=== PATIENT | female | born 1980 | race Caucasian/White ===

== ENCOUNTER → 2021-05-24 14:32 | Outpatient (CLI) | payer OTHER, SELFPAY ==
[2021-05-24 15:34] LABS: ALB/GLOB Ratio 1.1 RATIO (0.9-2.4); AST(SGOT) 22 U/L (15-37); Alanine Aminotransfer ALT/SGPT 21 U/L (13-56); Albumin, Serum 3.6 g/dL (3.2-5.0); Alkaline Phosphatase 71 U/L (45-117); Anion Gap 3 (5-15); BUN 11 mg/dL (7-18); BUN/Creat Ratio 15.4 RATIO (10-20); Calcium,Total 8.8 mg/dL (8.5-10.1); Chloride 107 mmol/L (98-107); Cholesterol 207 mg/dL (200); Creatinine, Serum 0.71 mg/dL (0.55-1.02); EST Glomerular Filtration Rate 96 mL/min (>60); Est Glom Filt Rate - Afr Amer 116 mL/min (>60); Globulin 3.2 g/dL (2.2-4.2); Glucose 101 mg/dL (74-106); High Density Lipoprotein 92 mg/dL; Potassium 3.7 mmol/L (3.5-5.1); Protein, Total 6.8 g/dL (6.4-8.2); Sodium Level 141 mmol/L (136-145); T4 Free Direct 0.84 ng/dL (0.76-1.46); Thyroid Stim Hormone (TSH) 0.81 uIU/mL (0.358-3.74); Triglycerides 157 mg/dL; Very Low Density Lipoprotein 31 mg/dL (5-40)
[2021-05-24 15:39] LABS: Absolute Lymphocyte Count 1.67 X10^3/uL (0.83-4.51); Absolute Neutrophil Count 2.4 X10^3/uL (2.0-7.7); Basophil# 0.04 X10^3/uL; Basophil% 0.9 % (0-1); Eosinophil# 0.09 X10^3/uL; Hematocrit 39.1 % (37-47); Hemoglobin 12.8 g/dL (12.0-15.0); Lymphocyte # 1.67 X10^3/ul (0.83-4.51); Lymphocyte % 36.3 % (19-41); Mean Corp Hgb Conc 32.7 g/dL (32-36); Mean Corpuscular Hgb 30.9 pg (27.0-32.0); Mean Corpuscular Volume 94.4 fL (81-99); Mean Platelet Vol. 9.3 fl (6.2-12.0); Monocyte# 0.41 X10^3/uL; Monocyte% 8.9 % (0-10); NRBC Flagged by Analyzer 0 % (0-5); Neutrophil # 2.39 X10^3/uL (2.7-7.7); Neutrophil % 51.9 % (47-70); Platelet Count 323 K/mm3 (150-450); RBC Distribution Width CV 11.9 % (11.6-14.6); RBC Distribution Width SD 41.1 fl (35.1-43.9); Red Blood Count 4.14 M/mm3 (4.2-5.4); White Blood Count 4.6 K/mm3 (4.4-11.0)
== END ==
PROVIDERS: PCP Internal Medicine; Referring Provider Internal Medicine; Visit Provider Internal Medicine
DX: I10 Essential (primary) hypertension (principal)
CPT/HCPCS: 36415; 80053; 80061; 84439; 84443; 85025

== ENCOUNTER → 2021-05-25 13:38 | Outpatient (CLI) | payer OTHER, SELFPAY ==
--- NOTE | 2021-05-25 13:44 | EKG12_ITS ---
Test Reason : HTN Blood Pressure : / mmHG Vent. Rate : 058 BPM Atrial Rate : 058 BPM P-R Int : 136 ms QRS Dur : 088 ms QT Int : 438 ms P-R-T Axes : 018 -02 -06 degrees QTc Int : 429 ms Sinus bradycardia Otherwise normal ECG Confirmed by CHRISTIE GUERRERO, TOBY ([id number]), scientific editor GURINDER BARLOW ([id number]) on 05/26/2021 9:36:24 AM Referred By: Mindy Araujo Confirmed By:TOBY SORIANO MD
== END ==
PROVIDERS: PCP Internal Medicine; Referring Provider Internal Medicine; Visit Provider Internal Medicine
DX: I10 Essential (primary) hypertension (principal)
CPT/HCPCS: 93005

== ENCOUNTER 2021-07-30 08:43 | Outpatient (CLI) | payer OTHER, SELFPAY ==
[2021-07-30 10:09] LABS: Anion Gap 2 (5-15); BUN 11 mg/dL (7-18); BUN/Creat Ratio 17.3 RATIO (10-20); Calcium,Total 9.1 mg/dL (8.5-10.1); Chloride 103 mmol/L (98-107); Creatinine, Serum 0.64 mg/dL (0.55-1.02); EST Glomerular Filtration Rate 109 mL/min (>60); Est Glom Filt Rate - Afr Amer 132 mL/min (>60); Glucose 86 mg/dL (74-106); Potassium 4.2 mmol/L (3.5-5.1); Sodium Level 137 mmol/L (136-145)
== END 2021-07-30 23:59 | disposition home or self-care (01) ==
PROVIDERS: PCP Internal Medicine; Referring Provider Internal Medicine; Visit Provider Internal Medicine
DX: I10 Essential (primary) hypertension (principal)
CPT/HCPCS: 36415; 80048

== ENCOUNTER → 2022-10-25 | Outpatient (CLI) | payer OTHER, SELFPAY ==
[2022-10-25 12:26] LABS: Absolute Lymphocyte Count 1.33 X10^3/uL (0.83-4.51); Absolute Neutrophil Count 4.5 X10^3/uL (2.0-7.7); Basophil# 0.05 X10^3/uL; Basophil% 0.8 % (0-1); Eosinophil# 0.02 X10^3/uL; Eosinophils% 0.3 % (0-5); Hematocrit 41.2 % (37-47); Hemoglobin 13.4 g/dL (12.0-15.0); Lymphocyte # 1.33 X10^3/ul (0.83-4.51); Mean Corp Hgb Conc 32.5 g/dL (32-36); Mean Corpuscular Hgb 30.1 pg (27.0-32.0); Mean Corpuscular Volume 92.6 fL (81-99); Mean Platelet Vol. 9.6 fl (6.2-12.0); Monocyte# 0.41 X10^3/uL; Monocyte% 6.5 % (0-10); NRBC Flagged by Analyzer 0 % (0-5); Neutrophil % 71.1 % (47-70); Platelet Count 364 K/mm3 (150-450); RBC Distribution Width SD 47.5 fl (35.1-43.9); Red Blood Count 4.45 M/mm3 (4.2-5.4); White Blood Count 6.3 K/mm3 (4.4-11.0)
[2022-10-25 13:06] LABS: ALB/GLOB Ratio 0.9 RATIO (0.9-2.4); AST(SGOT) 32 U/L (15-37); Alanine Aminotransfer ALT/SGPT 19 U/L (13-56); Albumin, Serum 3.4 g/dL (3.2-5.0); Alkaline Phosphatase 53 U/L (45-117); Anion Gap 6 (5-15); BUN 11 mg/dL (7-18); BUN/Creat Ratio 12.5 RATIO (10-20); Calcium,Total 8.9 mg/dL (8.5-10.1); Chloride 103 mmol/L (98-107); Cholesterol 214 mg/dL (200); Creatinine, Serum 0.88 mg/dL (0.55-1.02); EST Glomerular Filtration Rate 75 mL/min (>60); Est Glom Filt Rate - Afr Amer 90 mL/min (>60); Globulin 3.7 g/dL (2.2-4.2); Glucose 135 mg/dL (74-106); High Density Lipoprotein 130 mg/dL; Protein, Total 7.1 g/dL (6.4-8.2); Sodium Level 135 mmol/L (136-145); Thyroid Stim Hormone (TSH) 0.92 uIU/mL (0.358-3.74); Triglycerides 76 mg/dL; Very Low Density Lipoprotein 15 mg/dL (5-40)
== END | disposition home or self-care (01) ==
LOC: BIMLAB 11:04
PROVIDERS: PCP Internal Medicine; Referring Provider Nurse Practitioner Family; Visit Provider Nurse Practitioner Family
DX: I10 Essential (primary) hypertension (principal); Z76.89 Persons encountering health services in other specified circumstances; R73.09 Other abnormal glucose
CPT/HCPCS: 36415; 80053; 80061; 83036; 84443; 85025

== ENCOUNTER → 2023-03-01 | Outpatient (CLI) | payer OTHER, SELFPAY ==
[2023-03-01 13:26] LABS: Anion Gap 8 (5-15); BUN 14 mg/dL (7-18); BUN/Creat Ratio 15.1 RATIO (10-20); Calcium,Total 9.4 mg/dL (8.5-10.1); Chloride 105 mmol/L (98-107); Creatinine, Serum 0.93 mg/dL (0.55-1.02); EST Glomerular Filtration Rate 70 mL/min (>60); Est Glom Filt Rate - Afr Amer 85 mL/min (>60); Glucose 101 mg/dL (74-106); Magnesium 2.3 mg/dL (1.6-2.6); Potassium 3.8 mmol/L (3.5-5.1); Sodium Level 139 mmol/L (136-145)
== END | disposition home or self-care (01) ==
LOC: BIMLAB 08:41
PROVIDERS: PCP Internal Medicine; Referring Provider Internal Medicine; Visit Provider Internal Medicine
DX: I10 Essential (primary) hypertension (principal)
CPT/HCPCS: 36415; 80048; 83735

== ENCOUNTER → 2023-03-22 | Outpatient (CLI) | payer OTHER, SELFPAY | END | disposition home or self-care (01) | PROVIDERS: PCP Internal Medicine; Referring Provider Physician Assistant Surgical; Visit Provider Physician Assistant Surgical | DX: R30.0 Dysuria (principal) | CPT/HCPCS: 87077; 87086; 87088; 87186 ==

== ENCOUNTER → 2024-02-14 | Outpatient (CLI) | payer OTHER, SELFPAY ==
[2024-02-14 12:17] LABS: Absolute Lymphocyte Count 1.33 X10^3/uL (0.83-4.51); Absolute Neutrophil Count 4.8 X10^3/uL (2.0-7.7); Basophil# 0.04 X10^3/uL; Basophil% 0.6 % (0-1); Eosinophil# 0.02 X10^3/uL; Eosinophils% 0.3 % (0-5); Hematocrit 39.6 % (37-47); Hemoglobin 13.3 g/dL (12.0-15.0); Lymphocyte # 1.33 X10^3/ul (0.83-4.51); Lymphocyte % 19.9 % (19-41); Mean Corp Hgb Conc 33.6 g/dL (32-36); Mean Corpuscular Volume 95.2 fL (81-99); Mean Platelet Vol. 9.6 fl (6.2-12.0); Monocyte# 0.45 X10^3/uL; Monocyte% 6.7 % (0-10); NRBC Flagged by Analyzer 0 % (0-5); Neutrophil # 4.84 X10^3/uL (2.7-7.7); Neutrophil % 72.2 % (47-70); Platelet Count 346 K/mm3 (150-450); RBC Distribution Width CV 12.1 % (11.6-14.6); RBC Distribution Width SD 42.6 fl (35.1-43.9); Red Blood Count 4.16 M/mm3 (4.2-5.4); White Blood Count 6.7 K/mm3 (4.4-11.0)
[2024-02-14 12:29] LABS: AST(SGOT) 22 U/L (15-37); Alanine Aminotransfer ALT/SGPT 19 U/L (13-56); Albumin, Serum 3.5 g/dL (3.2-5.0); Alkaline Phosphatase 52 U/L (45-117); Anion Gap 7 (5-15); BUN 12 mg/dL (7-18); BUN/Creat Ratio 15.2 RATIO (10-20); Calcium,Total 9.4 mg/dL (8.5-10.1); Chloride 101 mmol/L (98-107); Cholesterol 191 mg/dL (200); Creatinine, Serum 0.79 mg/dL (0.55-1.02); EST Glomerular Filtration Rate 84 mL/min (>60); Est Glom Filt Rate - Afr Amer 102 mL/min (>60); Globulin 3.5 g/dL (2.2-4.2); Glucose 103 mg/dL (74-106); High Density Lipoprotein 124 mg/dL; Potassium 4.2 mmol/L (3.5-5.1); Sodium Level 134 mmol/L (136-145); Triglycerides 66 mg/dL; Very Low Density Lipoprotein 13 mg/dL (5-40)
== END | disposition home or self-care (01) ==
LOC: BIMLAB 09:18
PROVIDERS: PCP Internal Medicine; Referring Provider Internal Medicine; Visit Provider Internal Medicine
DX: I10 Essential (primary) hypertension (principal)
CPT/HCPCS: 36415; 80053; 80061; 85025

== ENCOUNTER → 2024-07-11 | Outpatient (CLI) | payer OTHER, SELFPAY ==
[2024-07-11 17:25] LABS: Anion Gap 8 (5-15); BUN 15 mg/dL (7-18); BUN/Creat Ratio 20.2 RATIO (10-20); Calcium,Total 9.4 mg/dL (8.5-10.1); Chloride 99 mmol/L (98-107); Creatinine, Serum 0.74 mg/dL (0.55-1.02); EST Glomerular Filtration Rate 90 mL/min (>60); Est Glom Filt Rate - Afr Amer 109 mL/min (>60); Glucose 96 mg/dL (74-106); Potassium 3.5 mmol/L (3.5-5.1); Sodium Level 135 mmol/L (136-145)
== END | disposition home or self-care (01) ==
LOC: BIMLAB 16:19
PROVIDERS: PCP Internal Medicine; Referring Provider Internal Medicine; Visit Provider Internal Medicine
DX: I10 Essential (primary) hypertension (principal)
CPT/HCPCS: 36415; 80048

== ENCOUNTER → 2024-12-15 | Outpatient (CLI) | payer OTHER, SELFPAY ==
[2024-12-16 07:22] LABS: Mucous, Urine 0 SEEN /hpf (<or=2+)
--- OUTSIDE RECORDS SUMMARY | 2024-12-16 07:23 | XMS RPT_ITS | CCD ---
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 Mindy Harman Primary Care Provider [phone] Dr. Mindy Araujo Referring Provider [phone] Dayne BARRERA, SIMON Monzon Attending Provider [phone] Unavailable Primary Care Provider UnavailDr. Mindy Teran Primary Care Provider [phone] Dr. Mindy Araujo Attending Provider [phone] Dr. Mindy Araujo Referring Provider [phone] MAGGI Fernandez Attending Provider [phone] Unavailable Primary Care Provider UnavailMAKENZIE Grey Referring Unavailable MAKENZIE CLANCY Attending Unavailable Dr. Mindy Araujo MD Primary Care Provider Dr. Mindy Araujo MD Referring Provider [phone] Phong Whitaker Attending Provider [phone] Oleghe, Efewongbe Attending Unavailable Oleghe, Efewongbe Referring Unavailable Oleghe, Efewongbe Primary Care Unavailable Oleghe, Efewongbe Primary Care Unavailable Jame Martinez Attending Unavailable Oleghe, Efewongbe Referring Unavailable Oleghe, Efewongbe Attending Unavailable Oleghe, Efewongbe Referring Unavailable Oleghe, Efewongbe Primary Care Unavailable Phong Burger Attending Unavailable Oleghe, Efewongbe Referring Unavailable Oleghe, Efewongbe Primary Care Unavailable Oleghe, Efewongbe Primary Care Unavailable Oleghe, Efewongbe Attending Unavailable Oleghe, Efewongbe Referring Unavailable Lis Araujoongbe Primary Care Unavailable Van, Efceciliaongbe Attending Unavailable Van, Efceciliaongbe Referring Unavailable Self Schedule, [facility] Attending Provider Devi vailable Medications Current Medications Medication Drug Class(es) Dates Sig (Normalized) Sig (Original) Eladio Root Extract (2 sources) Start: 10-25-2022 take 1 mg by mouth at bedtime Ashpayamdha Root Extract Active MG PO AT BEDTIME October 25, 2022 12:00am cholecalciferol, vitamin D3, (VITAMIN D3 ORAL) (18 sources) cholecalciferol, vitamin D3, (VITAMIN D3 ORAL) Take by mouth. Active cholecalciferol, vitamin D3, (VITAMIN D3 ORAL) Take by mouth. 0 Active Comment on above: Take by mouth. drospirenone / Ethinyl Estradiol / levomefolate (20 sources) Progestin, Estrogen Start: 09-05-2024 take 1 tablet by mouth once daily drospirenone-e.estr adiol-lm.FA (BEYAZ) 3-0.02-0.451 mg (24) (4) tab Take 1 tablet by mouth once daily. for continuous use, skip inactive pills 112 tablet 3 09/05/2024 Active Start: 08-29-2024 End: 09-05-2024 take 1 tablet by mouth once daily drospirenone-e.estradiol-lm.FA (BEYAZ) 3-0.02-0.451 mg (24) (4) tab Take 1 tablet by mouth once daily. for continuous use, skip inactive pills 84 tablet 3 08/29/2024 09/05/2024 Discontinued Start: 08-29-2024 take 1 tablet by simon th once daily drospirenone-e.estradiol-lm.FA (BEYAZ) 3-0.02-0.451 mg (24) (4) tab Take 1 tablet by mouth once daily. for continuous use, skip inactive pills 84 tablet 3 08/29/2024 Active Start: 08-29-2024 End: 08-29-2024 take 1 tablet by mouth once daily drospirenone-e.estradiol-lm.FA (BEYAZ) 3-0.02-0.451 mg (24) (4) tab Take 1 tablet by mouth once daily for 28 days. for continuous use, skip inactive pills 28 tablet 08/29/2024 08/29/2024 Discontinued Start: 05-31-2024 End: 08-29-2024 take 1 tablet by mouth once daily drospirenone-e.estradiol-lm.FA (BEYAZ) 3-0.02-0.451 mg (24) (4) tab Take 1 tablet by mouth once daily. for continuous use, skip inactive pills 84 tablet 3 05/31/2024 08/29/2024 Discontinued Start: 05-31-2024 take 1 tablet by simon th once daily drospirenone-e.estradiol-lm.FA (BEYAZ) 3-0.02-0.451 mg (24) (4) tab Take 1 tablet by mouth once daily. for continuous use, skip inactive pills 84 tablet 3 05/31/2024 Active Start: 07-31-2023 End: 05-31-2024 drospirenone-e.estradiol-lm. FA (BEYAZ) 3-0.02-0.451 mg (24) (4) tab Take 1 tablet by mouth once daily. for continuous use, skip inactive pills Patient should start on July 31, 2023. 84 tablet 3 07/31/2023 05/31/2024 Discontinued Start: 07-31-2023 End: 07-11-2023 drospirenone-e.estradiol-lm. FA (BEYAZ) 3-0.02-0.451 mg (24) (4) tab Take 1 tablet by mouth once daily. for continuous use, skip inactive pills Patient should start on July 31, 2023. 84 tablet 3 07/31/2023 07/11/2023 Discontinued Start: 07-31-2023 drospirenone-e .estradiol-lm.FA (BEYAZ) 3-0.02-0.451 mg (24) (4) tab Take 1 tablet by mouth once daily. for continuous use, skip inactive pills Patient should start on July 31, 2023. 84 tablet 3 07/31/2023 Active Start: 07-10-2023 End: 08-27-2024 take 1 tablet by mouth once daily drospirenone-e.estradiol-lm.FA (BEYAZ) 3-0.02-0.451 mg (24) (4) tab Take 1 tablet by mouth once daily for 28 days. for continuous use, skip inactive pills 28 tablet 07/10/2023 08/27/2024 Discontinued Start: 07-10-2023 take 1 tablet by simon th once daily drospirenone-e.estradiol-lm.FA (BEYAZ) 3-0.02-0.451 mg (24) (4) tab Take 1 tablet by mouth once daily for 28 days. for continuous use, skip inactive pills 28 tablet 07/10/2023 Active Start: 07-10-2023 take 1 tablet by simon th once daily drospirenone-e.estradiol-lm.FA (BEYAZ) 3-0.02-0.451 mg (24) (4) tab Take 1 tablet by mouth once daily for 28 days. for continuous use, skip inactive pills 28 tablet 0 07/10/2023 Active Start: 07-10-2023 End: 08-07-2023 take 1 tablet by mouth once daily drospirenone-e.estradiol-lm.FA (BEYAZ) 3-0.02-0.451 mg (24) (4) tab Take 1 tablet by mouth once daily for 28 days. for continuous use, skip inactive pills 28 tablet 0 07/10/2023 08/07/2023 Active Start: 07-10-2023 End: 07-10-2023 take 1 tablet by mouth once daily drospirenone-e.estradiol-lm.FA (BEYAZ) 3-0.02-0.451 mg (24) (4) tab Take 1 tablet by mouth once daily. for continuous use, skip inactive pills 84 tablet 0 07/10/2023 07/10/2023 Discontinued Start: 07-04-2023 End: 07-10-2023 take 1 tablet by mouth once daily drospirenone-e.estradiol-lm.FA (BEYAZ) 3-0.02-0.451 mg (24) (4) tab Take 1 tablet by mouth once daily. for continuous use, skip inactive pills 84 tablet 0 07/04/2023 07/10/2023 Discontinued Start: 07-04-2023 take 1 tablet by simon th once daily drospirenone-e.estradiol-lm.FA (BEYAZ) 3-0.02-0.451 mg (24) (4) tab Take 1 tablet by mouth once daily. for continuous use, skip inactive pills 84 tablet 0 07/04/2023 Active Start: 07-04-2023 End: 07-04-2023 take 1 tablet by mouth once daily drospirenone-e.estradiol-lm.FA (BEYAZ) 3-0.02-0.451 mg (24) (4) tab Take 1 tablet by mouth once daily. for continuous use, skip inactive pills 84 tablet 0 07/04/2023 07/04/2023 Discontinued Start: 05-01-2023 End: 07-04-2023 take 1 tablet by mouth once daily drospirenone-e.estradiol-lm.FA (BEYAZ) 3-0.02-0.451 mg (24) (4) tab Take 1 tablet by mouth once daily. for continuous use, skip inactive pills 84 tablet 3 05/01/2023 07/04/2023 Discontinued Start: 05-01-2023 take 1 tablet by simon th once daily drospirenone-e.estradiol-lm.FA (BEYAZ) 3-0.02-0.451 mg (24) (4) tab Take 1 tablet by mouth once daily. for continuous use, skip inactive pills 84 tablet 3 05/01/2023 Active Start: 03-08-2023 End: 05-01-2023 take 1 tablet by mouth once daily drospirenone-e.estradiol-lm.FA (BEYAZ) 3-0.02-0.451 mg (24) (4) tab Take 1 tablet by mouth once daily. for continuous use, skip inactive pills 84 tablet 3 03/08/2023 05/01/2023 Discontinued Start: 03-08-2023 take 1 tablet by simon th once daily drospirenone-e.estradiol-lm.FA (BEYAZ) 3-0.02-0.451 mg (24) (4) tab Take 1 tablet by mouth once daily. for continuous use, skip inactive pills 84 tablet 3 03/08/2023 Active Start: 10-25-2022 End: 12-15-2024 Drospirenone-E.Estradiol-Lm. Fa (Beyaz) 3-0.02-0.451 mg (24) (4) tablet Discontinued 1 {tbl} PO DAILY October 25, 2022 12:00am December 15, 2024 8:20am Start: 10-25-2022 Drospirenone-E .Estradiol-Lm.Fa (Beyaz) 3-0.02-0.451 mg (24) (4) tablet Active 1 {tbl} PO DAILY October 25, 2022 12:00am Start: 10-25-2022 Drospirenone-E .Estradiol-Lm.Fa (Beyaz) 3-0.02-0.451 mg (24) (4) tablet Active 1 TABLET PO DAILY October 25, 2022 12:00am Start: 02-02-2022 End: 03-08-2023 take 1 tablet by mouth once daily drospirenone-e.estradiol-lm.FA (BEYAZ) 3-0.02-0.451 mg (24) (4) tab Take 1 tablet by mouth once daily. for continuous use, skip inactive pills 84 tablet 3 02/02/2022 03/08/2023 Discontinued Start: 02-02-2022 take 1 tablet by simon th once daily drospirenone-e.estradiol-lm.FA (BEYAZ) 3-0.02-0.451 mg (24) (4) tab Take 1 tablet by mouth once daily. for continuous use, skip inactive pills 84 tablet 3 02/02/2022 Active Start: 11-05-2021 End: 02-02-2022 take 1 tablet by mouth once daily drospirenone-e.estradiol-lm.FA (BEYAZ) 3-0.02-0.451 mg (24) (4) tab Take 1 tablet by mouth once daily. 84 tablet 1 11/05/2021 02/02/2022 Discontinued Start: 11-05-2021 take 1 tablet by simon th once daily drospirenone-e.estradiol-lm.FA (BEYAZ) 3-0.02-0.451 mg (24) (4) tab Take 1 tablet by mouth once daily. 84 tablet 1 11/05/2021 Active Start: 11-05-2021 End: 11-05-2021 take 1 tablet by mouth once daily drospirenone-e.estradiol-lm.FA (BEYAZ) 3-0.02-0.451 mg (24) (4) tab Take 1 tablet by mouth once daily. 28 tablet 2 11/05/2021 11/05/2021 Discontinued Comment on above: Take 1 tablet by simon th once daily. Take 1 tablet by simon th once daily. for continuous use, skip inactive pills Take 1 tablet by simon th once daily for 28 days. for continuous use, skip inactive pills Take 1 tablet by simon th once daily. for continuous use, skip inactive pills Patient should start on July 31, 2023. [id number] 0.3 ml EPINEPHrine 1 mg/ml auto-injector (13 sources) alpha-Adrenergic Agonist, beta-Adrenergic Agonist, Catecholamine Start: 03-24-2023 EPINEPHrine (EPIPEN) 0.3 mg/0.3 mL auto-injector 03/24/2023 Active Start: 03-24-2023 Epinephrine (E pipen 2-Priya) 0.3 mg/0.3 mL auto-injector Active 0.3 mg IM ONCE 2 2 March 24, 2023 12:00am as a single dose; may repeat once hydroCHLOROthiazide 25 mg / triamterene 37.5 mg oral tablet (20 sources) Potassium-sparing Diuretic, Thiazide Diuretic Start: 08-24-2021 triamterene-hydroCHLOROthiaz bruno (DYAZIDE) 37.5-25 mg per capsule 08/24/2021 Active Start: 07-15-2021 End: 11-18-2024 Triamterene-Hydrochlorothiaz id 37.5-25 mg tablet Active 1 {tbl} PO EVERY MORNING 90 0 November 18, 2024 7:40am Start: 07-15-2021 End: 11-01-2022 take 1 tablet by mouth once daily in the morning Triamterene-Hydrochlorothiazid Active 1 TABLET PO EVERY MORNING 90 November 01, 2022 12:23pm nitrofurantoin, macrocrystals 25 mg / nitrofurantoin, monohydrate 75 mg oral capsule (4 sources) Nitrofuran Antibacterial Start: 12-15-2024 take 1 capsule by mouth every twelve hours at mealtime Nitrofurantoin Monohyd/M-Cryst (Macrobid) 100 mg capsule Active 100 mg PO Q12H 14 7 0 December 15, 2024 12:00am December 21, 2024 12:00am must administer with a meal/food Start: 03-22-2023 End: 03-29-2023 take 1 capsule by mouth every twelve hours at mealtime Nitrofurantoin Monohyd/M-Cryst 100 mg capsule Discontinued 1 NMA PO Q12H 14 7 0 March 22, 2023 12:00am March 28, 2023 12:00am March 29, 2023 12:05am administer with a meal/food; swallow whole; do not open, crush, dissolve , or chew Completed/Discontinued Medications Medication Drug Class(es) Dates Sig (Normalized) Sig (Original) amLODIPine 5 mg oral tablet (20 sources) Dihydropyridine Calcium Channel Marcell Start: 11-23-2022 End: 08-27-2024 Amlodipine 5 mg tablet Discontinued 0 .ROUTE .COMPLEX 90 March 13, 2024 8:59am August 27, 2024 12:41pm TAKE 1 TABLET DAILY amoxicillin 875 mg / clavulanate 125 mg oral tablet (2 sources) Penicillin-class Antibacterial Start: 03-25-2024 End: 07-11-2024 Amoxicillin-Pot Clavulanate 875-125 mg tablet Discontinued 1 {tbl} PO TWICE A DAY 20 March 25, 2024 12:00am July 11, 2024 5:01pm Ashwagandha Root Extract 300 mg capsule (2 sources) Start: 10-25-2022 End: 02-14-2024 take 1 mg by mouth at bedtime Ashwagandha Root Extract 300 mg capsule Discontinued mg PO AT BEDTIME October 25, 2022 12:00am February 14, 2024 8:49am cholecalciferol 0.025 mg oral capsule (4 sources) Vitamin D Start: 10-25-2022 End: 12-15-2024 take 1 capsule by mouth once daily Cholecalciferol (Vitamin D3) 25 mcg (1,000 unit) capsule Discontinued 25 ug PO DAILY October 25, 2022 12:00am December 15, 2024 8:20am Ciprofloxacin Hcl 0.3 % drops (2 sources) Start: 11-16-2024 End: 12-15-2024 Ciprofloxacin Hcl 0.3 % drops Discontinued 0 OPHTHALMIC .COMPLEX 10 0 November 16, 2024 12:00am December 15, 2024 8:20am Conjunctivitis of right eye Unspecified conjunctivitis put 1-2 drps in affected eye(s) every 2hr up to 8 times/day x2days; then 4 times/day x5days ophthalmic (eye) Start: 11-16-2024 Ciprofloxacin Hcl 0.3 % drops Active 0 OPHTHALMIC .COMPLEX November 16, 2024 12:00am put 1-2 drps in affected eye(s) every 2hr up to 8 times/day x2days; then 4 times/day x5days ophthalmic (eye) Creatine Monohydrate 5,000 m g powder in packet (2 sources) Start: 02-14-2024 End: 12-15-2024 Creatine Monohydrate 5,000 m g powder in packet Discontinued mg PO February 14, 2024 12:00am December 15, 2024 8:20am less than 3 gm Start: 02-14-2024 Creatine Monoh ydrate 5,000 mg powder in packet Active mg PO February 14, 2024 12:00am less than 3 gm hydrocortisone 25 mg/ml topical cream (2 sources) Corticosteroid Start: 08-30-2023 End: 12-15-2024 Hydrocortisone 2.5 % cream Discontinued 1 NMA TOPICAL TWICE A DAY as needed for rash 27 06August 30, 2023 12:00am December 15, 2024 8:21am methylPREDNISolone 4 mg oral tablet (5 sources) Corticosteroid Start: 03-22-2023 End: 03-28-2023 take 1 tablet by mouth once Methylprednisolone (Medrol (Priya)) 4 mg tablets,dose pack Discontinued 4 mg PO per package directions 21 6 0 March 22, 2023 12:00am March 27, 2023 12:00am March 28, 2023 12:05am Start: 02-14-2021 End: 02-02-2022 methylPREDNISolone (MEDROL, PRIYA,) 4 mg Dose-Pack Indications: Fungal infection of skin , Dermatitis As instructed per package 1 Package 0 02/14/2021 02/02/2022 Discontinued (Other) Start: 02-14-2021 methylPREDNISo lone (MEDROL, PRIYA,) 4 mg Dose-Pack Indications: Fungal infection of skin , Dermatitis As instructed per package 1 Package 0 02/14/2021 Active Comment on above: As instructed per maggi ortiz miconazole nitrate 0.02 mg/mg topical powder (2 sources) Azole Antifungal Start: 08-30-19 End: 02-14-20 Miconazole Nitrate 2 % powder Discontinued 1 NMA TOPICAL TWICE A DAY 85 August 30, 2023 12:00am February 14, 2024 8:49am minoxidil 20 mg/ml topical solution (13 sources) Arteriolar Vasodilator Start: 04-05-20 End: 07-10-19 Minoxidil 2 % solution Discontinued 1 mL TOPICAL TWICE A DAY April 05, 2021 1:00am March 01, 2023 8:07am Comment on above: Apply to affected ar ea. naltrexone hydrochloride 50 mg oral tablet (3 sources) Opioid Antagonist Start: 03-01-20 End: 02-14-20 take 1 tablet by mouth once daily Naltrexone 50 mg tablet Discontinued 50 mg PO DAILY 90 March 01, 2023 12:00am February 14, 2024 8:49am Do not drink while on Naltrexone oregano oil 1500 mg oral capsule (20 sources) Start: 04-05-20 End: 02-14-20 take 1 capsule by mouth once daily as needed Oregano Oil 1,500 mg capsule Discontinued 1500 mg PO DAILY as needed May 31, 2023 12:16pm February 14, 2024 8:49am Start: 04-05-2021 Oregano Oil Ac tive MG PO April 05, 2021 1:00am Comment on above: Take by mouth. theanine 100 mg oral capsule (4 sources) Start: 10-25-2022 End: 02-14-2024 take 1 mg by mouth at bedtime Theanine 100 mg capsule Discontinued mg PO AT BEDTIME October 25, 2022 12:00am February 14, 2024 8:49am Start: 10-25-2022 take 1 mg by mouth at bedtime Theanine Active MG PO AT BEDTIME October 25, 2022 12:00am Problems Active Problems Problem Classification Problem Date Documented Date Episodic/Chronic Administrative/social admission (2 sources) First encounter by subject; Translations: [Persons encountering health services in other specified circumstances] 05-24-2021 Episodic Allergic reactions (2 sources) Inflammatory dermatosis; Translations: [Dermatitis, unspecified] 08-30-2023 Episodic Anxiety disorders (2 sources) Mixed anxiety and depressive disorder; Translations: [Anxiety disorder, unspecified] 08-30-2023 Chronic Cardiac dysrhythmias (4 sources) Cardiac arrhythmia; Translations: [Cardiac arrhythmia, unspecified] 05-24-2021 Chronic Essential hypertension (7 sources) Hypertensive disorder; Translations: [Essential (primary) hypertension] Onset: 07-24-2024 06-21-2021 Chronic Genitourinary symptoms and ill-defined conditions (4 sources) Dysuria; Translations: [Dysuria] 03-22-2023 Episodic Headache; including migraine (4 sources) Headache; Translations: [Headache] 04-05-2021 Episodic Heart valve disorders (4 sources) Heart murmur; Translations: [Cardiac murmur, unspecified] 04-05-2021 Episodic Immunizations and screening for infectious disease (4 sources) Requires vaccination; Translations: [Encounter for immunization] Episodic Inflammation; infection of eye (except that caused by tuberculosis or sexually transmitteddisease) (5 sources) Conjunctivitis of right eye; Translations: [Unspecified conjunctivitis] Onset: 11-16-2024 11-16-2024 Episodic Mycoses (4 sources) Tinea corporis; Translations: [Tinea corporis] 02-19-2021 Episodic Other lower respiratory disease (4 sources) Cough; Translations: [Cough] 04-05-2021 Episodic Other screening for suspected conditions (not mental disorders or infectious disease) (9 sources) Patient encounter status; Translations: [Encounter for screening mammogram for malignant neoplasm of breast] Onset: 08-21-2024 Episodic Other upper respiratory infections (2 sources) Upper respiratory infection; Translations: [Acute upper respiratory infection, unspecified] 07-11-2024 Episodic Poisoning by nonmedicinal substances (4 sources) Bee sting; Translations: [Toxic effect of venom of bees, accidental (unintentional), initial encounter] 03-22-2023 Episodic Residual codes; unclassified (2 sources) Alcoholism; Translations: [Alcohol use disorder] 03-01-2023 Episodic Residual codes; unclassified (2 sources) Other specified conditions influencing health status; Translations: [Alcohol use disorder] 03-01-2023 Episodic Urinary tract infections (2 sources) Urinary tract infectious disease; Translations: [Urinary tract infection, site not specified] 12-15-2024 Episodic Viral infection (4 sources) Disease caused by 2019-nCoV; Translations: [COVID-19] 04-05-2021 Episodic Past or Other Problems Problem Classification Problem Date Documented Da te Episodic/Chronic Other and delivery including normal (12 sources) Normal in primigravida; Translations: [Encounter for supervision of normal first , unspecified trimester] Onset: 06-05-2007 Resolved: 02-01-2011 07-09-2010 Episodic Results Test Name Value Interpretation Reference Range Facility Urgent Care Visit Reporton 0 11-16-2024 Urgent Care Visit Report [facility] [address] , [address] [place] [address] OFFICE VISIT Date of Service: 11/16/24 MR#: [id number] Acct: [id number] Name: EDNA AKERS Rep #: [id number] : 1980 Provider: MAGGI Velarde Age/Sex: 44/F Location[facility] Status: Signed Intake Vital Signs 07/11/24 16:03 11/16/24 08:07 Height 5 ft 7 in Weight: 138 lb 6 oz BMI 21.7 BP 120/78 110/70 Blood Pressure Location Rt brachial Lt radial Position Sitting Sitting Respiration 16 14 Pulse 72 72 Pulse Source Monitor NIBP Temp 96.9 F L 98.4 F Temp Source Temporal Oral Pulse Oximetry (%) 99 97 Oxygen Delivery Method room air Intake Visit Reasons: CONCERN FOR PINK EYE/R EYE Chief Complaint: Excess discharge in the eye, irritation of eye Clinical Review Specialist Required: No Is patient in pain?: No Allergies No Known Allergies Allergy (Verified 07/11/24 16:01) Is last menstrual period known: No Post menopausal: No Patient : No Have you fallen in the past year?: No Nurse's Note: Complaint of excess discharge in the eye for 3 days alongside crusting in the morning and discomfort. COUNT INCLUDES THE [facility] Medical History (Updated 11/16/24 @ 08:22 by MAGGI Velarde) Upper respiratory infection Dermatitis Anxiety and depression Alcohol use disorder Encounter to establish care Abnormal heart rhythm Hypertension Heart murmur History of kidney stones Surgical History History of Family History Other Breast cancer CVA (cerebral vascular accident) Hypertension Seizures Social History Smoking Status: Never smoker alcohol intake: current substance use type: does not use what type of physical activity do you participate in: walking, yoga, aerobics and weight training frequency: daily HPI HPI Chief Complaint: Excess discharge in the eye, irritation of eye Details: EDNA AKERS, is a 44 F who presents to the office today for evaluation of right eye symptoms. Patient notes concern for right sided eye irritation and discharge over the past several days. She states that she primarily has noticed crusting starting in the morning with intermittent discharge which she describes as boogers. She notes that there is discomfort of the right eye with movement along with intermittent pruritus. She denies contact with other individuals with similar symptoms or any current treatments for this issue at this time. ROS Const Constitutional: No chills or fever(s) Eyes Eyes: Positive for irritation, discharge and eye pain; No blurry vision ENT ENT: No ear or mastoid pain, nasal congestion, nasal discharge or sore throat Exam Const General: cooperative and no acute distress Eyes Conjunctivae: conjunctival abnormality right conjunctival injection diffuse and discharge purulent Pupils: PERRL EOM: EOM intact bilaterally Neck Lymphatic: no lymphadenopathy noted Coding Level of Care Code Established Pt Off vis,est,level 2 Patient Type Established History Problem Focused Exam Problem Focused Medical Decision Making Low Complexity Diagnoses Acute conjunctivitis of right eye, unspecified acute conjunctivitis type H10.31 Conjunctivitis type: acute Acute conjunctivitis type: unspecified Assessment and Plan Assessment and Plan (1) Conjunctivitis, right eye: Status: Acute Qualifiers: Conjunctivitis type: acute Acute conjunctivitis type: unspecified Qualified Code(s): H10.31 - Unspecified acute conjunctivitis, right eye Plan: Features suggestive of allergic vs bacterial, will initiate management with antibacterial ophthalmic preparation at this time along with use of OTC antihistamine for symptoms. Reviewed risk for transmission as well as appropriate eye care to prevent recurrence. Patient encouraged to avoid contact lens use until symptoms resolve. Patient voiced understanding and agreement with plan. Medications: New ciprofloxacin HCl 0.3% put 1-2 drps in affected eye(s) every 2hr up to 8 times/day x2days; then 4 times/day x5days ophthalmic (eye) 10 mL 0RF H10.9 - Unspecified conjunctivitis Clinical Quality Measures Falls Risk Screening/Assistive Devices Have you fallen in the past year?: No 11/16/24 0823 Date Phong Tao PA Gueritavandana Signature: Date (if applicable) CC: Normal [facility] NICK SCREENING W TOMOon 08-21 NICK SCREENING W MAXIMILIAN * * *Final Report* * * DATE OF EXAM: Aug 21 2024 7:38AM [id number] - NICK SCREENING W MAXIMILIAN / PROCEDURE REASON: Encounter for screening mammogram for breast cancer * * * * Physician Interpretation * * * * RESULT: [place] [address] #[id number] - NICK SCREENING W MAXIMILIAN HISTORY: 43 year-old patient seen for screening. Patient is asymptomatic in both breasts. Patient states no personal history of breast cancer. The patient has a family history of breast cancer. COMPARISON STUDIES: The present examination has been compared to a prior imaging study dated 08/21/2023 (mammogram). MAMMOGRAM TECHNIQUE: The study was acquired using full field digital technology and interpreted from soft copy. Digital Breast Tomosynthesis (DBT) images were obtained and used to assist in the interpretation of this examination. MAMMOGRAM FINDINGS: The breasts are heterogeneously dense, which may obscure small masses. No suspicious masses, calcifications or other abnormalities are seen in either breast. There are no significant interval changes. IMPRESSION: There is no mammographic evidence of malignancy in either breast. Routine screening mammogram is recommended. Annual mammogram will be due in 1 year. BI-RADS Category 1: Negative RISK: Based on the Tyrer-Cuzick (TC) risk assessment model, this patient has a 11.4% lifetime risk of developing breast cancer, meaning they are at average risk for developing breast cancer. However, this is only an estimate based on available history provided on the patient's questionnaire. We encourage all patients to talk with their providers about these results, further recommendations for managing breast health, and appropriate supplemental screening options if the patient has dense breast tissue. Interpreting Radiologist: Savanah De Jesus M.D. Electronically signed on: 08/22/2024 Equine Manager: FRANCISCO Transcribe Date/Time: Aug 21 2024 7:13A Dictated by: SAVANAH DE JESUS MD This examination was interpreted and the report reviewed and electronically signed by: SAVANAH DE JESUS MD on Aug 22 2024 8:09AM EST [id number] Normal [facility] Basic Metabolic Profile (BMP )on 07-11-2024 BUN/CRE 20.2 RATIO High 10-20 [facility] Comment on above: Performed By: #### L 500.2500 #### [facility] [address] [place], [address] CA,Total 9.4 mg/dL Normal 8.5-10.1 [facility] Comment on above: Performed By: #### L 500.2500 #### [facility] [address] [place], [address] Chloride [Moles/Vol] 99 mmol/L Normal 98-107 [facility] Comment on above: Performed By: #### L 500.2500 #### [facility] [address] [place], [address] CO2 [Moles/Vol] 27.0 mmol/L Normal 21.0-32.0 [facility] Comment on above: Performed By: #### L 500.2500 #### [facility] [address] [place], [address] Creatinine [Mass/Vol] 0.74 mg/dL Normal 0.55-1.02 [facility] Comment on above: Result Comment: The validity of the calculated GFR GFRAA in patients over 70 years has not been determined. Clinical correlation is essential. Performed By: #### L 500.2500 #### [facility] [address] [place], [address] EST GFR - AA 109 mL/min Normal >60 [facility] Comment on above: Result Comment: Afri can Syrian GFR Calc Performed By: #### L 500.2500 #### [facility] [address] [place], [address] GAP 8 Normal 5-15 [facility] Comment on above: Performed By: #### L 500.2500 #### [facility] [address] [place], [address] GFR/1.73 sq M.predicted among non-blacks MDRD (S/P/Bld) [Vol rate/Area] 90 mL/min/{1.73_m2} Normal >60 [facility] Comment on above: Result Comment: Non- GFR Calc Performed By: #### L 500.2500 #### [facility] [address] [place], [address] Glucose [Mass/Vol] 96 mg/dL Normal 74-106 [facility] Comment on above: Performed By: #### L 500.2500 #### [facility] [address] [place], [address] Potassium [Moles/Vol] 3.5 mmol/L Normal 3.5-5.1 [facility] Comment on above: Performed By: #### L 500.2500 #### [facility] [address] [place], [address] Sodium [Moles/Vol] 135 mmol/L Low 136-145 [facility] Comment on above: Performed By: #### L 500.2500 #### [facility] [address] [place], [address] Urea nitrogen [Mass/Vol] 15 mg/dL Normal 7-18 [facility] Comment on above: Performed By: #### L 500.2500 #### [facility] [address] [place], [address] Internal Medicine Office Vis iton 07-11-2024 Internal Medicine Office Visit [facility] [address] [place] [address] [place] [address] OFFICE VISIT Date of Service: 07/11/24 MR#: [id number] Acct: [id number] Name: EDNA AKERS Rep #: [id number] : 1980 Provider: Dr. Mindy aguayo MD Age/Sex: 43/F Location[facility] Status: Signed Intake Vital Signs 02/14/24 08:52 03/25/24 12:38 07/11/24 16:03 Height 5 ft 4 in 5 ft 4 in 5 ft 7 in Weight: 138 lb 6 oz BMI 21.7 BP 120/78 Blood Pressure Location Rt brachial Position Sitting Respiration 16 Pulse 72 Pulse Source Monitor Temp 96.9 F L Temp Source Temporal Pulse Oximetry (%) 99 Oxygen Delivery Method room air Intake Visit Reasons: 5 M FU Chief Complaint: Follow-up chronic conditions. Cough and congestion Clinical Review Specialist Required: No Accompanied by: Self Is patient in pain?: No Allergies No Known Allergies Allergy (Verified 07/11/24 16:01) Medications ???Medication ???Instructions ???Recorded ???Confirmed ???Type cholecalciferol (vitamin D3) 25 25 mcg PO DAILY 10/25/22 03/25/24 History mcg (1,000 unit) capsule drospiren-e.estrad-l. mefol 3 1 tab PO DAILY 10/25/22 03/25/24 H istory mg-0.02 mg-0.451 mg(24)/0.451 mg(4)tablet (Beyaz ()) epinephrine 0.3 mg/0.3 mL 0.3 mg (0.3 mL) IM ONCE #2 ea 02/2703/25/24 Rx injection, auto-injector (EpiPen 2-Priya) hydrocortisone 2.5 % topical cream 1 applic topical BID PRN rash #3 0 08/30/23 03/25/24 Rx grams creatine monohydrate 5,000 mg oral mg PO 02/14/24 03/25/24 History powder packet amlodipine 5 mg tablet See Rx Instructions .Route 4 03/25/24 Rx .COMPLEX #90 tabs triamterene 37.5 1 tab PO QAM #90 TABLETS 05/27/24 Rx mg-hydrochlorothiazid e 25 mg tablet Have you fallen in the past year?: No PFSH Medical History (Updated 07/11/24 @ 19:[address] Mindy Araujo MD) Upper respiratory infection Dermatitis Anxiety and depression Alcohol use disorder Encounter to establish care Abnormal heart rhythm Hypertension Heart murmur History of kidney stones Surgical History History of Family History Other Breast cancer CVA (cerebral vascular accident) Hypertension Seizures Social History Smoking Status: Never smoker alcohol intake: current substance use type: does not use what type of physical activity do you participate in: walking, yoga, aerobics and weight training frequency: daily HPI HPI Chief Complaint: Follow-up chronic conditions. Cough and congestion Details: EDNA AKERS, is a 43 F who presents to the office today for follow-up of her chronic conditions. Also has some concerns. She reports cough and some congestion which has been ongoing for a few days. Other family members with similar symptoms. No fever or chills. No shortness of breath but she states that she has found it slightly difficult to take deep breaths. Still able to exercise and carry out her activities without any significant limitations. Blood pressure today is optimal, blood pressure at 120/78 mmHg. She also states that her readings at home have been much better as well. Feels good, no syncopal and near syncopal episodes. Other chronic conditions are stable. ROS Const Constitutional: Positive for headache(s); No body ache, excessive sweating, fatigue, fever(s), frequent falls, snoring, weakness, weight change, sleep problems or change in appetite Eyes Eyes: No blurry vision, change in vision, bulging eyes, floaters, visual disturbances, eye pain or Light sensitivity ENT ENT: Positive for sinus pressure, nasal discharge and headache(s); No abnormal hearing, ear or mastoid pain, tinnitus, balance problems, nosebleed/epistaxis, nasal congestion, neck pain or sore throat Resp Respiratory: Positive for cough; No excessive phlegm production, pain on inspiration, shortness of breath, snoring or wheezing Cardio Cardiology: No chest pain at rest, chest pain with exertion, excessive sweating, shortness of breath, dyspnea on exertion, lightheadedness, orthopnea or palpitations Gastro GI: No abdominal pain, change in bowel habits, constipation, cramping, diarrhea, nausea/dyspepsia or vomiting Genitourinary-Female: No burning urination, painful urination, urinary incontinence, urinary frequency, blood in urine, suprapubic fullness, side pain, abnormal periods or pelvic pain Musc Musculoskeletal: No abnormal gait, joint pain, back pain, limited range of motion, neck pain, numbness, stiffness, tingling or Arthritis Skin Skin: No dry skin, redness, excessive hair growth, yellowing of the eye, lesions, itchy eyes, rash or wounds Neuro Neurology: Posi (more content not included)... [facility] (OB[facility] ) OSORIOEDNA Zaragoza ([id number]) 1980 F Date Time Provider Department 05/31/24 2:20 PM MAKENZIE CLANCY OBGYWM During your visit today, we recorded the following information about you: Blood pressure Weight Height Last Period 12886 62.8 kg 1.613 m 05/17/24 Makenzie Clancy MD 05/31/2024 5:08 PM Signed Front End Mechanic offered: Patient declines. Edna is a 43 year old who presents for an annual gynecologic exam without complaints. Still get period: Yes LMP: 05/17/2024 Bleeding amount bothersome: No Bleeding between periods: No Period symptoms: Breast tenderness; Cramps; Mood change Time with current partner: 2 1/2 years Number of lifetime partners: 4 control frequency: Always HPV vaccine: Yes; HPV:negative Last pap smear: 2019 normal History of abnormal pap: No, all prior PAP smears have been normal Bothersome pelvic pain: No Last mammogram: 2023normal Patient concerns for STD exposure: No. OB History T1 L2 SAB0 IAB0 Ectopic0 Multiple0 Live Births2 Hand Chain Maker History LMP: 05/17/2024, Having periods Age at Menarche: 12 Age at First : Age at Menopause: Hand Chain Maker History Comments: Sexual Activity: Yes; Male Contraception: Pill Menstrual Tracking History Flowsheet Row Office Visit from 05/31/2024 in OB/Gynecology Period Cycle (Days) 28 Period Duration (Days) 4 Menstrual Flow Light PAST MEDICAL HISTORY Diagnosis Date Essential hypertension Irregular menses usually 32-45 days PMH - PAST MEDICAL HISTORY OF 05/29/1996 RENAL CALCULI WITH SEPSIS PAST SURGICAL HISTORY Procedure Laterality Date DELIVERY ONLY 12/28/2007 , low cervical DELIVERY ONLY 01/17/11 , low transverse PAST SURGICAL HISTORY OF 1996 LITHOTRIPSY FOR CALCULI FAMILY HISTORY Problem Relation Age of Onset Aneurysm Father leg Seizures Sister Asthma Sister Stroke Paternal Grandmother Cancer Paternal Grandfather PROSTATE Stroke Paternal Grandfather Breast Cancer Paternal Aunt Diabetes Paternal Uncle Heart Paternal Uncle Heart Paternal Uncle SOCIAL HISTORY Social History Tobacco Use Smoking status: Never Smokeless tobacco: Never Vaping Use Vaping status: Never Used Substance Use Topics Alcohol use: Yes Alcohol/week: 1.0 standard drink of alcohol Types: 1 Glasses of Wine (5oz) per week Comment: SOCIALLY FOUR TIMES Q MONTH,NOT WHILE Drug use: No REVIEW OF SYSTEMS Abdomen: No abdominal pain, nausea, vomiting, diarrhea, or constipation. No bloating, early satiety, indigestion, or increased flatulence. Bladder: No dysuria, gross hematuria, urinary frequency, urinary urgency, or incontinence. Breast: No breast lumps, nipple d/c, overlying skin changes, redness or skin retraction. Allergies and current medication updated:Yes SENSITIVE EXAM: The sensitive examination was discussed with the Patient or Patient's Authorized Powder Hand. As applicable, any other physician, advance practice provider, medical student, or other health professional student that will be observing or involved in the sensitive examination for educational or training purposes was discussed with the Patient or Authorized Powder Hand. The Patient or Authorized Powder Hand has agreed to proceed with the sensitive examination. (Sensitive examination includes inspection and/or palpation of the breasts, pelvis, prostate and anorectal regions). EXAM: BP 128/86 Ht 5' 3.5 (1.61m) Wt 138 lb 6.4 oz (62.8kg) LMP 05/17/2024 BMI 24.13 kg/(m2). GENERAL: pleasant, female in no apparent distress HEENT: Normocephalic and atraumatic NECK: full range of motion DERMATOLOGY: Normal, without lesions, non-icteric, and non-hirsute BREAST: soft, non-tender, symmetric, no dominant mass, normal nipple-areolar complex, no lymphadenopathy, and no nipple discharge CHEST: Normal inspiratory effort ABDOMEN: soft, non-tender, and no masses PELVIC: external genitalia normal, normal Bartholin's glands, urethra, Sans Souci's glands, no vulvar lesions, no cervical lesions, good vaginal support, physiologic discharge present, normal appearing perineal body and perianal region BIMANUAL: uterus normal size, shape and consistency, no adnexal masses, and non-tender RECTOVAGINAL: deferred. NEURO: exam grossly non-focal EXTREMITIES: normal ASSESSMENT/PLAN: 1) Health maintenance: Pap done with HPV. Mammogram up to date . Nutrition, exercise and routine health maintenance exams reviewed. Colon cancer screening: start at age 45 Lipids/glucose: followed by PCP 2) Contraception: combined hormonal contraceptives. Contraceptive options reviewed and information provided. - Partner recently had vasectomy. Discussed risks of CHC with h/o HTN. She plans to stop the pill after partner's vasectomy follow up 3) STD screening (more content not included)... Normal [facility] HIGH RISK HUMAN PAPILLOMA ADDISON (HPV), PCR FOR DETECTION AND GENOTYPINGon 05-31-2024 HPV 16 Ag Ql (Unsp spec) Not detected Normal Not detected [facility] Comment on above: Order Comment: Speci men Type: FLUID SPECIMEN Ordering Facility: [facility] Address: [address] [place] [address] Performed By: #### H PVHRT #### [facility] CLIA [id number] [address] [place] [address] [place] [address] [place] HPV 18 Ag Ql (Unsp spec) Not detected Normal Not detected [facility] Comment on above: Order Comment: Speci men Type: FLUID SPECIMEN Ordering Facility: [facility] Address: [address] [place] [address] Performed By: #### H PVHRT #### [facility] CLIA [id number] [address] [place] [address] [place] HPV 31+33+35+39+45+51+52+56 +58+59+66+68 DNA JORGE+probe Ql (Cvx) Not detected Normal Not detected [facility] Comment on above: Order Comment: Speci men Type: FLUID SPECIMEN Ordering Facility: [facility] Address: [address] [place] [address] Result Comment: High Risk HPV Other Type includes HPV types 31, 33, 35, 39, 45, 51, 52, 56, 58, 59, 66 and 68. Performed By: #### H PVHRT #### [facility] CLIA [id number] [address] [place] [address] [place] PAP TESTon 05-31-2024 ADEQUACY Normal [facility] Comment on above: Order Comment: Speci men Type: FLUID SPECIMEN Ordering Facility: [facility] Address: [address] [place] [address] Result Comment: Sati sfactory for interpretation. No endocervical component Performed By: #### L [id number] #### [facility] CLIA [id number] [address] [place] [address] [place] CASE REPORT Normal [facility] Comment on above: Order Comment: Speci men Type: FLUID SPECIMEN Ordering Facility: [facility] Address: [address] [place] [address] Result Comment: Gyne cologic Cytology Report Case: [id number] Authorizing Provider: Makenzie Clancy MD Collected: 05/31/2024 02:56 PM Ordering Location: OB/Gynecology Received: 05/31/2024 03:31 PM First Screen: Edna Morse, CT, ASCP Pathologist: Ledy Lay MD Specimen: Pap Test, ThinPrep, Cervix Performed By: #### L [id number] #### [facility] CLIA [id number] [address] [place] [address] [place] CLINICAL HISTORY, CYTOLOGY, HISTOLOGY TEACHER Routine Exam Normal [facility] Comment on above: Order Comment: Speci men Type: FLUID SPECIMEN Ordering Facility: [facility] Address: [address] [place] [address] Performed By: #### L [id number] #### [facility] CLIA [id number] [address] [place] [address] [place] FINAL PERFORMING LAB Normal [facility] Comment on above: Order Comment: Speci men Type: FLUID SPECIMEN Ordering Facility: [facility] Address: [address] [place] [address] Result Comment: Tech nical component, licensed mortician screening performed at [facility], [address] [place] [address] CLIA# [id number] Diagnostic interpretation performed at [facility], [address] [place], [place] [address] CLIA# [id number] Ecommerce Marketing Manager: Brandon Feliz M.D. Performed By: #### L [id number] #### [facility] CLIA [id number] [address] [place] [address] [place] INTERPRETATION, CYTOLOGY, HISTOLOGY TEACHER Abnormal [facility] Comment on above: Order Comment: Speci men Type: FLUID SPECIMEN Ordering Facility: [facility] Address: [address] [place] [address] Result Comment: Low grade squamous intraepithelial lesion (LSIL). Performed By: #### L [id number] #### [facility] CLIA [id number] [address] [place] [address] [place] LMP 05/17/[address] [facility] Comment on above: Order Comment: Speci men Type: FLUID SPECIMEN Ordering Facility: [facility] Address: [address] [place] [address] Performed By: #### L [id number] #### [facility] CLIA [id number] [address] [place] [address] [place] PAP DISCLAIMER COMMENT The Pap Smear is a screening test for cervical cancer. False negative results occur with all screening tests, emphasizing the need for rescreening at recommended intervals, and clinical correlation. Normal [facility] Comment on above: Order Comment: Speci men Type: FLUID SPECIMEN Ordering Facility: [facility] Address: [address] [place] [address] Performed By: #### L [id number] #### [facility] CLIA [id number] [address] [place] [address] [place] PAP GENERAL CATEGORIZATION Epithelial Cell Abnormality Normal [facility] Comment on above: Order Comment: Speci men Type: FLUID SPECIMEN Ordering Facility: [facility] Address: [address] [place] [address] Performed By: #### L [id number] #### [facility] CLIA [id number] [address] [place] [address] [place] PAP PHYSICAL SECURITY MANAGER COMMENT This specimen has been analyzed by the ThinPrep Imaging System, an automated imaging and review system, which assists the laboratory in evaluating cells on ThinPrep Pap tests. Following automated imaging, selected montano from every slide are reviewed by a licensed mortician. Normal [facility] Comment on above: Order Comment: Speci men Type: FLUID SPECIMEN Ordering Facility: [facility] Address: [address] [place] [address] Performed By: #### L [id number] #### [facility] CLIA [id number] [address] [place] [address] [place] Urgent Care Visit Reporton 1 Urgent Care Visit Report [facility] [address] [place] [address] OFFICE VISIT Date of Service: 03/25/24 MR#: [id number] Acct: [id number] Name: EDNA AKERS Rep #: [id number] : 1980 Provider: MAGGI Theodore Age/Sex: 43/F Location[place] [facility] Status: Signed Intake Vital Signs 02/14/24 08:52 03/25/24 12:38 Height 5 ft 4 in 5 ft 4 in Weight: 136 lb 137 lb BMI 23.3 23.5 BP 134/78 H 118/86 H Blood Pressure Location Lt brachial Lt brachial Position Sitting Sitting Respiration 17 18 Pulse 76 84 Pulse Source Monitor Temp 97.2 F L 98.9 F Temp Source Temporal Oral Pulse Oximetry (%) 98 98 Oxygen Delivery Method room air room air Intake Visit Reasons: COUGH/CHEST CONGESTION/FEVER/BA Chief Complaint: cough and congestion Clinical Review Specialist Required: No Is patient in pain?: No Allergies No Known Allergies Allergy (Verified 03/25/24 12:38) Medications ???Medication ???Instructions ???Recorded ???Confirmed ???Type cholecalciferol (vitamin D3) 25 25 mcg PO DAILY 10/25/22 03/25/24 History mcg (1,000 unit) capsule drospiren-e.estrad-l. mefol 3 1 tab PO DAILY 10/25/22 03/25/24 History mg-0.02 mg-0.451 mg(24)/0.451 mg(4)tablet (Beyaz ()) epinephrine 0.3 mg/0.3 mL 0.3 mg (0.3 mL) IM ONCE #2 ea 03/24/23 03/25/24 Rx injection, auto-injector (EpiPen 2-Priya) hydrocortisone 2.5 % topical cream 1 applic topical BID PRN rash #30 08/30/23 03/25/24 Rx grams triamterene 37.5 1 tab PO QAM #90 TABLETS 11/07/23 03/25/24 Rx mg-hydrochlorothiazid e 25 mg tablet creatine monohydrate 5,000 mg oral mg PO 02/14/24 03/25/24 History powder packet amlodipine 5 mg tablet See Rx Instructions .Route 03/13/24 03/25/24 Rx .COMPLEX #90 tabs amoxicillin 875 mg-potassium 1 tab PO BID #20 tabs 03/25/24 03/25/24 Rx clavulanate 125 mg tablet Have you fallen in the past year?: No COUNT INCLUDES THE [facility] Medical History (Updated 08/30/23 @ 16:[address] Mindy Araujo MD) Dermatitis Anxiety and depression Alcohol use disorder Encounter to establish care Abnormal heart rhythm Hypertension Heart murmur History of kidney stones Surgical History History of Family History Other Breast cancer CVA (cerebral vascular accident) Hypertension Seizures Social History Smoking Status: Never smoker alcohol intake: current substance use type: does not use what type of physical activity do you participate in: walking, yoga, aerobics and weight training frequency: daily HPI HPI Chief Complaint: cough and congestion Details: EDNA AKERS, is a 43 F who presents to the office today for [facility] for approximately 1-week history of progressively worsening R>L facial pressure/congestion with purulent postnasal drip and cough which is worse when supine and bilateral ear pressure. No complaints of fever, chills, myalgias, fatigue, runny nose, or nausea/vomiting/diarr hea. No complaints of chest pain/shortness of breath/dyspnea on exertion. Several close contacts with similar complaints. No other associated symptoms and no other alleviating/aggravati ng factors. ROS Const Constitutional: No other (as above) Exam Const General: cooperative, healthy appearing and no acute distress Nutritional Appearance: average body habitus Orientation: alert, awake and oriented x3 HENMT Head: normal to inspection Ears: hearing grossly normal bilaterally, external ears normal, TM's normal bilaterally and EAC's normal Nose: external nose normal, nares normal, septum normal and no nasal discharge Face and sinus: normal facial exam, maxillary sinus palpable tender (with R>L maxillary fullness to palpation) and face symmetric Mouth: oral mucosae normal, lip normal, tongue normal and oropharynx normal Throat: posterior oropharynx normal, tonsils normal, uvula midline and postnasal drainage (Purulent) Eyes General: appearance normal, both eyes and all related structures Neck Neck: normal visual inspection, full ROM, no meningeal signs, supple and lymphadenopathy (Bilateral anterior cervical lymph node swelling/tender to palpation) Neck mass: No Thyroid: thyroid normal Chest Chest palpation inspection: normal inspection of the chest Resp Effort Inspection: normal respiratory effort and able to speak in complete sentences Auscultation: Bilateral: Clear to Auscultation Cardio Palpation: normal PMI Rate: regular rate Rhythm: regular rhythm Heart Sounds: S1 normal, S2 normal, no gallops, no murmurs and no rubs Pulses: radial pulses present GI Inspection: normal to inspect (more content not included)... Normal [facility] CBC W/Diff, Automatedon 01-27-2023 Absolute Lymph 1.33 X10 3/uL Normal 0.83-4.51 [facility] Comment on above: Performed By: #### L 500.4100, L500.4050, L100.0100 #### [facility] [address] [place], [address] Absolute Neut 4.8 X10 3/uL Normal 2.0-7.7 [facility] Comment on above: Performed By: #### L 500.4100, L500.4050, L100.0100 #### [facility] [address] [place], [place], [address] Basophils/100 WBC (Bld) 0.6 % Normal 0-1 [facility] Comment on above: Performed By: #### L 500.4100, L500.4050, L100.0100 #### [facility] [address] [place], [address] Eosinophils/100 WBC (Bld) 0.3 % Normal 0-5 [facility] Comment on above: Performed By: #### L 500.4100, L500.4050, L100.0100 #### [facility] [address] [place], [address] Erythrocyte distribution width (RBC) [Ratio] 12.1 % Normal 11.6-14.6 [facility] Comment on above: Performed By: #### L 500.4100, L500.4050, L100.0100 #### [facility] [address] [place], [address] Hematocrit (Bld) [Volume fraction] 39.6 % Normal 37-47 [facility] Comment on above: Performed By: #### L 500.4100, L500.4050, L100.0100 #### [facility] [address] [place], [address] Hemoglobin (Bld) [Mass/Vol] 13.3 g/dL Normal 12.0-15.0 [facility] Comment on above: Performed By: #### L 500.4100, L500.4050, L100.0100 #### [facility] [address] [place], [address] IG% 0.300 Normal 0.0-0.9 [facility] Comment on above: Result Comment: IG% - Immature Granulocytes (promyelocytes, myelocytes and metamyelocytes) > 1% indicates that a LEFT SHIFT is Present. Performed By: #### L 500.4100, L500.4050, L100.0100 #### [facility] [address] [place], [address] Lymphocytes/100 WBC (Bld) 19.9 % Normal 19-41 [facility] Comment on above: Performed By: #### L 500.4100, L500.4050, L100.0100 #### [facility] [address] [place], [address] MCH (RBC) [Entitic mass] 32.0 pg Normal 27.0-32.0 [facility] Comment on above: Performed By: #### L 500.4100, L500.4050, L100.0100 #### [facility] [address] [place], [address] MCHC (RBC) [Mass/Vol] 33.6 g/dL Normal 32-36 [facility] Comment on above: Performed By: #### L 500.4100, L500.4050, L100.0100 #### [facility] [address] [place], [address] MCV (RBC) [Entitic vol] 95.2 fL Normal 81-99 [facility] Comment on above: Performed By: #### L 500.4100, L500.4050, L100.0100 #### [facility] [address] [place], [address] Monocytes/100 WBC (Bld) 6.7 % Normal 0-10 [facility] Comment on above: Performed By: #### L 500.4100, L500.4050, L100.0100 #### [facility] [address] [place], [address] Neutrophils/100 WBC (Bld) 72.2 % High 47-70 [facility] Comment on above: Performed By: #### L 500.4100, L500.4050, L100.0100 #### [facility] [address] [place], [address] Nucleated RBC (Bld) [#/Vol] 0 10*3/uL Normal 0-5 [facility] Comment on above: Performed By: #### L 500.4100, L500.4050, L100.0100 #### [facility] [address] [place], [address] Platelet mean volume (Bld) [Entitic vol] 9.6 fL Normal 6.2-12.0 [facility] Comment on above: Performed By: #### L 500.4100, L500.4050, L100.0100 #### [facility] [address] [place], [address] Platelets (Bld) [#/Vol] 346 10*3/uL Normal 150-450 [facility] Comment on above: Performed By: #### L 500.4100, L500.4050, L100.0100 #### [facility] [address] [place], [address] RBC (Bld) [#/Vol] 4.16 10*6/uL Low 4.2-5.4 [facility] Comment on above: Performed By: #### L 500.4100, L500.4050, L100.0100 #### [facility] [address] [place], [address] RDW SD 42.6 fl Normal 35.1-43.9 [facility] Comment on above: Performed By: #### L 500.4100, L500.4050, L100.0100 #### [facility] [address] [place], [address] WBC (Bld) [#/Vol] 6.7 10*3/uL Normal 4.4-11.0 [facility] Comment on above: Performed By: #### L 500.4100, L500.4050, L100.0100 #### [facility] [address] [place], [address] Comprehensive Metabolic Prof [facility] 02-14-2024 Albumin [Mass/Vol] 3.5 g/dL Normal 3.2-5.0 [facility] Comment on above: Performed By: #### L 500.4100, L500.4050, L100.0100 #### [facility] [address] [place], [address] Albumin/Globulin [Mass ratio] 1.0 {ratio} Normal 0.9-2.4 [facility] Comment on above: Performed By: #### L 500.4100, L500.4050, L100.0100 #### [facility] [address] [place], [address] ALK P 52 U/L Normal 45-117 [facility] Comment on above: Performed By: #### L 500.4100, L500.4050, L100.0100 #### [facility] [address] [place], [address] ALT [Catalytic activity/Vol] 19 U/L Normal 13-56 [facility] Comment on above: Performed By: #### L 500.4100, L500.4050, L100.0100 #### [facility] [address] [place], [address] AST [Catalytic activity/Vol] 22 U/L Normal 15-37 [facility] Comment on above: Performed By: #### L 500.4100, L500.4050, L100.0100 #### [facility] [address] [place], [address] Bilirubin [Mass/Vol] 0.60 mg/dL Normal 0.20-1.00 [facility] Comment on above: Result Comment: For patients on eltrombopag therapy, use of Dimension [place] TBIL is not recommended. Performed By: #### L 500.4100, L500.4050, L100.0100 #### [facility] [address] [place], [address] BUN/CRE 15.2 RATIO Normal 10-20 [facility] Comment on above: Performed By: #### L 500.4100, L500.4050, L100.0100 #### [facility] [address] [place], [address] CA,Total 9.4 mg/dL Normal 8.5-10.1 [facility] Comment on above: Performed By: #### L 500.4100, L500.4050, L100.0100 #### [facility] [address] [place], [address] Chloride [Moles/Vol] 101 mmol/L Normal 98-107 [facility] Comment on above: Performed By: #### L 500.4100, L500.4050, L100.0100 #### [facility] [address] [place], [address] CO2 [Moles/Vol] 26.0 mmol/L Normal 21.0-32.0 [facility] Comment on above: Performed By: #### L 500.4100, L500.4050, L100.0100 #### [facility] [address] [place], [address] Creatinine [Mass/Vol] 0.79 mg/dL Normal 0.55-1.02 [facility] Comment on above: Result Comment: The validity of the calculated GFR GFRAA in patients over 70 years has not been determined. Clinical correlation is essential. Performed By: #### L 500.4100, L500.4050, L100.0100 #### [facility] [address] [place], [address] EST GFR - AA 102 mL/min Normal >60 [facility] Comment on above: Result Comment: Afri can Syrian GFR Calc Performed By: #### L 500.4100, L500.4050, L100.0100 #### [facility] [address] [place], [address] GAP 7 Normal 5-15 [facility] Comment on above: Performed By: #### L 500.4100, L500.4050, L100.0100 #### [facility] [address] [place], [address] GFR/1.73 sq M.predicted among non-blacks MDRD (S/P/Bld) [Vol rate/Area] 84 mL/min/{1.73_m2} Normal >60 [facility] Comment on above: Result Comment: Non- GFR Calc Performed By: #### L 500.4100, L500.4050, L100.0100 #### [facility] [address] [place], [address] Globulin (S) [Mass/Vol] 3.5 g/dL Normal 2.2-4.2 [facility] Comment on above: Performed By: #### L 500.4100, L500.4050, L100.0100 #### [facility] [address] [place], [address] Glucose [Mass/Vol] 103 mg/dL Normal 74-106 [facility] Comment on above: Result Comment: Fast ing Glucose result from 100 to 125 mg/dL suggests IMPAIRED HOMEOSTASIS per A.D.A. criteria. Performed By: #### L 500.4100, L500.4050, L100.0100 #### [facility] [address] [place], [address] Potassium [Moles/Vol] 4.2 mmol/L Normal 3.5-5.1 [facility] Comment on above: Performed By: #### L 500.4100, L500.4050, L100.0100 #### [facility] [address] [place], [address] Sodium [Moles/Vol] 134 mmol/L Low 136-145 [facility] Comment on above: Performed By: #### L 500.4100, L500.4050, L100.0100 #### [facility] [address] [place], [address] T PROT 7.0 g/dL Normal 6.4-8.2 [facility] Comment on above: Performed By: #### L 500.4100, L500.4050, L100.0100 #### [facility] [address] [place], [address] Urea nitrogen [Mass/Vol] 12 mg/dL Normal 7-18 [facility] Comment on above: Performed By: #### L 500.3907, L500.6570, L100.0100 #### [facility] [address] [place], [place], [address] Internal Medicine Office Vis iton 02-14-2024 Internal Medicine Office Visit [facility] [address] [place] [address] [place] [address] OFFICE VISIT Date of Service: 02/14/24 MR#: [id number] Acct: [id number] Name: EDNA AKERS Rep #: [id number] : 1980 Provider: Dr. Mindy aguayo MD Age/Sex: 43/F Location[place] [facility] [place] Status: Signed Intake Vital Signs 08/30/23 15:22 01/25/24 10:07 02/14/24 08:52 Height 5 ft 4 in 5 ft 4 in 5 ft 4 in Weight: 136 lb BMI 23.3 BP 134/78 H Blood Pressure Location Lt brachial Position Sitting Respiration 17 Pulse 76 Pulse Source Monitor Temp 97.2 F L Temp Source Temporal Pulse Oximetry (%) 98 Oxygen Delivery Method room air Intake Visit Reasons: FOLLOW UP Chief Complaint: follow up Is patient in pain?: No Allergies No Known Allergies Allergy (Verified 02/14/24 08:49) Medications ???Medication ???Instructions ???Recorded ???Confirmed ???Type cholecalciferol (vitamin D3) 25 25 mcg PO DAILY 10/25/22 02/14/24 History mcg (1,000 unit) capsule drospiren-e.estrad-l. mefol 3 1 tab PO DAILY 10/25/22 02/14/24 History mg-0.02 mg-0.451 mg(24)/0.451 mg(4)tablet (Shaan (28)) epinephrine 0.3 mg/0.3 mL 0.3 mg (0.3 mL) IM ONCE #2 ea 03/24/23 02/14/24 Rx injection, auto-injector (EpiPen 2-Priya) hydrocortisone 2.5 % topical cream 1 applic topical BID PRN rash #30 08/30/23 02/14/24 Rx grams triamterene 37.5 1 tab PO QAM #90 TABLETS 11/07/23 02/14/24 Rx mg-hydrochlorothiazid e 25 mg tablet amlodipine 5 mg tablet See Rx Instructions .Route 01/15/24 02/14/24 Rx .COMPLEX #60 tabs creatine monohydrate 5,000 mg oral mg PO 02/14/24 02/14/24 History powder packet Nurse's Note: pt states that she is here for blood pressure follow up states the readings are running WNL at home systolic 121/83-85 diastolic PFSH Medical History (Updated 08/30/23 @ 16:[address] Mindy Araujo MD) Dermatitis Anxiety and depression Alcohol use disorder Encounter to establish care Abnormal heart rhythm Hypertension Heart murmur History of kidney stones Surgical History History of Family History Other Breast cancer CVA (cerebral vascular accident) Hypertension Seizures Social History Smoking Status: Never smoker alcohol intake: current substance use type: does not use what type of physical activity do you participate in: walking, yoga, aerobics and weight training frequency: daily HPI HPI Chief Complaint: follow up Details: EDNA AKERS, is a 43 F who presents to the office today for follow-up of her chronic medical conditions. No acute concerns at this time. History of hypertension, initial blood pressure at 134/78 however repeat was 130/70 mmHg. She reports better readings at home. Taking medication as prescribed and continues to stay active. No chest pain, palpitation or shortness of breath. Other chronic medical conditions are stable. She denies any further significant alcohol use. Mood reed, she also states that she is doing well. ROS Const Constitutional: No body ache, chills, excessive sweating, fatigue, fever(s), frequent falls, headache(s), snoring, weight change, sleep problems, abnormal sleep pattern or change in appetite Eyes Eyes: No blurry vision, change in vision, dry eyes, bulging eyes, eye pain or Light sensitivity ENT ENT: No abnormal hearing, ear or mastoid pain, tinnitus, balance problems, nosebleed/epistaxis, nasal congestion, headache(s), neck pain or sore throat Resp Respiratory: No cough, excessive phlegm production, pain on inspiration, shortness of breath, snoring or wheezing Cardio Cardiology: No chest pain at rest, chest pain with exertion, excessive sweating, shortness of breath, dyspnea on exertion, lightheadedness, orthopnea or palpitations Gastro GI: No abdominal pain, change in bowel habits, coffee ground emesis, constipation, cramping, diarrhea, nausea/dyspepsia or vomiting Genitourinary-Female: No burning urination, painful urination, urinary incontinence, urinary frequency, urinary urgency, urinary hesitancy, abnormal vaginal bleeding or pelvic pain Musc Musculoskeletal: No abnormal gait, joint pain, back pain, limited range of motion, loss of height, muscle cramps, neck pain, numbness or tingling Skin Skin: No dry skin, redness, excessive hair growth, yellowing of the eye, lesions, itchy eyes, rash or wounds Neuro Neurology: No abnormal gait, abnormal hearing, behavioral changes, unsteady gait/balance, frequent falls, headache(s), memory loss, numbness or tingling Psych Psychiatric: No abnormal sleep pattern, No anxiety, No behavioral changes, No change in ap (more content not included)... Normal [facility] Lipid Profileon 02-14-2024 Cholesterol [Mass/Vol] 191 mg/dL Normal 200 [facility] Comment on above: Result Comment: <200 mg/dL Desirable 200-240 mg/dL Borderline >240 mg/dL High Risk Performed By: #### L 500.4100, L500.4050, L100.0100 #### [facility] [address] [place], [address] Cholesterol in HDL [Mass/Vol] 124 mg/dL Normal [facility] Comment on above: Result Comment: The drugs N-Acetylcysteine and Metamizole may falsely depress this assay. Reference Range HDL <40 mg/dL Low HDL Cholesterol HDL >or= 60 mg/dL High HDL Cholesterol Performed By: #### L 500.4100, L500.4050, L100.0100 #### [facility] [address] [place], [address] Cholesterol in LDL [Mass/Vol] 54 mg/dL Normal 0-130 [facility] Comment on above: Performed By: #### L 500.4100, L500.4050, L100.0100 #### [facility] [address] [place], [address] Cholesterol in VLDL [Mass/Vol] 13 mg/dL Normal 5-40 [facility] Comment on above: Performed By: #### L 500.4100, L500.4050, L100.0100 #### [facility] [address] [place], [address] Triglyceride [Mass/Vol] 66 mg/dL Normal [facility] Comment on above: Result Comment: The drugs N-Acetylcysteine and Metamizole may falsely depress this assay. Serum Triglycerides Reference Interval Normal <150 mg/dL Borderline high 150 - 199 mg/dL High 200 - 499 mg/dL Very High > or = 500 mg/dL Performed By: #### L 500.4100, L500.4050, L100.0100 #### [facility] [address] [place], [address] DBT Breast - bilateral scree flakito 08-21-2023 [facility] Culture, urineOrdered By: Robin Bo on 03-22-2023 Bacteria identified Cx Nom (U) Staphylococcus saprophyticus [facility] - Chemistry and C hemistry - challengeon 03-22-2023 HCG ( test) Ql (U) Negative [facility] Bilirubin Ql (U) Negative [facility] Glucose Ql (U) Negative [facility] Ketones Ql (U) Negative [facility] pH (U) 6.0 [pH] [facility] Specific gravity (U) [Rel density] 1.010 [facility] Urobilinogen (U) [Mass/Vol] 0.9594235 mg/dL [facility] - Hematology and Cell countson 03-22-2023 Hemoglobin Ql (U) Hemolyzed [facility] - Specimen inform ationon 03-22-2023 Clarity (U) Slightly Hazy [facility] Color (U) Yellow [facility] - Urinalysison Nitrite Ql (U) Negative [facility] Protein Ql (U) Negative [facility] No Panel Informationon 03-22 Urine Leukocytes Positive [facility] Urine Non-Hemolyzed Blood Large [facility] Basophil percentageOrdered B y: Mindy Araujo on 03-01-2023 Chloride [Moles/Vol] 105 mmol/L 98-107 [facility] Glucose [Mass/Vol] 101 mg/dL 74-106 [facility] Comment on above: Fasting Glucose resu lt from 100 to 125 mg/dL suggests IMPAIRED HOMEOSTASIS per A.D.A. criteria. Potassium [Moles/Vol] 3.8 mmol/L 3.5-5.1 [facility] Sodium [Moles/Vol] 139 mmol/L 136-145 [facility] - Chemistry and C hemistry - challengeOrdered By: Mindy Araujo on 03-01-2023 CO2 [Moles/Vol] 26.0 mmol/L 21.0-32.0 [facility] Magnesium [Mass/Vol] 2.3 mg/dL 1.6-2.6 [facility] Urea nitrogen/Creatinine [Mass ratio] 15.1 mg/mg 10-20 [facility] No Panel InformationOrdered By: Mindy Araujo on 03-01-2023 Estimated GFR (MDRD) Amer 85 mL/min >60 [facility] Comment on above: GFR Calc Estimated GFR (MDRD) Non-Af Amer 70 mL/min >60 [facility] Comment on above: Non- GFR Calc Serum or plasma calcium stephany urement (mass/volume)Ordered By: Mindy Araujo on 03-01-2023 Calcium [Mass/Vol] 9.4 mg/dL 8.5-10.1 [facility] Serum or plasma creatinine m easurement (mass/volume)Ordered By: Mindy Araujo on 03-01-2023 Creatinine [Mass/Vol] 0.93 mg/dL 0.55-1.02 [facility] Comment on above: The validity of the calculated GFR & GFRAA in patients over 70 years has not been determined. Clinical correlation is essential. Serum or plasma urea nitroge n measurement (mass/volume)Ordered By: Mindy Araujo on 03-01-2023 Urea nitrogen [Mass/Vol] 14 mg/dL 7-18 [facility] Thin prep Papanicolaou smear with manual screeningOrdered By: Mindy Araujo on 03-01-2023 Thin prep Papanicolaou smear with manual screening 8 5-15 [facility] Absolute lymphocyte countOrd ered By: Nicolás Dayne on 10-25-2022 Lymphocytes Auto (Unsp spec) [#/Vol] 1.33 10*3/uL 0.83-4.51 [facility] Basophil percentageOrdered B y: Nicolás Oscar on 10-25-2022 Basophils/100 WBC (Bld) 0.8 % 0-1 [facility] Bilirubin [Mass/Vol] 0.70 mg/dL 0.20-1.00 [facility] Comment on above: For patients on eltr ombopag therapy, use of Dimension [place] TBIL is not recommended. Chloride [Moles/Vol] 103 mmol/L 98-107 [facility] Cholesterol [Mass/Vol] 214 mg/dL <200 [facility] Comment on above: <200 mg/dL Desirable 200-240 mg/dL Borderline >240 mg/dL High Risk Eosinophils/100 WBC (Bld) 0.3 % 0-5 [facility] Glucose [Mass/Vol] 135 mg/dL 74-106 [facility] Comment on above: Fasting Glucose resu lt greater than or equal to 126 mg/dL suggests DIABETES MELLITUS per A.D.A. criteria. Neutrophils (Bld) [#/Vol] 4.5 10*3/uL 2.0-7.7 [facility] Neutrophils/100 WBC (Bld) 71.1 % 47-70 [facility] Potassium [Moles/Vol] 4.0 mmol/L 3.5-5.1 [facility] Protein [Mass/Vol] 7.1 g/dL 6.4-8.2 [facility] Sodium [Moles/Vol] 135 mmol/L 136-145 [facility] Triglyceride [Mass/Vol] 76 mg/dL <199 [facility] Comment on above: The drugs N-Acetylcy steine and Metamizole may falsely depress this assay.Serum Triglycerides Reference Interval Normal <150 mg/dL Borderline high 150 - 199 mg/dL High 200 - 499 mg/dL Very High > or = 500 mg/dL WBC (Bld) [#/Vol] 6.3 10*3/uL 4.4-11.0 [facility] Blood erythrocytes count (nu mber/volume)Ordered By: Nicolás Oscar on 10-25-2022 RBC (Bld) [#/Vol] 4.45 10*6/uL 4.2-5.4 [facility] Blood hemoglobin measurement (mass/volume)Ordered By: Nicolás Oscar on 10-25-2022 Hemoglobin (Bld) [Mass/Vol] 13.4 g/dL 12.0-15.0 [facility] Blood lymphocytes/100 leukoc ytesOrdered By: Nicolás Oscar on 10-25-2022 Lymphocytes/100 WBC (Bld) 21.0 % 19-41 [facility] Blood monocytes/100 leukocyt esOrdered By: Nicolás Oscar on 10-25-2022 Monocytes/100 WBC (Bld) 6.5 % 0-10 [facility] Blood platelet mean volumeOr dered By: Nicolás Oscar on 10-25-2022 Platelet mean volume (Bld) [Entitic vol] 9.6 fL 6.2-12.0 [facility] Determination of erythrocyte mean corpuscular volume (MCV)Ordered By: Nicolás Oscar on 10-25-2022 MCV (RBC) [Entitic vol] 92.6 fL 81-99 [facility] Hematocrit Auto (Bld) [Volum e fraction]Ordered By: Nicolás Oscar on 10-25-2022 Hematocrit (Bld) [Volume fraction] 41.2 % 37-47 [facility] - Chemistry and C hemistry - challengeOrdered By: Nicolás Oscar on 10-25-2022 ALP [Catalytic activity/Vol] 53 U/L 45-117 [facility] ALT [Catalytic activity/Vol] 19 U/L 13-56 [facility] CO2 [Moles/Vol] 26.0 mmol/L 21.0-32.0 [facility] Globulin (S) [Mass/Vol] 3.7 g/dL 2.2-4.2 [facility] Urea nitrogen/Creatinine [Mass ratio] 12.5 mg/mg 10-20 [facility] - Hematology and Cell countsOrdered By: Nicolás Oscar on 10-25-2022 Erythrocyte distribution width (RBC) [Entitic vol] 47.5 fL 35.1-43.9 [facility] Erythrocyte distribution width (RBC) [Ratio] 14.0 % 11.6-14.6 [facility] Immature granulocytes/100 WBC (Bld) 0.300 % 0.0-0.9 [facility] Comment on above: IG% - Immature Granu locytes (promyelocytes, myelocytes and metamyelocytes) > 1% indicates that a LEFT SHIFT is Present. MCH (RBC) [Entitic mass] 30.1 pg 27.0-32.0 [facility] Nucleated RBC/100 WBC (Bld) [Ratio] 0 % 0-5 [facility] MCHC Auto (RBC) [Mass/Vol]Or dered By: Nicolás Oscar on 10-25-2022 MCHC (RBC) [Mass/Vol] 32.5 g/dL 32-36 [facility] No Panel InformationOrdered By: Nicolás Oscar on 10-25-2022 Estimated GFR (MDRD) Amer 90 mL/min >60 [facility] Comment on above: GFR Calc Estimated GFR (MDRD) Non-Af Amer 75 mL/min >60 [facility] Comment on above: Non- GFR Calc Thyroid Stimulating Hormone (TSH) 0.92 uIU/mL 0.358-3.74 [facility] Platelets bldOrdered By: Fani Oscar on 10-25-2022 Platelets (Bld) [#/Vol] 364 10*3/uL 150-450 [facility] Serum or plasma albumin stephany urement (mass/volume)Ordered By: Nicolás Oscar on 10-25-2022 Albumin [Mass/Vol] 3.4 g/dL 3.2-5.0 [facility] Serum or plasma albumin/glob ulin mass ratioOrdered By: Nicolás Oscar on 10-25-2022 Albumin/Globulin [Mass ratio] 0.9 {ratio} 0.9-2.4 [facility] Serum or plasma calcium stephany urement (mass/volume)Ordered By: Nicolás Oscar on 10-25-2022 Calcium [Mass/Vol] 8.9 mg/dL 8.5-10.1 [facility] Serum or plasma cholesterol in HDL measurement (mass/volume)Ordered By: Nicolás Oscar on 10-25-2022 Cholesterol in HDL [Mass/Vol] 130 mg/dL >40 [facility] Comment on above: The drugs N-Acetylcy steine and Metamizole may falsely depress this assay. Reference Range HDL <40 mg/dL Low HDL Cholesterol HDL >or= 60 mg/dL High HDL Cholesterol Serum or plasma cholesterol in VLDL measurement (mass/volume)Ordered By: Nicolás Oscar on 10-25-2022 Cholesterol in VLDL [Mass/Vol] 15 mg/dL 5-40 [facility] Serum or plasma creatinine m easurement (mass/volume)Ordered By: Nicolás Oscar on 10-25-2022 Creatinine [Mass/Vol] 0.88 mg/dL 0.55-1.02 [facility] Comment on above: The validity of the calculated GFR & GFRAA in patients over 70 years has not been determined. Clinical correlation is essential. Serum or plasma low density lipoprotein (LDL) cholesterol measurement (mass/volume)Ordered By: Nicolás Oscar on 10-25-2022 Cholesterol in LDL [Mass/Vol] 69 mg/dL 0-130 [facility] Serum or plasma urea nitroge n measurement (mass/volume)Ordered By: Nicolás Oscar on 10-25-2022 Urea nitrogen [Mass/Vol] 11 mg/dL 7-18 [facility] Thin prep Papanicolaou smear with manual screeningOrdered By: Nicolás Oscar on 10-25-2022 Thin prep Papanicolaou smear with manual screening 32 U/L 15-37 [facility] Thin prep Papanicolaou smear with manual screening 6 5-15 [facility] Whole blood hemoglobin A1c/t otal hemoglobin ratio (mass fraction)Ordered By: Nicolás Oscar on 10-25-2022 HbA1c (Bld) [Mass fraction] 5.0 % 3.8-5.6 [facility] Comment on above: Normal < 5.7 % Predi abetic 5.7 - 6.4 % Diabetic >or= 6.5 % Please note range changes. Vital Signs Date Time Vital Sign Value Performing Clinician Gretta martinez 12-15-2024 08:21-0400 Body height 162.[address] Mindy Araujo MD Work Phone: [facility] 12-15-2024 08:21-0400 Body mass index (BMI) [Ratio] 23.8 kg/m2 Dr. Mindy Araujo MD Work Phone: [facility] 12-15-2024 08:21-0400 Body weight 63.[address] Mindy Araujo MD Work Phone: [facility] 12-15-2024 08:21-0400 Diastolic blood pressure 70 mm[Hg] Dr. Mindy Araujo MD Work Phone: [facility] 12-15-2024 08:21-0400 Heart rate 76 /min Dr. Mindy Araujo MD Work Phone: [facility] 12-15-2024 08:21-0400 Respiratory rate 18 /min Dr. Mindy Arauoj MD Work Phone: [facility] 12-15-2024 08:21-0400 SaO2% (BldA) [Mass fraction] 99 % Dr. Mindy Araujo MD Work Phone: [facility] 12-15-2024 08:21-0400 Systolic blood pressure 118 mm[Hg] Dr. Mindy Araujo MD Work Phone: [facility] 11-16-2024 08:07-0400 Body temperature 98.4 [degF] Dr. Mindy Araujo MD Work Phone: [facility] 11-16-2024 08:07-0400 Diastolic blood pressure 70 mm[Hg] Dr. Mindy Araujo MD Work Phone: [facility] 11-16-2024 08:07-0400 Heart rate 72 /min Dr. Mindy Araujo MD Work Phone: [facility] 11-16-2024 08:07-0400 Respiratory rate 14 /min Dr. Mindy Araujo MD Work Phone: [facility] 11-16-2024 08:07-0400 SaO2% (BldA) [Mass fraction] 97 % Dr. Mindy Araujo MD Work Phone: [facility] 11-16-2024 08:07-0400 Systolic blood pressure 110 mm[Hg] Dr. Mindy Araujo MD Work Phone: [facility] 05-31-2024 14:18-0500 Body height 161.3 cm Makenzie Clancy MD Work Phone: [facility] 05-31-2024 14:18-0500 Body mass index (BMI) [Ratio] 24.13 kg/m2 Makenzie Clancy MD Work Phone: [facility] 05-31-2024 14:18-0500 Body weight 62.78 kg Makenzie Clancy MD Work Phone: [facility] 05-31-2024 14:18-0500 Diastolic blood pressure 86 mm[Hg] Makenzie Clancy MD Work Phone: [facility] 05-31-2024 14:18-0500 Systolic blood pressure 128 mm[Hg] Makenzie Clancy MD Work Phone: [facility] 07-10-2023 16:05-0500 Diastolic blood pressure 72 mm[Hg] Kisha Almanzar MD Work Phone: [facility] 07-10-2023 16:05-0500 Systolic blood pressure 132 mm[Hg] Kisha Almanzar MD Work Phone: [facility] 07-10-2023 15:59-0500 Body height 161.9 cm Kisha Almanzar MD Work Phone: [facility] 07-10-2023 15:59-0500 Body weight 61.24 kg Kisha Almanzar MD Work Phone: [facility] 03-22-2023 16:27-0400 Body temperature 98.7 [degF] Dr. Mindy Araujo Work Phone: [facility] 03-22-2023 16:27-0400 Diastolic blood pressure 92 mm[Hg] Dr. Mindy Araujo Work Phone: [facility] 03-22-2023 16:27-0400 Heart rate 74 /min Dr. Mindy Araujo Work Phone: [facility] 03-22-2023 16:27-0400 Respiratory rate 16 /min Dr. Mindy Araujo Work Phone: [facility] 03-22-2023 16:27-0400 SaO2% (BldA) [Mass fraction] 98 % Dr. Mindy Araujo Work Phone: [facility] 03-22-2023 16:27-0400 Systolic blood pressure 135 mm[Hg] Dr. Mindy Araujo Work Phone: [facility] 03-01-2023 08:09-0400 Body height 162.[address] Mindy Araujo Work Phone: [facility] 03-01-2023 08:09-0400 Body mass index (BMI) [Ratio] 22.4 kg/m2 Dr. Mindy Araujo Work Phone: [facility] 03-01-2023 08:09-0400 Body temperature 98.6 [degF] Dr. Mindy Araujo Work Phone: [facility] 03-01-2023 08:09-0400 Body weight 59.[address] Mindy Araujo Work Phone: [facility] 03-01-2023 08:09-0400 Diastolic blood pressure 86 mm[Hg] Dr. Mindy Araujo Work Phone: [facility] 03-01-2023 08:09-0400 Heart rate 72 /min Dr. Mindy Araujo Work Phone: [facility] 03-01-2023 08:09-0400 Respiratory rate 18 /min Dr. Mindy Araujo Work Phone: [facility] 03-01-2023 08:09-0400 SaO2% (BldA) [Mass fraction] 98 % Dr. Mindy Araujo Work Phone: [facility] 03-01-2023 08:09-0400 Systolic blood pressure 124 mm[Hg] Dr. Mindy Araujo Work Phone: [facility] 10-25-2022 10:31-0400 Body height 162.[address] Mindy Araujo Work Phone: [facility] 10-25-2022 10:31-0400 Body mass index (BMI) [Ratio] 22.8 kg/m2 Dr. Mindy Araujo Work Phone: [facility] 10-25-2022 10:31-0400 Body temperature 98.8 [degF] Dr. Mindy Arajuo Work Phone: [facility] 10-25-2022 10:31-0400 Body weight 60.[address] Mindy Araujo Work Phone: [facility] 10-25-2022 10:31-0400 Diastolic blood pressure 90 mm[Hg] Dr. Mindy Araujo Work Phone: [facility] 10-25-2022 10:31-0400 Heart rate 74 /min Dr. Mindy Araujo Work Phone: [facility] 10-25-2022 10:31-0400 Respiratory rate 16 /min Dr. Mindy Araujo Work Phone: [facility] 10-25-2022 10:31-0400 SaO2% (BldA) [Mass fraction] 99 % Dr. Mindy Araujo Work Phone: [facility] 10-25-2022 10:31-0400 Systolic blood pressure 150 mm[Hg] Dr. Mindy Araujo Work Phone: [facility] 04-07-2022 09:13-0500 Body weight 60.06 kg Nurse Wstr Work Phone: [facility] 04-07-2022 09:13-0500 Diastolic blood pressure 78 mm[Hg] Nurse Wstr Work Phone: [facility] 04-07-2022 09:13-0500 Systolic blood pressure 130 mm[Hg] Nurse Wstr Work Phone: [facility] 02-02-2022 08:52-0400 Body height 162.6 cm Kisha Almanzar MD Work Phone: [facility] 02-02-2022 08:52-0400 Body weight 56.7 kg Kisha Almanzar MD Work Phone: [facility] 02-02-2022 08:52-0400 Diastolic blood pressure 70 mm[Hg] Kisha Almanzar MD Work Phone: [facility] 02-02-2022 08:52-0400 Systolic blood pressure 124 mm[Hg] Kisha Almanzar MD Work Phone: [facility] Encounters Encounter Date Encounter Type Care Provider Facility Start: 12-15-2024 End: 12-15-[address] Mindy Araujo MD Work Phone[facility] Start: 12-15-2024 End: 12-15-2024 [facility] Work Phone: Start: 11-16-2024 End: 11-16-[address] Mindy Araujo MD Work Phone: [facility] Work Phone: Start: 11-16-2024 End: 11-16-2024 Patient encounter procedure Phong Burger [place] [facility] Work Phone: Start: 09-04-2024 End: 09-05-2024 Refill Makenzie Clancy MD Work Phone: OB/Gynecology Comment on above: Med Change Request Start: 08-29-2024 End: 08-29-2024 MC Get Medical Advice Makenzie Clancy MD Work Phone: [facility]/Gynecology Comment on above: Refill request denie d Start: 08-27-2024 End: 08-29-2024 Refill Makenzie Clancy MD Work Phone: OB/Gy[facility]cology Comment on above: Refill Request Start: 08-23-2024 End: 10-23-2024 Follow-up encounter Ju Hawthorne APRN.CNP Work Phone: OB/Gynecology Start: 08-21-2024 End: 08-21-2024 ambulatory MAKENZIE CLANCY Facility:[facility] Start: 08-21-2024 End: 08-21-2024 Subsequent hospital visit by physician Screen Mammo [facility] Mammogram Comment on above: Encounter for screen ing mammogram for breast cancer [Z12.31] Start: 07-11-2024 End: 07-11-2024 ambulatory [facility] [place] Start: 07-11-2024 End: 07-11-2024 ambulatory [facility] Facility:[facility] Start: 05-31-2024 End: 05-31-2024 ambulatory MAKENZIE CLANCY Facility:[facility] Start: 05-31-2024 End: 05-31-2024 Patient encounter procedure Makenzie Clancy MD Work Phone: OB/Gynecology Comment on above: Encounter for gyneco logical examination (general) (routine) without abnormal findings (Primary Dx); Screening for cervical cancer; Encounter for screening for human papillomavirus (HPV); Encounter for screening mammogram for breast cancer Start: 05-31-2024 End: 05-31-2024 Patient encounter status Makenzie Clancy MD Work Phone: [facility] Start: 03-25-2024 End: 03-25-2024 ambulatory Mckenziececiliarenetta Ruelasludwinbucky Facility:[facility] Start: 02-14-2024 End: 02-14-2024 ambulatory Mindy Araujo Facility:[facility] Start: 02-14-2024 End: 02-14-2024 ambulatory Mindy Araujo Facility:[facility] Start: 08-21-2023 Documentation procedure Mammog amy Coordinator [facility] Start: 08-21-2023 Letter encounter Mammography Coordinator [facility] Department Start: 08-21-2023 End: 08-21-2023 Patient encounter status Screen [facility]str [facility] Start: 08-21-2023 End: 08-21-2023 Subsequent hospital visit by physician Screen Mammo [facility] Mammogram Comment on above: Encounter for gyneco logical examination (general) (routine) without abnormal findings [Z01.419] Start: 07-11-2023 ambulatory Kisha gonzalez MD Work Phone: OB/Gynecology Comment on above: beyaz Start: 07-10-2023 End: 07-10-2023 Patient encounter procedure Kisha Almanzar MD Work Phone: OB/Gynecology Comment on above: Encounter for gyneco logical examination (general) (routine) without abnormal findings (Primary Dx); Encounter for screening mammogram for breast cancer Start: 07-10-2023 End: 07-10-2023 Patient encounter status Kisha Almanzar MD Work Phone: [facility] Start: 07-04-2023 Refill Kisha gonzalez MD Work Phone: OB/Gynecology Comment on above: Refill Request Start: 05-01-2023 Get Medical Advice Kisha Almanzar MD Work Phone: OB/Gynecology Comment on above: mail order pharmacy Start: 03-22-2023 End: 03-22-[address] Mindy Araujo Work Phone: [facility] Work Phone: Start: 03-22-2023 End: 03-22-[address] Mindy Araujo Work Phone: [facility]Laboratory, Specimen Work Phone: Start: 03-22-2023 End: 03-22-[address] Mindy Araujo Work Phone: [facility] Work Phone: Start: 03-08-2023 ambulatory Kisha gonzalez MD Work Phone: [facility] Start: 03-08-2023 Patient encounter procedure Kisha Almanzar MD Work Phone: OB/Gynecology Comment on above: annual visit Start: 03-01-2023 End: 03-01-[address] Mindy Araujo Work Phone: [facility] Work Phone: Start: 10-25-2022 End: 10-25-[address] Mindy Araujo Work Phone: [facility] Work Phone: Start: 10-25-2022 End: 10-25-[address] Mindy Araujo Work Phone: [facility] Start: 04-12-2022 ambulatory Kisha gonzalez MD Work Phone: OB/Gynecology Comment on above: Daughter irregular p eriod Start: 04-07-2022 End: 04-07-2022 Nursing evaluation of patient and report Nurse Lead Technical Architect [facility] Work Phone: OB/Gynecology Comment on above: Need for prophylacti c vaccination/inoculation against viral disease (Primary Dx) Start: 03-14-2022 ambulatory Kisha gonzalez MD Work Phone: OB/Gynecology Comment on above: testing not covered by insurance Start: 02-02-2022 End: 02-02-2022 Patient encounter procedure Kisha Almanzar MD Work Phone: OB/Gynecology Comment on above: Encounter for gyneco logical examination (general) (routine) without abnormal findings (Primary Dx); Encounter for screening mammogram for breast cancer; Need for prophylactic vaccination/inoculation against viral disease; Screen for STD (sexually transmitted disease) Start: 02-02-2022 End: 02-02-2022 Patient encounter status Kisha Almanzar MD Work Phone: OB/Gynecology Start: 11-04-2021 ambulatory Kisha gonzalez MD Work Phone: OB/Gynecology Comment on above: Beyaz Start: 03-06-2018 E-mail encounter fro m caregiver Kisha Almanzar MD Work Phone: [facility] Start: 03-06-2018 Patient encounter procedure Kisha Almanzar MD Work Phone: OB/Gynecology Comment on above: RE: Request an Appoi ntment Procedures Date Procedure Procedure Detail Performing Clinician Start: 08-21-2023 Screening digital br [place] tomosynthesis bi Kisha Almanzar MD Work Phone: Start: 03-22-[address] Bri Araujo Work Phone: Start: 08-11-2010 End: 02-01-2011 H/O: section Previous section Makenzie Clancy MD Work Phone: H/O: section History of C-sectio n Dr. Mindy Araujo Work Phone: Comment on above: x2 Plan of Treatment Date Care Activity Detail Author Start: 08-21-2025 Screening for malign ant neoplasm of breast Mammogram Screening [facility] Start: 05-31-2025 Screening for malign ant neoplasm of cervix Cervical Cancer Screening [facility] Start: 02-13-2025 HPV TESTING HPV TESTING [facility] Start: 02-13-2025 PAP TESTING PAP TESTING [facility] Start: 02-13-2025 Screening for malign ant neoplasm of cervix [facility] Start: 01-27-2025 Influenza vaccination Influenz a Vaccine (Season Ended) [facility] Start: 08-21-2024 End: 08-21-2024 Patient encounter procedure 08/21/2024 7:10 AM EDT Appointment Mammogram [address] [address] Mammo with maximilian Mammogram Comment on above: Mammo with maximilian Start: 08-20-2024 Screening for malign ant neoplasm of breast Mammogram Screening [facility] Start: 01-28-2024 Covid-19 Vaccine ( season) Covid-19 Vaccine () [facility] Start: 01-28-2024 Influenza vaccination Influenza Vacc ine (#1) [facility] Start: 05-29-2023 Depression Assessment Depression Ass essment [facility] Start: 01-27-2023 Covid-19 Vaccine () Covid-19 Vaccine () [facility] Start: 01-27-2023 Influenza vaccination Influenza Vacc ine (#1) [facility] Start: 10-14-2022 Urine microalbumin profile [facility] Start: 08-05-2022 HPV Vaccine (3 - 3-d ose SCDM series) HPV Vaccine (3 - 3-dose SCDM series) [facility] Start: 08-02-2022 HPV Vaccine (3 - 3-d ose SCDM series) HPV Vaccine (3 - 3-dose SCDM series) [facility] Start: 08-01-2022 9vhpv vacc 2/3 dose sched im use HUMAN PAPILLOMAVIRUS 9-VALENT HPV IM Immunization/Injection Routine Need for prophylactic vaccination/inoculation against viral disease Expected: 08/01/2022 (Approximate) [facility] Work Phone: Comment on above: Expected: 08/01/2022 (Approximate) Start: 05-29-2022 Depression Assessment Depression Ass essment [facility] Start: 04-03-2022 9vhpv vacc 2/3 dose sched im use HUMAN PAPILLOMAVIRUS 9-VALENT HPV IM Immunization/Injection Routine Need for prophylactic vaccination/inoculation against viral disease Expected: 04/03/2022 (Approximate) [facility] Work Phone: Comment on above: Expected: 04/03/2022 (Approximate) Start: 01-27-2022 Influenza vaccination [facility] Start: 07-22-2021 COVID-19 VACCINE (4 - Booster for Pfizer series) COVID-19 VACCINE (4 - Booster for Pfizer series) [facility] Start: 05-29-2021 DEPRESSION ASSESSMENT DEPRESSION ASS ESSMENT [facility] Start: 01-13-2021 COVID-19 VACCINE (3 - Booster for Pfizer series) COVID-19 VACCINE (3 - Booster for Pfizer series) [facility] Start: 2020 Mammography [facility] Start: 2020 Screening for malign ant neoplasm of breast Mammogram Screening [facility] Start: 1998 Anxiety Screening Anxiety Screening [facility] Start: 1998 Depression Screening Depression Scre ening [facility] Start: 1998 HEPATITIS C SCREENING HEPATITIS C [facility] Start: 1998 Hepatitis C screening Hepatitis C [facility] Start: 1992 Adult depression screening assessment DEPRESSION SCREENING [facility] Chlamydia trachomatis+Neisseria gonorrhoeae DNA [Presence] in Unspecified specimen by JORGE with probe detection GC/CHLAMYDIA DNA DET Lab Routine Screen for STD (sexually transmitted disease) Ordered: 02/02/2022 [facility] Work Phone: Comment on above: Ordered: 02/02/2022 End: 08-08-2024 DBT Breast - bilateral screening NICK SCREENING W MAXIMILIAN Radiology Routine Encounter for gynecological examination (general) (routine) without abnormal findings Encounter for screening mammogram for breast cancer 1 Occurrences starting 07/10/2023 until 08/08/2024 [facility] Work Phone: Comment on above: 1 Occurrences starti ng 07/10/2023 until 08/08/2024 End: 06-30-2025 DBT Breast - bilateral screening NICK SCREENING W MAXIMILIAN Radiology Routine Encounter for screening mammogram for breast cancer 1 Occurrences starting 05/31/2024 until 06/30/2025 [facility] Work Phone: Comment on above: 1 Occurrences starti ng 05/31/2024 until 06/30/2025 DBT Breast - bilater al screening NICK SCREENING W MAXIMILIAN Radiology Routine Encounter for screening mammogram for breast cancer 08/21/2024 7:38 AM EDT [facility] Work Phone: End: 03-04-2023 NICK SCREENING W MAXIMILIAN NICK SCREENING W MAXIMILIAN Radiology Routine Encounter for gynecological examination (general) (routine) without abnormal findings Encounter for screening mammogram for breast cancer 1 Occurrences starting 02/02/2022 until 03/04/2023 [facility] Work Phone: Comment on above: 1 Occurrences starti ng 02/02/2022 until 03/04/2023 PAP TEST PAP TEST Lab Briana de leon Encounter for gynecological examination (general) (routine) without abnormal findings Screening for cervical cancer Encounter for screening for human papillomavirus (HPV) 05/31/2024 2:56 PM EST [facility] T VAGINALIS AMPLIFICATION T VAGINALIS AMPLIFICATION Lab Routine Screen for STD (sexually transmitted disease) Ordered: 02/02/2022 [facility] Work Phone: Comment on above: Ordered: 02/02/2022 Therapeutic prophylactic/dx injection subq/im THER/PROPH/DIAG INJ, SC/IM Procedures Routine Need for prophylactic vaccination/inoculation against viral disease Ordered: 02/02/2022 [facility] Work Phone: Comment on above: Ordered: 02/02/2022 Urinalysis complete panel - Urine [facility] Immunizations Immunization Date Immunization Notes Care Provider Fernando farmer 07-10-2023 Human Papillomavirus 9-valent vaccine Kisha Almanzar MD Work Phone: [facility] 04-07-2022 Human Papillomavirus 9-valent vaccine Nurse Wstr Work Phone: [facility] Work Phone: 03-30-2022 influenza, injectabl e, quadrivalent, preservative free Kisha Almanzar MD Work Phone: [facility] Work Phone: 03-30-2022 influenza virus vacc ine, unspecified formulation Kisha Almanzar MD Work Phone: [facility] 02-02-2022 Human Papillomavirus 9-valent vaccine Kisha Almanzar MD Work Phone: [facility] 04-20-2018 influenza, injectabl e, quadrivalent, contains preservative Kisha Almanzar MD Work Phone: [facility] 04-20-2018 influenza virus vacc ine, unspecified formulation Kisha Almanzar MD Work Phone: [facility] 03-14-2016 influenza, injectabl e, quadrivalent, preservative free Dr. Mindy Araujo Work Phone: [facility] 03-14-2016 influenza, seasonal, injectable Dr. Mindy Araujo Work Phone: [facility] 03-09-2015 influenza, injectabl e, quadrivalent, preservative free Dr. Mindy Araujo Work Phone: [facility] 03-09-2015 influenza, seasonal, injectable Dr. Mindy Araujo Work Phone: [facility] 03-09-2015 tetanus toxoid, redu bhavesh diphtheria toxoid, and acellular pertussis vaccine, adsorbed Dr. Mindy Araujo Work Phone: [facility] 04-12-2014 influenza virus vacc ine, unspecified formulation Kisha Almanzar MD Work Phone: [facility] 04-10-2014 influenza, injectabl e, quadrivalent, preservative free Dr. Mindy Araujo Work Phone: [facility] 04-10-2014 influenza, seasonal, injectable Dr. Mindy Araujo Work Phone: [facility] 06-10-[address] Mindy Araujo Work Phone: [facility] 10-14-2012 tetanus toxoid, redu bhavesh diphtheria toxoid, and acellular pertussis vaccine, adsorbed Kisha Almanzar MD Work Phone: [facility] Work Phone: 03-19-2012 influenza virus vacc ine, unspecified formulation Kisha Almanzar MD Work Phone: [facility] Payers Date Payer Category Payer Self-pay [id number] 2018 Private Health Insurance [employer] PPO [id number] 2018 Unknown [id number] 2018 Unknown [id number] 2017 Unknown [id number] 2013 Unknown [facility] [place] [id number] Unknown [id number] Unknown [id number] Unknown [id number] Unknown [id number] Unknown [id number] Unknown [id number] Social History Date Type Detail Facility Start: 02-02-2022 End: 08-29-2024 Tobacco smoking status NHIS Never smoked tobacco [facility] Start: 02-14-2020 End: 05-31-2024 Alcohol intake Current drinker of alcohol (finding) [facility] Start: 02-14-2020 End: 07-10-2023 Alcohol intake [facility] Start: 06-05-2007 History SDOH Alcohol Comment SOCIALLY FOUR TIMES Q MONTH,NOT WHILE [facility] Start: 1980 Sex Assigned At Not on file [facility] Start: 01-15-2020 End: 04-07-2022 Exposure to SARS-CoV-2 (event) Not sure [facility] Start: 02-02-2022 Tobacco use and exposure Smokeless tobacco non-user [facility] Start: 10-25-2022 End: 03-22-2023 Tobacco smoking status NHIS Unknown if ever smoked [facility] Start: 1980 Sex Assigned At Female [facility] Start: 04-07-2022 End: 07-10-2023 Tobacco use panel [facility] National Score (1-100), lower number is lower risk 57 [facility] Functional Status Date Assessment Result Facility 10-17-2014 Are you deaf, or do you have serious difficulty hearing No 10/17/2014 2:18 PM Elizabeth Santana LPN No [facility] 10-17-2014 Are you blind, or do you have serious difficulty seeing, even when wearing glasses No 10/17/2014 2:18 PM Elizabeth Santana LPN No [facility] 10-17-2014 Do you have serious difficulty walking or climbing stairs No 10/17/2014 2:18 PM Elizabeth Santana LPN No [facility] 10-17-2014 Do you have difficul ty dressing or bathing No 10/17/2014 2:18 PM lEizabeth Santana LPN No [facility] 10-17-2014 Because of a physica l, mental, or emotional condition, do you have difficulty doing errands alone such as visiting a physician's office or shopping No 10/17/2014 2:18 PM Elizabeth Santana LPN No [facility] Mental Status Date Assessment Result Facility 10-17-2014 Because of a physica l, mental, or emotional condition, do you have serious difficulty concentrating, remembering, or making decisions No 10/17/2014 2:18 PM EDT Elizabeth Holbrook STRATIGRAPHY TEACHER No [facility] Clinical Notes 11-04-2010 to 11-16-2024 Note Date & Type Note Facility 11-16-2024 Evaluation note Diagnosis Onset Date Resolution Conjunctivitis, right eye acute November 16, 2024 8:03am UTI (urinary tract infection) acute December 15, 2024 8:03am [place] [employer] Phone: [phone] Telephone encounter Note* Telephone Encounter - Makenzie Clancy MD - 09/05/2024 8:17 AM EDT filed [facility]04-10-2025 Miscellaneous Notes* Telephone Encounter - Makenzie Clancy MD - 09/05/2024 8:17 AM EDT filed * Telephone Encounter - Mireille Ortiz RN - 09/04/2024 12:31 PM EDT Since patient skips placebo pills pharmacy is requesting more to make 90 day supply (previously wassent for 84 tablets). Last annual 05/31/24. Requested Prescriptions Pending Prescriptions Disp Refills drospirenone-e.estradiol-lm.FA (BEYAZ) 3-0.02-0.451 mg (24) (4) tab [Pharmacy Med Name: BEYAZ TAB] 112 tablet 3 Sig: Take 1 tablet by mouth once daily. for continuous use, skip inactive pills Mireille Ortiz RN documented [facility]04-[facility] Telephone encounter Note * Telephone Encounter - Mireille Ortiz RN - 09/04/2024 12:31 PM EDT Since patient skips placebo pills pharmacy is requesting more to make 90 day supply (previously wassent for 84 tablets). Last annual 05/31/24. Requested Prescriptions Pending Prescriptions Disp Refills drospirenone-e.estradiol-lm.FA (BEYEDENILSON) 3-0.02-0.451 mg (24) (4) tab [Pharmacy Med Name: BEYAZ TAB] 112 tablet 3 Sig: Take 1 tablet by mouth once daily. for continuous use, skip inactive pills Mireille Ortiz RN [facility]04-03-2025 Telephone encounter Note* Telephone Encounter - Makenzie Clancy MD - 08/29/2024 12:02 PM EDT filed [facility]04-03-2025 Miscellaneous Notes* Telephone Encounter - Makenzie Clancy MD - 08/29/2024 12:02 PM EDT filed * Telephone Encounter - Mireille Ortiz RN - 08/29/2024 10:50 AM EDT Last annual 05/31/24 and per patient [facility] did not receive that years supply rx that was escripted that day. Please file again and cancel all other previous rx. Rx that was sent today was only for 28 pills. Mireille Ortiz RN documented [facility]04-[facility] Telephone encounter Note * Telephone Encounter - Mireille Ortiz RN - 08/29/2024 10:50 AM EDT Last annual 05/31/24 and per patient [facility] did not receive that years supply rx that was escripted that day. Please file again and cancel all other previous rx. Rx that was sent today was only for 28 pills. Mireille Ortiz RN [facility]04-03-2025 Telephone encounter Note* Telephone Encounter - Makenzie Clancy MD - 08/29/2024 9:18 AM EDT filed [facility]04-03-2025 Miscellaneous Notes* Telephone Encounter - Makenzie Clancy MD - 08/29/2024 9:18 AM EDT filed * Telephone Encounter - Marilynn Mae RN - 08/27/2024 9:33 AM EDT Last OV 05/31/24. Requested Prescriptions Pending Prescriptions Disp Refills drospirenone-e.estradiol-lm.FA (BEYAZ) 3-0.02-0.451 mg (24) (4) tab 84 tablet 3 Sig: Take 1 tablet by mouth once daily. for continuous use, skip inactive pills [facility] did not receive Rx 05/31/24. Marilynn Mae RN documented in [facility]Ber[facility]04-01-2025 Telephone encounter Note * Telephone Encounter - Marilynn Mae RN - 08/27/2024 9:33 AM EDT Last OV 05/31/24. Requested Prescriptions Pending Prescriptions Disp Refills drospirenone-e.estradiol-lm.FA (BEYAZ) 3-0.02-0.451 mg (24) (4) tab 84 tablet 3 Sig: Take 1 tablet by mouth once daily. for continuous use, skip inactive pills [facility] did not receive Rx 05/31/24. Marilynn Mae RN [facility]03-26-2025 History of Present illness Narrative* Manpreet Estrada Mammo Tech - 08/21/2024 7:10 AM EDT Radiology Service Progress Note PATIENT NAME: Edna AKERS DATE OF SERVICE: August 21, 2024 TIME: 7:28 AM PATIENT IDENTITY VERIFICATION COMPLETED USING TWO (2) IDENTIFIERS: Name and Date of confirmedby patient verbally. FALL SCREENING: Has the patient had 2 falls in the last year or 1 fall with injury or currently using an Ambulatory Assistive Device (Walker, Cane, Wheelchair, Crutches, etc.)? No PATIENT GENDER DATA: Assigned female at . status: : No status:NO. PATIENT RELEVANT IMPLANT DATA REVIEWED: Not Applicable PATIENT PRESENTS WITH AN IMPLANTABLE OR ATTACHED VACUUM EXTRACTOR OPERATOR: No RADIOLOGY DEPARTMENT: Mammography PERIPHERAL IV DATA: Not applicable SIGNED BY: Chong Larsen August 21, 2024 7:28 AM documented in this encounterBerger [facility]03-26-2025 NoteHNO ID: [id number] Author: MANPREET ESTRADA Mammo Tech Service: ? Author Type: [employer] Developer Type: Progress Notes Filed: 08/21/2024 07:28 Note Text: Radiology Service Progress Note PATIENT NAME: Edna AKERS DATE OF SERVICE: August 21, 2024 TIME: 7:28 AM PATIENT IDENTITY VERIFICATION COMPLETED USING TWO (2) IDENTIFIERS: Name and Date of confirmed by patient verbally. FALL SCREENING: Has the patient had 2 falls in the last year or 1 fall with injury or currently using an Ambulatory Assistive Device (Walker, Cane, Wheelchair, Crutches, etc.)? No PATIENT GENDER DATA: Assigned female at . status: : No status: NO. PATIENT RELEVANT IMPLANT DATA REVIEWED: Not Applicable PATIENT PRESENTS WITH AN IMPLANTABLE OR ATTACHED VACUUM EXTRACTOR OPERATOR: No RADIOLOGY DEPARTMENT: Mammography PERIPHERAL IV DATA: Not applicable SIGNED BY: Chong Larsen August 21, 2024 7:28 [facility]01-03-2025 NoteHNO ID: [id number] Author: MAKENZIE CLANCY MD Service: ? Author Type: Physician Type: Progress Notes Filed: 05/31/2024 17:08 Note Text: Front End Mechanic offered: Patient declinesEvelyn Bishop is a 43 year old who presents for an annual gynecologic exam without complaints. Still get period: Yes LMP: 05/17/2024 Bleeding amount bothersome: No Bleeding between periods: No Period symptoms: Breast tenderness; Cramps; Mood change Time with current partner: 2 1/2 years Number of lifetime partners: 4 control frequency: Always HPV vaccine: Yes; HPV:negative Last pap smear: 2019 normal History of abnormal pap: No, all prior PAP smears have been normal Bothersome pelvic pain: No Last mammogram: 2023normal Patient concerns for STD exposure: No. OB History T1 L2 SAB0 IAB0 Ectopic0 Multiple0 Live Births2 Hand Chain Maker History LMP: 05/17/2024, Having periods Age at Menarche: 12 Age at First : Age at Menopause: Hand Chain Maker History Comments: Sexual Activity: Yes; Male Contraception: Pill Menstrual Tracking History Flowsheet Row Office Visit from 05/31/2024 in OB/Gynecology Period Cycle (Days) 28 Period Duration (Days) 4 Menstrual Flow Light PAST MEDICAL HISTORY Diagnosis Date Essential hypertension Irregular menses usually 32-45 days PMH - PAST MEDICAL HISTORY OF 05/29/1996 RENAL CALCULI WITH SEPSIS PAST SURGICAL HISTORY Procedure Laterality Date DELIVERY ONLY 12/28/2007 , low cervical DELIVERY ONLY 01/17/11 , low transverse PAST SURGICAL HISTORY OF 1996 LITHOTRIPSY FOR CALCULI FAMILY HISTORY Problem Relation Age of Onset Aneurysm Father leg Seizures Sister Asthma Sister Stroke Paternal Grandmother Cancer Paternal Grandfather PROSTATE Stroke Paternal Grandfather Breast Cancer Paternal Aunt Diabetes Paternal Uncle Heart Paternal Uncle Heart Paternal Uncle SOCIAL HISTORY Social History Tobacco Use Smoking status: Never Smokeless tobacco: Never Vaping Use Vaping status: Never Used Substance Use Topics Alcohol use: Yes Alcohol/week: 1.0 standard drink of alcohol Types: 1 Glasses of Wine (5oz) per week Comment: SOCIALLY FOUR TIMES Q MONTH,NOT WHILE Drug use: No REVIEW OF SYSTEMS Abdomen: No abdominal pain, nausea, vomiting, diarrhea, or constipation. No bloating, early satiety, indigestion, or increased flatulence. Bladder: No dysuria, gross hematuria, urinary frequency, urinary urgency, or incontinence. Breast: No breast lumps, nipple d/c, overlying skin changes, redness or skin retraction. Allergies and current medication updated:Yes SENSITIVE EXAM: The sensitive examination was discussed with the Patient or Patient's Authorized Powder Hand. As applicable, any other physician, advance practice provider, medical student, or other health professional student that will be observing or involved in the sensitive examination for educational or training purposes was discussed with the Patient or Authorized Powder Hand. The Patient or Authorized Powder Hand has agreed to proceed with the sensitive examination. (Sensitive examination includes inspection and/or palpation of the breasts, pelvis, prostate and anorectal regions). EXAM: BP 128/86 Ht 5' 3.5 (1.61m) Wt 138 lb 6.4 oz (62.8kg) LMP 05/17/2024 BMI 24.13 kg/(m2). GENERAL: pleasant, female in no apparent distress HEENT: Normocephalic and atraumatic NECK: full range of motion DERMATOLOGY: Normal, without lesions, non-icteric, and non-hirsute BREAST: soft, non-tender, symmetric, no dominant mass, normal nipple-areolar complex, no lymphadenopathy, and no nipple discharge CHEST: Normal inspiratory effort ABDOMEN: soft, non-tender, and no masses PELVIC: external genitalia normal, normal Bartholin's glands, urethra, Sans Souci's glands, no vulvar lesions, no cervical lesions, good vaginal support, physiologic discharge present, normal appearing perineal body and perianal region BIMANUAL: uterus normal size, shape and consistency, no adnexal masses, and non-tender RECTOVAGINAL: deferred. NEURO: exam grossly non-focal EXTREMITIES: normal ASSESSMENT/PLAN: 1) Health maintenance: Pap done with HPV. Mammogram up to date . Nutrition, exercise and routine health maintenance exams reviewed. Colon cancer screening: start at age 45 Lipids/glucose: followed by PCP 2) Contraception: combined hormonal contraceptives. Contraceptive options reviewed and information provided. - Partner recently had vasectomy. Discussed risks of CHC with h/o HTN. She plans to stop the pill after partner's vasectomy follow up 3) STD screening: Declined STD check. 4) Follow up one year or sooner as needed [facility] History of Present illness Narrative* Makenzie Clancy MD - 05/31/2024 2:09 PM EST Front End Mechanic offered: Patient declines. Edna is a 43 year old who presents for an annual gynecologic exam without complaints. Still get period: Yes LMP: 05/17/2024 Bleeding amount bothersome: No Bleeding between periods: No Period symptoms: Breast tenderness; Cramps; Mood change Time with current partner: 2 1/2 years Number of lifetime partners: 4 control frequency: Always HPV vaccine: Yes; HPV:negative Last pap smear: 2019 normal History of abnormal pap: No, all prior PAP smears have been normal Bothersome pelvic pain: No Last mammogram: 2023normal Patient concerns for STD exposure: No. OB History T1 L2 SAB0 IAB0 Ectopic0 Multiple0 Live Births2 Hand Chain Maker History LMP: 05/17/2024, Having periods Age at Menarche: 12 Age at First : Age at Menopause: Hand Chain Maker History Comments: Sexual Activity: Yes; Male Contraception: Pill Menstrual Tracking History Flowsheet Row Office Visit from 05/31/2024 in OB/Gynecology Period Cycle (Days) 28 Period Duration (Days) 4 Menstrual Flow Light PAST MEDICAL HISTORY Diagnosis Date Essential hypertension Irregular menses usually 32-45 days PMH - PAST MEDICAL HISTORY OF 05/29/1996 RENAL CALCULI WITH SEPSIS PAST SURGICAL HISTORY Procedure Laterality Date DELIVERY ONLY 12/28/2007 , low cervical DELIVERY ONLY 01/17/11 , low transverse PAST SURGICAL HISTORY OF 1996 LITHOTRIPSY FOR CALCULI FAMILY HISTORY Problem Relation Age of Onset Aneurysm Father leg Seizures Sister Asthma Sister Stroke Paternal Grandmother Cancer Paternal Grandfather PROSTATE Stroke Paternal Grandfather Breast Cancer Paternal Aunt Diabetes Paternal Uncle Heart Paternal Uncle Heart Paternal Uncle SOCIAL HISTORY Social History Tobacco Use Smoking status: Never Smokeless tobacco: Never Vaping Use Vaping status: Never Used Substance Use Topics Alcohol use: Yes Alcohol/week: 1.0 standard drink of alcohol Types: 1 Glasses of Wine (5oz) per week Comment: SOCIALLY FOUR TIMES Q MONTH,NOT WHILE Drug use: No REVIEW OF SYSTEMS Abdomen: No abdominal pain, nausea, vomiting, diarrhea, or constipation. No bloating, early satiety, indigestion, or increased flatulence. Bladder: No dysuria, gross hematuria, urinary frequency, urinary urgency, or incontinence. Breast: No breast lumps, nipple d/c, overlying skin changes, redness or skin retraction. Allergies and current medication updated:Yes SENSITIVE EXAM: The sensitive examination was discussed with the Patient or Patient's Authorized Powder Hand. As applicable, any other physician, advance practice provider, medical student, or other health professional student that will be observing or involved in the sensitive examination for educational or training purposes was discussed with the Patient or Authorized Powder Hand. The Patient or Authorized Powder Hand has agreed to proceed with the sensitive examination. (Sensitive examination includes inspection and/or palpation of the breasts, pelvis, prostate and anorectal regions). EXAM: BP 128/86 Ht 5' 3.5 (1.61m) Wt 138 lb 6.4 oz (62.8kg) LMP 05/17/2024 BMI 24.13 kg/(m^2). GENERAL: pleasant, female in no apparent distress HEENT: Normocephalic and atraumatic NECK: full range of motion DERMATOLOGY: Normal, without lesions, non-icteric, and non-hirsute BREAST: soft, non-tender, symmetric, no dominant mass, normal nipple-areolar complex, no lymphadenopathy, and no nipple discharge CHEST: Normal inspiratory effort ABDOMEN: soft, non-tender, and no masses PELVIC: external genitalia normal, normal Bartholin's glands, urethra, Sans Souci's glands, no vulvar lesions, no cervical lesions, good vaginal support, physiologic discharge present, normal appearing perineal body and perianal region BIMANUAL: uterus normal size, shape and consistency, no adnexal masses, and non-tender RECTOVAGINAL: deferred. NEURO: exam grossly non-focal EXTREMITIES: normal ASSESSMENT/PLAN: 1) Health maintenance: Pap done with HPV. Mammogram up to date . Nutrition, exercise and routine health maintenance exams reviewed. Colon cancer screening: start at age 45 Lipids/glucose: followed by PCP 2) Contraception: combined hormonal contraceptives. Contraceptive options reviewed and information provided. - Partner recently had vasectomy. Discussed risks of CHC with h/o HTN. She plans to stop the pill after partner's vasectomy follow up 3) STD screening: Declined STD check. 4) Follow up one year or sooner as needed Makenzie Clancy DO documented in this encounterBerger [facility]03-25-2024 Miscellaneous Notes* Letter - Coordinator, Mammography - 08/21/2023 3:07 PM EDT August 22, 2023 PID: [id number] Edna Akers [address] [place] [address] Dear Ms. Akers, We are pleased to inform you that the results of your recent breast imaging exam on 08/21/2023 are normal. Your mammogram demonstrates that you have dense breast tissue, which could hide abnormalities. Dense breast tissue, in and of itself, is a relatively common condition. Therefore, this information is not provided to cause undue concern; rather, it is to raise your awareness and promote discussion with your health care provider regarding the presence of dense breast tissue in addition to other riskfactors. Early detection of cancer is very important. We also understand recommendations regarding breast cancer screening are controversial. Please discuss with your primary care provider which strategy is best for you and whether a mammogram is right for you. Your imaging studies and report will be kept on file at [facility] as part of your permanent medical record and are available for your continuing care. Thank you for allowing us to help in meeting your health care needs. Sincerely, Dr. Storey Interpreting Radiologist [facility] (Normal over 40) documented in this encounterBerger Hospital03-25-2024 History of Present illness Narrative* Manpreet Estrada, Mammo Tech - 08/21/2023 7:50 AM EDT Radiology Service Progress Note PATIENT NAME: Edna AKERS DATE OF SERVICE: August 21, 2023 TIME: 7:49 AM PATIENT IDENTITY VERIFICATION COMPLETED USING TWO (2) IDENTIFIERS: Name and Date of confirmedby patient verbally. FALL SCREENING: Has the patient had 2 falls in the last year or 1 fall with injury or currently using an Ambulatory Assistive Device (Walker, Cane, Wheelchair, Crutches, etc.)? No PATIENT GENDER DATA: Female. status: : No status: NO. PATIENT RELEVANT IMPLANT DATA REVIEWED: Not Applicable PATIENT PRESENTS WITH AN IMPLANTABLE OR ATTACHED VACUUM EXTRACTOR OPERATOR: No RADIOLOGY DEPARTMENT: Mammography PERIPHERAL IV DATA: Not applicable SIGNED BY: Manpreet Estrada [employer] August 21, 2023 7:49 AM documented in this encounterBerger Hospital02-13-2024 Miscellaneous Notes* Telephone Encounter - Lauren Rodriguez LPN - 07/11/2023 1:44 PM EST Contacted mail order pharmacy to ensure that rx was received. Lauren Rodriguez LPN * Telephone Encounter - Kisha Almanzar MD - 07/11/2023 12:20 PM EST Please fax the rx and or call it in for her so it gets there today. Please check w/ IT /admin to see if this is a new or ongoing issue. Kisha Almanzar MD * Telephone Encounter - Lauren Rodriguez LPN - 07/11/2023 8:30 AM EST Please see pended order below. Pt stated that her mail order pharmacy has not received refill request from our office. Please see pt's refill request and advise. Lauren Rodriguez LPN' documented in this encounterBerger Hospital02-12-2024 History of Present illness Narrative* Kisha Almanzar MD - 07/10/2023 3:56 PM EST Edna is a 42 year old who presents for an annual gynecologic exam occas breakthrough bleeding. Menses: rare. Contraception: combined hormonal contraceptives HPV vaccine: No Last Pap: 02/20/2020 normal HPV: 02/19/2020 negative History of abnormal pap: No Last mammogram: never Sexually active: Yes OB History T1 L2 SAB0 IAB0 Ectopic0 Multiple0 Live Births2 Hand Chain Maker History LMP: 01/30/2020, Drug Induced Amenorrhea Age at Menarche: Age at First : Age at Menopause: Hand Chain Maker History Comments: Sexual Activity: Yes; Male Contraception: Pill PAST MEDICAL HISTORY Diagnosis Date Essential hypertension Irregular menses usually 32-45 days PMH - PAST MEDICAL HISTORY OF 05/29/1996 RENAL CALCULI WITH SEPSIS PAST SURGICAL HISTORY Procedure Laterality Date DELIVERY ONLY 12/28/2007 , low cervical DELIVERY ONLY 01/17/11 , low transverse PAST SURGICAL HISTORY OF 1996 LITHOTRIPSY FOR CALCULI FAMILY HISTORY Problem Relation Age of Onset Aneurysm Father leg Seizures Sister Asthma Sister Stroke Paternal Grandmother Cancer Paternal Grandfather PROSTATE Stroke Paternal Grandfather Breast Cancer Paternal Aunt Diabetes Paternal Uncle Heart Paternal Uncle Heart Paternal Uncle SOCIAL HISTORY Social History Tobacco Use Smoking status: Never Smokeless tobacco: Never Vaping Use Vaping Use: Never used Substance Use Topics Alcohol use: Yes Alcohol/week: 1.0 standard drink of alcohol Types: 1 Glasses of Wine (5oz) per week Comment: SOCIALLY FOUR TIMES Q MONTH,NOT WHILE Drug use: No REVIEW OF SYSTEMS Abdomen: No abdominal pain, nausea, vomiting, diarrhea, or constipation. No bloating, early satiety, indigestion, or increased flatulence. Bladder: No dysuria, gross hematuria, urinary frequency, urinary urgency, or incontinence. Breast: No breast lumps, nipple d/c, overlying skin changes, redness or skin retraction. Allergies and current medication updated:Yes EXAM: BP 132/72[left arm[ Ht 5' 3.75 (1.62m) Wt 135 lb (61.2kg) LMP 01/30/2020 BMI 23.36 kg/(m^2). GENERAL: pleasant, female in no apparent distress HEENT: Normocephalic, atraumatic, mucus membranes moist, and no lesions NECK: Supple, full range of motion, no adenopathy, and thyroid normal DERMATOLOGY: Normal, without lesions, non-icteric, and non-hirsute BREAST: soft, non-tender, symmetric, no dominant mass, normal nipple-areolar complex, no lymphadenopathy, and no nipple discharge CHEST: Normal inspiratory effort ABDOMEN: soft, non-tender, and no masses PELVIC: external genitalia normal, normal Bartholin's glands, urethra, Sans Souci's glands, no vulvar lesions, no cervical lesions, good vaginal support, physiologic discharge present, normal appearing perineal body and perianal region BIMANUAL: uterus normal size, shape and consistency, no adnexal masses, and non-tender RECTOVAGINAL: deferred. NEURO: alert and oriented x3,exam grossly non-focal EXTREMITIES: normal ASSESSMENT/PLAN: 1) Health maintenance: Pap/HPV up to date. Mammogram ordered. HPV vaccine: complete series 2) Contraception: combined hormonal contraceptives. Contraceptive options reviewed and information provided. 3) STD screening: Declined STD check. 4) Follow up one year or sooner as needed Kisha Almanzar MD documented in this encounterBerger Hospital02-06-2024 Miscellaneous Notes* Telephone Encounter - Lauren Rodriguez LPN - 07/04/2023 2:34 PM EST Pt has scheduled appointment on 07/10/23. Please advise. Lauren Rodriguez LPN documented in this encounterBerger Hospital02-06-2024 Miscellaneous Notes* Telephone Encounter - Daisy Valente RN - 07/04/2023 9:58 AM EST Requested Prescriptions Pending Prescriptions Disp Refills drospirenone-e.estradiol-lm.FA (BEYAZ) 3-0.02-0.451 mg (24) (4) tab 84 tablet 0 Sig: Take 1 tablet by mouth once daily. for continuous use, skip inactive pills Next annual exam: 07/10/23 Please approve the above prescription(s) to electronically send to pharmacy. Daisy Valente RN documented in this [facility]10-11-2023 Miscellaneous Notes* Telephone Encounter - Staci Jimenez RN - 03/08/2023 9:02 AM EDT Last seen for annual exam on 02/02/22. [employer] message sent to patient to schedule appointment. Staci Jimenez RN documented in this encounterBerger Hospital11-10-2022 History of Present illness Narrative* Lauren Rodriguez LPN - 04/07/2022 9:12 AM EST Pt here today for 2nd gardasil vaccine. Lauren Rodriguez LPN documented in this encounterBerger Hospital09-07-2022 Instructions* Patient Instructions* Kisha Almanzar MD - 02/02/2022 9:11 AM EDT Gardasil Gardasil is a vaccine to protect against Human Papillomavirus (HPV) types 6, 11, 16, 18, 31,33,45, 52, 58. These viruses cause cancer and precancerous lesions on the cervix (opening between vagina and uterus), in the vagina and on the vulva (skin around the outside of the vagina) as well as genitalwarts. The vaccine cannot cause these diseases and cannot treat them if already present. Gardasil works best if given before contact with HPV. Most people are exposed to HPV soon after starting sexual activity. The vaccine is recommended between the ages of 9 and 45. Gardasil does not protect against all strains of HPV. Women who receive the vaccine still need to have regular pelvic exams and cervical cancer screening with the pap smear. You should ask your doctor if Gardasil is right for you if you have a weakened immune system, a bleeding disorder, plan to become soon or have a current illness causing fever. Gardasil is not recommended for women. You should be sure your doctor is aware of any allergies you have and all medications and herbal supplements you take. Gardasil is given to those ages 9-14 in 2 doses at 0 and 8 months. In ages 15- 45, three injections are given at 0,2,6 months. Common side effects include pain, redness, itching and swelling at the injection site, nausea, fever, dizziness and fainting. Rare but potentially serious reactions have been reported. These include allergic reaction, swollen glands, joint and muscle pain, weakness and Guillain-Chambers syndrome. documented in this encounterBerger Hospital09-07-2022 History of Present illness Narrative* Kisha Almanzar MD - 02/02/2022 8:48 AM EDT Edna is a 41 year old who presents for an annual gynecologic exam without complaints. Periods have straightened out now and she was able to skip last month. Menses: cycles every days and days of flow. Contraception: combined hormonal contraceptives HPV vaccine: No Last Pap: 02/20/2020 normal HPV: 02/19/2020 negative History of abnormal pap: No Last mammogram: never Sexually active: Yes OB History T1 L2 SAB0 IAB0 Ectopic0 Multiple0 Live Births2 Hand Chain Maker History LMP: 01/30/2020, Having periods Age at Menarche: Age at First : Age at Menopause: Hand Chain Maker History Comments: Sexual Activity: Yes; Male Contraception: No contraception data on record PAST MEDICAL HISTORY Diagnosis Date Essential hypertension Irregular menses usually 32-45 days [facility] - PAST MEDICAL HISTORY OF 05/29/1996 RENAL CALCULI WITH SEPSIS PAST SURGICAL HISTORY Procedure Laterality Date DELIVERY ONLY 12/28/2007 , low cervical DELIVERY ONLY 01/17/11 , low transverse PAST SURGICAL HISTORY OF 1996 LITHOTRIPSY FOR CALCULI FAMILY HISTORY Problem Relation Age of Onset Aneurysm Father leg Stroke Paternal Grandmother Cancer Paternal Grandfather PROSTATE Stroke Paternal Grandfather Breast Cancer Paternal Aunt Diabetes Paternal Uncle Heart Paternal Uncle Heart Paternal Uncle Seizures Sister Asthma Sister SOCIAL HISTORY Social History Tobacco Use Smoking status: Never Smokeless tobacco: Never Vaping Use Vaping Use: Never used Substance Use Topics Alcohol use: Yes Alcohol/week: 2.5 standard drinks Types: 1 Glasses of Wine (5oz) per week Comment: SOCIALLY FOUR TIMES Q MONTH,NOT WHILE Drug use: No REVIEW OF SYSTEMS Abdomen: No abdominal pain, nausea, vomiting, diarrhea, or constipation. No bloating, early satiety, indigestion, or increased flatulence. Bladder: No dysuria, gross hematuria, urinary frequency, urinary urgency, or incontinence. Breast: No breast lumps, nipple d/c, overlying skin changes, redness or skin retraction. Allergies and current medication updated:Yes EXAM: LMP 01/30/2020 GENERAL: pleasant, female in no apparent distress HEENT: Normocephalic, atraumatic, mucus membranes moist, and no lesions NECK: Supple, full range of motion, no adenopathy, and thyroid normal DERMATOLOGY: Normal, without lesions, non-icteric, and non-hirsute BREAST: soft, non-tender, symmetric, no dominant mass, normal nipple-areolar complex, no lymphadenopathy, and no nipple discharge CHEST: Normal inspiratory effort ABDOMEN: soft, non-tender, and no masses PELVIC: external genitalia normal, normal Bartholin's glands, urethra, Sans Souci's glands, no vulvar lesions, no cervical lesions, good vaginal support, physiologic discharge present, normal appearing perineal body and perianal region BIMANUAL: uterus normal size, shape and consistency, no adnexal masses, and non-tender RECTOVAGINAL: deferred. NEURO: alert and oriented x3,exam grossly non-focal EXTREMITIES: normal ASSESSMENT/PLAN: 1) Health maintenance: Pap/HPV up to date. Mammogram ordered. 2) Contraception: combined hormonal contraceptives. Contraceptive options reviewed and information provided. 3) STD screening: Accepted STD check for Gonorrhea and Chlamydia. 4) Follow up one year or sooner as needed Kisha Almanzar MD Patient identified by name and date of . Edna Ptael is here for her HPV 9 vaccination, injection # one of the series. Patient ?No Gardasil injection was given without incident. See immunizations for details of immunizations administered today. VIS sheet provided: Yes Patient advised to follow up in 2 months from the 1st injection Provider Dr Almanzar was present in office at time of injection. Nancy Salazar Ma [facility] Miscellaneous Notes* Addendum Note - Kisha Almanzar MD - 11/05/2021 1:40 PM EDT Addended by: KISHA ALMANZAR on: 11/05/2021 01:40 PM Modules accepted: Orders * Telephone Encounter - Daisy Valente RN - 11/04/2021 1:25 PM EDT Patient last seen 02/14/20. Has upcoming annual on 02/02/22. RX pending if appropriate. Pending Prescriptions Disp Refills DROSPIREN-E.ESTRAD-L.MEFOL 3 MG-0.02 MG-0.451 MG(24)/0.451 MG(4)TABLET 28 tablet 2 Sig: Take 1 tablet by mouth once daily. JARET: No documented in [facility] encounter[facility] History of Past illness Narrative* Problem Noted Date Resolved Date Supervision of normal subsequent 11/0402/01/2011 Previous section 08/11/20102010 Supervision of normal first 06/05/2007 07/09/2010 documented as of this encounter (statuses as of 11/05/2021) [facility] illness Narrative* Problem Noted Date Resolved Date Supervision of normal subsequent 11/0402/01/2011 Previous section 08/11/20102010 Supervision of normal first 06/05/2007 07/09/2010 documented as of this encounter (statuses as of 11/05/2021) [facility] of [facility] illness Narrative* Problem Noted Date Resolved Date Supervision of normal subsequent 11/0402/01/2011 Previous section 08/11/20102010 Supervision of normal first 06/05/2007 07/09/2010 documented as of this encounter (statuses as of 02/02/2022) [facility] illness Narrative* Problem Noted Date Resolved Date Supervision of normal subsequent 11/0402/01/2011 Previous section 08/11/20102010 Supervision of normal first 06/05/2007 07/09/2010 documented as of this encounter (statuses as of 03/14/2022) [facility] illness Narrative* Problem Noted Date Resolved Date Supervision of normal subsequent 11/0402/01/2011 Previous section 08/11/20102010 Supervision of normal first 06/05/2007 07/09/2010 documented as of this encounter (statuses as of 04/07/2022) [facility] Narrative* Problem Noted Date Resolved Date Supervision of normal subsequent 11/0402/01/2011 Previous section 08/11/20102010 Supervision of normal first 06/05/2007 07/09/2010 documented as of this encounter (statuses as of 04/12/2022) [facility] Narrative* Problem Noted Date Diagnosed Date Resolved Date Supervision of normal subsequent 11/04/2010 02/01/2011 Previous section 08/11/2010 Supervision of normal first 06/05/2007 07/09/2010 documented as of this encounter (statuses as of 03/08/2023) [facility] Narrative* Problem Noted Date Diagnosed Date Resolved Date Supervision of normal subsequent 11/04/2010 02/01/2011 Previous section 08/11/2010 Supervision of normal first 06/05/2007 07/09/2010 documented as of this encounter (statuses as of 05/01/2023) [facility] Narrative* Problem Noted Date Diagnosed Date Resolved Date Supervision of normal subsequent 11/04/2010 02/01/2011 Previous section 08/11/2010 Supervision of normal first 06/05/2007 07/09/2010 documented as of this encounter (statuses as of 07/04/2023) [facility] Narrative* Problem Noted Date Diagnosed Date Resolved Date Supervision of normal subsequent 11/04/2010 02/01/2011 Previous section 08/11/2010 Supervision of normal first 06/05/2007 07/09/2010 documented as of this encounter (statuses as of 07/05/2023) [facility] Narrative* Problem Noted Date Diagnosed Date Resolved Date Supervision of normal subsequent 11/04/2010 02/01/2011 Previous section 08/11/2010 Supervision of normal first 06/05/2007 07/09/2010 documented as of this encounter (statuses as of 07/11/2023) [facility] Narrative* Problem Noted Date Diagnosed Date Resolved Date Supervision of normal subsequent 11/04/2010 02/01/2011 Previous section 08/11/2010 Supervision of normal first 06/05/2007 07/09/2010 documented as of this encounter (statuses as of 07/11/2023) [facility] Narrative* Problem Noted Date Diagnosed Date Resolved Date Supervision of normal subsequent 11/04/2010 02/01/2011 Previous section 08/11/2010 Supervision of normal first 06/05/2007 07/09/2010 documented as of this encounter (statuses as of 08/22/2023) [facility] Narrative* Problem Noted Date Diagnosed Date Resolved Date Supervision of normal subsequent 11/04/2010 02/01/2011 Previous section 08/11/2010 Supervision of normal first 06/05/2007 07/09/2010 documented as of this encounter (statuses as of 08/23/2023) [facility] Diagnosis Encounter for gynecological examination (general) (routine) without abnormal findings- Primary Encounter for screening mammogram for breast cancer Need for prophylactic vaccination/inoculation against viral disease Need for prophylactic vaccination and inoculation against other viral diseases Screen for STD (sexually transmitted disease) Screening examination for venereal disease [facility] Diagnosis Need for prophylactic vaccination/inoculation against viral disease- Primary Need for prophylactic vaccination and inoculation against other viral diseases [facility] encounter [facility] Diagnosis Onset Date Resolution Status Hypertension chronic [facility] Work Phone: Evaluation note* Diagnosis Onset Date Resolution Status Alcohol use disorder chronic Hypertension chronic Bee sting reaction acute Dysuria acute [facility] Work Phone: Evaluation note* Diagnosis Encounter for gynecological examination (general) (routine) without abnormal findings- Primary Encounter for screening mammogram for breast cancer documented in this encounter [facility] note* Diagnosis Encounter for gynecological examination (general) (routine) without abnormal findings Encounter for screening mammogram for breast cancer documented in this encounter [facility] note* Diagnosis Encounter for gynecological examination (general) (routine) without abnormal findings- Primary Screening for cervical cancer Screening for malignant neoplasm of the cervix Encounter for screening for human papillomavirus (HPV) Special screening examination for human papillomavirus (HPV) Encounter for screening mammogram for breast cancer documented in this encounter [facility] note* Diagnosis Encounter for screening mammogram for breast cancer documented in this encounter [facility] note* Diagnosis Onset Date Resolution Status Admit Date Conjunctivitis, right eye acute November 16, 2024 8:03am [place] [employer] Work Phone: Reason for referral (narrative)* Diagnostic Procedure Only (Routine) - Authorized Specialty Diagnoses / Procedures Referred By Wolfgang potts Referred To Contact [facility] Diagnoses Encounter for gynecological examination (general) (routine) without abnormal findings Encounter for screening mammogram for breast cancer Procedures NICK SCREENING W MAXIMILIAN SCREENING DIGITAL BREAST TOMOSYNTHESIS BI SCREENING MAMMOGRAPHY BI 2-VIEW BREAST INC CAD Kisha Almanzar MD [address] [place] [address] [place] [address] Referral ID Status Reason Start Date Expiration Date Visits Requested Visits Authorized [id number] Authorized Auto-Generat ed Referral 02/02/2022 03/04/2023 1 1 [facility] for referral (narrative)* Diagnostic Procedure Only (Routine) - Pending Review Specialty Diagnoses / Procedures Referred By Wolfgang potts Referred To Contact [facility] Diagnoses Encounter for gynecological examination (general) (routine) without abnormal findings Encounter for screening mammogram for breast cancer Procedures NICK SCREENING W MAXIMILIAN SCREENING DIGITAL BREAST TOMOSYNTHESIS BI SCREENING MAMMOGRAPHY BI 2-VIEW BREAST INC Kisha Zapata MD [address] [place] [address] [facility] [address] [place] [address] Referral ID Status Reason Start Date Expiration Date Visits Requested Visits Authorized [id number] Pending Review Auto-Generat ed Referral 07/10/2023 08/08/2024 1 1 [facility] for referral (narrative)* Diagnostic Procedure Only (Routine) - Closed Specialty Diagnoses / Procedures Referred By Wolfgang t Referred To Contact [facility] Diagnoses Encounter for gynecological examination (general) (routine) without abnormal findings Encounter for screening mammogram for breast cancer Procedures NICK SCREENING W MAXIMILIAN SCREENING DIGITAL BREAST TOMOSYNTHESIS BI SCREENING MAMMOGRAPHY BI 2-VIEW BREAST INC Kisha Zapata MD [address] [place] [address] [facility] [address] [place] [address] Referral ID Status Reason Start Date Expiration Date V isits Requested Visits Authorized [id number] Closed Auto-Generate d Referral 07/10/2023 08/08/2024 1 1 [facility] for referral (narrative)* Diagnostic Procedure Only (Routine) - Authorized Specialty Diagnoses / Procedures Referred By Wolfgang potts Referred To Contact [facility] Diagnoses Encounter for screening mammogram for breast cancer Procedures NICK SCREENING W MAXIMILIAN SCREENING DIGITAL BREAST TOMOSYNTHESIS BI SCREENING MAMMOGRAPHY BI 2-VIEW BREAST INC Makenzie Santos MD [address] [place] [address] [facility] [address] [place] [address] Referral ID Status Reason Start Date Expiration Date Visits Requested Visits Authorized [id number] Authorized Auto-Generat ed Referral 05/31/2024 06/30/2025 1 1 [facility] for referral (narrative)No reason for referral information availableSouth [place] [employer] [facility] Work Phone: reason for visit Narrative* Diagnostic Procedure Only (Routine) - Closed Specialty Diagnoses / Procedures Referred By Wolfgang potts Referred To Contact [facility] Diagnoses Encounter for gynecological examination (general) (routine) without abnormal findings Encounter for screening mammogram for breast cancer Procedures NICK SCREENING W MAXIMILIAN SCREENING DIGITAL BREAST TOMOSYNTHESIS BI SCREENING MAMMOGRAPHY BI 2-VIEW BREAST INC CAD Kisha Almanzar MD [address] [place] [address] [facility] [address] [place] [address] Referral ID Status Reason Start Date Expiration Date V isits Requested Visits Authorized [id number] Closed Auto-Generate d Referral 07/10/2023 08/08/2024 1 1 [facility]* Diagnostic Procedure Only (Routine) - Closed Specialty Diagnoses / Procedures Referred By Wolfgang potts Referred To Contact [facility] Diagnoses Encounter for screening mammogram for breast cancer Procedures NICK SCREENING W MAXIMILIAN SCREENING DIGITAL BREAST TOMOSYNTHESIS BI SCREENING MAMMOGRAPHY BI 2-VIEW BREAST INC CAD Makenzie Clancy MD [address] [place] [address] Phone: tel: fax: [facility] [address] [place] [address] Referral ID Status Reason Start Date Expiration Date V isits Requested Visits Authorized [id number] Closed Auto-Generate d Referral 05/31/2024 06/30/2025 1 1 [facility] Chief Complaint and Reason for Visit Chief Complaint FOLLOW UP Reason for Visit Hypertension Chief Complaint BP MED CHECK CONCERN FOR UTI/BUG BITE Reason for Visit Alcohol use disorder Hypertension Bee sting reaction Dysuria Chief Complaint Admit Date CONCERN FOR PINK EYE/R EYE November 16 8:03am Reason for Visit Admit Date Conjunctivitis, right eye November 16 8:03am Chief Complaint Admit Date CONCERN FOR PINK EYE/R EYE November 16 8:03am concern for uti December 15, 2024 8:03 am Reason for Visit Admit Date Conjunctivitis, right eye November 16 8:03am UTI (urinary tract infection) December 15, 2024 8:03am Family History Relationship Condition Age at Onset Recorded Date/T luis alfredo Not Specified Malignant neoplasm of breast Unknown Seizure Unknown Hypertension Unknown Cerebrovascular accident (CVA) Unknown Advance Directives Advance Directive Response Recorded Date/ Time Living Will No July 12 11:02am Power of Architectural Representative No July 12, 2021 11:02am Summary Purpose Additional Source Comments Source Comments (unrecognize d section and content) In the event this informatio n is protected by the Federal Confidentiality of Alcohol and Drug Abuse Patient Records regulations: The Federal rules restrict any use of the information to criminally investigate or prosecute any alcohol or drug abuse patient.[facility] the event this information is protected by the Federal Confidentiality of Alcohol and Drug Abuse Patient Records regulations: The Federal rules restrict any use of the information to criminally investigate or prosecute any alcohol or drug abuse patient.[facility] HospitalIn the event this information is protected by the Federal Confidentiality of Alcohol and Drug Abuse Patient Records regulations: The Federal rules restrict any use of the information to criminally investigate or prosecute any alcohol or drug abuse patient.[facility] HospitalIn the event this information is protected by the Federal Confidentiality of Alcohol and Drug Abuse Patient Records regulations: The Federal rules restrict any use of the information to criminally investigate or prosecute any alcohol or drug abuse patient.[facility] HospitalIn the event this information is protected by the Federal Confidentiality of Alcohol and Drug Abuse Patient Records regulations: The Federal rules restrict any use of the information to criminally investigate or prosecute any alcohol or drug abuse patient.[facility] HospitalIn the event this information is protected by the Federal Confidentiality of Alcohol and Drug Abuse Patient Records regulations: The Federal rules restrict any use of the information to criminally investigate or prosecute any alcohol or drug abuse patient.[facility] HospitalIn the event this information is protected by the Federal Confidentiality of Alcohol and Drug Abuse Patient Records regulations: The Federal rules restrict any use of the information to criminally investigate or prosecute any alcohol or drug abuse patient.[facility] HospitalIn the event this information is protected by the Federal Confidentiality of Alcohol and Drug Abuse Patient Records regulations: The Federal rules restrict any use of the information to criminally investigate or prosecute any alcohol or drug abuse patient.[facility] HospitalIn the event this information is protected by the Federal Confidentiality of Alcohol and Drug Abuse Patient Records regulations: The Federal rules restrict any use of the information to criminally investigate or prosecute any alcohol or drug abuse patient.[facility] HospitalIn the event this information is protected by the Federal Confidentiality of Alcohol and Drug Abuse Patient Records regulations: The Federal rules restrict any use of the information to criminally investigate or prosecute any alcohol or drug abuse patient.[facility] HospitalIn the event this information is protected by the Federal Confidentiality of Alcohol and Drug Abuse Patient Records regulations: The Federal rules restrict any use of the information to criminally investigate or prosecute any alcohol or drug abuse patient.[facility] HospitalIn the event this information is protected by the Federal Confidentiality of Alcohol and Drug Abuse Patient Records regulations: The Federal rules restrict any use of the information to criminally investigate or prosecute any alcohol or drug abuse patient.[facility] HospitalIn the event this information is protected by the Federal Confidentiality of Alcohol and Drug Abuse Patient Records regulations: The Federal rules restrict any use of the information to criminally investigate or prosecute any alcohol or drug abuse patient.[facility] HospitalIn the event this information is protected by the Federal Confidentiality of Alcohol and Drug Abuse Patient Records regulations: The Federal rules restrict any use of the information to criminally investigate or prosecute any alcohol or drug abuse patient.[facility] HospitalIn the event this information is protected by the Federal Confidentiality of Alcohol and Drug Abuse Patient Records regulations: The Federal rules restrict any use of the information to criminally investigate or prosecute any alcohol or drug abuse patient.[facility] HospitalIn the event this information is protected by the Federal Confidentiality of Alcohol and Drug Abuse Patient Records regulations: The Federal rules restrict any use of the information to criminally investigate or prosecute any alcohol or drug abuse patient.[facility] HospitalIn the event this information is protected by the Federal Confidentiality of Alcohol and Drug Abuse Patient Records regulations: The Federal rules restrict any use of the information to criminally investigate or prosecute any alcohol or drug abuse patient.[facility] HospitalIn the event this information is protected by the Federal Confidentiality of Alcohol and Drug Abuse Patient Records regulations: The Federal rules restrict any use of the information to criminally investigate or prosecute any alcohol or drug abuse patient.[facility] HospitalIn the event this information is protected by the Federal Confidentiality of Alcohol and Drug Abuse Patient Records regulations: The Federal rules restrict any use of the information to criminally investigate or prosecute any alcohol or drug abuse patient.[facility] HospitalIn the event this information is protected by the Federal Confidentiality of Alcohol and Drug Abuse Patient Records regulations: The Federal rules restrict any use of the information to criminally investigate or prosecute any alcohol or drug abuse patient.[facility] Reason for Visit (unrecogniz ed section and content) Reason Onset Date Comments Gardasil Injection 02/02/2022 Reason Comments Nurse Visit Reason Onset Date Comments Refill Request 07/04/2023 Reason Comments Yearly Exam Reason Comments Well Woman Reason Onset Date Comments Refill Request 08/27/2024 Reason Comments Med Change Request Care Teams (unrecognized sec tion and content) Team Status: Active Member Role Status Dates Dr. Valentin Thurman MD Family Provider Active Dr. Mindy Araujo MD Primary Care Provider Active Team Status: Inactive Member Role Status Dates Dr. Mindy Araujo MD Primary Care Provider, Refer ring Provider Active Nicolás Oscar ASTHMA EDUCATOR, ASTHMA EDUCATOR-C Attending Provider Active Team Status: Inactive Member Role Status Dates Dr. Mindy Araujo MD Primary Care Provider Active Nicolás Oscar ASTHMA EDUCATOR, ASTHMA EDUCATOR-C Attending Provider, Referring Prov ider Active Team Status: Inactive Member Role Status Dates Dr. Mindy Araujo MD Primary Care P volodymyr, Attending Provider, Referring Provider Active Team Status: Inactive Member Role Status Dates Dr. Mindy Araujo MD Primary Care Provider, Refer ring Provider Active MAG[facility] Benavides Attending Provider Active Team Status: Inactive Member Role Status Dates Dr. Mindy Araujo MD Primary Care Provider Active MAGGI Benavides Attending Provider, Referring Provi ashley Active Team Status: Inactive Member Role Status Dates Dr. Mindy Araujo MD Primary Care Provider Active Start: November 16, 2024 End: November 16, 2024 Dr. Mindy Araujo MD Referring Provider Active Start: November 16, 2024 End: November 16, 2024 MAGGI Velarde Attending Provider Active Start: November 16, 2024 End: November 16, 2024 Team Status: Active Member Role/Relationship Status Dates Dr. Valentin Thurman MD Family Provider Active Dr. Mindy Araujo MD Primary Care Provider Active Team Status: Inactive Member Role/Relationship Status Dates Dr. Mindy Araujo MD Primary Care Provider Active Start: November 16, 2024 End: November 16, 2024 Dr. Mindy Araujo MD Referring Provider Active Start: November 16, 2024 End: November 16, 2024 MAGGI Velarde Attending Provider Active Start: November 16, 2024 End: November 16, 2024 Team Status: Inactive Member Role/Relationship Status Dates Dr. Mindy Araujo MD Primary Care Provider Active Start: December 15, 2024 End: December 15, 2024 Dr. Mindy Araujo MD Referring Provider Active Start: December 15, 2024 End: December 15, 2024 [facility] Self Schedule Attending Provider Active Start: December 15, 2024 End: December 15, 2024 Goals (unrecognized section and content) Goals may be documented in a n alternate sectionGoals may be documented in an alternate sectionGoals may be documented in an alternate sectionGoals may be documented in an alternate section INFORMATION SOURCE (unrecogn ized section and content) DATE CREATED AUTHOR 08/23/[address] [facility] DATE CREATED AUTHOR AUTHOR'S KATELIN CEBALLOS 11/18/2024 [facility] FOR RECORDS PERTAINING TO PATIENTS WHO ARE OR HAVE BEEN ENROLLED IN A CHEMICAL DEPENDENCY/SUBSTANCEABUSE PROGRAM, SOME INFORMATION MAY BE OMITTED. This clinical summary was aggregated from multiple sources. Caution should be exercised in using it in the provision of clinical care. This summary normalizes information from multiple sources, and as a consequence, information in this document may materially change the coding, format and clinical context of patient data. In addition, data may be omitted in some cases. CLINICAL DECISIONS SHOULD BE BASED ON THE PRIMARY CLINICAL RECORDS. [employer] [facility]. provides no warranty or guarantee of the accuracy or completeness of information in this document.
[2024-12-16 10:31] LABS: Color, Urine Yellow (Yellow); Glucose, Dipstick Normal (Normal); Ketone-Dipstick Negative (Negative); Leukocyte Esterase-Dipstick 500 /ul (Negative); Nitrite-Dipstick Negative (Negative); Occult Blood-Urine 250 /ul (Negative); Protein-Dipstick 100 mg/dl (Negative); Specific Gravity, Urine 1.010 (1.002-1.030); Urine Bilirubin Dipstick Negative (Negative)
[2024-12-16 10:46] LABS: Red Blood Cells-Urine 50-100 SEEN /hpf (0-5); Squamous Epithelial Cells - UA 0-5 SEEN /hpf (5-10)
== END | disposition home or self-care (01) ==
LOC: LABSPEC 12-16 07:20
PROVIDERS: PCP Internal Medicine; Visit Provider Nurse Practitioner Family
DX: R30.0 Dysuria (principal)
CPT/HCPCS: 81001; 87077; 87086; 87088; 87186

== ENCOUNTER → 2024-12-30 | Outpatient (CLI) | payer OTHER, SELFPAY ==
[2024-12-30 13:23] LABS: Hematocrit 43.1 % (37-47); Hemoglobin 14.7 g/dL (12.0-15.0); Immature Granulocytes Count 0.030 X10^3/uL (0.0-0.0); Mean Corp Hgb Conc 34.1 g/dL (32-36); Mean Corpuscular Volume 96.9 fL (81-99); Mean Platelet Vol. 10.1 fl (6.2-12.0); NRBC Flagged by Analyzer 0 % (0-5); Platelet Count 320 K/mm3 (150-450); RBC Distribution Width CV 12.4 % (11.6-14.6); RBC Distribution Width SD 44.2 fl (35.1-43.9); Red Blood Count 4.45 M/mm3 (4.2-5.4); White Blood Count 7.1 K/mm3 (4.4-11.0)
[2024-12-30 13:42] LABS: AST(SGOT) 50 U/L (<=31); Alanine Aminotransfer ALT/SGPT 30 U/L (<=34); Albumin, Serum 4.4 g/dL (3.5-5.0); Alkaline Phosphatase 88 U/L (35-104); Anion Gap 15 (5-15); BUN 12 mg/dL (4-19); BUN/Creat Ratio 14.4 RATIO (10-20); Calcium,Total 9.6 mg/dL (7.6-11.0); Carbon Dioxide 23.6 mmol/L (21.0-32.0); Chloride 101 mmol/L (98-108); Cholesterol 210 mg/dL (<=200); Globulin 2.8 g/dL (2.2-4.2); Glucose 106 mg/dL (70-99); Low Density Lipoprotein Calc. 87 mg/dL; Potassium 4.2 mmol/L (3.3-5.1); Triglycerides 239 mg/dL; Very Low Density Lipoprotein 48 mg/dL (5-40); cholesterol:hdl ratio screen 2.79
--- OUTSIDE RECORDS SUMMARY | 2024-12-30 19:12 | XMS RPT_ITS | CCD ---
Author Organization [facility] Care Team Providers Care [employer] Associate Name Role Phone Unavailable Primary Care Provider Dr. Mindy Harman Primary Care Provider [phone] Dr. Mindy Araujo Referring Provider [phone] SIMON Oscar NP Attending Provider [phone] Unavailable Primary Care Provider UnavailDr. Mindy Teran Primary Care Provider [phone] Dr. Mindy Araujo Attending Provider [phone] Dr. Mindy Araujo Referring Provider [phone] MAGGI Fernandez Attending Provider Unavailable Primary Care Provider UnavailMAKENZIE Grey Referring Unavailable MAKENZIE CLANCY Attending Unavailable Dr. Mindy Araujo MD Primary Care Provider Dr. Mindy Araujo MD Referring Provider [phone] Phong Whitaker Attending Provider Self Schedule, [facility] Attending Provider Ez Buitrago Attending Provider Oleghe, Efewongbe Attending Unavailable Oleghe, Efewongbe Referring Unavailable Oleghe, Efewongbe Primary Care Unavailable Oleghe, Efewongbe Referring Unavailable Oleghe, Efewongbe Primary Care Unavailable Oleghe, Efewongbe Attending Unavailable Oleghe, Efewongbe Referring Unavailable Phong Burger Attending Unavailable Oleghe, Efewongbe Primary Care Unavailable Oleghe, Efewongbe Referring Unavailable Oleghe, Efewongbe Primary Care Unavailable Self Schedule, [facility] Attending Mindy Awan Attending Unavailable Oleghe, Efewongbe Referring Unavailable Oleghe, Efewongbe Primary Care Unavailable Jame Calloway Attending Unavailable Oleghe, Efewongbe Referring Unavailable Oleghe, Efewongbe Primary Care Unavailable Oleghe, Efewongbe Attending Unavailable Oleghe, Efewongbe Referring Unavailable Oleghe, Efewongbe Primary Care Unavailable Oleludwine, Efewongbe Primary Care Unavailable Ez Robles Attending Unavailable Van GUERRERO, Dr. Guillen Attending Provider [phone] Medications Current Medications Medication Drug Class(es) Dates Sig (Normalized) Sig (Original) Ashwagandha Root Extract (2 sources) Start: 10-25-2022 take 1 mg by mouth at bedtime Ashwagandha Root Extract Active MG PO AT BEDTIME [...] Patient should start on July 31, 2023. [id number] 0.3 ml EPINEPHrine 1 mg/ml auto-injector (15 sources) alpha-Adrenergic Agonist, beta-Adrenergic Agonist, Catecholamine Start: 03-24-2023 EPINEPHrine (EPIPEN) 0.3 mg/0.3 mL auto-injector 03/24/2023 Active Start: 03-24-2023 Epinephrine (E pipen 2-Priya) 0.3 mg/0.3 mL auto-injector Active 0.3 mg IM ONCE 2 March 24, 2023 12:00am as a single dose; may repeat once Completed/Discontinued Medications Medication Drug Class(es) Dates Sig (Normalized) Sig (Original) amLODIPine 5 mg oral tablet (20 sources) Dihydropyridine Calcium Channel Marcell Start: 11-23-2022 End: 08-27-2024 Amlodipine 5 mg tablet Discontinued 0 .ROUTE .COMPLEX 90 March 13, 2024 8:59am August 27, 2024 12:41pm TAKE 1 TABLET DAILY amoxicillin 875 mg / clavulanate 125 mg oral tablet (4 sources) Penicillin-class Antibacterial Start: 03-25-2024 End: 07-11-2024 Amoxicillin-Pot Clavulanate 875-125 mg tablet Discontinued 1 {tbl} PO TWICE A DAY March 25, 2024 12:00am July 11, 2024 5:01pm Ashwagandha Root Extract 300 mg capsule (4 sources) Start: 10-25-2022 End: 02-14-2024 take 1 mg by mouth at bedtime Ashwagandha Root Extract 300 mg capsule Discontinued mg PO AT BEDTIME October 25, 2022 12:00am February 14, 2024 8:49am cholecalciferol 0.025 mg oral capsule (6 sources) Vitamin D Start: 10-25-2022 End: 12-15-2024 take 1 capsule by mouth once daily Cholecalciferol (Vitamin D3) 25 mcg (1,000 unit) capsule Discontinued 25 ug PO DAILY October 25, 2022 12:00am December 15, 2024 8:20am Ciprofloxacin Hcl 0.3 % drops (4 sources) Start: 11-16-2024 End: 12-15-2024 Ciprofloxacin Hcl 0.3 % drops Discontinued 0 OPHTHALMIC .COMPLEX 10 0 November 16, 2024 12:00am December 15, 2024 8:20am Conjunctivitis of right eye Unspecified conjunctivitis put 1-2 drps in affected eye(s) every 2hr up to 8 times/day x2days; then 4 times/day x5days ophthalmic (eye) Start: 11-16-2024 Ciprofloxacin Hcl 0.3 % drops Active 0 OPHTHALMIC .COMPLEX 10 November 16, 2024 12:00am put 1-2 drps in affected eye(s) every 2hr up to 8 times/day x2days; then 4 times/day x5days ophthalmic (eye) Creatine Monohydrate 5,000 m g powder in packet (4 sources) Start: 02-14-2024 End: 12-15-2024 Creatine Monohydrate 5,000 m g powder in packet Discontinued mg PO February 14, 2024 12:00am December 15, 2024 8:20am less than 3 gm Start: 02-14-2024 Creatine Monoh ydrate 5,000 mg powder in packet Active mg PO February 14, 2024 12:00am less than 3 gm hydroCHLOROthiazide 25 mg / triamterene 37.5 mg oral tablet (20 sources) Potassium-sparing Diuretic, Thiazide Diuretic Start: 08-24-2021 triamterene-hydroCHLOROthiaz bruno (DYAZIDE) 37.5-25 mg per capsule 08/24/2021 Active Start: 07-15-2021 End: 11-18-2024 Triamterene-Hydrochlorothiaz id 37.5-25 mg tablet Discontinued 1 {tbl} PO EVERY MORNING May 27, 2024 11:19am November 18, 2024 7:41am Start: 07-15-2021 End: 11-01-2022 take 1 tablet by mouth once daily in the morning Triamterene-Hydrochlorothiazid Active 1 TABLET PO EVERY MORNING November 01, 2022 12:23pm hydrocortisone 25 mg/ml topical cream (4 sources) Corticosteroid Start: 08-30-2023 End: 12-15-2024 Hydrocortisone 2.5 % cream Discontinued 1 NMA TOPICAL TWICE A DAY as needed for rash 30 August 30, 2023 12:00am December 15, 2024 8:21am methylPREDNISolone 4 mg oral tablet (7 sources) Corticosteroid Start: 03-22-2023 End: 03-28-2023 take [...] ortiz miconazole nitrate 0.02 mg/mg topical powder (4 sources) Azole Antifungal Start: End: Miconazole Nitrate 2 % powder Discontinued 1 NMA TOPICAL TWICE A DAY August 30, 2023 12:00am February 14, 2024 8:49am minoxidil 20 mg/ml topical solution (15 sources) Arteriolar Vasodilator Start: End: Minoxidil 2 % solution Discontinued 1 mL TOPICAL TWICE A DAY April 05, 2021 1:00am March 01, 2023 8:07am Comment on above: Apply to affected ar ea. naltrexone hydrochloride 50 mg oral tablet (5 sources) Opioid Antagonist Start: 023 End: 024 take 1 tablet by mouth once daily Naltrexone 50 mg tablet Discontinued 50 mg PO DAILY 90 1 March 01, 2023 12:00am February 14, 2024 8:49am Do not drink while on Naltrexone nitrofurantoin, macrocrystals 25 mg / nitrofurantoin, monohydrate 75 mg oral capsule (8 sources) Nitrofuran Antibacterial Start: 025 End: 025 take 1 capsule by mouth every twelve hours at mealtime Nitrofurantoin Monohyd/M-Cryst (Macrobid) 100 mg capsule Discontinued 100 mg PO Q12H 14 7 0 December 15, 2024 12:00am December 21, 2024 12:00am December 22, 2024 12:08am must administer with a meal/food Start: 03-22-2023 End: 03-29-2023 take 1 capsule by mouth every twelve hours at mealtime Nitrofurantoin Monohyd/M-Cryst 100 mg capsule Discontinued 1 NMA PO Q12H 14 7 0 March 22, 2023 12:00am March 28, 2023 12:00am March 29, 2023 12:05am administer with a meal/food; swallow whole; do not open, crush, dissolve , or chew oregano oil 1500 mg oral capsule (20 sources) Start: 04-05-2021 End: 02-14-2024 take 1 capsule by mouth once daily as needed Oregano Oil 1,500 mg capsule Discontinued 1500 mg PO DAILY as needed May 31, 2023 12:16pm February 14, 2024 8:49am Start: 04-05-2021 Oregano Oil Ac tive MG PO April 05, 2021 1:00am Comment on above: Take by mouth. theanine 100 mg oral capsule (6 sources) Start: 10-25-2022 End: 02-14-2024 take 1 mg by mouth at bedtime Theanine 100 mg capsule Discontinued mg PO AT BEDTIME October 25, 2022 12:00am February 14, 2024 8:49am Start: 10-25-2022 take 1 mg by mouth at bedtime Theanine Active MG PO AT BEDTIME October 25, 2022 12:00am Problems Active Problems Problem Classification Problem Date Documented Date Episodic/Chronic Administrative/social admission (4 sources) First encounter by subject; Translations: [Persons encountering health services in other specified circumstances] 05-24-2021 Episodic Allergic reactions (4 sources) Inflammatory dermatosis; Translations: [Dermatitis, unspecified] 08-30-2023 Episodic Anxiety disorders (5 sources) Mixed anxiety and depressive disorder; Translations: [Anxiety disorder, unspecified] 08-30-2023 Chronic Cardiac dysrhythmias (6 sources) Cardiac arrhythmia; Translations: [Cardiac arrhythmia, unspecified] 05-24-2021 Chronic Essential hypertension (10 sources) Hypertensive disorder; Translations: [Essential (primary) hypertension] Onset: 07-24-2024 06-21-2021 Chronic Genitourinary symptoms and ill-defined conditions (7 sources) Dysuria; Translations: [Dysuria] Onset: 12-20-2024 03-22-2023 Episodic Headache; including migraine (6 sources) Headache; Translations: [Headache] 04-05-2021 Episodic Heart valve disorders (6 sources) Heart murmur; Translations: [Cardiac murmur, unspecified] 04-05-2021 Episodic Immunizations and screening for infectious disease (4 sources) Requires vaccination; Translations: [Encounter for immunization] Episodic Inflammation; infection of eye (except that caused by tuberculosis or sexually transmitteddisease) (9 sources) Conjunctivitis of right eye; Translations: [Unspecified conjunctivitis] Onset: 11-16-2024 11-16-2024 Episodic Mycoses (6 sources) Tinea corporis; Translations: [Tinea corporis] 02-19-2021 Episodic Other lower respiratory disease (6 sources) Cough; Translations: [Cough] 04-05-2021 Episodic Other screening for suspected conditions (not mental disorders or infectious disease) (9 sources) Patient encounter status; Translations: [Encounter for screening mammogram for malignant neoplasm of breast] Onset: 08-21-2024 Episodic Other upper respiratory infections (4 sources) Upper respiratory infection; Translations: [Acute upper respiratory infection, unspecified] 07-11-2024 Episodic Poisoning by nonmedicinal substances (6 sources) Bee sting; Translations: [Toxic effect of venom of bees, accidental (unintentional), initial encounter] 03-22-2023 Episodic Residual codes; unclassified (2 sources) Alcoholism; Translations: [Alcohol use disorder] 03-01-2023 Episodic Residual codes; unclassified (4 sources) Other specified conditions influencing health status; Translations: [Alcohol use disorder] 03-01-2023 Episodic Unclassified (1 source) Encounter for preventive care Unclassified (1 source) Z00.00 - Encounter for general adult medical examination without abnormal findings Urinary tract infections (6 sources) Urinary tract infectious disease; Translations: [Urinary tract infection, site not specified] 12-15-2024 Episodic Viral infection (6 sources) Disease caused by 2019-nCoV; Translations: [COVID-19] 04-05-2021 Episodic Past or Other Problems Problem Classification Problem Date Documented Da te Episodic/Chronic Other and delivery including normal (12 sources) Normal in primigravida; Translations: [Encounter for supervision of normal first , unspecified trimester] Onset: 06-05-2007 Resolved: 02-01-2011 07-09-2010 Episodic Results Test Name Value Interpretation Reference Range Facility Urine Cultureon 12-18-2024 [facility] Klebsiella oxytoca [place] Count 80,000-100,000 Klebsiella oxytoca: REACTION Ampicillin Islt BILLY Ampicillin+Sulbac Islt BILLY 4 S Cefepime Islt BILLY <=0.12 S cefTRIAXone Islt BILLY <=0.25 S Ciprofloxacin Islt BILLY <=0.06 S B-Lactamase Extended Susc Islt NEG Gentamicin Islt BILLY <=1 S levoFLOXacin Islt BILLY <=0.12 S Meropenem Islt BILLY <=0.25 S Nitrofurantoin Islt BILLY <=16 S Pip+Tazo Islt BILLY 8 S TMP SMX Islt BILLY <=20 S Normal [facility] Comment on above: Performed By: #### L 400.0001, M100.2200 #### [facility] [place], [address] Bilirubin Test strip Ql (U)O rdered By: Ez Robles on 12-16-2024 Bilirubin Ql (U) Negative Negative [facility] Ketones Test strip Ql (U)Ord ered By: Ez Robles on 12-16-2024 Ketones Ql (U) Negative Negative [facility] Microscopic analysis of urin e for red blood cells (RBC)Ordered By: Ez Robles on 12-16-2024 Microscopic analysis of urine for red blood cells (RBC) 50-100 SEEN /hpf 0-5 [facility] Mucus LM Ql (Urine sed)Order ed By: Ez Robles on 12-16-2024 Mucus Ql (Urine sed) 0 SEEN /hpf [facility] Nitrite Test strip Ql (U)Ord ered By: Ez Robles on 12-16-2024 Nitrite Ql (U) Negative Negative [facility] Protein Test strip Ql (U)Ord ered By: Ez Robles on 12-16-2024 Protein Ql (U) 100 mg/dl High Negative [facility] Squamous epithelial cells de tection in urine sediment by light microscopyOrdered By: Ez Robles on 12-16-2024 Epithelial cells.squamous LM Ql (Urine sed) 0-5 SEEN /hpf 5-10 [facility] Urinalysis, Completeon 12-16 EPI,SQUAMOUS 0-5 SEEN Normal 5-10 [facility] Comment on above: Order Comment: POORNIMA STEVENOR TO SPECIFY Performed By: #### L 400.0001, M10 #### [facility] [address] [place], [address] RBC 50-100 SEEN Normal 0-5 [facility] Comment on above: Order Comment: POORNIMA CTOR TO SPECIFY Performed By: #### L 400.0001, M100.0 #### [facility] [address] [place], [address] WBC >100 SEEN Normal 0-5 [facility] Comment on above: Order Comment: POORNIMA CTOR TO SPECIFY Result Comment: Micr oscopic field is filled. Other elements may be obscured. Performed By: #### L 400.0001, M100.2200 #### [facility] [address] [place], [address] BACTERIA 0 SEEN Normal None Seen [facility] Comment on above: Order Comment: POORNIMA CTOR TO SPECIFY Performed By: #### L 400.0001, M100.0 #### [facility] [address] [place], [address] Mucus Ql (Urine sed) [address] [facility] Comment on above: Order Comment: COLLE CTOR TO SPECIFY Performed By: #### L 400.0001, M100.2200 #### [facility] [address] [place], [address] Urine clarityOrdered By: Gael Robles on 12-16-2024 Clarity (U) Cloudy Clear [facility] Urine color determinationOrd ered By: Ez Robles on 12-16-2024 Color (U) Yellow Yellow [facility] Urine cultureOrdered By: Gael Robles on 12-16-2024 Bacteria identified Cx Nom (U) Klebsiella oxytoca Abnormal [facility] Urine glucose detectionOrder ed By: Ez Robles on 12-16-2024 Glucose Ql (U) Normal mg/dl Normal [facility] Urine leukocyte esterase det ection by dipstickOrdered By: Ez Robles on 12-16-2024 Leukocyte esterase Test strip Ql (U) 500 /ul High Negative [facility] Urine pHOrdered By: Ez padilla on 12-16-2024 pH (U) 8.0 [pH] 5.0 - 8.0 [facility] Urine sediment bacteria coun t by microscopy (number/high power field)Ordered By: Ez Robles on 12-16-2024 Bacteria LM.HPF (Urine sed) [#/Area] 0 /[HPF] None Seen [facility] Urine specific gravity measu rementOrdered By: Ez Robles on 12-16-2024 Specific gravity (U) [Rel density] 1.010 1.002-1.030 [facility] Urine urobilinogen measureme ntOrdered By: Ez Robles on 12-16-2024 Urobilinogen Ql (U) Normal mg/dl Normal [facility] White blood cell countOrdere d By: Ez Robles on 12-16-2024 White blood cell count >100 SEEN /hpf 0-5 [facility] Comment on above: Microscopic field is filled. Other elements may be obscured. Laboratory - Chemistry and C hemistry - challengeOrdered By: Ez Robles on 12-15-2024 Bilirubin Ql (U) Negative [facility] Glucose Ql (U) Negative [facility] Ketones Ql (U) Negative [facility] pH (U) 8.5 [pH] [facility] Specific gravity (U) [Rel density] <1.005 [facility] Urobilinogen (U) [Mass/Vol] Negative [facility] Laboratory - Hematology and Cell countsOrdered By: Ez Robles on 12-15-2024 Hemoglobin Ql (U) Large [facility] - Specimen inform ationOrdered By: Ez Robles on 12-15-2024 Clarity (U) Cloudy [facility] Color (U) [place] [facility] - UrinalysisOrder ed By: Ez Robles on 12-15-2024 Nitrite Ql (U) Negative [facility] Protein Ql (U) Negative [facility] No Panel InformationOrdered By: Ez Robels on 12-15-2024 Urine Leukocytes Positive [facility] Urine Non-Hemolyzed Blood [facility] Office Visit Reporton 2024 Office Visit Report [facility] [address] [place] [address] OFFICE VISIT Date of Service: 12/15/24 MR#: [id number] Acct: [id number] Patient: EDNA AKERS Rep #: [id number] : 1980 Provider: [facility] Self Schedule Age/Sex: 44/F Location: [facility] Status: Signed Intake Vital Signs 07/11/24 16:03 12/15/24 08:21 Height 5 ft 7 in 5 ft 4 in Weight: 138 lb 6 oz 139 lb 2 oz BMI 21.7 23.8 BP 120/78 118/70 Blood Pressure Location Rt brachial Lt brachial Position Sitting Sitting Respiration 16 18 Pulse 72 76 Pulse Source Monitor Monitor Temp 96.9 F L Temp Source Temporal Pulse Oximetry (%) 99 99 Oxygen Delivery Method room air room air Intake Visit Reasons: concern for uti Is patient in pain?: Yes (pain with urination ) Pain scale (1-10): 4 Allergies No Known Allergies Allergy (Verified 12/15/24 08:19) Medications ???Medication ???Instructions ???Recorded ???Confirmed ???Type epinephrine 0.3 mg/0.3 mL 0.3 mg (0.3 mL) IM ONCE #2 ea 02/2703/25/24 Rx injection, auto-injector (EpiPen 2-Priya) amlodipine 5 mg tablet See Rx Instructions .Route 5 Rx .COMPLEX #90 tabs triamterene 37.5 1 tab PO QAM #90 TABLETS 11/18/24 Rx mg-hydrochlorothiazi de 25 mg tablet nitrofurantoin 100 mg PO Q12H 7 days #14 caps 12/15/24 Rx monohydrate/macrocry stals 100 mg capsule (Macrobid) Is last menstrual period known: Yes Post menopausal: No PFSH Medical History Upper respiratory infection Dermatitis Anxiety and depression [...] and weight training frequency: daily HPI HPI Details: EDNA AKERS, is a 44 F who presents to the office today for concerns regarding possible urinary tract infection. She does acknowledge increase in urinary frequency, urgency, and as well as dysuria. She also notes blood in her urine. This has been ongoing for 2 days and worsening. She denies fever or chills. She does not feeling achy. ROS Const Constitutional: Positive for body ache; No chills, fatigue, fever(s) (no fever greater than 99.9 F), malaise, night sweats or other (rigors) Resp Respiratory: No shortness of breath Cardio Cardiology: No chest pain at rest or chest pain with exertion Gastro GI: No abdominal pain Genitourinary-Female : Positive for burning urination, painful urination, urinary frequency, urinary urgency, blood in urine and suprapubic fullness; No side pain Endo Endocrine: No fatigue Exam Const General: cooperative, healthy appearing, comfortable and no acute distress Orientation: alert, awake and oriented x3 Chest Chest palpation inspection: normal inspection of the chest Resp Effort Inspection: normal respiratory effort Auscultation: Bilateral: Clear to Auscultation Cardio Rhythm: other (Normal) Heart Sounds: S1 normal, S2 normal and no murmurs GI Inspection: normal to inspection and non-distended Auscultation: normal bowel sounds Palpation: soft and nontender General: No CVA tenderness Skin General: no rashes or lesions noted Results POC Urinalysis Dip (Clinic) Office Urine Color [place] Last Edit by Karolina Russo on 12/15/24 08:26 Office Urine Clarity Cloudy Last Edit by Karolina Russo on 12/15/24 08:26 Office Urine Glucose Negative Last Edit by Karolina Russo on 12/15/24 08:26 Office Urine Ketones Negative Last Edit by Karolina Russo on 12/15/24 08:26 Off Ur Spec [place] <1.005 Last Edit by Karolina Russo on 12/15/24 08:26 Office Urine pH 8.5 Last Edit by Karolina Russo on 12/15/24 08:26 Office Urine Bilirubin Negative Last Edit by Karolina Russo on 12/15/24 08:26 Office Urine Urobilinogen Negative Last Edit by Karolina Russo on 12/15/24 08:26 Office Urine Blood Large Last Edit by Karolina Russo on 12/15/24 08:26 Office Urine Blood Hemolyzed NA Last Edit by Karolina Russo on 12/15/24 08:26 Office Urine Protein Negative Last Edit by Karolina Russo on 12/15/24 08:26 Office Urine Nitrate Negative Last Edit by Karolina Russo on 12/15/24 08:26 Off Ur Leukocytes Positive Last Edit by Karolina Russo on 12/15/24 08:26 Coding Level of Care Code Off vis,est,level 3 Diagnoses Acute cyst (more content not included)... Normal [facility] Urgent Care Visit Reporton 0 11-16-2024 Urgent Care Visit Report [facility] [address], [address] [place] [address] OFFICE VISIT Date of Service: 11/16/24 MR#: [id number] Acct: [id number] Name: EDNA AKERS Rep #: [id number] : 1980 Provider: MAGGI Velarde Age/Sex: 44/F Location: [facility] Status: Signed Intake Vital Signs 07/11/24 16:03 [...] discharge in the eye, irritation of eye Look Out Tower Fire Watcher Required: No Is patient in pain?: No Allergies No Known Allergies Allergy (Verified 07/11/24 16:01) Is last menstrual period known: No Post menopausal: No Patient : No Have you fallen in the past year?: No Nurse's Note: Complaint of excess discharge in the eye for 3 days alongside crusting in the morning and discomfort. [facility] Medical History (Updated 11/16/24 @ 08:22 [...] past year?: No 11/16/24 0823 Date Phong Laurener Signature: Date (if applicable) CC: Normal [facility] NICK SCREENING W TOMOon 08-21 NICK SCREENING W MAXIMILIAN * * *Final Report* * * DATE OF EXAM: Aug 21 2024 7:38AM [id number] - NICK SCREENING W MAXIMILIAN / PROCEDURE REASON: Encounter for screening mammogram for breast cancer * * * * Physician Interpretation * * * * RESULT: [address] [address] [place] [address] #[id number] - NICK SCREENING W MAXIMILIAN HISTORY: 43 [...] De Jesus M.D. Electronically signed on: 08/22/2024 Senior Caregiver: FRANCISCO Transcribe Date/Time: Aug 21 2024 7:13A Dictated by: SAVANAH DE JESUS MD This examination was interpreted and the report reviewed and electronically signed by: SAVANAH DE JESUS MD on Aug 22 2024 8:09AM EST [id number] CN Normal [facility] Basic Metabolic Profile (BMP )on 07-11-2024 BUN/CRE 20.2 RATIO High 10-20 [facility] Comment on above: Performed By: #### L 500.2500 ####[facility] [address] [place], [address] CA,Total 9.4 mg/dL Normal 8.5-10.1 [facility] Comment on above: Performed By: #### L 500.2500 ####[facility] [address] [place], [address] Chloride [Moles/Vol] 99 mmol/L Normal 98-107 [facility] Comment on above: Performed By: #### L 500.2500 ####[facility] [address] [place], [address] CO2 [Moles/Vol] 27.0 mmol/L Normal 21.0-32.0 [facility] Comment on above: Performed By: #### L 500.2500 ####[facility] [address] [place], [address] Creatinine [Mass/Vol] 0.74 mg/dL Normal 0.55-1.02 [facility] Comment on above: Result Comment: The validity of the calculated GFR GFRAA in patients over 70 years has not been determined. Clinical correlation is essential. Performed By: #### L 500.2500 ####[facility] [address] [place], [address] EST GFR - AA 109 mL/min Normal >60 [facility] Comment on above: Result Comment: Afri can Ivorian GFR Calc Performed By: #### L 500.2500 ####[facility] [address] [place], [address] GAP 8 Normal 5-15 [facility] Comment on above: Performed By: #### L 500.2500 ####[facility] [address] [place], [address] GFR/1.73 sq M.predicted among non-blacks MDRD (S/P/Bld) [Vol rate/Area] 90 mL/min/{1.73_m2} Normal >60 [facility] Comment on above: Result Comment: Non- GFR Calc Performed By: #### L 500.2500 ####[facility] [address] [place], [address] Glucose [Mass/Vol] 96 mg/dL Normal 74-106 [facility] Comment on above: Performed By: #### L 500.2500 ####[facility] [address] [place], [address] Potassium [Moles/Vol] 3.5 mmol/L Normal 3.5-5.1 [facility] Comment on above: Performed By: #### L 500.2500 ####[facility] [address] [place], [address] Sodium [Moles/Vol] 135 mmol/L Low 136-145 [facility] Comment on above: Performed By: #### L 500.2500 ####[facility] [address] [place], [address] Urea nitrogen [Mass/Vol] 15 mg/dL Normal 7-18 [facility] Comment on above: Performed By: #### L 500.2500 ####[facility] [address] [place], [address] Internal Medicine Office Vis itomicha 07-11-2024 Internal Medicine Office Visit [facility] [address] [place] [address] [place] [address] OFFICE VISIT Date of Service: 07/11/24 MR#: [id number] Acct: [id number] Name: EDNA AKERS Rep #: [id number] : 1980 Provider: Dr. Mindy aguayo MD Age/Sex: 43/F Location: [facility] Status: Signed Intake Vital Signs 02/14/24 08:52 [...] Complaint: Follow-up chronic conditions. Cough and congestion Look Out Tower Fire Watcher Required: No Accompanied by: Self Is patient in pain?: No Allergies No Known Allergies Allergy (Verified 07/11/24 16:01) Medications ???Medication ???Instructions ???Recorded ???Confirmed ???Type cholecalciferol (vitamin D3) 25 25 mcg PO DAILY 10/25/22 03/25/24 History mcg (1,000 unit) capsule drospiren-e.estrad-l .mefol 3 1 tab PO DAILY 10/25/22 03/25/24 [...] tab PO QAM #90 TABLETS 05/27/24 Rx mg-hydrochlorothiazi de 25 mg tablet Have you fallen in [...] habits, constipation, cramping, diarrhea, nausea/dyspepsia or vomiting Genitourinary-Female : No burning urination, painful urination, urinary incontinence, [...] Neurology: Posi (more content not included)... Normal [facility] CNOVon 05-31-2024 CNOV Office Visit (OBGYWM) OSORIOEDNA Zaragoza ([id number]) 1980 F Date Time Provider Department 05/31/24 2:20 PM MAKENZIE CLANCY OBGYWM During your visit today, we recorded the following information about you: Blood pressure Weight Height Last Period 128/86 62.8 kg 1.613 m 05/17/24 Makenzie Clancy MD 05/31/2024 5:08 PM Signed Digital Field Service Technician offered: Patient declines. Edna is a 43 [...] L2 SAB0 IAB0 Ectopic0 Multiple0 Live Births2 Director Process Engineering History LMP: 05/17/2024, Having periods Age at Menarche: 12 Age at First : Age at Menopause: Director Process Engineering History Comments: Sexual Activity: Yes; Male Contraception: [...] discussed with the Patient or Patient's Authorized Customer Experience Manager. As applicable, any other physician, advance practice provider, medical student, or other health professional student that will be observing or involved in the sensitive examination for educational or training purposes was discussed with the Patient or Authorized Customer Experience Manager. The Patient or Authorized Customer Experience Manager has agreed to proceed with the sensitive [...] external genitalia normal, normal Bartholin's glands, urethra, [place]'s glands, no vulvar lesions, no cervical lesions, [...] STD screening (more content not included)... Normal [facility] HIGH RISK HUMAN PAPILLOMA ADDISON (HPV), PCR FOR DETECTION AND GENOTYPINGon 05-31-2024 HPV 16 Ag Ql (Unsp spec) Not detected Normal Not detec [facility] Comment on above: Order Comment: Speci men Type: FLUID SPECIMEN Ordering Facility: [facility] Address: [address] [place] [address] Performed By: #### H PVHRT #### [facility] CLIA [id number] [address] [place] [address] [place] HPV 18 Ag Ql (Unsp spec) Not detected Normal Not detec [facility] Comment on above: Order Comment: Speci men Type: FLUID SPECIMEN Ordering Facility: [facility] Address: [address] [place] [address] Performed By: #### H PVHRT #### [facility] CLIA [id number] [address] [place] [address] [place] HPV 31+33+35+39+45+51+52+56+ 58+59+66+68 DNA JORGE+probe Ql (Cvx) Not detected Normal Not detected [facility] Comment on above: Order Comment: Speci men Type: FLUID SPECIMEN Ordering Facility: [facility] Address: [address] [place] [address] Result Comment: High Risk HPV Other Type includes HPV types 31, 33, 35, 39, 45, 51, 52, 56, 58, 59, 66 and 68. Performed By: #### H PVHRT #### [facility] CLIA [id number] [address] [place] [address] [place] PAP TESTon 05-31-2024 ADEQUACY Normal [facility] Comment on above: Order Comment: Speci men Type: FLUID SPECIMEN Ordering Facility: [facility] Address: [address] [place] [address] Result Comment: Sati sfactory for interpretation. No endocervical component Performed By: #### L [id number] #### [facility] CLIA [id number] [address] [place] [address] [place] CASE REPORT Normal [facility] Comment on above: Order Comment: Speci men Type: FLUID SPECIMEN Ordering Facility: [facility] Address: [address] [place] [address] Result Comment: Gyne cologic Cytology Report Case: [id number] Authorizing Provider: Makenzie Clancy MD Collected: 05/31/2024 02:56 PM Ordering Location: OB/Gynecology Received: 05/31/2024 03:31 PM First Screen: Edna Morse, CT, [facility] Pathologist: Ledy Lay MD Specimen: Pap Test, ThinPrep, Cervix Performed By: #### L [id number] #### [facility] CLIA [id number] [address] [place] [address] [place] CLINICAL HISTORY, CYTOLOGY, FLOORHAND Routine Exam Normal [facility] Comment on above: Order Comment: Speci men Type: FLUID SPECIMEN Ordering Facility: [facility] Address: [address] [place] [address] Performed By: #### L [id number] #### [facility] CLIA [id number] [address] [place], [place] [address] [place] FINAL PERFORMING LAB Normal [facility] Comment on above: Order Comment: Speci men Type: FLUID SPECIMEN Ordering Facility: [facility] Address: [address] [place], [place] [id number] Result Comment: Tech nical component, fuel house attendant screening performed at [facility], [address] [place] [address] [place] [address] CLIA# [id number] Diagnostic interpretation performed at [facility], [address] [place] [address] [place] [address] CLIA# [id number] French Tutor: Brandon Feliz M.D. Performed By: #### L [id number] #### [facility] CLIA [id number] [address] [place] [address] [place] INTERPRETATION, CYTOLOGY, FLOORHAND Abnormal [facility] Comment on above: Order Comment: Speci men Type: FLUID SPECIMEN Ordering Facility: [facility] Address: [address] [place] [address] Result Comment: Low grade squamous intraepithelial lesion (LSIL). Performed By: #### L [id number] #### [facility] CLIA [id number] [address] [place] [address] [place] LMP 05/17/2024 Normal [facility] Comment on above: Order Comment: Speci men Type: FLUID SPECIMEN Ordering Facility: [facility] Address: [address] [place] [address] Performed By: #### L [id number] #### [facility] CLIA [id number] [address] [place], [place] [address] [place] PAP DISCLAIMER COMMENT The Pap Smear is a screening test for cervical cancer. False negative results occur with all screening tests, emphasizing the need for rescreening at recommended intervals, and clinical correlation. Normal [facility] Comment on above: Order Comment: Speci men Type: FLUID SPECIMEN Ordering Facility: [facility] Address: [address] [place] [address] Performed By: #### L [id number] #### [facility] CLIA [id number] [address] [place] [address] [place] PAP GENERAL CATEGORIZATION Epithelial Cell Abnormality Normal [facility] Comment on above: Order Comment: Speci men Type: FLUID SPECIMEN Ordering Facility: [facility] Address: [address] [place] [address] Performed By: #### L [id number] #### [facility] CLIA [id number] [address] [place] [address] [place] PAP NURSE ORTHOPAEDIC COMMENT This specimen has been analyzed by the ThinPrep Imaging System, an automated imaging and review system, which assists the laboratory in evaluating cells on ThinPrep Pap tests. Following automated imaging, selected montano from every slide are reviewed by a fuel house attendant. Normal [facility] Comment on above: Order Comment: Speci men Type: FLUID SPECIMEN Ordering Facility: [facility] Address: [address] [place] [address] Performed By: #### L [id number] #### [facility] CLIA [id number] [address] [place] [address] [place] Urgent Care Visit Reporton 1 Urgent Care Visit Report [facility] [address] [place] [address] OFFICE VISIT Date of Service: 03/25/24 MR#: [id number] Acct: [id number] Name: EDNA AKERS Rep #: [id number] : 1980 Provider: MAGGI Theodore Age/Sex: 43/F Location: [facility] Status: Signed Intake Vital Signs 02/14/24 08:52 [...] COUGH/CHEST CONGESTION/FEVER/BA Chief Complaint: cough and congestion Look Out Tower Fire Watcher Required: No Is patient in pain?: No Allergies No Known Allergies Allergy (Verified 03/25/24 12:38) Medications ???Medication ???Instructions ???Recorded ???Confirmed ???Type cholecalciferol (vitamin D3) 25 25 mcg PO DAILY 10/25/22 03/25/24 History mcg (1,000 unit) capsule drospiren-e.estrad-l .mefol 3 1 tab PO DAILY 10/25/22 03/25/24 History mg-0.02 mg-0.451 mg(24)/0.451 mg(4)tablet (Beyaz ()) epinephrine 0.3 mg/0.3 mL 0.3 mg (0.3 mL) IM ONCE #2 ea 03/24/23 03/25/24 Rx injection, auto-injector (EpiPen 2-Priya) hydrocortisone 2.5 % topical cream 1 applic topical BID PRN rash #30 08/30/23 03/25/24 Rx grams triamterene 37.5 1 tab PO QAM #90 TABLETS 11/07/23 03/25/24 Rx mg-hydrochlorothiazi de 25 mg tablet creatine monohydrate 5,000 mg oral mg PO 02/14/24 03/25/24 History powder packet amlodipine 5 mg tablet See Rx Instructions .Route 03/13/24 03/25/24 Rx .COMPLEX #90 tabs amoxicillin 875 mg-potassium 1 tab PO BID #20 tabs 03/25/24 03/25/24 Rx clavulanate 125 mg tablet Have you fallen in the past year?: No PFSH Medical History (Updated 08/30/23 @ 16:20 [...] fever, chills, myalgias, fatigue, runny nose, or nausea/vomiting/diar que. No complaints of chest pain/shortness of breath/dyspnea on exertion. Several close contacts with similar complaints. No other associated symptoms and no other alleviating/aggravat ing factors. ROS Const Constitutional: No other (as [...] to inspect (more content not included)... Normal [facility] CBC W/Diff, Automatedon 01-27 Absolute Lymph 1.33 X10 3/uL Normal 0.83-4.51 [facility] Comment on above: Performed By: #### L 500.4100, L500.4050, L100.0100 #### [facility] [address] [place], [address] Absolute Neut 4.8 X10 3/uL Normal 2.0-7.7 [facility] Comment on above: Performed By: #### L 500.4100, L500.4050, L100.0100 #### [facility] [address] [place], [address] Basophils/100 WBC (Bld) 0.6 % Normal 0-1 [facility] Comment on above: Performed By: #### L 500.4100, L500.4050, L100.0100 #### [facility] [address] [place], [address] Eosinophils/100 WBC (Bld) 0.3 % Normal 0-5 [facility] Comment on above: Performed By: #### L 500.4100, L500.4050, L100.0100 #### [facility] [address] [place], [address] Erythrocyte distribution width (RBC) [Ratio] 12.1 % Normal 11.6-14.6 [facility] Comment on above: Performed By: #### L 500.4100, L500.4050, L100.0100 #### [facility] [address] [place], [address] Hematocrit (Bld) [Volume fraction] 39.6 % Normal 37-47 [facility] Comment on above: Performed By: #### L 500.4100, L500.4050, L100.0100 #### [facility] [address] [place], [address] Hemoglobin (Bld) [Mass/Vol] 13.3 g/dL Normal 12.0-15.0 [facility] Comment on above: Performed By: #### L 500.4100, L500.4050, L100.0100 #### [facility] [address] [place], [address] IG% 0.300 Normal 0.0-0.9 [facility] Comment on above: Result Comment: IG% - Immature Granulocytes (promyelocytes, myelocytes and metamyelocytes) > 1% indicates that a LEFT SHIFT is Present. Performed By: #### L 500.4100, L500.4050, L100.0100 #### [facility] [address] [place], [address] Lymphocytes/100 WBC (Bld) 19.9 % Normal 19-41 [facility] Comment on above: Performed By: #### L 500.4100, L500.4050, L100.0100 #### [facility] [address] [place], [address] MCH (RBC) [Entitic mass] 32.0 pg Normal 27.0-32.0 [facility] Comment on above: Performed By: #### L 500.4100, L500.4050, L100.0100 #### [facility] [address] [place], [address] MCHC (RBC) [Mass/Vol] 33.6 g/dL Normal 32-36 [facility] Comment on above: Performed By: #### L 500.4100, L500.4050, L100.0100 #### [facility] [address] [place], [address] MCV (RBC) [Entitic vol] 95.2 fL Normal 81-99 [facility] Comment on above: Performed By: #### L 500.4100, L500.4050, L100.0100 #### [facility] [address] [place], [address] Monocytes/100 WBC (Bld) 6.7 % Normal 0-10 [facility] Comment on above: Performed By: #### L 500.4100, L500.4050, L100.0100 #### [facility] [address] [place], [address] Neutrophils/100 WBC (Bld) 72.2 % High 47-70 [facility] Comment on above: Performed By: #### L 500.4100, L500.4050, L100.0100 #### [facility] [address] [place], [address] Nucleated RBC (Bld) [#/Vol] 0 10*3/uL Normal 0-5 [facility] Comment on above: Performed By: #### L 500.4100, L500.4050, L100.0100 #### [facility] [address] [place], [address] Platelet mean volume (Bld) [Entitic vol] 9.6 fL Normal 6.2-12.0 [facility] Comment on above: Performed By: #### L 500.4100, L500.4050, L100.0100 #### [facility] [address] [place], [address] Platelets (Bld) [#/Vol] 346 10*3/uL Normal 150-450 [facility] Comment on above: Performed By: #### L 500.4100, L500.4050, L100.0100 #### [facility] [address] [place], [address] RBC (Bld) [#/Vol] 4.16 10*6/uL Low 4.2-5.4 [facility] Comment on above: Performed By: #### L 500.4100, L500.4050, L100.0100 #### [facility] [address] [place], [address] RDW SD 42.6 fl Normal 35.1-43.9 [facility] Comment on above: Performed By: #### L 500.4100, L500.4050, L100.0100 #### [facility] [address] [place], [address] WBC (Bld) [#/Vol] 6.7 10*3/uL Normal 4.4-11.0 [facility] Comment on above: Performed By: #### L 500.4100, L500.4050, L100.0100 #### [facility] [address] [place], [address] Comprehensive Metabolic [facility] 02-14-2024 Albumin [Mass/Vol] 3.5 g/dL Normal 3.2-5.0 [facility] Comment on above: Performed By: #### L 500.4100, L500.4050, L100.0100 #### [facility] [address] [place], [address] Albumin/Globulin [Mass ratio] 1.0 {ratio} Normal 0.9-2.4 [facility] Comment on above: Performed By: #### L 500.4100, L500.4050, L100.0100 #### [facility] [address] [place], [address] ALK P 52 U/L Normal 45-117 [facility] Comment on above: Performed By: #### L 500.4100, L500.4050, L100.0100 #### [facility] [address] [place], [address] ALT [Catalytic activity/Vol] 19 U/L Normal 13-56 [facility] Comment on above: Performed By: #### L 500.4100, L500.4050, L100.0100 #### [facility] [address] [place], [address] AST [Catalytic activity/Vol] 22 U/L Normal 15-37 [facility] Comment on above: Performed By: #### L 500.4100, L500.4050, L100.0100 #### [facility] [address] [place], [address] Bilirubin [Mass/Vol] 0.60 mg/dL Normal 0.20-1.00 [facility] Comment on above: Result Comment: For patients on eltrombopag therapy, use of Dimension Reading TBIL is not recommended. Performed By: #### L 500.4100, L500.4050, L100.0100 #### [facility] [address] [place], [address] BUN/CRE 15.2 RATIO Normal 10-20 [facility] Comment on above: Performed By: #### L 500.4100, L500.4050, L100.0100 #### [facility] [address] [place], [address] CA,Total 9.4 mg/dL Normal 8.5-10.1 [facility] Comment on above: Performed By: #### L 500.4100, L500.4050, L100.0100 #### [facility] [address] [place], [address] Chloride [Moles/Vol] 101 mmol/L Normal 98-107 [facility] Comment on above: Performed By: #### L 500.4100, L500.4050, L100.0100 #### [facility] [address] [place], [address] CO2 [Moles/Vol] 26.0 mmol/L Normal 21.0-32.0 [facility] Comment on above: Performed By: #### L 500.4100, L500.4050, L100.0100 #### [facility] [address] [place], [address] Creatinine [Mass/Vol] 0.79 mg/dL Normal 0.55-1.02 [facility] Comment on above: Result Comment: The validity of the calculated GFR GFRAA in patients over 70 years has not been determined. Clinical correlation is essential. Performed By: #### L 500.4100, L500.4050, L100.0100 #### [facility] [address] [place], [address] EST GFR - AA 102 mL/min Normal >60 [facility] Comment on above: Result Comment: Afri can Ivorian GFR Calc Performed By: #### L 500.4100, L500.4050, L100.0100 #### [facility] [address] [place], [address] GAP 7 Normal 5-15 [facility] Comment on above: Performed By: #### L 500.4100, L500.4050, L100.0100 #### [facility] [address] [place], [address] GFR/1.73 sq M.predicted among non-blacks MDRD (S/P/Bld) [Vol rate/Area] 84 mL/min/{1.73_m2} Normal >60 [facility] Comment on above: Result Comment: Non- GFR Calc Performed By: #### L 500.4100, L500.4050, L100.0100 #### [facility] [address] [place], [address] Globulin (S) [Mass/Vol] 3.5 g/dL Normal 2.2-4.2 [facility] Comment on above: Performed By: #### L 500.4100, L500.4050, L100.0100 #### [facility] [address] [place], [address] Glucose [Mass/Vol] 103 mg/dL Normal 74-106 [facility] Comment on above: Result Comment: Fast ing Glucose result from 100 to 125 mg/dL suggests IMPAIRED HOMEOSTASIS per A.D.A. criteria. Performed By: #### L 500.4100, L500.4050, L100.0100 #### [facility] [address] [place], [address] Potassium [Moles/Vol] 4.2 mmol/L Normal 3.5-5.1 [facility] Comment on above: Performed By: #### L 500.4100, L500.4050, L100.0100 #### [facility] [address] [place], [address] Sodium [Moles/Vol] 134 mmol/L Low 136-145 [facility] Comment on above: Performed By: #### L 500.4100, L500.4050, L100.0100 #### [facility] [address] [place], [address] T PROT 7.0 g/dL Normal 6.4-8.2 [facility] Comment on above: Performed By: #### L 500.4100, L500.4050, L100.0100 #### [facility] [address] [place], [address] Urea nitrogen [Mass/Vol] 12 mg/dL Normal 7-18 [facility] Comment on above: Performed By: #### L 500.4100, L500.4050, L100.0100 #### [facility] [address] [place], [address] Internal Medicine Office Vis colleen 02-14-2024 Internal Medicine Office Visit [facility] [place] [address] [place] [address] OFFICE VISIT Date of Service: 02/14/24 MR#: [id number] Acct: [id number] Name: EDNA AKERS Rep #: [id number] : 1980 Provider: Dr. Mindy aguayo MD Age/Sex: 43/F Location: [facility] Status: Signed Intake Vital Signs 08/30/23 15:22 [...] 10/25/22 02/14/24 History mcg (1,000 unit) capsule drospiren-e.estrad-l .mefol 3 1 tab PO DAILY 10/25/22 02/14/24 History mg-0.02 mg-0.451 mg(24)/0.451 mg(4)tablet (Shaan (28)) epinephrine 0.3 mg/0.3 mL 0.3 mg (0.3 mL) IM ONCE #2 ea 03/24/23 02/14/24 Rx injection, auto-injector (EpiPen 2-Priya) hydrocortisone 2.5 % topical cream 1 applic topical BID PRN rash #30 08/30/23 02/14/24 Rx grams triamterene 37.5 1 tab PO QAM #90 TABLETS 11/07/23 02/14/24 Rx mg-hydrochlorothiazi de 25 mg tablet amlodipine 5 mg tablet [...] emesis, constipation, cramping, diarrhea, nausea/dyspepsia or vomiting Genitourinary-Female : No burning urination, painful urination, urinary incontinence, [...] in ap (more content not included)... Normal [facility] Lipid Profileon 02-14-2024 Cholesterol [Mass/Vol] 191 mg/dL Normal 200 [facility] Comment on above: Result Comment: <200 mg/dL Desirable 200-240 mg/dL Borderline >240 mg/dL High Risk Performed By: #### L 500.4100, L500.4050, L100.0100 #### [facility] [address] [place], [address] Cholesterol in HDL [Mass/Vol] 124 mg/dL Normal [facility] Comment on above: Result Comment: The drugs N-Acetylcysteine and Metamizole may falsely depress this assay. Reference Range HDL <40 mg/dL Low HDL Cholesterol HDL >or= 60 mg/dL High HDL Cholesterol Performed By: #### L 500.4100, L500.4050, L100.0100 #### [facility] [address] [place], [address] Cholesterol in LDL [Mass/Vol] 54 mg/dL Normal 0-130 [facility] Comment on above: Performed By: #### L 500.4100, L500.4050, L100.0100 #### [facility] [address] [place], [address] Cholesterol in VLDL [Mass/Vol] 13 mg/dL Normal 5-40 [facility] Comment on above: Performed By: #### L 500.4100, L500.4050, L100.0100 #### [facility] [address], [address] Triglyceride [Mass/Vol] 66 mg/dL Normal [facility] Comment on above: Result Comment: The drugs N-Acetylcysteine and Metamizole may falsely depress this assay. Serum Triglycerides Reference Interval Normal <150 mg/dL Borderline high 150 - 199 mg/dL High 200 - 499 mg/dL Very High > or = 500 mg/dL Performed By: #### L 500.4100, L500.4050, L100.0100 #### [facility] [address] [place], [place], [address] DBT Breast - bilateral scree ningon 08-21-2023 [facility] Culture, urineOrdered By: Robin Bo on 03-22-2023 Bacteria identified Cx Nom (U) Staphylococcus saprophyticus [facility] - Chemistry and C hemistry - challengeon 03-22-2023 HCG ( test) Ql (U) Negative [facility] Bilirubin Ql (U) Negative [facility] Glucose Ql (U) Negative [facility] Ketones Ql (U) Negative [facility] pH (U) 6.0 [pH] [facility] Specific gravity (U) [Rel density] 1.010 [facility] Urobilinogen (U) [Mass/Vol] 0.6415794 mg/dL [facility] - Hematology and Cell countson 03-22-2023 Hemoglobin Ql (U) Hemolyzed [facility] - Specimen inform ationon 03-22-2023 Clarity (U) Slightly Hazy [facility] Color (U) Yellow [facility] - Urinalysison Nitrite Ql (U) Negative [facility] Protein Ql (U) Negative [facility] No Panel Informationon 03-22 Urine Leukocytes Positive [facility] Urine Non-Hemolyzed Blood Large [facility] Basophil percentageOrdered B y: Mindy Araujo on 03-01-2023 Chloride [Moles/Vol] 105 mmol/L 98-107 [facility] Glucose [Mass/Vol] 101 mg/dL 74-106 [facility] Comment on above: Fasting Glucose resu lt from 100 to 125 mg/dL suggests IMPAIRED HOMEOSTASIS per A.D.A. criteria. Potassium [Moles/Vol] 3.8 mmol/L 3.5-5.1 [facility] Sodium [Moles/Vol] 139 mmol/L 136-145 [facility] Laboratory - Chemistry and C hemistry - challengeOrdered By: Mindy Araujo on 03-01-2023 CO2 [Moles/Vol] 26.0 mmol/L 21.0-32.0 [facility] Magnesium [Mass/Vol] 2.3 mg/dL 1.6-2.6 [facility] Urea nitrogen/Creatinine [Mass ratio] 15.1 mg/mg 10-20 [facility] No Panel InformationOrdered By: Mindy Araujo on 03-01-2023 Estimated GFR (MDRD) Amer 85 mL/min >60 [facility] Comment on above: GFR Calc Estimated GFR (MDRD) Non-Af Amer 70 mL/min >60 [facility] Comment on above: Non- GFR Calc Serum or plasma calcium stephany urement (mass/volume)Ordered By: Mindy Araujo on 03-01-2023 Calcium [Mass/Vol] 9.4 mg/dL 8.5-10.1 [facility] Serum or plasma creatinine m easurement (mass/volume)Ordered By: Mindy Araujo on 03-01-2023 Creatinine [Mass/Vol] 0.93 mg/dL 0.55-1.02 [facility] Comment on above: The validity of the calculated GFR & GFRAA in patients over 70 years has not been determined. Clinical correlation is essential. Serum or plasma urea nitroge n measurement (mass/volume)Ordered By: Mindy Araujo on 03-01-2023 Urea nitrogen [Mass/Vol] 14 mg/dL 7-18 [facility] Thin prep Papanicolaou smear with manual screeningOrdered By: Mindy Araujo on 03-01-2023 Thin prep Papanicolaou smear with manual screening 8 5-15 [facility] Absolute lymphocyte countOrd ered By: Nicolás Oscar on 10-25-2022 Lymphocytes Auto (Unsp spec) [#/Vol] 1.33 10*3/uL 0.83-4.51 [facility] Basophil percentageOrdered B y: Nicolás Oscar on 10-25-2022 Basophils/100 WBC (Bld) 0.8 % 0-1 [facility] Bilirubin [Mass/Vol] 0.70 mg/dL 0.20-1.00 [facility] Comment on above: For patients on eltr ombopag therapy, use of Dimension Reading TBIL is not recommended. Chloride [Moles/Vol] 103 mmol/L 98-107 [facility] Cholesterol [Mass/Vol] 214 mg/dL <200 [facility] Comment on above: <200 mg/dL Desirable 200-240 mg/dL Borderline >240 mg/dL High Risk Eosinophils/100 WBC (Bld) 0.3 % 0-5 [facility] Glucose [Mass/Vol] 135 mg/dL 74-106 [facility] Comment on above: Fasting Glucose resu lt greater than or equal to 126 mg/dL suggests DIABETES MELLITUS per A.D.A. criteria. Neutrophils (Bld) [#/Vol] 4.5 10*3/uL 2.0-7.7 [facility] Neutrophils/100 WBC (Bld) 71.1 % 47-70 [facility] Potassium [Moles/Vol] 4.0 mmol/L 3.5-5.1 [facility] Protein [Mass/Vol] 7.1 g/dL 6.4-8.2 [facility] Sodium [Moles/Vol] 135 mmol/L 136-145 [facility] Triglyceride [Mass/Vol] 76 mg/dL <199 [facility] Comment on above: The drugs N-Acetylcy steine and Metamizole may falsely depress this assay.Serum Triglycerides Reference Interval Normal <150 mg/dL Borderline high 150 - 199 mg/dL High 200 - 499 mg/dL Very High > or = 500 mg/dL WBC (Bld) [#/Vol] 6.3 10*3/uL 4.4-11.0 [facility] Blood erythrocytes count (nu mber/volume)Ordered By: Nicolás Oscar on 10-25-2022 RBC (Bld) [#/Vol] 4.45 10*6/uL 4.2-5.4 [facility] Blood hemoglobin measurement (mass/volume)Ordered By: Nicolás Oscar on 10-25-2022 Hemoglobin (Bld) [Mass/Vol] 13.4 g/dL 12.0-15.0 [facility] Blood lymphocytes/100 leukoc ytesOrdered By: Nicolás Oscar on 10-25-2022 Lymphocytes/100 WBC (Bld) 21.0 % 19-41 [facility] Blood monocytes/100 leukocyt esOrdered By: Nicolás Oscar on 10-25-2022 Monocytes/100 WBC (Bld) 6.5 % 0-10 [facility] Blood platelet mean volumeOr dered By: Nicolás Oscar on 10-25-2022 Platelet mean volume (Bld) [Entitic vol] 9.6 fL 6.2-12.0 [facility] Determination of erythrocyte mean corpuscular volume (MCV)Ordered By: Nicolás Oscar on 10-25-2022 MCV (RBC) [Entitic vol] 92.6 fL 81-99 [facility] Hematocrit Auto (Bld) [Volum e fraction]Ordered By: Nicolás Oscar on 10-25-2022 Hematocrit (Bld) [Volume fraction] 41.2 % 37-47 [facility] - Chemistry and C hemistry - challengeOrdered By: Nicolás Oscar on 10-25-2022 ALP [Catalytic activity/Vol] 53 U/L 45-117 [facility] ALT [Catalytic activity/Vol] 19 U/L 13-56 [facility] CO2 [Moles/Vol] 26.0 mmol/L 21.0-32.0 [facility] Globulin (S) [Mass/Vol] 3.7 g/dL 2.2-4.2 [facility] Urea nitrogen/Creatinine [Mass ratio] 12.5 mg/mg 10-20 [facility] - Hematology and Cell countsOrdered By: Nicolás Oscar on 10-25-2022 Erythrocyte distribution width (RBC) [Entitic vol] 47.5 fL 35.1-43.9 [facility] Erythrocyte distribution width (RBC) [Ratio] 14.0 % 11.6-14.6 [facility] Immature granulocytes/100 WBC (Bld) 0.300 % 0.0-0.9 [facility] Comment on above: IG% - Immature Granu locytes (promyelocytes, myelocytes and metamyelocytes) > 1% indicates that a LEFT SHIFT is Present. MCH (RBC) [Entitic mass] 30.1 pg 27.0-32.0 [facility] Nucleated RBC/100 WBC (Bld) [Ratio] 0 % 0-5 [facility] MCHC Auto (RBC) [Mass/Vol]Or dered By: Nicolás Oscar on 10-25-2022 MCHC (RBC) [Mass/Vol] 32.5 g/dL 32-36 [facility] No Panel InformationOrdered By: Nicolás Oscar on 10-25-2022 Estimated GFR (MDRD) Amer 90 mL/min >60 [facility] Comment on above: GFR Calc Estimated GFR (MDRD) Non-Af Amer 75 mL/min >60 [facility] Comment on above: Non- GFR Calc Thyroid Stimulating Hormone (TSH) 0.92 uIU/mL 0.358-3.74 [facility] Platelets bldOrdered By: Fani Oscar on 10-25-2022 Platelets (Bld) [#/Vol] 364 10*3/uL 150-450 [facility] Serum or plasma albumin stephany urement (mass/volume)Ordered By: Nicolás Oscar on 10-25-2022 Albumin [Mass/Vol] 3.4 g/dL 3.2-5.0 [facility] Serum or plasma albumin/glob ulin mass ratioOrdered By: Nicolás Oscar on 10-25-2022 Albumin/Globulin [Mass ratio] 0.9 {ratio} 0.9-2.4 [facility] Serum or plasma calcium stephany urement (mass/volume)Ordered By: Nicolás Oscar on 10-25-2022 Calcium [Mass/Vol] 8.9 mg/dL 8.5-10.1 [facility] Serum or plasma cholesterol in HDL measurement (mass/volume)Ordered By: Nicolás Oscar on 10-25-2022 Cholesterol in HDL [Mass/Vol] 130 mg/dL >40 [facility] Comment on above: The drugs N-Acetylcy steine and Metamizole may falsely depress this assay. Reference Range HDL <40 mg/dL Low HDL Cholesterol HDL >or= 60 mg/dL High HDL Cholesterol Serum or plasma cholesterol in VLDL measurement (mass/volume)Ordered By: Nicolás Oscar on 10-25-2022 Cholesterol in VLDL [Mass/Vol] 15 mg/dL 5-40 [facility] Serum or plasma creatinine m easurement (mass/volume)Ordered By: Nicolás Oscar on 10-25-2022 Creatinine [Mass/Vol] 0.88 mg/dL 0.55-1.02 [facility] Comment on above: The validity of the calculated GFR & GFRAA in patients over 70 years has not been determined. Clinical correlation is essential. Serum or plasma low density lipoprotein (LDL) cholesterol measurement (mass/volume)Ordered By: Nicolás Oscar on 10-25-2022 Cholesterol in LDL [Mass/Vol] 69 mg/dL 0-130 [facility] Serum or plasma urea nitroge n measurement (mass/volume)Ordered By: Nicolás Oscar on 10-25-2022 Urea nitrogen [Mass/Vol] 11 mg/dL 7-18 [facility] Thin prep Papanicolaou smear with manual screeningOrdered By: Nicolás sOcar on 10-25-2022 Thin prep Papanicolaou smear with manual screening 32 U/L 15-37 [facility] Thin prep Papanicolaou smear with manual screening 6 5-15 [facility] Whole blood hemoglobin A1c/t otal hemoglobin ratio (mass fraction)Ordered By: Nicolás Oscar on 10-25-2022 HbA1c (Bld) [Mass fraction] 5.0 % 3.8-5.6 [facility] Comment on above: Normal < 5.7 % Predi abetic 5.7 - 6.4 % Diabetic >or= 6.5 % Please note range changes. Vital Signs Date Time Vital Sign Value Performing Clinician Gretta martinez 12-30-2024 08:54-0400 Body height 162.[address] Mindy Araujo MD Work Phone: [facility] 12-30-2024 08:54-0400 Body mass index (BMI) [Ratio] 23.6 kg/m2 Dr. Mindy Araujo MD Work Phone: [facility] 12-30-2024 08:54-0400 Body temperature 96.6 [degF] Dr. Mindy Araujo MD Work Phone: [facility] 12-30-2024 08:54-0400 Body weight 62.[address] Mindy Araujo MD Work Phone: [facility] 12-30-2024 08:54-0400 Diastolic blood pressure 68 mm[Hg] Dr. Mindy Araujo MD Work Phone: [facility] 12-30-2024 08:54-0400 Heart rate 86 /min Dr. Mindy Araujo MD Work Phone: [facility] 12-30-2024 08:54-0400 Respiratory rate 16 /min Dr. Mindy Araujo MD Work Phone: [facility] 12-30-2024 08:54-0400 SaO2% (BldA) [Mass fraction] 97 % Dr. Mindy Araujo MD Work Phone: [facility] 12-30-2024 08:54-0400 Systolic blood pressure 118 mm[Hg] Dr. Mindy Araujo MD Work Phone: [facility] 12-15-2024 08:21-0400 Body height 162.[address] Mindy Araujo MD Work Phone: [facility] 12-15-2024 08:21-0400 Body mass index (BMI) [Ratio] 23.8 kg/m2 Dr. Mindy Araujo MD Work Phone: [facility] 12-15-2024 08:21-0400 Body weight 63.[address] Mindy Araujo MD Work Phone: [facility] 12-15-2024 08:21-0400 Diastolic blood pressure 70 mm[Hg] Dr. Mindy Araujo MD Work Phone: [facility] 12-15-2024 08:21-0400 Heart rate 76 /min Dr. Mindy Araujo MD Work Phone: [facility] 12-15-2024 08:21-0400 Respiratory rate 18 /min Dr. Mindy Araujo MD Work Phone: [facility] 12-15-2024 08:21-0400 SaO2% (BldA) [Mass fraction] 99 % Dr. Mindy Araujo MD Work Phone: [facility] 12-15-2024 08:21-0400 Systolic blood pressure 118 mm[Hg] Dr. Mindy Araujo MD Work Phone: [facility] 11-16-2024 08:07-0400 Body temperature 98.4 [degF] Dr. Mindy Araujo MD Work Phone: [facility] 11-16-2024 08:07-0400 Diastolic blood pressure 70 mm[Hg] Dr. Mindy Araujo MD Work Phone: [facility] 11-16-2024 08:07-0400 Heart rate 72 /min Dr. Mindy Araujo MD Work Phone: [facility] 11-16-2024 08:07-0400 Respiratory rate 14 /min Dr. Mindy Araujo MD Work Phone: [facility] 11-16-2024 08:07-0400 SaO2% (BldA) [Mass fraction] 97 % Dr. Mindy Araujo MD Work Phone: [facility] 11-16-2024 08:07-0400 Systolic blood pressure 110 mm[Hg] Dr. Mindy Araujo MD Work Phone: [facility] 05-31-2024 14:18-0500 Body height 161.3 cm Makenzie Clancy MD Work Phone: [facility] 05-31-2024 14:18-0500 Body mass index (BMI) [Ratio] 24.13 kg/m2 Makenzie Clancy MD Work Phone: [facility] 05-31-2024 14:18-0500 Body weight 62.78 kg Makenzie Clancy MD Work Phone: [facility] 05-31-2024 14:18-0500 Diastolic blood pressure 86 mm[Hg] Makenzie Clancy MD Work Phone: [facility] 05-31-2024 14:18-0500 Systolic blood pressure 128 mm[Hg] Makenzie Clancy MD Work Phone: [facility] 07-10-2023 16:05-0500 Diastolic blood pressure 72 mm[Hg] Kisha Almanzar MD Work Phone: [facility] 07-10-2023 16:05-0500 Systolic blood pressure 132 mm[Hg] Kisha Almanzar MD Work Phone: [facility] 07-10-2023 15:59-0500 Body height 161.9 cm Kisha Almanzar MD Work Phone: [facility] 07-10-2023 15:59-0500 Body weight 61.24 kg Kisha Almanzar MD Work Phone: [facility] 03-22-2023 16:27-0400 Body temperature 98.7 [degF] Dr. Mindy Araujo Work Phone: [facility] 03-22-2023 16:27-0400 Diastolic blood pressure 92 mm[Hg] Dr. Mindy Araujo Work Phone: [facility] 03-22-2023 16:27-0400 Heart rate 74 /min Dr. Mindy Araujo Work Phone: [facility] 03-22-2023 16:27-0400 Respiratory rate 16 /min Dr. Mindy Araujo Work Phone: [facility] 03-22-2023 16:27-0400 SaO2% (BldA) [Mass fraction] 98 % Dr. Mindy Araujo Work Phone: [facility] 03-22-2023 16:27-0400 Systolic blood pressure 135 mm[Hg] Dr. Mindy Araujo Work Phone: [facility] 03-01-2023 08:09-0400 Body height 162.[address] Mindy Araujo Work Phone: [facility] 03-01-2023 08:09-0400 Body mass index (BMI) [Ratio] 22.4 kg/m2 Dr. Mindy Araujo Work Phone: [facility] 03-01-2023 08:09-0400 Body temperature 98.6 [degF] Dr. Mindy Araujo Work Phone: [facility] 03-01-2023 08:09-0400 Body weight 59.[address] Mindy Araujo Work Phone: [facility] 03-01-2023 08:09-0400 Diastolic blood pressure 86 mm[Hg] Dr. Mindy Araujo Work Phone: [facility] 03-01-2023 08:09-0400 Heart rate 72 /min Dr. Mindy Araujo Work Phone: [facility] 03-01-2023 08:09-0400 Respiratory rate 18 /min Dr. Mindy Araujo Work Phone: [facility] 03-01-2023 08:09-0400 SaO2% (BldA) [Mass fraction] 98 % Dr. Mindy Araujo Work Phone: [facility] 03-01-2023 08:09-0400 Systolic blood pressure 124 mm[Hg] Dr. Mindy Araujo Work Phone: [facility] 10-25-2022 10:31-0400 Body height 162.[address] Mindy Araujo Work Phone: [facility] 10-25-2022 10:31-0400 Body mass index (BMI) [Ratio] 22.8 kg/m2 Dr. Mindy Araujo Work Phone: [facility] 10-25-2022 10:31-0400 Body temperature 98.8 [degF] Dr. Mindy Araujo Work Phone: [facility] 10-25-2022 10:31-0400 Body weight 60.[address] Mindy Araujo Work Phone: [facility] 10-25-2022 10:31-0400 Diastolic blood pressure 90 mm[Hg] Dr. Mindy Araujo Work Phone: [facility] 10-25-2022 10:31-0400 Heart rate 74 /min Dr. Mindy Araujo Work Phone: [facility] 10-25-2022 10:31-0400 Respiratory rate 16 /min Dr. Mindy Araujo Work Phone: [facility] 10-25-2022 10:31-0400 SaO2% (BldA) [Mass fraction] 99 % Dr. Mindy Araujo Work Phone: [facility] 10-25-2022 10:31-0400 Systolic blood pressure 150 mm[Hg] Dr. Mindy Araujo Work Phone: [facility] 04-07-2022 09:13-0500 Body weight 60.06 kg Nurse Wstr Work Phone: [facility] 04-07-2022 09:13-0500 Diastolic blood pressure 78 mm[Hg] Nurse Wstr Work Phone: [facility] 04-07-2022 09:13-0500 Systolic blood pressure 130 mm[Hg] Nurse Wstr Work Phone: [facility] 02-02-2022 08:52-0400 Body height 162.6 cm Kisha Almanzar MD Work Phone: [facility] 02-02-2022 08:52-0400 Body weight 56.7 kg Kisha Almanzar MD Work Phone: [facility] 02-02-2022 08:52-0400 Diastolic blood pressure 70 mm[Hg] Kisha Almanzar MD Work Phone: [facility] 02-02-2022 08:52-0400 Systolic blood pressure 124 mm[Hg] Kisha Almanzar MD Work Phone: [facility] Encounters Encounter Date Encounter Type Care Provider Facility Start: 12-30-2024 End: 12-30-[address] Mindy Araujo MD Work Phone: [facility] Start: 12-30-2024 End: 12-30-[address] Mindy Araujo MD -[facility] Work Phone: Start: 12-30-2024 End: 12-30-[address] Mindy Araujo MD [facility] Start: 12-15-2024 End: 12-15-2024 [facility] Work Phone: Start: 12-15-2024 End: 12-15-[address] Mindy Araujo MD Work Phone: [facility] Start: 12-15-2024 End: 12-15-2024 ambulatory Mindy Araujo Facility:[facility] Start: 11-16-2024 End: 11-16-[address] Mindy Araujo MD Work Phone: [facility] Work Phone: Start: 11-16-2024 End: 11-16-2024 Patient encounter procedure Phong Burger PA -[facility] Work Phone: Start: 09-04-2024 End: 09-05-2024 Coleman Clancy MD Work Phone: OB/Gynecology Comment on above: Med Change Request Start: 08-29-2024 End: 08-29-2024 [facility] Get Medical Advice Makenzie Clancy MD Work Phone: OB/Gynecology Comment on above: Refill request patrick d Start: 08-27-2024 End: 08-29-2024 Refill Makenzie Clancy MD Work Phone: OB/Gynecology Comment on above: Refill Request Start: 08-23-2024 End: 10-23-2024 Follow-up encounter Ju Marine MEDEL Work Phone: OB/Gynecology Start: 08-21-2024 End: 08-21-2024 ambulatory MAKENZIE CLANCY Facility:[facility] Start: 08-21-2024 End: 08-21-2024 Subsequent hospital visit by physician Screen Mammo [facility] Comment on above: Encounter for screen ing mammogram for breast cancer [Z12.31] Start: 07-11-2024 End: 07-11-2024 ambulatory [facility] Facility:[facility] Start: 07-11-2024 End: 07-11-2024 ambulatory [facility] Facility:[facility] Start: 05-31-2024 End: 05-31-2024 ambulatory MAKENZIE CLANCY Facility:[facility] Start: 05-31-2024 End: 05-31-2024 Patient encounter procedure Makenzie Clancy MD Work Phone: OB/Gynecology Comment on above: Encounter for gyneco logical examination (general) (routine) without abnormal findings (Primary Dx); Screening for cervical cancer; Encounter for screening for human papillomavirus (HPV); Encounter for screening mammogram for breast cancer Start: 05-31-2024 End: 05-31-2024 Patient encounter status Makenzie Clancy MD Work Phone: [facility] Start: 03-25-2024 End: 03-25-2024 ambulatory Jame Calloway Facility:[facility] Start: 02-14-2024 End: 02-14-2024 ambulatory Efewong Suraje Facility:[facility] Start: 02-14-2024 End: 02-14-2024 ambulatory Mindy Araujo Facility:[facility] Start: 08-21-2023 Documentation procedure Mammog may Coordinator [facility] Start: 08-21-2023 Letter encounter Mammography Coordinator [facility] Department Start: 08-21-2023 End: 08-21-2023 Patient encounter status Screen [facility] Start: 08-21-2023 End: 08-21-2023 Subsequent hospital visit by physician Screen Mammo [facility] Comment on above: Encounter for [...] encounter status Kisha Almanzar MD Work Phone: [facility] Start: 07-04-2023 Refill Kisha gonzalez MD Work Phone: OB/Gynecology Comment on above: Refill Request Start: 05-01-2023 MC Get Medical Advice Kisha Almanzar MD Work Phone: OB/Gynecology Comment on above: mail order pharmacy Start: 03-22-2023 End: 03-22-[address] Mindy Araujo Work Phone: [facility] Work Phone: Start: 03-22-2023 End: 03-22-[address] Mindy Araujo Work Phone: [facility]-Laboratory, Specimen Work Phone: Start: 03-22-2023 End: 03-22-[address] Mindy Araujo Work Phone: [facility] Work Phone: Start: 03-08-2023 ambulatory Kisha gonzalez MD Work Phone: [facility] Start: 03-08-2023 Patient encounter procedure Kisha Almanzar MD Work Phone: OB/Gynecology Comment on above: annual visit Start: 03-01-2023 End: 03-01-[address] Mindy Araujo Work Phone: [facility] Work Phone: Start: 10-25-2022 End: 10-25-[address] Mindy Araujo Work Phone: [facility] Work Phone: Start: 10-25-2022 End: 10-25-[address] Mindy Araujo Work Phone: [facility] Start: 04-12-2022 ambulatory Kisha gonzalez MD Work Phone: OB/Gynecology Comment on above: Daughter irregular p eriod Start: 04-07-2022 End: 04-07-2022 Nursing evaluation of patient and report Nurse Manager Labor Delivery [facility] Work Phone: OB/Gynecology Comment on above: [...] m caregiver Kisha Almanzar MD Work Phone: [facility] Start: 03-06-2018 Patient encounter procedure Kisha Almanzar MD Work Phone: OB/Gynecology Comment on above: RE: Request an Appoi ntment Procedures Date Procedure Procedure Detail Performing Clinician Start: 12-16-[address] Bri Araujo MD Work Phone: Start: 12-16-2024 Urnls dip stick/tabl et reagent auto microscopy Dr. Mindy Araujo MD Work Phone: Start: 08-21-2023 Screening digital br east tomosynthesis [...] malign ant neoplasm of breast Mammogram Screening [facility] Start: 05-31-2025 Screening for malign ant neoplasm of cervix Cervical Cancer Screening [facility] Start: 02-13-2025 HPV TESTING HPV TESTING [facility] Start: 02-13-2025 PAP TESTING PAP TESTING [facility] Start: 02-13-2025 Screening for malign ant neoplasm of cervix [facility] Start: 01-27-2025 Influenza vaccination Influenz a Vaccine (Season Ended) [facility] Start: 12-30-2024 CBC W Auto Different ial panel - Blood [facility] Start: 12-30-2024 Comprehensive metabo lic 2000 panel - Serum or Plasma [facility] Start: 12-30-2024 Lipid 1996 panel - S ricardo or Plasma [facility] Start: 08-21-2024 End: 08-21-2024 Patient encounter procedure 08/21/2024 7:10 AM EDT Appointment Mammogram [address] [place] [address] Mammo with maximilian Mammogram Comment on above: Mammo with maximilian Start: 08-20-2024 Screening for malign ant neoplasm of breast Mammogram Screening [facility] Start: 01-28-2024 Covid-19 Vaccine ( season) Covid-19 Vaccine () [facility] Start: 01-28-2024 Influenza vaccination Influenza Vacc ine (#1) [facility] Start: 05-29-2023 Depression Assessment Depression Ass essment [facility] Start: 01-27-2023 Covid-19 Vaccine ( season) Covid-19 Vaccine () [facility] Start: 01-27-2023 Influenza vaccination Influenza Vacc ine (#1) [facility] Start: 10-14-2022 Urine microalbumin profile [facility] Start: 08-05-2022 HPV Vaccine (3 - 3-d ose SCDM series) HPV Vaccine (3 - 3-dose SCDM series) [facility] Start: 08-02-2022 HPV Vaccine (3 - 3-d ose SCDM series) HPV Vaccine (3 - 3-dose SCDM series) [facility] Start: 08-01-2022 9vhpv vacc 2/3 dose sched im use HUMAN PAPILLOMAVIRUS 9-VALENT HPV IM Immunization/Injection Routine Need for prophylactic vaccination/inoculation against viral disease Expected: 08/01/2022 (Approximate) [facility] Work Phone: Comment on above: Expected: 08/01/2022 (Approximate) Start: 05-29-2022 Depression Assessment Depression Ass essment [facility] Start: 04-03-2022 9vhpv vacc 2/3 dose sched im use HUMAN PAPILLOMAVIRUS 9-VALENT HPV IM Immunization/Injection Routine Need for prophylactic vaccination/inoculation against viral disease Expected: 04/03/2022 (Approximate) [facility] Work Phone: Comment on above: Expected: 04/03/2022 (Approximate) Start: 01-27-2022 Influenza vaccination [facility] Start: 07-22-2021 COVID-19 VACCINE (4 - Booster for Pfizer series) COVID-19 VACCINE (4 - Booster for Pfizer series) [facility] Start: 05-29-2021 DEPRESSION ASSESSMENT DEPRESSION ASS ESSMENT [facility] Start: 01-13-2021 COVID-19 VACCINE (3 - Booster for Pfizer series) COVID-19 VACCINE (3 - Booster for Pfizer series) [facility] Start: 2020 Mammography [facility] Start: 2020 Screening for malign ant neoplasm of breast Mammogram Screening [facility] Start: 1998 Anxiety Screening Anxiety Screening [facility] Start: 1998 Depression Screening Depression Scre ening [facility] Start: 1998 HEPATITIS C SCREENING HEPATITIS C [facility] Start: 1998 Hepatitis C screening Hepatitis C [facility] Start: 1992 Adult depression scr eening assessment DEPRESSION SCREENING [facility] Alanine aminotransfe rase [Enzymatic activity/volume] in Serum or Plasma [facility] Albumin [Mass/volume ] in Serum or Plasma [facility] Alkaline phosphatase [Enzymatic activity/volume] in Serum or Plasma [facility] Anion gap in Serum o r Plasma [facility] Bilirubin, total measurement [facility] BUN/Creatinine ratio [facility] Calcium [Mass/volume ] in Serum or Plasma [facility] Carbon dioxide, tota l [Moles/volume] in Central venous blood [facility] Chlamydia trachomatis+Neisseria gonorrhoeae DNA [Presence] in Unspecified specimen by JORGE with probe detection GC/CHLAMYDIA DNA DET Lab Routine Screen for STD (sexually transmitted disease) Ordered: 02/02/2022 [facility] Work Phone: Comment on above: Ordered: 02/02/2022 Cholesterol [Mass/vo lume] in Serum or Plasma [facility] Cholesterol in HDL [Mass/volume] in Serum or Plasma [facility] Creatinine [Mass/vol ume] in Serum or Plasma [facility] End: 08-08-2024 DBT Breast - bilateral screening NICK SCREENING W [facility] Radiology Routine Encounter for gynecological examination (general) (routine) without abnormal findings Encounter for screening mammogram for breast cancer 1 Occurrences starting 07/10/2023 until 08/08/2024 [facility] Work Phone: Comment on above: 1 Occurrences starti ng 07/10/2023 until 08/08/2024 End: 06-30-2025 DBT Breast - bilateral screening NICK SCREENING [facility] Radiology Routine Encounter for screening mammogram for breast cancer 1 Occurrences starting 05/31/2024 until 06/30/2025 [facility] Work Phone: Comment on above: 1 Occurrences starti ng 05/31/2024 until 06/30/2025 DBT Breast - bilater al screening NICK SCREENING [facility] Radiology Routine Encounter for screening mammogram for breast cancer 08/21/2024 7:38 AM EDT [facility] Work Phone: Erythrocyte mean corpuscular volume determination [facility] Glucose [Mass/volume ] in Serum or Plasma [facility] Hematocrit [Volume Fraction] of Blood [facility] Hemoglobin [Mass/vol ume] in Blood [facility] Leukocytes [#/volume ] in Blood [facility] Low density lipoprot ein cholesterol measurement [facility] End: 03-04-2023 NICK SCREENING W [facility] NICK SCREENING W [facility] Radiology Routine Encounter for gynecological examination (general) (routine) without abnormal findings Encounter for screening mammogram for breast cancer 1 Occurrences starting 02/02/2022 until 03/04/2023 [facility] Work Phone: Comment on above: 1 Occurrences starti ng 02/02/2022 until 03/04/2023 Mean corpuscular hemoglobin concentration determination [facility] Mean corpuscular hemoglobin determination [facility] Measurement of renal function [facility] Neutrophil count [facility] Neutrophil percent differential count [facility] PAP TEST PAP TEST Lab Rou haley Encounter for gynecological examination (general) (routine) without abnormal findings Screening for cervical cancer Encounter for screening for human papillomavirus (HPV) 05/31/2024 2:56 PM EST [facility] Platelets [#/volume] in Blood [facility] Potassium measurement [facility] Red blood cell count [facility] Red cell distributio n width determination [facility] Serum chloride measurement [facility] Sodium measurement [facility] T VAGINALIS AMPLIFICATION T VAGI NALIS AMPLIFICATION Lab Routine Screen for STD (sexually transmitted disease) Ordered: 02/02/2022 [facility] Work Phone: Comment on above: Ordered: 02/02/2022 Therapeutic prophylactic/dx injection subq/im THER/PROPH/DIAG INJ, SC/IM Procedures Routine Need for prophylactic vaccination/inoculation against viral disease Ordered: 02/02/2022 [facility] Work Phone: Comment on above: Ordered: 02/02/2022 Total cholesterol:HD L ratio measurement [facility] Total protein measurement [facility] Triglycerides measurement [facility] Urea nitrogen [Mass/volume] in Serum or Plasma [facility] Urinalysis complete panel - Urine [facility] VLDL cholesterol measurement [facility] Immunizations Immunization Date Immunization Notes Care Provider [facility] 07-10-2023 Human Papillomavirus 9-valent vaccine Kisha Almanzar MD Work Phone: [facility] 04-07-2022 Human Papillomavirus 9-valent vaccine Nurse Wstr Work Phone: [facility] Work Phone: 03-30-2022 influenza, injectabl e, quadrivalent, preservative free Kisha Almanzar MD Work Phone: [facility] Work Phone: 03-30-2022 influenza virus vacc ine, unspecified formulation Kisha Almanzar MD Work Phone: [facility] 02-02-2022 Human Papillomavirus 9-valent vaccine Kisha Almanzar MD Work Phone: [facility] 04-20-2018 influenza, injectabl e, quadrivalent, contains preservative Kisha Almanzar MD Work Phone: [facility] 04-20-2018 influenza virus vacc ine, unspecified formulation Kisha Almanzar MD Work Phone: [facility] 03-14-2016 influenza, injectabl e, quadrivalent, preservative free Dr. Mindy Araujo Work Phone: [facility] 03-14-2016 influenza, seasonal, injectable Dr. Mindy Araujo Work Phone: [facility] 03-09-2015 influenza, injectabl e, quadrivalent, preservative free Dr. Mindy Araujo Work Phone: [facility] 03-09-2015 influenza, seasonal, injectable Dr. Mindy Araujo Work Phone: [facility] 03-09-2015 tetanus toxoid, redu bhavesh diphtheria toxoid, and acellular pertussis vaccine, adsorbed Dr. Mindy Araujo Work Phone: [facility] 04-12-2014 influenza virus vacc ine, unspecified formulation Kisha Almanzar MD Work Phone: [facility] 04-10-2014 influenza, injectabl e, quadrivalent, preservative free Dr. Mindy Araujo Work Phone: [facility] 04-10-2014 influenza, seasonal, injectable Dr. Mindy Araujo Work Phone: [facility] 06-10-[address] Mindy Araujo Work Phone: [facility] 10-14-2012 tetanus toxoid, redu bhavesh diphtheria toxoid, and acellular pertussis vaccine, adsorbed Kisha Almanzar MD Work Phone: [facility] Work Phone: 03-19-2012 influenza virus vacc ine, unspecified formulation Kisha Almanzar MD Work Phone: [facility] Payers Date Payer Category Payer Self-pay [id number] 2018 Private Health Insurance MMO [employer] PPO Member Subscriber Plan / Payer (Effective 2018-Present) Name: Edna AKERS Relation to Subscriber: Self Name: Edna AKERS Payer ID: Not on file Type: O Address: [place] [id number] 2018 Unknown [id number] 2018 Unknown [id number] 2017 Unknown [id number] 2013 Unknown [facility] [place] [id number] Unknown [id number] Unknown [id number] Unknown [id number] Unknown [id number] Unknown [id number] Unknown [id number] Unknown [id number] Unknown [id number] Social History Date Type Detail Facility Start: 02-02-2022 End: 01-25-2024 Tobacco smoking status NHIS Never smoked tobacco [facility] Start: 02-14-2020 End: 05-31-2024 Alcohol intake Current drinker of alcohol (finding) [facility] Start: 02-14-2020 End: 07-10-2023 Alcohol intake [facility] Start: 06-05-2007 History SDOH Alcohol Comment SOCIALLY FOUR TIMES Q MONTH,NOT WHILE [facility] Start: 1980 Sex Assigned At Not on file [facility] Start: 01-15-2020 End: 04-07-2022 Exposure to SARS-CoV-2 (event) Not sure [facility] Start: 02-02-2022 Tobacco use and exposure Smokeless tobacco non-user [facility] Start: 10-25-2022 End: 03-22-2023 Tobacco smoking status NHIS Unknown if ever smoked [facility] Start: 1980 Sex Assigned At Female [facility] Start: 04-07-2022 End: 07-10-2023 Tobacco use panel [facility] National Score (1-100), lower number is lower risk 57 [facility] Functional Status Date Assessment Result Facility 10-17-2014 Are you deaf, or do you have serious difficulty hearing No 10/17/2014 2:18 PM Elizabeth Santana LPN No [facility] 10-17-2014 Are you blind, or do you have serious difficulty seeing, even when wearing glasses No 10/17/2014 2:18 PM Elizabeth Santana LPN No [facility] 10-17-2014 Do you have serious difficulty walking or climbing stairs No 10/17/2014 2:18 PM Elizabeth Santana LPN No [facility] 10-17-2014 Do you have difficul ty dressing or bathing No 10/17/2014 2:18 PM Elizabeth Santana LPN No [facility] 10-17-2014 Because of a physica l, mental, or emotional condition, do you have difficulty doing errands alone such as visiting a physician's office or shopping No 10/17/2014 2:18 PM Elizabeth Santana LPN No [facility] Mental Status Date Assessment Result Facility 10-17-2014 Because of a physica l, mental, or emotional condition, do you have serious difficulty concentrating, remembering, or making decisions No 10/17/2014 2:18 PM EDT Elizabeth Holbrook LPN No [facility] Clinical Notes 11-04-2010 to 11-16-2024 Note Date & Type Note Facility 11-16-2024 Evaluation note Diagnosis Onset Date Resolution Conjunctivitis, right eye acute November 16, 2024 8:03am UTI (urinary tract infection) acute December 15, 2024 8:03am [facility] Work Phone: 1(154) 857-818206-21-2025 Evaluation note* Diagnosis Onset Date Resolution Status Admit Date Conjunctivitis, right eye acute November 16, 2024 8:03am UTI (urinary tract infection) acute December 15, 2024 8:03am Preventative health care acute December 30, 2024 8:51am Anxiety and depression chronic Au 2024 8:51am Hypertension chronic December 30, 2024 8:51am [employer] [facility] Work Phone: 1(266) 314-120904-10-2025 Telephone encounter Note* Telephone Encounter - Makenzie Clancy MD - 09/05/2024 8:17 AM EDT filed [facility]04-10-2025 Miscellaneous Notes* Telephone Encounter - Makenzie [...] pills Mireille Ortiz RN documented in this encounterR[facility]04-09-2025 Telephone encounter Note * Telephone Encounter [...] use, skip inactive pills Mireille Ortiz RN [facility]04-03-2025 Telephone encounter Note* Telephone Encounter - Makenzie Clancy MD - 08/29/2024 12:02 PM EDT filed [facility]04-03-2025 Miscellaneous Notes* Telephone Encounter - Makenzie Clancy MD - 08/29/2024 12:02 PM EDT filed * Telephone Encounter - Mireille Ortiz RN - 08/29/2024 10:50 AM EDT Last annual 05/31/24 and per patient [facility] did not receive that years supply rx that was escripted that day. Please file again and cancel all other previous rx. Rx that was sent today was only for 28 pills. Mireille Ortiz RN documented in this encounterCleveland [id number] Telephone encounter Note * Telephone Encounter - Mireille Ortiz RN - 08/29/2024 10:50 AM EDT Last annual 05/31/24 and per patient [facility] did not receive that years supply rx that was escripted that day. Please file again and cancel all other previous rx. Rx that was sent today was only for 28 pills. Mireille Ortiz RN [facility]04-03-2025 Telephone encounter Note* Telephone Encounter - Makenzie Clancy MD - 08/29/2024 9:18 AM EDT filed [facility]04-03-2025 Miscellaneous Notes* Telephone Encounter - Makenzie Clancy MD - 08/29/2024 9:18 AM EDT filed * Telephone Encounter - Marilynn Mae RN - 08/27/2024 9:33 AM EDT Last OV 05/31/24. Requested Prescriptions Pending Prescriptions Disp Refills drospirenone-e.estradiol-lm.FA (BEYAZ) 3-0.02-0.451 mg (24) (4) tab 84 tablet 3 Sig: Take 1 tablet by mouth once daily. for continuous use, skip inactive pills [facility] did not receive Rx 05/31/24. Marilynn Mae RN documented in this encounterR[facility]04-01-2025 Telephone encounter Note * Telephone Encounter - Marilynn Mae RN - 08/27/2024 9:33 AM EDT Last OV 05/31/24. Requested Prescriptions Pending Prescriptions Disp Refills drospirenone-e.estradiol-lm.FA (BEYAZ) 3-0.02-0.451 mg (24) (4) tab 84 tablet 3 Sig: Take 1 tablet by mouth once daily. for continuous use, skip inactive pills [facility] did not receive Rx 05/31/24. Marilynn Mae RN [facility]03-26-2025 History of Present illness Narrative* Manpreet [...] PATIENT PRESENTS WITH AN IMPLANTABLE OR ATTACHED COLOR CONSULTANT: No RADIOLOGY DEPARTMENT: Mammography PERIPHERAL IV DATA: Not applicable SIGNED BY: Chong Larsen August 21, 2024 7:28 AM documented in this encounterRiverside [facility] Hospital03-26-2025 NoteHNO ID: [id number] Author: MANPREET ESTRADA Mammo Tech Service: ? Author Type: Shank Tapper Type: Progress Notes Filed: 08/21/2024 07:28 Note [...] PATIENT PRESENTS WITH AN IMPLANTABLE OR ATTACHED COLOR CONSULTANT: No RADIOLOGY DEPARTMENT: Mammography PERIPHERAL IV DATA: Not applicable SIGNED BY: Manpreet Estrada [employer] August 21, 2024 7:28 [facility]01-03-2025 NoteHNO ID: [id number] Author: MAKENZIE CLANCY MD Service: ? Author Type: Physician Type: Progress Notes Filed: 05/31/2024 17:08 Note Text: Digital Field Service Technician offered: Patient declinesEvelyn Bishop is a 43 [...] L2 SAB0 IAB0 Ectopic0 Multiple0 Live Births2 Director Process Engineering History LMP: 05/17/2024, Having periods Age at Menarche: 12 Age at First : Age at Menopause: Director Process Engineering History Comments: Sexual Activity: Yes; Male Contraception: [...] discussed with the Patient or Patient's Authorized Customer Experience Manager. As applicable, any other physician, advance practice provider, medical student, or other health professional student that will be observing or involved in the sensitive examination for educational or training purposes was discussed with the Patient or Authorized Customer Experience Manager. The Patient or Authorized Customer Experience Manager has agreed to proceed with the sensitive [...] external genitalia normal, normal Bartholin's glands, urethra, [place]'s glands, no vulvar lesions, no cervical lesions, [...] one year or sooner as needed Makenzie Clancy, [facility]01-03-2025 History of Present illness Narrative* Makenzie Clancy MD - 05/31/2024 2:09 PM EST Digital Field Service Technician offered: Patient declines. Edna is a 43 [...] L2 SAB0 IAB0 Ectopic0 Multiple0 Live Births2 Director Process Engineering History LMP: 05/17/2024, Having periods Age at Menarche: 12 Age at First : Age at Menopause: Director Process Engineering History Comments: Sexual Activity: Yes; Male Contraception: [...] discussed with the Patient or Patient's Authorized Customer Experience Manager. As applicable, any other physician, advance practice provider, medical student, or other health professional student that will be observing or involved in the sensitive examination for educational or training purposes was discussed with the Patient or Authorized Customer Experience Manager. The Patient or Authorized Customer Experience Manager has agreed to proceed with the sensitive [...] external genitalia normal, normal Bartholin's glands, urethra, [place]'s glands, no vulvar lesions, no cervical lesions, [...] one year or sooner as needed Makenzie Clancy, documented in this encounterR[facility]03-25-2024 Miscellaneous Notes* Letter - Coordinator, Mammography - 08/21/2023 3:07 PM EDT August 22, 2023 PID: [id number] Edna Akers [address] [place] [id number] Dear Ms. Akers, We are pleased to [...] report will be kept on file at [facility] as part of your permanent medical record and are available for your continuing care. Thank you for allowing us to help in meeting your health care needs. Sincerely, Dr. Storey Interpreting Radiologist [facility] (Normal over 40) documented in this encounterRiverside [facility] Hospital03-25-2024 History of Present illness Narrative* Manpreet [...] PATIENT PRESENTS WITH AN IMPLANTABLE OR ATTACHED COLOR CONSULTANT: No RADIOLOGY DEPARTMENT: Mammography PERIPHERAL IV DATA: Not applicable SIGNED BY: Alondra Larseno Hugo August 21, 2023 7:49 AM documented in this encounterRiverside [facility] Hospital02-13-2024 Miscellaneous Notes* Telephone Encounter - Lauren [...] advise. Lauren Rodriguez LPN' documented in this encounterRiverside [facility] Hospital02-12-2024 History of Present illness Narrative* Kisha [...] L2 SAB0 IAB0 Ectopic0 Multiple0 Live Births2 Director Process Engineering History LMP: 01/30/2020, Drug Induced Amenorrhea Age at Menarche: Age at First : Age at Menopause: Director Process Engineering History Comments: Sexual Activity: Yes; Male Contraception: [...] external genitalia normal, normal Bartholin's glands, urethra, [place]'s glands, no vulvar lesions, no cervical lesions, [...] needed Kisha Almanzar MD documented in this encounterRiverside [facility] Hospital02-06-2024 Miscellaneous Notes* Telephone Encounter - Lauren Rodriguez LPN - 07/04/2023 2:34 PM EST Pt has scheduled appointment on 07/10/23. Please advise. Lauren Rodriguez LPN documented in this encounterRiverside [facility] Hospital02-06-2024 Miscellaneous Notes* Telephone Encounter - Daisy Valente RN - 07/04/2023 9:58 AM EST Requested Prescriptions Pending Prescriptions Disp Refills drospirenone-e.estradiol-lm.FA (BEYAZ) 3-0.02-0.451 mg (24) (4) tab 84 tablet 0 Sig: Take 1 tablet by mouth once daily. for continuous use, skip inactive pills Next annual exam: 07/10/23 Please approve the above prescription(s) to electronically send to pharmacy. Daisy Valente, RN documented in this encounterRiverside [facility] Hospital10-11-2023 Miscellaneous Notes* Telephone Encounter - Staci Jimenez RN - 03/08/2023 9:02 AM EDT Last seen for annual exam on 02/02/22. Elli message sent to patient to schedule appointment. Staci Jimenez RN documented in this encounterRiverside [facility] Hospital11-10-2022 History of Present illness Narrative* Lauren Rodriguez LPN - 04/07/2022 9:12 AM EST Pt here today for 2nd gardasil vaccine. Lauren Rodriguez LPN documented in this encounterRiverside [facility] Hospital09-07-2022 Instructions* Patient Instructions* Kisha Almanzar MD [...] glands, joint and muscle pain, weakness and Guillain-Medford syndrome. documented in this encounterRiverside [facility] Hospital09-07-2022 History of Present illness Narrative* Kisha [...] L2 SAB0 IAB0 Ectopic0 Multiple0 Live Births2 Director Process Engineering History LMP: 01/30/2020, Having periods Age at Menarche: Age at First : Age at Menopause: Director Process Engineering History Comments: Sexual Activity: Yes; Male Contraception: [...] external genitalia normal, normal Bartholin's glands, urethra, [place]'s glands, no vulvar lesions, no cervical lesions, [...] by name and date of . Edna Patel is here for her HPV 9 vaccination, injection # one of the series. Patient ?No Gardasil injection was given without incident. See immunizations for details of immunizations administered today. VIS sheet provided: Yes Patient advised to follow up in 2 months from the 1st injection Provider Dr Almanzar was present in office at time of injection. Nancy Salazar Ma documented in this encounterRiverside [facility] Hospital06-10-2022 Miscellaneous Notes* Addendum Note - Kisha [...] once daily. JARET: No documented in this encounterRiverside [facility] Hospital06-09-2011 History of Past illness Narrative* Problem Noted Date Resolved Date Supervision of normal subsequent 11/0402/01/2011 Previous section 08/11/20102010 Supervision of normal first 06/05/2007 07/09/2010 documented as of this encounter (statuses as of 11/05/2021) [facility] History of Past illness Narrative* Problem Noted Date Resolved Date Supervision of normal subsequent 11/0402/01/2011 Previous section 08/11/20102010 Supervision of normal first 06/05/2007 07/09/2010 documented as of this encounter (statuses as of 11/05/2021) [facility] History of Past illness Narrative* Problem Noted Date Resolved Date Supervision of normal subsequent 11/0402/01/2011 Previous section 08/11/20102010 Supervision of normal first 06/05/2007 07/09/2010 documented as of this encounter (statuses as of 02/02/2022) [facility] of [facility] illness Narrative* Problem Noted Date Resolved Date Supervision of normal subsequent 11/0402/01/2011 Previous section 08/11/20102010 Supervision of normal first 06/05/2007 07/09/2010 documented as of this encounter (statuses as of 03/14/2022) [facility] of [facility] illness Narrative* Problem Noted Date Resolved Date Supervision of normal subsequent 11/0402/01/2011 Previous section 08/11/20102010 Supervision of normal first 06/05/2007 07/09/2010 documented as of this encounter (statuses as of 04/07/2022) [facility] of [facility] illness Narrative* Problem Noted Date Resolved Date Supervision of normal subsequent 11/0402/01/2011 Previous section 08/11/20102010 Supervision of normal first 06/05/2007 07/09/2010 documented as of this encounter (statuses as of 04/12/2022) [facility] of [facility] illness Narrative* Problem Noted Date Diagnosed Date Resolved Date Supervision of normal subsequent 11/04/2010 02/01/2011 Previous section 08/11/2010 Supervision of normal first 06/05/2007 07/09/2010 documented as of this encounter (statuses as of 03/08/2023) [facility] of [facility] illness Narrative* Problem Noted Date Diagnosed Date Resolved Date Supervision of normal subsequent 11/04/2010 02/01/2011 Previous section 08/11/2010 Supervision of normal first 06/05/2007 07/09/2010 documented as of this encounter (statuses as of 05/01/2023) [facility] Narrative* Problem Noted Date Diagnosed Date Resolved Date Supervision of normal subsequent 11/04/2010 02/01/2011 Previous section 08/11/2010 Supervision of normal first 06/05/2007 07/09/2010 documented as of this encounter (statuses as of 07/04/2023) [facility] illness Narrative* Problem Noted Date Diagnosed Date Resolved Date Supervision of normal subsequent 11/04/2010 02/01/2011 Previous section 08/11/2010 Supervision of normal first 06/05/2007 07/09/2010 documented as of this encounter (statuses as of 07/05/2023) [facility] History of Past illness Narrative* Problem Noted Date Diagnosed Date Resolved Date Supervision of normal subsequent 11/04/2010 02/01/2011 Previous section 08/11/2010 Supervision of normal first 06/05/2007 07/09/2010 documented as of this encounter (statuses as of 07/11/2023) [facility] History of Past illness Narrative* Problem Noted Date Diagnosed Date Resolved Date Supervision of normal subsequent 11/04/2010 02/01/2011 Previous section 08/11/2010 Supervision of normal first 06/05/2007 07/09/2010 documented as of this encounter (statuses as of 07/11/2023) [facility] History of Past illness Narrative* Problem Noted Date Diagnosed Date Resolved Date Supervision of normal subsequent 11/04/2010 02/01/2011 Previous section 08/11/2010 Supervision of normal first 06/05/2007 07/09/2010 documented as of this encounter (statuses as of 08/22/2023) [facility] History of Past illness Narrative* Problem Noted Date Diagnosed Date Resolved Date Supervision of normal subsequent 11/04/2010 02/01/2011 Previous section 08/11/2010 Supervision of normal first 06/05/2007 07/09/2010 documented as of this encounter (statuses as of 08/23/2023) [facility] Diagnosis Encounter for gynecological examination (general) (routine) without abnormal findings- Primary Encounter for screening mammogram for breast cancer Need for prophylactic vaccination/inoculation against viral disease Need for prophylactic vaccination and inoculation against other viral diseases Screen for STD (sexually transmitted disease) Screening examination for venereal disease [facility] Diagnosis Need for prophylactic vaccination/inoculation against viral disease- Primary Need for prophylactic vaccination and inoculation against other viral diseases documented in this encounter [facility] note* Diagnosis Onset Date Resolution Status Hypertension chronic [facility] Work Phone: evaluation note* Diagnosis Onset Date Resolution Status Alcohol use disorder chronic Hypertension chronic Bee sting reaction acute Dysuria acute [facility] Work Phone: evaluation note* Diagnosis Encounter for gynecological examination (general) (routine) without abnormal findings- Primary Encounter for screening mammogram for breast cancer documented in this encounter [facility] note* Diagnosis Encounter for gynecological examination (general) (routine) without abnormal findings Encounter for screening mammogram for breast cancer documented in this encounter [facility] note* Diagnosis Encounter for gynecological examination (general) (routine) without abnormal findings- Primary Screening for cervical cancer Screening for malignant neoplasm of the cervix Encounter for screening for human papillomavirus (HPV) Special screening examination for human papillomavirus (HPV) Encounter for screening mammogram for breast cancer documented in this encounter [facility] note* Diagnosis Encounter for screening mammogram for breast cancer documented in this encounter [facility] note* Diagnosis Onset Date Resolution Status Admit Date Conjunctivitis, right eye acute November 16, 2024 8:03am [facility] [employer] Work Phone: Hospital Discharge instructionsAmbulatory Orders* Dermatology Location: None Selected [facility] [employer] Work Phone: Reason for referral (narrative)* Diagnostic Procedure Only (Routine) - Authorized Specialty Diagnoses / Procedures Referred By Deanneac t Referred To Contact [facility] Diagnoses Encounter for gynecological examination (general) (routine) without abnormal findings Encounter for screening mammogram for breast cancer Procedures NICK SCREENING W MAXIMILIAN SCREENING DIGITAL BREAST TOMOSYNTHESIS BI SCREENING MAMMOGRAPHY BI 2-VIEW BREAST INC CAD Kisha Almanzar MD [address] [place] [address] [facility] [address] [place] [address] Referral ID Status Reason Start Date Expiration Date Visits Requested Visits Authorized [id number] Authorized Auto-Generat ed Referral 02/02/2022 03/04/2023 1 1 [facility] for referral (narrative)* Diagnostic Procedure Only (Routine) - Pending Review Specialty Diagnoses / Procedures Referred By Wolfgang potts Referred To Contact [facility] Diagnoses Encounter for gynecological examination (general) (routine) without abnormal findings Encounter for screening mammogram for breast cancer Procedures NICK SCREENING W MAXIMILIAN SCREENING DIGITAL BREAST TOMOSYNTHESIS BI SCREENING MAMMOGRAPHY BI 2-VIEW BREAST INC Kisha Zapata MD [address] [place] [address] [facility] [employer] [place] [phone] Referral ID Status Reason Start Date Expiration Date Visits Requested Visits Authorized [id number] Pending Review Auto-Generat ed Referral 07/10/2023 08/08/2024 1 1 [facility] for referral (narrative)* Diagnostic Procedure Only (Routine) - Closed Specialty Diagnoses / Procedures Referred By Wolfgang potts Referred To Contact [facility] Diagnoses Encounter for gynecological examination (general) (routine) without abnormal findings Encounter for screening mammogram for breast cancer Procedures NICK SCREENING W MAXIMILIAN SCREENING DIGITAL BREAST TOMOSYNTHESIS BI SCREENING MAMMOGRAPHY BI 2-VIEW BREAST INC Kisha Zapata MD [address] [place] [address] [facility] [employer] [place] [phone] Referral ID Status Reason Start Date Expiration Date V isits Requested Visits Authorized [id number] Closed Auto-Generate d Referral 07/10/2023 08/08/2024 1 1 T [facility] for referral (narrative)* Diagnostic Procedure Only (Routine) - Authorized Specialty Diagnoses / Procedures Referred By Wolfgang potts Referred To Contact [facility] Diagnoses Encounter for screening mammogram for breast cancer Procedures NICK SCREENING W MAXIMILIAN SCREENING DIGITAL BREAST TOMOSYNTHESIS BI SCREENING MAMMOGRAPHY BI 2-VIEW BREAST INC Makenize Santos MD [address] [place] [address] [facility] [address] [place] [address] Referral ID Status Reason Start Date Expiration Date Visits Requested Visits Authorized [id number] Authorized Auto-Generat ed Referral 05/31/2024 06/30/2025 1 1 [facility] for referral (narrative)No reason for referral [facility] Work Phone: Reason for visit Narrative* Diagnostic Procedure Only (Routine) - Closed Specialty Diagnoses / Procedures Referred By Wolfgang t Referred To Contact [facility] Diagnoses Encounter for gynecological examination (general) (routine) without abnormal findings Encounter for screening mammogram for breast cancer Procedures NICK SCREENING W MAXIMILIAN SCREENING DIGITAL BREAST TOMOSYNTHESIS BI SCREENING MAMMOGRAPHY BI 2-VIEW BREAST INC CAD Kisha Almanzar MD [address] [place] [address] [facility] [address] [place] [phone] Referral ID Status Reason Start Date Expiration Date V isits Requested Visits Authorized [id number] Closed Auto-Generate d Referral 07/10/2023 08/08/2024 1 1 [facility] for visit Narrative* Diagnostic Procedure Only (Routine) - Closed Specialty Diagnoses / Procedures Referred By Wolfgang potts Referred To Contact [facility] Diagnoses Encounter for screening mammogram for breast cancer Procedures NICK SCREENING W MAXIMILIAN SCREENING DIGITAL BREAST TOMOSYNTHESIS BI SCREENING MAMMOGRAPHY BI 2-VIEW BREAST INC CAD Makenzie Clancy MD [address] [place] [address] Phone: tel: fax: [facility] [address] [place] [phone] Referral ID Status Reason Start Date Expiration Date V isits Requested Visits Authorized [id number] Closed Auto-Generate d Referral 05/31/2024 06/30/2025 1 1 [facility] Chief Complaint and Reason for Visit [...] (urinary tract infection) December 15, 2024 8:03am Chief Complaint Admit Date CONCERN FOR PINK EYE/R EYE November 16 8:03am concern for uti December 15, 2024 8:03 am 6 M FU December 30, 2024 8:5 1am Reason for Visit Admit Date Conjunctivitis, right eye November 16 8:03am UTI (urinary tract infection) December 15, 2024 8:03am Preventative health care December 30 8:51am Anxiety and depression December 30, 2024 8:51am Hypertension December 30, 2024 8:5 1am Family History Relationship Condition Age at Onset Recorded Date/T luis alfredo Not Specified Malignant neoplasm of breast Unknown Seizure Unknown Hypertension Unknown Cerebrovascular accident (CVA) Unknown Advance Directives Advance Directive Response Recorded Date/ Time Living Will No July 12 11:02am Power of Associate Business Analyst No July 12, 2021 11:02am Summary Purpose Additional Source Comments Source Comments (unrecognize d section and content) In the event this informatio n is protected by the Federal Confidentiality of Alcohol and Drug Abuse Patient Records regulations: The Federal rules restrict any use of the information to criminally investigate or prosecute any alcohol or drug abuse patient.[facility] the event this information is protected by the Federal Confidentiality of Alcohol and Drug Abuse Patient Records regulations: The Federal rules restrict any use of the information to criminally investigate or prosecute any alcohol or drug abuse patient.[facility] the event this information is protected by the Federal Confidentiality of Alcohol and Drug Abuse Patient Records regulations: The Federal rules restrict any use of the information to criminally investigate or prosecute any alcohol or drug abuse patient.[facility] the event this information is protected by the Federal Confidentiality of Alcohol and Drug Abuse Patient Records regulations: The Federal rules restrict any use of the information to criminally investigate or prosecute any alcohol or drug abuse patient.[facility] the event this information is protected by the Federal Confidentiality of Alcohol and Drug Abuse Patient Records regulations: The Federal rules restrict any use of the information to criminally investigate or prosecute any alcohol or drug abuse patient.[facility] the event this information is protected by the Federal Confidentiality of Alcohol and Drug Abuse Patient Records regulations: The Federal rules restrict any use of the information to criminally investigate or prosecute any alcohol or drug abuse patient.[facility] the event this information is protected by the Federal Confidentiality of Alcohol and Drug Abuse Patient Records regulations: The Federal rules restrict any use of the information to criminally investigate or prosecute any alcohol or drug abuse patient.[facility] the event this information is protected by the Federal Confidentiality of Alcohol and Drug Abuse Patient Records regulations: The Federal rules restrict any use of the information to criminally investigate or prosecute any alcohol or drug abuse patient.[facility] the event this information is protected by the Federal Confidentiality of Alcohol and Drug Abuse Patient Records regulations: The Federal rules restrict any use of the information to criminally investigate or prosecute any alcohol or drug abuse patient.[facility] the event this information is protected by the Federal Confidentiality of Alcohol and Drug Abuse Patient Records regulations: The Federal rules restrict any use of the information to criminally investigate or prosecute any alcohol or drug abuse patient.[facility] the event this information is protected by the Federal Confidentiality of Alcohol and Drug Abuse Patient Records regulations: The Federal rules restrict any use of the information to criminally investigate or prosecute any alcohol or drug abuse patient.[facility] the event this information is protected by the Federal Confidentiality of Alcohol and Drug Abuse Patient Records regulations: The Federal rules restrict any use of the information to criminally investigate or prosecute any alcohol or drug abuse patient.[facility] the event this information is protected by the Federal Confidentiality of Alcohol and Drug Abuse Patient Records regulations: The Federal rules restrict any use of the information to criminally investigate or prosecute any alcohol or drug abuse patient.[facility] the event this information is protected by the Federal Confidentiality of Alcohol and Drug Abuse Patient Records regulations: The Federal rules restrict any use of the information to criminally investigate or prosecute any alcohol or drug abuse patient.[facility] the event this information is protected by the Federal Confidentiality of Alcohol and Drug Abuse Patient Records regulations: The Federal rules restrict any use of the information to criminally investigate or prosecute any alcohol or drug abuse patient.[facility] the event this information is protected by the Federal Confidentiality of Alcohol and Drug Abuse Patient Records regulations: The Federal rules restrict any use of the information to criminally investigate or prosecute any alcohol or drug abuse patient.[facility] the event this information is protected by the Federal Confidentiality of Alcohol and Drug Abuse Patient Records regulations: The Federal rules restrict any use of the information to criminally investigate or prosecute any alcohol or drug abuse patient.[facility] the event this information is protected by the Federal Confidentiality of Alcohol and Drug Abuse Patient Records regulations: The Federal rules restrict any use of the information to criminally investigate or prosecute any alcohol or drug abuse patient.[facility] the event this information is protected by the Federal Confidentiality of Alcohol and Drug Abuse Patient Records regulations: The Federal rules restrict any use of the information to criminally investigate or prosecute any alcohol or drug abuse patient.[facility] the event this information is protected by the Federal Confidentiality of Alcohol and Drug Abuse Patient Records regulations: The Federal rules restrict any use of the information to criminally investigate or prosecute any alcohol or drug abuse patient.[facility] Reason for Visit (unrecogniz ed section [...] Provider, Refer ring Provider Active Nicolás Oscar STATISTICAL GENETICIST, STATISTICAL GENETICIST-C Attending Provider Active Team Status: Inactive Member Role Status Dates Dr. Mindy Araujo MD Primary Care Provider Active Nicolás Oscar STATISTICAL GENETICIST, STATISTICAL GENETICIST-C Attending Provider, Referring Prov ider Active Team Status: Inactive Member Role Status Dates Dr. Mindy Araujo MD Primary Care P rovider, Attending Provider, Referring Provider Active Team Status: Inactive Member Role Status Dates Dr. Mindy Araujo MD Primary Care Provider, Refer ring Provider Active Adam TAY PA Attending Provider Active Team Status: Inactive Member Role Status Dates Dr. Mindy Araujo MD Primary Care Provider Active Adam TAY PA Attending Provider, Referring Provi ashley Active Team [...] December 15, 2024 End: December 15, 2024 [facility] Self Schedule Attending Provider Active Start: December 15, 2024 End: December 15, 2024 Team Status: Inactive Member Role/Relationship Status Dates Dr. Mindy Araujo MD Primary Care Provider Active Start: December 15, 2024 End: December 15, 2024 Ez Robles STATISTICAL GENETICIST, STATISTICAL GENETICIST-C Attending Provider Active S tart: December 15, 2024 End: December 15, 2024 Team Status: Inactive Member Role/Relationship Status Dates Dr. Mindy Araujo MD Primary Care Provider Active Start: December 30, 2024 End: December 30, 2024 Dr. Mindy Araujo MD Attending Provider Active Start: December 30, 2024 End: December 30, 2024 Dr. Mindy Araujo MD Referring Provider Active Start: December 30, 2024 End: December 30, 2024 Team Status: Active Member Role/Relationship Status Dates Dr. Mindy Araujo MD Primary Care Provider Active Start: December 30, 2024 Dr. Mindy Araujo MD Attending Provider Active Start: December 30, 2024 Dr. Mindy Araujo MD Referring Provider Active Start: December 30, 2024 Goals (unrecognized section and content) Goals may be documented in a n alternate sectionGoals may be documented in an alternate sectionGoals may be documented in an alternate sectionGoals may be documented in an alternate sectionGoals may be documented in an alternate sectionGoals may be documented in an alternate section INFORMATION SOURCE (unrecogn ized section and content) DATE CREATED AUTHOR 08/23/2024 [facility] DATE CREATED AUTHOR AUTHOR'S KATELIN CEBALLOS 12/21/2024 [facility] FOR RECORDS PERTAINING TO PATIENTS WHO [...] BE BASED ON THE PRIMARY CLINICAL RECORDS. [facility]. provides no warranty or guarantee of the accuracy or completeness of information in this document.
== END | disposition home or self-care (01) ==
PROVIDERS: PCP Internal Medicine; Referring Provider Internal Medicine; Visit Provider Internal Medicine
DX: Z00.00 Encounter for general adult medical examination without abnormal findings (principal)
CPT/HCPCS: 36415; 80053; 80061; 85025

== ENCOUNTER 2025-01-03 14:20 | Emergency (ER) | payer OTHER, SELFPAY ==
[2025-01-03 14:21] VITALS: BP 169/91; PULSE 65; RESP 18; TEMP 36.8; O2SAT 100; BMI 24.4
--- NOTE | 2025-01-03 14:55 | EKG12_ITS ---
Test Reason : CP Blood Pressure : */* mmHG Vent. Rate : 125 BPM Atrial Rate : 125 BPM P-R Int : 144 ms QRS Dur : 92 ms QT Int : 338 ms P-R-T Axes : 64 -12 -2 degrees QTcB Int : 487 ms Sinus tachycardia with occasional Premature ventricular complexes Minimal voltage criteria for LVH, may be normal variant ( [place] product ) Nonspecific ST abnormality Abnormal ECG Confirmed by CHRISTIE GUERRERO, TOBY ([id number]), photograph editor MARTA SANCHEZ ([id number]) on 01/06/2025 1:06:14 PM Referred By: KALIA/ZHEN Confirmed By: TOBY SORIANO MD
--- NOTE | 2025-01-03 15:00 | RAD_ITS ---
PROCEDURE: CHEST PA AND LATERAL 01/03/2025 REASON FOR EXAM: CHEST PAIN TECHNIQUE: CHEST PA AND LATERAL COMPARISON: None FINDINGS: Hardware: EKG electrodes are seen. Heart: The heart size is normal. Mediastinum: The mediastinal contour is unremarkable. Lungs: The lungs are clear. Bones: Unremarkable RAD/Chest PA and Lateral IMPRESSION: NO ACUTE FINDINGS. Reading Location: [id number]
[2025-01-03 15:11] LABS: Hematocrit 40.8 % (37-47); Hemoglobin 14.1 g/dL (12.0-15.0); Immature Granulocytes Count 0.020 X10^3/uL (0.0-0.0); Mean Corp Hgb Conc 34.6 g/dL (32-36); Mean Corpuscular Volume 95.1 fL (81-99); Mean Platelet Vol. 9.4 fl (6.2-12.0); NRBC Flagged by Analyzer 0 % (0-5); Platelet Count 286 K/mm3 (150-450); RBC Distribution Width CV 12.5 % (11.6-14.6); RBC Distribution Width SD 43.9 fl (35.1-43.9); Red Blood Count 4.29 M/mm3 (4.2-5.4); White Blood Count 6.5 K/mm3 (4.4-11.0)
--- NOTE | 2025-01-03 15:22 | ED.VIS.CHEST ---
HPI <MAGGI Alfredo - Last Filed: 01/03/25 17:52> History of Present Illness Chief Complaint: Chest Pain Narrative Narrative: 44-year-old female with past medical history of hypertension, heart murmur presents with chest pain. States around 1 PM she was doing the warm up to exercise and developed midsternal chest pain. She checked her vital signs and her blood pressure was 170/100 and her heart rate was around 100 which concerned her. She is compliant with her HCTZ and amlodipine patient states her blood pressure was normal at her recent doctor appointment. She mentions that she has been drinking 6-10 beers a day which was more heavily over the summer and decided she wanted to stop so her last drink was this morning. She has never detoxed anywhere before. She denies nausea, vomiting, hematemesis or abdominal pain. She is active and exercises frequently without chest pain. She states several years ago she had chest pain while running a 5K so had a cardiac workup with echo that was normal. [facility] <MAGGI Alfredo - Last Filed: 01/03/25 17:52> [facility] Medical History (Updated 01/03/25 @ 17:00 by MAGGI Alfredo) Preventative health care Upper respiratory infection Dermatitis Anxiety and depression Alcohol use disorder Encounter to establish care Abnormal heart rhythm Hypertension Heart murmur History of kidney stones Home Medications ?Medication ?Instructions ?Recorded ?Last Taken ?Type epinephrine 0.3 mg/0.3 mL 0.3 mg (0.3 mL) IM ONCE #2 ea 03/24/23 Unknown Rx injection, auto-injector (EpiPen 2-Agustin) amlodipine 5 mg tablet See Rx Instructions .Route 08/27/24 Unknown Rx .COMPLEX #90 tabs triamterene 37.5 1 tab PO QAM #90 TABLETS 11/18/24 Unknown Rx mg-hydrochlorothiazide 25 mg tablet potassium chloride 20 mEq 20 meq PO BID 10 days #20 tabs 01/03/25 Unknown Rx tablet,extended release (K-Tab) Allergy/AdvReac Type Severity Reaction Status Date / Time No Known Allergies Allergy Verified 01/03/25 14:23 Family History Other Breast cancer CVA (cerebral vascular accident) Hypertension Seizures Surgical History History of Social History Smoking Status: Never smoker alcohol intake: current substance use type: does not use what type of physical activity do you participate in: walking, yoga, aerobics and weight training frequency: daily ROS <MAGGI Alfredo - Last Filed: 01/03/25 17:52> ROS ED ROS Narrative Constitutional: Negative for fever, chills, malaise. CVS: Positive for chest pain. No palpitations or syncope. Respiratory: Negative for shortness of breath, cough. GI: Negative for abdominal pain, nausea, vomiting. EXAM <MAGGI Alfredo - Last Filed: 01/03/25 17:52> Physical Exam Narrative Exam Narrative: CONST: Patient sitting in no acute distress. EYES: Normal inspection. NECK: Normal inspection. RESP: No respiratory distress, CTAB. CVS: Regular rate and rhythm, no murmur, no gallop. ABD: Soft and nontender, no guarding or rebound, nondistended. SKIN: Color normal, no rash, warm, dry, intact. EXTREMITIES: Normal appearance, no pedal edema. NEURO: Alert and answering questions appropriately. PSYCH: Anxious. Const Vital Signs: 01/03/25 14:21 01/03/25 14:42 01/03/25 14:50 Temperature 98.2 F Temperature Source Oral Pulse Rate 65 Respiratory Rate 18 Respiratory Effort Normal Non-Labored Blood Pressure 169/91 H Blood Pressure Mean 117 Pulse Ox 100 Oxygen Delivery Method Room Air Room Air 01/03/25 15:43 01/03/25 16:08 01/03/25 16:56 Temperature Temperature Source Pulse Rate 100 86 85 Respiratory Rate 16 18 18 Respiratory Effort Blood Pressure 163/82 H 148/98 H 140/97 H Blood Pressure Mean 109 114 111 Pulse Ox 100 98 100 Oxygen Delivery Method Room Air Room Air Room Air <Dr. Jhonathan Davidson MD - Last Filed: 01/03/25 15:54> Physical Exam Const Vital Signs: 01/03/25 14:21 01/03/25 14:42 01/03/25 14:50 Temperature 98.2 F Temperature Source Oral Pulse Rate 65 Respiratory Rate 18 Respiratory Effort Normal Non-Labored Blood Pressure 169/91 H Blood Pressure Mean 117 Pulse Ox 100 Oxygen Delivery Method Room Air Room Air 01/03/25 15:43 01/03/25 16:08 01/03/25 16:56 Temperature Temperature Source Pulse Rate 100 86 85 Respiratory Rate 16 18 18 Respiratory Effort Blood Pressure 163/82 H 148/98 H 140/97 H Blood Pressure Mean 109 114 111 Pulse Ox 100 98 100 Oxygen Delivery Method Room Air Room Air Room Air [facility] <MAGGI Alfredo - Last Filed: 01/03/25 17:52> [facility] Narrative Medical decision making narrative: History gathered from: Patient and significant other Differential includes but not limited to ACS, GERD, alcohol withdrawal 44-year-old female presents with elevated blood pressure and chest pain that started this afternoon. She was drinking 6-10 beers daily and cut back this morning with plans to detox at home. She is not sure if her chest pain is secondary to withdrawal for some cardiac process prompting her to come in. She appears anxious but nontoxic. BP is 169/91, HR 65, and otherwise stable vital signs. CBC is WNL, potassium is 2.8, mag normal, normal renal function. AST minimally elevated at 49 but the rest of her liver profile and lipase are normal. She was given IV potassium 20 mEq and p.o. 60 mEq. Her cardiac workup shows nonischemic EKG and troponin x 2 are normal. She is PERC negative so does not require DVT/PE workup. After IV Ativan 1 mg she is feeling better and blood pressure is improving. She declined inpatient alcohol detox and like to go home. I discussed return precautions, prescribed p.o. potassium, and recommended outpatient follow-up. She was discharged in stable condition. I have personally performed a face to face assessment of the patient and have reviewed the KARIME Note. I performed a substantive portion of the visit including all aspects of the following. My guardaod findings include: History is 44-year-old female no history of cardiac disease. No history of DVT or PE or family history. No recent travel or surgery. Healthy patient. Cutting back on her alcohol intake today she had some chest pain at rest. Not associated with exertion no recent exertional dyspnea or chest pain. She does work out quite a bit even wearing a weighted vest and taking long walks. Denies any leg pain or swelling. Exam is [well-appearing 44-year-old female. Vital signs stable afebrile. H EENT exam pupils round react to light. Mytrex members. Neck nontender no JVD. Lungs clear to auscultation bilateral. Heart regular rhythm rate about 85 no murmur. Chest wall ribs nontender. Abdomen soft nontender. Back nontender. Moving all 4 extremities. Nontender no edema. Normal fitness and wellness coordinator strength. Normal dorsi plantarflexion. Calves are nontender without cords. Neurologically she is awake alert.] Medical Decision Making [44-year-old female with atypical nonexertional chest pain that is physically fit. No history of DVT or PE. She undergo cardiac workup. I did ask her specifically if she desired inpatient alcohol detox and she deferred.] Other additions or changes: [None] Lab Data Labs: Laboratory Results - last 24 hr 01/03/25 01/03/25 14:50 16:40 WBC 6.5 RBC 4.29 Hgb 14.1 Hct 40.8 MCV 95.1 MCH 32.9 H MCHC 34.6 RDW Std Deviation 43.9 RDW Coeff of Reese 12.5 Plt Count 286 MPV 9.4 Immature Gran % (Auto) 0.300 Neut % (Auto) 63.8 Lymph % (Auto) 27.2 Louisa % (Auto) 7.7 Eos % (Auto) 0.2 Baso % (Auto) 0.8 Absolute Neuts (auto) 4.2 Absolute Lymphs (auto) 1.77 Nucleated RBC % 0 Sodium 136 Potassium 2.8 L Chloride 96 L Carbon Dioxide 21.1 Anion Gap 19 H BUN 12 Creatinine 0.75 Estim Creat Clear Calc 82.66 Est GFR (MDRD) Non-Af 100 BUN/Creatinine Ratio 15.7 Glucose 146 H Calcium 9.9 Magnesium 1.7 Total Bilirubin 0.86 AST 49 H ALT 29 Alkaline Phosphatase 84 Troponin T High Sens < 6 Troponin T Hi Sens 2 Hr 7 Total Protein 7.4 Albumin 4.7 Globulin 2.7 Albumin/Globulin Ratio 1.7 Lipase 31 Ethyl Alcohol < 10.1 Radiography Diagnostic Testing: Clinical Impression(s) from Imaging Studies Chest X-Ray 01/03/25 15:00 IMPRESSION: NO ACUTE FINDINGS. Reading Location: [id number] <Dr. Jhonathan Davidson MD - Last Filed: 01/03/25 15:54> MDM MDM Narrative Medical decision making narrative: I have personally performed a face to face assessment of the patient and have reviewed the KARIME Note. I performed a substantive portion of the visit including all aspects of the following. My guardado findings include: History is 44-year-old female no history of cardiac disease. No history of DVT or PE or family history. No recent travel or surgery. Healthy patient. Cutting back on her alcohol intake today she had some chest pain at rest. Not associated with exertion no recent exertional dyspnea or chest pain. She does work out quite a bit even wearing a weighted vest and taking long walks. Denies any leg pain or swelling. Exam is [well-appearing 44-year-old female. Vital signs stable afebrile. H EENT exam pupils round react to light. Mytrex members. Neck nontender no JVD. Lungs clear to auscultation bilateral. Heart regular rhythm rate about 85 no murmur. Chest wall ribs nontender. Abdomen soft nontender. Back nontender. Moving all 4 extremities. Nontender no edema. Normal fitness and wellness coordinator strength. Normal dorsi plantarflexion. Calves are nontender without cords. Neurologically she is awake alert.] Medical Decision Making [44-year-old female with atypical nonexertional chest pain that is physically fit. No history of DVT or PE. She undergo cardiac workup. I did ask her specifically if she desired inpatient alcohol detox and she deferred.] Other additions or changes: [None] History & Record Review Discussion w/independent historian: Patient and Family Lab Data Attestation: I reviewed the patient's lab results. Lab results narrative: CBC shows white count of 6. H&H 14 and 40. Platelets 286. Chest x-ray no acute process. Labs: Laboratory Results - last 24 hr 01/03/25 01/03/25 14:50 16:40 WBC 6.5 RBC 4.29 Hgb 14.1 Hct 40.8 MCV 95.1 MCH 32.9 H MCHC 34.6 RDW Std Deviation 43.9 RDW Coeff of Reese 12.5 Plt Count 286 MPV 9.4 Immature Gran % (Auto) 0.300 Neut % (Auto) 63.8 Lymph % (Auto) 27.2 Louisa % (Auto) 7.7 Eos % (Auto) 0.2 Baso % (Auto) 0.8 Absolute Neuts (auto) 4.2 Absolute Lymphs (auto) 1.77 Nucleated RBC % 0 Sodium 136 Potassium 2.8 L Chloride 96 L Carbon Dioxide 21.1 Anion Gap 19 H BUN 12 Creatinine 0.75 Estim Creat Clear Calc 82.66 Est GFR (MDRD) Non-Af 100 BUN/Creatinine Ratio 15.7 Glucose 146 H Calcium 9.9 Magnesium 1.7 Total Bilirubin 0.86 AST 49 H ALT 29 Alkaline Phosphatase 84 Troponin T High Sens < 6 Troponin T Hi Sens 2 Hr 7 Total Protein 7.4 Albumin 4.7 Globulin 2.7 Albumin/Globulin Ratio 1.7 Lipase 31 Ethyl Alcohol < 10.1 Radiography Chest X-Ray - ED: 2 View, Read by ED Physician, Read by Radiologist, Normal, Heart, Lungs, Mediastinum, Bony Structures, No Acute Disease and Chronic Changes Diagnostic Testing: Clinical Impression(s) from Imaging Studies Chest X-Ray 01/03/25 15:00 IMPRESSION: NO ACUTE FINDINGS. Reading Location: [facility] Chest x-ray, 2 views, AP and lateral, interpreted by myself and radiologist shows no acute abnormality. Normal cardiac silhouette. Normal lung montano. Normal mediastinum. Discharge Plan Triage Chief Complaint: Chest Pain ED Midlevel Provider: Dariela Chaudhary ED Provider: Jhonathan Davidson Dx/Rx/DC Orders Clinical Impression: Chest pain, Acute hypokalemia, Alcohol abuse Instructions: Alcohol Addiction, ED Chest Pain, Noncardiac Prescriptions: New potassium chloride [K-Tab] 20 mEq tablet extended release 20 meq PO BID 10 Days Qty: 20 0RF No Action epinephrine [EpiPen 2-Agustin] 0.3 mg/0.3 mL auto-injector 0.3 mg IM ONCE Qty: 2 2RF Rx Instructions: as a single dose; may repeat once amlodipine 5 mg tablet See Rx Instructions .ROUTE .COMPLEX Qty: 90 1RF Dose Instruction: TAKE 1 TABLET DAILY Rx Instructions: TAKE 1 TABLET DAILY triamterene-hydrochlorothiazid 37.5-25 mg tablet 1 tab PO QAM Qty: 90 0RF Primary Care Provider: Mindy Araujo Referrals: Mindy Araujo MD [Primary Care Provider] - Activity Restrictions/Additional Instructions: The screening test of your heart are normal with no signs of heart attack. I suspect your symptoms are related to alcohol withdrawal which can cause increased anxiety, high blood pressure, and chest pain. If it anytime you would like to detox in the hospital or symptoms worsen I recommend you come back to the emergency room. Your potassium level is low. The HCTZ can cause this as well as lack of potassium in your diet. Follow-up with your doctor. Print Language: Irish Disposition Disposition: Home, Self Care
[2025-01-03] MEDS: Lorazepam 2 MG/ML WCH Syringe 1 MG IV (15:41)
[2025-01-03] MEDS: 0.9% Normal Saline (1000mL) 1,000 ML 999 ML IV (15:42)
[2025-01-03 15:43] VITALS: BP 163/82; PULSE 100; RESP 16; O2SAT 100
[2025-01-03 15:52] LABS: Lipase 31 U/L (13-75); Troponin T High Sensitivity < 6 ng/L (<=14)
[2025-01-03 15:53] LABS: AST(SGOT) 49 U/L (<=31); Alanine Aminotransfer ALT/SGPT 29 U/L (<=34); Albumin, Serum 4.7 g/dL (3.5-5.0); Alkaline Phosphatase 84 U/L (35-104); Anion Gap 19 (5-15); BUN 12 mg/dL (4-19); BUN/Creat Ratio 15.7 RATIO (10-20); Calcium,Total 9.9 mg/dL (7.6-11.0); Carbon Dioxide 21.1 mmol/L (21.0-32.0); Chloride 96 mmol/L (98-108); Estimated Creatinine Clearance 82.66 ml/min (50-250); Globulin 2.7 g/dL (2.2-4.2); Glucose 146 mg/dL (70-99); Potassium 2.8 mmol/L (3.3-5.1)
[2025-01-03 16:08] VITALS: BP 148/98; PULSE 86; RESP 18; O2SAT 98
[2025-01-03] MEDS: Potassium Chloride Oral Tablet 20 MEQ 60 MEQ PO (16:36)
[2025-01-03] MEDS: Potassium Chloride 10mEq/100mL 10 MEQ/100 ML IV.SOLN. 100 MEQ IV BOLUS ×2 (16:38→17:43)
[2025-01-03 16:45] LABS: Alcohol, Blood (Medical)-Serum < 10.1 mg/dL (<=10.0)
[2025-01-03 16:56] VITALS: BP 140/97; PULSE 85; RESP 18; O2SAT 100
[2025-01-03 16:59] LABS: Magnesium 1.7 mg/dL (1.5-2.2)
[2025-01-03 17:32] LABS: Troponin T High Sens 2 HR 7 ng/L (<=14)
[2025-01-03 17:53] VITALS: BP 139/99; PULSE 86; RESP 17; O2SAT 98
[2025-01-03 18:46] VITALS: BP 142/88; PULSE 89; RESP 18; TEMP 36.7; O2SAT 100
== END 2025-01-03 18:48 | disposition home or self-care (01) ==
PROVIDERS: Physician Assistant; Emergency Provider Emergency Medicine; PCP Internal Medicine; Visit Provider Emergency Medicine
DX: R07.9 Chest pain, unspecified (principal); E87.6 Hypokalemia; F10.10 Alcohol abuse, uncomplicated; Y90.0 Blood alcohol level of less than 20 mg/100 ml
CPT/HCPCS: 71046; 80053; 82077; 83690; 83735; 84484; 85025; 93005; 96361; 96365; 96366; 96375; 99284; A4216

== ENCOUNTER → 2025-01-11 | Outpatient (CLI) | payer OTHER, SELFPAY ==
--- OUTSIDE RECORDS SUMMARY | 2025-01-11 07:37 | XMS RPT_ITS | CCD ---
Author Organization [facility] Care Team Providers Care Rod Drawer Name Role Phone Unavailable Primary Care Provider Dr. Mindy Harman Primary Care Provider [phone] Dr. Mindy Araujo Referring Provider [phone] SIMON Oscar NP Attending Provider [phone] Unavailable Primary Care Provider UnavailDr. Mindy Teran Primary Care Provider [phone] Dr. Mindy Araujo Attending Provider [phone] Dr. Mindy Araujo Referring Provider [phone] MAGGI Fernandez Attending Provider [phone] Unavailable Primary Care Provider UnavailMAKENZIE Grey Referring Unavailable MAKENZIE CLANCY Attending Unavailable Dr. Mindy Araujo MD Primary Care Provider Dr. Mindy Araujo MD Referring Provider [phone] Phong Whitaker Attending Provider Self Schedule, [facility] Attending Provider Devi Ez Russell Attending Provider Dr. Mindy Araujo MD Attending Provider [phone] Dr. Jhonathan Davidson MD Emergency Provider Jame Martinez Attending Unavailable Oleghe, Efewongbe Primary Care Unavailable Oleghe, Efewongbe Referring Unavailable Oleghe, Efewongbe Primary Care Unavailable Van Efewongbe Attending Unavailable Van Efewongbe Referring Unavailable Phong Burger Attending Unavailable Oleghe, Efewongbe Primary Care Unavailable Oleghe, Efewongbe Referring Unavailable Oleghe, Efewongbe Primary Care Unavailable Self Schedule, [facility] Attending Regla taylor Oleghe, Efewongbe Referring Unavailable Oleghe, Efewongbe Primary Care Unavailable Oleghe, Efewongbe Attending Unavailable Oleghe, Efewongbe Referring Unavailable Oleghe, Efewongbe Primary Care Unavailable Jhonathan Davidson Attending Unavailable Oleghe, Efewongbe Attending Unavailable Oleghe, Efewongbe Referring Unavailable Oleghe, Efewongbe Primary Care Unavailable Oleghe, Efewongbe Primary Care Unavailable Ez Robles Attending Unavailable Oleghe, Efewongbe Primary Care Unavailable Oleghe, Efewongbe Attending Unavailable Oleghe, Efewongbe Referring Unavailable Oleghe, Efewongbe Primary Care Unavailable Oleghe, Efewongbe Referring Unavailable Oleghe, Efewongbe Attending Unavailable Oleghe, Efewongbe Primary Care Unavailable Oleghe, Efewongbe Attending Unavailable Oleghe, Efewongbe Referring Unavailable Stuart GUERRERO, Dr. Ring Attending Provider Medications Current Medications Medication Drug Class(es) Dates [...] Patient should start on July 31, 2023. [id number] 0.3 ml EPINEPHrine 1 mg/ml auto-injector (17 sources) alpha-Adrenergic Agonist, beta-Adrenergic Agonist, Catecholamine Start: 03-24-2023 EPINEPHrine (EPIPEN) 0.3 mg/0.3 mL auto-injector 03/24/2023 Active Start: 03-24-2023 Epinephrine (E pipen 2-Priya) 0.3 mg/0.3 mL auto-injector Active 0.3 mg IM ONCE 2 2 March 24, 2023 12:00am as a single dose; may repeat once hydrOXYzine hydrochloride 25 mg oral tablet (1 source) Antihistamine Start: 01-10-2025 take 1 tablet by mouth twice daily as needed for anxiety Hydroxyzine Hcl 25 mg tablet Active 25 mg PO TWICE A DAY as needed for anxiety 60 January 10, 2025 12:00am potassium chloride 20 meq extended release oral tablet (2 sources) Start: 01-03-2025 take 1 tablet by mouth twice daily Potassium Chloride (K-Tab) 20 mEq tablet extended release Active 20 meq PO TWICE A DAY 20 10 0 January 03, 2025 12:00am sertraline 25 mg oral tablet (1 source) Serotonin Reuptake Inhibitor Start: 01-10-2025 take 1 tablet by mouth once daily Sertraline 25 mg tablet Active 25 mg PO daily 30 January 10, 2025 12:00am Completed/Discontinued Medications Medication Drug Class(es) Dates Sig (Normalized) Sig (Original) amLODIPine 5 mg oral tablet (20 sources) Dihydropyridine Calcium Channel Marcell Start: 11-23-2022 End: 08-27-2024 Amlodipine 5 mg tablet Discontinued 0 .ROUTE .COMPLEX 90 March 13, 2024 8:59am August 27, 2024 12:41pm TAKE 1 TABLET DAILY amoxicillin 875 mg / clavulanate 125 mg oral tablet (6 sources) Penicillin-class Antibacterial Start: 03-25-2024 End: 07-11-2024 Amoxicillin-Pot Clavulanate 875-125 mg tablet Discontinued 1 {tbl} PO TWICE A DAY March 25, 2024 12:00am July 11, 2024 5:01pm Ashwagandha Root Extract 300 mg capsule (6 sources) Start: 10-25-2022 End: 02-14-2024 take 1 mg by mouth at bedtime Ashwagandha Root Extract 300 mg capsule Discontinued mg PO AT BEDTIME October 25, 2022 12:00am February 14, 2024 8:49am cholecalciferol 0.025 mg oral capsule (8 sources) Vitamin D Start: 10-25-2022 End: 12-15-2024 take 1 capsule by mouth once daily Cholecalciferol (Vitamin D3) 25 mcg (1,000 unit) capsule Discontinued 25 ug PO DAILY October 25, 2022 12:00am December 15, 2024 8:20am Ciprofloxacin Hcl 0.3 % drops (6 sources) Start: 11-16-2024 End: 12-15-2024 Ciprofloxacin Hcl [...] Monohydrate 5,000 m g powder in packet (6 sources) Start: 02-14-2024 End: 12-15-2024 Creatine Monohydrate [...] 2022 12:23pm hydrocortisone 25 mg/ml topical cream (6 sources) Corticosteroid Start: 08-30-2023 End: 12-15-2024 Hydrocortisone 2.5 % cream Discontinued 1 NMA TOPICAL TWICE A DAY as needed for rash 27 06August 30, 2023 12:00am December 15, 2024 8:21am methylPREDNISolone 4 mg oral tablet (9 sources) Corticosteroid Start: 03-22-2023 End: 03-28-2023 take [...] ortiz miconazole nitrate 0.02 mg/mg topical powder (6 sources) Azole Antifungal Start: End: Miconazole Nitrate 2 % powder Discontinued 1 NMA TOPICAL TWICE A DAY 85 August 30, 2023 12:00am February 14, 2024 8:49am minoxidil 20 mg/ml topical solution (17 sources) Arteriolar Vasodilator Start: End: Minoxidil 2 % solution Discontinued 1 mL TOPICAL TWICE A DAY April 05, 2021 1:00am March 01, 2023 8:07am Comment on above: Apply to affected ar ea. naltrexone hydrochloride 50 mg oral tablet (7 sources) Opioid Antagonist Start: 023 End: take 1 tablet by mouth once daily Naltrexone 50 mg tablet Discontinued 50 mg PO DAILY 90 March 01, 2023 12:00am February 14, 2024 8:49am Do not drink while on Naltrexone nitrofurantoin, macrocrystals 25 mg / nitrofurantoin, monohydrate 75 mg oral capsule (12 sources) Nitrofuran Antibacterial Start: 025 End: take 1 capsule by mouth every twelve [...] by mouth. theanine 100 mg oral capsule (8 sources) Start: 10-25-2022 End: 02-14-2024 take 1 mg by mouth at bedtime Theanine 100 mg capsule Discontinued mg PO AT BEDTIME October 25, 2022 12:00am February 14, 2024 8:49am Start: 10-25-2022 take 1 mg by mouth at bedtime Theanine Active MG PO AT BEDTIME October 25, 2022 12:00am Problems Active Problems Problem Classification Problem Date Documented Date Episodic/Chronic Administrative/social admission (6 sources) First encounter by subject; Translations: [Persons encountering health services in other specified circumstances] 05-24-2021 Episodic Alcohol-related disorders (2 sources) Alcohol abuse; Translations: [Alcohol abuse, uncomplicated] 01-03-2025 Chronic Allergic reactions (6 sources) Inflammatory dermatosis; Translations: [Dermatitis, unspecified] 08-30-2023 Episodic Anxiety disorders (9 sources) Mixed anxiety and depressive disorder; Translations: [Anxiety disorder, unspecified] 08-30-2023 Chronic Cardiac dysrhythmias (8 sources) Cardiac arrhythmia; Translations: [Cardiac arrhythmia, unspecified] 05-24-2021 Chronic Essential hypertension (14 sources) Hypertensive disorder; Translations: [Essential (primary) hypertension] Onset: 07-24-2024 06-21-2021 Chronic Fluid and electrolyte disorders (2 sources) Acute hypokalemia; Translations: [Hypokalemia] 01-03-2025 Episodic Genitourinary symptoms and ill-defined conditions (9 sources) Dysuria; Translations: [Dysuria] Onset: 12-20-2024 03-22-2023 Episodic Headache; including migraine (8 sources) Headache; Translations: [Headache] 04-05-2021 Episodic Heart valve disorders (8 sources) Heart murmur; Translations: [Cardiac murmur, unspecified] 04-05-2021 Episodic Immunizations and screening for infectious disease (4 sources) Requires vaccination; Translations: [Encounter for immunization] Episodic Inflammation; infection of eye (except that caused by tuberculosis or sexually transmitteddisease) (13 sources) Conjunctivitis of right eye; Translations: [Unspecified conjunctivitis] Onset: 11-16-2024 11-16-2024 Episodic Mycoses (8 sources) Tinea corporis; Translations: [Tinea corporis] 02-19-2021 Episodic Nonspecific chest pain (3 sources) Chest pain; Translations: [Chest pain, unspecified] Onset: 01-07-2025 01-03-2025 Episodic Other lower respiratory disease (8 sources) Cough; Translations: [Cough] 04-05-2021 Episodic Other screening for suspected conditions (not mental disorders or infectious disease) (9 sources) Patient encounter status; Translations: [Encounter for screening mammogram for malignant neoplasm of breast] Onset: 08-21-2024 Episodic Other upper respiratory infections (6 sources) Upper respiratory infection; Translations: [Acute upper respiratory infection, unspecified] 07-11-2024 Episodic Poisoning by nonmedicinal substances (8 sources) Bee sting; Translations: [Toxic effect of venom of bees, accidental (unintentional), initial encounter] 03-22-2023 Episodic Residual codes; unclassified (2 sources) Alcoholism; Translations: [Alcohol use disorder] 03-01-2023 Episodic Residual codes; unclassified (6 sources) Other specified conditions influencing health status; Translations: [Alcohol use disorder] 03-01-2023 Episodic Unclassified (3 sources) Encounter for preventive care Unclassified (3 sources) Z00.00 - Encounter for general adult medical examination without abnormal findings Urinary tract infections (10 sources) Urinary tract infectious disease; Translations: [Urinary tract infection, site not specified] 12-15-2024 Episodic Viral infection (8 sources) Disease caused by 2019-nCoV; Translations: [COVID-19] 04-05-2021 Episodic Past or Other Problems Problem Classification Problem Date Documented Da te Episodic/Chronic Other and delivery including normal (12 sources) Normal in primigravida; Translations: [Encounter for supervision of normal first , unspecified trimester] Onset: 06-05-2007 Resolved: 02-01-2011 07-09-2010 Episodic Results Test Name Value Interpretation Reference Range Facility 12 Lead EKGon 01-03-2025 12 Lead EKG [facility] Cardiovascular Services [address] [place] [address] 12 Lead EKG 01/03/25 1434 MR#: [id number] Acct: [id number] Name: EDNA AKERS Rep #: [id number] : 1980 44 From: Zeeshan Byrnes MD Attending Dr: Status: DEP ER Ordering Dr: Dariela Chaudhary Date: 01/03/25 Location: ED Sex: F C Admitted: Test Reason : CP Blood Pressure : */* mmHG Vent. Rate : 125 BPM Atrial Rate : 125 BPM P-R Int : 144 ms QRS Dur : 92 ms QT Int : 338 ms P-R-T Axes : 64 -12 -2 degrees QTcB Int : 487 ms Sinus tachycardia with occasional Premature ventricular complexes Minimal voltage criteria for LVH, may be normal variant ( Loa product ) Nonspecific ST abnormality Abnormal ECG Confirmed by ZEESHAN BYRNES MD ([id number]), videotape editor MARTA SANCHEZ ([id number]) on 01/06/2025 1:06:14 PM Referred By: STUART/ZHEN Confirmed By: ZEESHAN BYRNES MD 01/06/25 1306 Date Zeeshan Byrnes MD CC: Dr. Mindy Araujo MD; Dr. Jhonathan Davidson MD; MAGGI Alfredo Signed Normal [facility] Absolute lymphocyte countOrd ered By: Dariela Chaduhary on 01-03-2025 Lymphocytes Auto (Unsp spec) [#/Vol] 1.77 10*3/uL 0.83-4.[address] [facility] Absolute neutrophil countOrd ered By: Darielajoe Chaudhary on 01-03-2025 Neutrophils (Bld) [#/Vol] 4.2 10*3/uL 2.0-7.[address] [facility] Alcohol, Blood (Medical)-Ser umon 01-03-2025 SERUM ETOH < 10.1 Normal <=10.[address] [facility] Comment on above: Result Comment: This test is for medical purposes only. The legal definition of intoxication varies according to local law. Performed By: #### L 501.9100 ####[facility] [address] [place], [address] Anion gap in Serum or Plasma Ordered By: Dariela Chaudhary on 01-03-2025 Anion gap [Moles/Vol] 19 mmol/L High 5-15 [facility] Automated lymphocyte count a s percentage of total leukocytesOrdered By: Dariela Chaudhary on 01-03-2025 Lymphocytes/100 WBC Auto (Unsp spec) 27.2 % 19-[address] [facility] BUN/creatinine ratioOrdered By: Dariela Chaudhary on 01-03-2025 Urea nitrogen/Creatinine [Mass ratio] 15.7 mg/mg 10-[address] [facility] Basophil percentageOrdered B y: Dariela Chaudhary on 01-03-2025 Basophils/100 WBC (Bld) 0.8 % 0-[address] [facility] Bilirubin, totalOrdered By: Dariela Chaudhary on 01-03-2025 Bilirubin [Mass/Vol] 0.86 mg/dL 0.00-1.30 [facility] CBC W/Diff, Automatedon Absolute Lymph 1.77 X10 3/uL Normal 0.83-4.[address] [facility] Comment on above: Performed By: #### L 501.2450, L100.0100, L501.4021, L500.4050 #### [facility] [address] [place], [place], [id number] Absolute Neut 4.2 X10 3/uL Normal 2.0-7.[address] [facility] Comment on above: Performed By: #### L 501.2450, L100.0100, L501.4021, L500.4050 #### [facility] [address] [place], [address] Basophils/100 WBC (Bld) 0.8 % Normal 0-[address] [facility] Comment on above: Performed By: #### L 501.2450, L100.0100, L501.4021, L500.4050 #### [facility] [address] [place], [address] Eosinophils/100 WBC (Bld) 0.2 % Normal 0-[address] [facility] Comment on above: Performed By: #### L 501.2450, L100.0100, L501.4021, L500.4050 #### [facility] [address] [place], [address] Erythrocyte distribution width (RBC) [Ratio] 12.5 % Normal 11.6-14.[address] [facility] Comment on above: Performed By: #### L 501.2450, L100.0100, L501.4021, L500.4050 #### [facility] [address] [place], [address] Hematocrit (Bld) [Volume fraction] 40.8 % Normal 37-[address] [facility] Comment on above: Performed By: #### L 501.2450, L100.0100, L501.4021, L500.4050 #### [facility] [address] [place], [address] Hemoglobin (Bld) [Mass/Vol] 14.1 g/dL Normal 12.0-15.[address] [facility] Comment on above: Performed By: #### L 501.2450, L100.0100, L501.4021, L500.4050 #### [facility] [address] [place], [address] IG% 0.300 Normal 0.0-0.[address] [facility] Comment on above: Result Comment: IG% - Immature Granulocytes (promyelocytes, myelocytes and metamyelocytes) > 1% indicates that a LEFT SHIFT is Present. Performed By: #### L 501.2450, L100.0100, L501.4021, L500.4050 #### [facility] [address] [place], [address] Lymphocytes/100 WBC (Bld) 27.2 % Normal 19-[address] [facility] Comment on above: Performed By: #### L 501.2450, L100.0100, L501.4021, L500.4050 #### [facility] [address] [place], [address] MCH (RBC) [Entitic mass] 32.9 pg High 27.0-32.[address] [facility] Comment on above: Performed By: #### L 501.2450, L100.0100, L501.4021, L500.4050 #### [facility] [address] [place], [address] MCHC (RBC) [Mass/Vol] 34.6 g/dL Normal 32-36 [facility] Comment on above: Performed By: #### L 501.2450, L100.0100, L501.4021, L500.4050 #### [facility] [address] [place], [address] MCV (RBC) [Entitic vol] 95.1 fL Normal 81-99 [facility] Comment on above: Performed By: #### L 501.2450, L100.0100, L501.4021, L500.4050 #### [facility] [address] [place], [address] Monocytes/100 WBC (Bld) 7.7 % Normal 0-10 [facility] Comment on above: Performed By: #### L 501.2450, L100.0100, L501.4021, L500.4050 #### [facility] [address] [place], [address] Neutrophils/100 WBC (Bld) 63.8 % Normal 47-[address] [facility] Comment on above: Performed By: #### L 501.2450, L100.0100, L501.4021, L500.4050 #### [facility] [address] [place], [address] Nucleated RBC (Bld) [#/Vol] 0 10*3/uL Normal 0-[address] [facility] Comment on above: Performed By: #### L 501.2450, L100.0100, L501.4021, L500.4050 #### [facility] [address] [place], [address] Platelet mean volume (Bld) [Entitic vol] 9.4 fL Normal 6.2-12.[address] [facility] Comment on above: Performed By: #### L 501.2450, L100.0100, L501.4021, L500.4050 #### [facility] [address] [place], [address] Platelets (Bld) [#/Vol] 286 10*3/uL Normal 150-[address] [facility] Comment on above: Performed By: #### L 501.2450, L100.0100, L501.4021, L500.4050 #### [facility] [address] [place], [address] RBC (Bld) [#/Vol] 4.29 10*6/uL Normal 4.2-5.4 [facility] Comment on above: Performed By: #### L 501.2450, L100.0100, L501.4021, L500.4050 #### [facility] [address] [place], [address] RDW SD 43.9 fl Normal 35.1-43.[address] [facility] Comment on above: Performed By: #### L 501.2450, L100.0100, L501.4021, L500.4050 #### [facility] [address] [place], [address] WBC (Bld) [#/Vol] 6.5 10*3/uL Normal 4.4-11.0 [facility] Comment on above: Performed By: #### L 501.2450, L100.0100, L501.4021, L500.4050 #### [facility] [address] [place], [address] Carbon dioxide, total [Moles /volume] in Central venous bloodOrdered By: Dariela Chaudhary on 01-03-2025 CO2 [Moles/Vol] 21.1 mmol/L 21.0-32.[address] [facility] Chest PA and Lateralon 01-03 Chest PA and Lateral [facility] Imaging Services [address] [place] [address] Chest PA and Lateral MR#: [id number] Acct: [id number] Name: EDNA AKERS Rep #: [id number] : 1980 F 44 From: Arjun mcduffie MD PCP: Dr. Mindy Araujo MD Status: REG ER Study: Chest PA and Lateral Date of Exam: 01/03/25 Exam# [id number] Ordering Dr: Dariela Chaudhary PROCEDURE: CHEST PA AND LATERAL 01/03/2025 REASON FOR EXAM: CHEST PAIN TECHNIQUE: CHEST PA AND LATERAL COMPARISON: None FINDINGS: Hardware: EKG electrodes are seen. Heart: The heart size is normal. Mediastinum: The mediastinal contour is unremarkable. Lungs: The lungs are clear. Bones: Unremarkable RAD/Chest PA and Lateral IMPRESSION: NO ACUTE FINDINGS. Reading Location: [id number] CC: Dr. Mindy Araujo MD; MAGGI Alfredo Take Off Worker: Signed Normal [facility] Chloride assayOrdered By: Sherry Chaudhary on 01-03-2025 Chloride [Moles/Vol] 96 mmol/L Low 98-108 [facility] Comprehensive Metabolic Prof ilon 01-03-2025 Albumin [Mass/Vol] 4.7 g/dL Normal 3.5-5.0 [facility] Comment on above: Performed By: #### L 501.2450, L100.0100, L501.4021, L500.4050 ####[facility] [address] [place], [address] Albumin/Globulin [Mass ratio] 1.7 {ratio} Normal 0.9-2.[address] [facility] Comment on above: Performed By: #### L 501.2450, L100.0100, L501.4021, L500.4050 ####[facility] [address] [place], [address] ALK PHOS 84 U/L Normal 35-[address] [facility] Comment on above: Performed By: #### L 501.2450, L100.0100, L501.4021, L500.4050 ####[facility] [address] [place], [address] ALT [Catalytic activity/Vol] 29 U/L Normal <=[address] [facility] Comment on above: Performed By: #### L 501.2450, L100.0100, L501.4021, L500.4050 ####[facility] [address] [place], [address] AST [Catalytic activity/Vol] 49 U/L High <=[address] [facility] Comment on above: Performed By: #### L 501.2450, L100.0100, L501.4021, L500.4050 ####[facility] [address] [place], [address] Bilirubin [Mass/Vol] 0.86 mg/dL Normal 0.00-1.30 [facility] Comment on above: Performed By: #### L 501.2450, L100.0100, L501.4021, L500.4050 ####[facility] [address] [place], [address] BUN/CRE 15.7 RATIO Normal 10-[address] [facility] Comment on above: Performed By: #### L 501.2450, L100.0100, L501.4021, L500.4050 ####[facility] [address] [place], [address] Calcium [Mass/Vol] 9.9 mg/dL Normal 7.6-11.0 [facility] Comment on above: Performed By: #### L 501.2450, L100.0100, L501.4021, L500.4050 ####[facility] [address] [place], [address] Chloride [Moles/Vol] 96 mmol/L Low 98-108 [facility] Comment on above: Performed By: #### L 501.2450, L100.0100, L501.4021, L500.4050 ####[facility] [address] [place], [address] CO2 [Moles/Vol] 21.1 mmol/L Normal 21.0-32.[address] [facility] Comment on above: Performed By: #### L 501.2450, L100.0100, L501.4021, L500.4050 ####[facility] [address] [place], [address] Creatinine [Mass/Vol] 0.75 mg/dL Normal 0.70-1.20 [facility] Comment on above: Performed By: #### L 501.2450, L100.0100, L501.4021, L500.4050 ####[facility] [address] [place], [address] ECRCL 82.66 ml/min Normal 50-[address] [facility] Comment on above: Performed By: #### L 501.2450, L100.0100, L501.4021, L500.4050 ####[facility] [address] [place], [address] GAP 19 High 5-[address] [facility] Comment on above: Performed By: #### L 501.2450, L100.0100, L501.4021, L500.4050 ####[facility] [address] [place], [address] GFR/1.73 sq M.predicted among non-blacks MDRD (S/P/Bld) [Vol rate/Area] 100 mL/min/{1.73_m2} Normal >[address] [facility] Comment on above: Result Comment: mL/m in/1.73m2 CKD-EPI Creatinine Equation (2020) Performed By: #### L 501.2450, L100.0100, L501.4021, L500.4050 ####[facility] [address] [place], [address] Globulin (S) [Mass/Vol] 2.7 g/dL Normal 2.2-4.2 [facility] Comment on above: Performed By: #### L 501.2450, L100.0100, L501.4021, L500.4050 ####[facility] [address] [place], [address] Glucose [Mass/Vol] 146 mg/dL High 70-99 [facility] Comment on above: Performed By: #### L 501.2450, L100.0100, L501.4021, L500.4050 ####[facility] [address] [place], [address] Potassium [Moles/Vol] 2.8 mmol/L Low 3.3-5.1 [facility] Comment on above: Result Comment: Hemo lysis present, Results??could be affected. ?? Performed By: #### L 501.2450, L100.0100, L501.4021, L500.4050 ####[facility] [address] [place], [address] Sodium [Moles/Vol] 136 mmol/L Normal 133-145 [facility] Comment on above: Performed By: #### L 501.2450, L100.0100, L501.4021, L500.4050 ####[facility] [address] [place], [address] T PROT 7.4 g/dL Normal 5.9-8.[address] [facility] Comment on above: Performed By: #### L 501.2450, L100.0100, L501.4021, L500.4050 ####[facility] [address] [place], [address] Urea nitrogen [Mass/Vol] 12 mg/dL Normal 4-[address] [facility] Comment on above: Performed By: #### L 501.2450, L100.0100, L501.4021, L500.4050 ####[facility] [address] [place], [address] Emergency Department Summary on 01-03-2025 Emergency Department Summary [facility] Medical Records Department [address] [place] [address] Emergency Department Summary 01/03/25 MR#: [id number] Acct: [id number] Name: EDNA AKERS Rep #: [id number] : 1980 44 From: Jhonathan Davidson MD PCP: Dr. Mindy Araujo MD Status:DEP ER Location: ED HPI History of Present Illness Chief Complaint: Chest Pain Narrative Narrative: 44-year-old female with past medical history of hypertension, heart murmur presents with chest pain. States around 1 PM she was doing the warm up to exercise and developed midsternal chest pain. She checked her vital signs and her blood pressure was 170/100 and her heart rate was around 100 which concerned her. She is compliant with her HCTZ and amlodipine patient states her blood pressure was normal at her recent doctor appointment. She mentions that she has been drinking 6-10 beers a day which was more heavily over the summer and decided she wanted to stop so her last drink was this morning. She has never detoxed anywhere before. She denies nausea, vomiting, hematemesis or abdominal pain. She is active and exercises frequently without chest pain. She states several years ago she had chest pain while running a 5K so had a cardiac workup with echo that was normal. [facility] Medical History (Updated 01/03/25 @ 17:00 by MAGGI Alfredo) Preventative health care Upper respiratory infection Dermatitis Anxiety and depression Alcohol use disorder Encounter to establish care Abnormal heart rhythm Hypertension Heart murmur History of kidney stones Home Medications ???Medication ???Instructions ???Recorded ???Last Taken ???Type epinephrine 0.3 mg/0.3 mL 0.3 mg (0.3 mL) IM ONCE #2 ea 02/27 12/18 Unknown Rx injection, auto-injector (EpiPen 2-Priya) amlodipine 5 mg tablet See Rx Instructions .Route 5 Unknown Rx .COMPLEX #90 tabs triamterene 37.5 1 tab PO QAM #90 TABLETS 11/18/24 Unknown Rx mg-hydrochlorothiazi de 25 mg tablet potassium chloride 20 mEq 20 meq PO BID 10 days #20 tabs 01/20 Unknown Rx tablet,extended release (K-Tab) Allergy/AdvReac Type Severity Reaction Status Date / Time No Known Allergies Allergy Verified 01/03/25 14:23 Family History Other Breast cancer CVA (cerebral vascular accident) Hypertension Seizures Surgical History History of Social History Smoking Status: Never smoker alcohol intake: current substance use type: does not use what type of physical activity do you participate in: walking, yoga, aerobics and weight training frequency: daily ROS ROS ED ROS Narrative Constitutional: Negative for fever, chills, malaise. CVS: Positive for chest pain. No palpitations or syncope. Respiratory: Negative for shortness of breath, cough. GI: Negative for abdominal pain, nausea, vomiting. EXAM Physical Exam Narrative Exam Narrative: CONST: Patient sitting in no acute distress. EYES: Normal inspection. NECK: Normal inspection. RESP: No respiratory distress, CTAB. CVS: Regular rate and rhythm, no murmur, no gallop. ABD: Soft and nontender, no guarding or rebound, nondistended. SKIN: Color normal, no rash, warm, dry, intact. EXTREMITIES: Normal appearance, no pedal edema. NEURO: Alert and answering questions appropriately. PSYCH: Anxious. Const Vital Signs: 01/03/25 14:21 01/03/25 14:42 01/03/25 14:50 Temperature 98.2 F Temperature Source Oral Pulse Rate 65 Respiratory Rate 18 Respiratory Effort Normal Non-Labored Blood Pressure 169/91 H Blood Pressure Mean 117 Pulse Ox 100 Oxygen Delivery Method Room Air Room Air 01/03/25 15:43 01/03/25 16:08 01/03/25 16:56 Temperature Temperature Source Pulse Rate 100 86 85 Respiratory Rate 16 18 18 Respiratory Effort Blood Pressure 163/82 H 148/98 H 140/97 H Blood Pressure Mean 109 114 111 Pulse Ox 100 98 100 Oxygen Delivery Method Room Air Room Air Room Air Physical Exam Const Vital Signs: 01/03/25 14:21 01/03/25 14:42 01/03/25 14:50 Temperature 98.2 F Temperature Source Oral Pulse Rate 65 Respiratory Rate 18 Respiratory Effort Normal Non-Labored Blood Pressure 169/91 H Blood Pressure Mean 117 Pulse Ox 100 Oxygen Delivery Method Room Air Room Air 01/03/25 15:43 01/03/25 16:08 01/03/25 16:56 Temperature Temperature Source Pulse Rate 100 86 85 Respiratory Rate 16 18 18 Respiratory Effort Blood Pressure 163/82 H 148/98 H 140/97 H Blood Pressure Mean 109 114 111 Pulse Ox 100 98 100 Oxygen Delivery Method Room Air Room Air Room (more content not included)... Normal [facility] Eosinophil percentageOrdered By: Dariela Chaudhary on 01-03-2025 Eosinophils/100 WBC (Bld) 0.2 % 0-[address] [facility] Erythrocyte distribution wid th ratioOrdered By: Dariela Chaudhary on 01-03-2025 Erythrocyte distribution width (RBC) [Ratio] 12.5 % 11.6-14.[address] [facility] Erythrocyte distribution wid th standard deviationOrdered By: Dariela Chaudhary on 01-03-2025 Erythrocyte distribution width (RBC) [Ratio] 43.9 fl 35.1-43.[address] [facility] Glomerular filtration rate ( GFR) estimation/1.73 sq m using serum, plasma, or whole bOrdered By: Dariela Chaudhary on 01-03-2025 GFR/1.73 sq M.predicted among non-blacks MDRD (S/P/Bld) [Vol rate/Area] 100 mL/min/{1.73_m2} >[address] [facility] Comment on above: mL/min/1.73m2 CKD-EP I Creatinine Equation (2020) Hematocrit Auto (Bld) [Volum e fraction]Ordered By: Dariela Chaudhary on 01-03-2025 Hematocrit (Bld) [Volume fraction] 40.8 % 37-[address] [facility] Hemoglobin measurementOrdere d By: Dariela Chaudhary on 01-03-2025 Hemoglobin (Bld) [Mass/Vol] 14.1 g/dL 12.0-15.[address] [facility] Immature granulocytes/100 WB C Auto (Bld)Ordered By: Dariela Chaudhary on 01-03-2025 Immature granulocytes/100 WBC (Bld) 0.300 % 0.0-0.[address] [facility] Comment on above: IG% - Immature Granu locytes (promyelocytes, myelocytes and metamyelocytes) > 1% indicates that a LEFT SHIFT is Present. L501.4021on 01-03-2025 Trop T High Sen < 6 Normal <=[address] [facility] Comment on above: Performed By: #### L 501.2450, L100.0100, L501.4021, L500.4050 ####[facility] [address] [place], [place], [id number] Laboratory - Chemistry and C hemistry - challengeOrdered By: Dariela Chaudhary on 01-03-2025 AST [Catalytic activity/Vol] 49 U/L High <[address] [facility] Lipaseon 01-03-2025 Lipase [Catalytic activity/Vol] 31 U/L Normal 13-[address] [facility] Comment on above: Result Comment: Eriberto brandt note: LIPASE revised reference range effective 22. New Lipase methodology. Expected to produce lower values than the previous assay method. NEW Reference Range: 13 - 75 U/L Performed By: #### L 501.2450, L100.0100, L501.4021, L500.4050 ####[facility] [address] [place], [address] Lipase measurementOrdered By : Dariela Chaudhary on 01-03-2025 Lipase [Catalytic activity/Vol] 31 U/L 13-[address] [facility] Comment on above: Please note:LIPASE r evised reference range effective 22. New Lipase methodology. Expected to produce lower values than the previous assay method. NEW Reference Range: 13 - 75 U/L MCV (mean corpuscular volume ) determinationOrdered By: Dariela Chaudhary on 01-03-2025 MCV (RBC) [Entitic vol] 95.1 fL 81-[address] [facility] Magnesiumon 01-03-2025 Magnesium [Mass/Vol] 1.7 mg/dL Normal 1.5-2.2 [facility] Comment on above: Performed By: #### L 501.5200 ####[facility] [address] [place], [place], [id number] Magnesium measurement (mass/ volume)Ordered By: Dariela Chaudhary on 01-03-2025 Magnesium (Unsp spec) [Mass/Vol] 1.7 mg/dL 1.5-2.[address] [facility] Mean corpuscular hemoglobin (MCH) determinationOrdered By: Dariela Chaudhary on 01-03-2025 MCH (RBC) [Entitic mass] 32.9 pg High 27.0-32.[address] [facility] Mean corpuscular hemoglobin concentration (MCHC) determinationOrdered By: Dariela Chaudhary on 01-03-2025 MCHC (RBC) [Mass/Vol] 34.6 g/dL 32-36 [facility] Mean platelet volume determi nationOrdered By: Dariela Chaudhary on 01-03-2025 Platelet mean volume (Bld) [Entitic vol] 9.4 fL 6.2-12.[address] [facility] Monocyte percentageOrdered B y: Dariela Chaudhary on 01-03-2025 Monocytes/100 WBC (Bld) 7.7 % 0-[address] [facility] Neutrophil percentageOrdered By: Dariela Chaudhary on 01-03-2025 Neutrophils/100 WBC (Bld) 63.8 % 47-[address] [facility] Nucleated red blood cell per centageOrdered By: Dariela Chaudhary on 01-03-2025 Nucleated RBC/100 WBC (Bld) [Ratio] 0 % 0-[address] [facility] Platelet countOrdered By: Sherry Chaudhary on 01-03-2025 Platelets (Bld) [#/Vol] 286 10*3/uL 150-[address] [facility] Potassium measurement (mass/ volume)Ordered By: Dariela Chaudhary on 01-03-2025 Potassium (Unsp spec) [Mass/Vol] 2.8 mmol/L Low 3.3-5.[address] [facility] Comment on above: Hemolysis present, R esults could be affected. RBC Auto (Bld) [#/Vol]Ordere d By: Dariela Chaudhary on 01-03-2025 RBC (Bld) [#/Vol] 4.29 10*6/uL 4.2-5.4 [facility] Serum creatinine measurement (mass/volume)Ordered By: Dariela Chaudhary on 01-03-2025 Creatinine [Mass/Vol] 0.75 mg/dL 0.70-1.20 [facility] Serum globulin measurementOr dered By: Dariela Chaudhary on 01-03-2025 Globulin (S) [Mass/Vol] 2.7 g/dL 2.2-4.[address] [facility] Serum glucose measurement (m ass/volume)Ordered By: Dariela Chaudhary on 08-08-2025 Glucose [Mass/Vol] 146 mg/dL High 70-99 [facility] Serum or plasma alanine mathis otransferase (ALT) measurementOrdered By: Dariela Chaudhary on 01-03-2025 ALT [Catalytic activity/Vol] 29 U/L <[address] [facility] Serum or plasma albumin stephany urement (mass/volume)Ordered By: Dariela Chaudhary on 01-03-2025 Albumin [Mass/Vol] 4.7 g/dL 3.5-5.0 [facility] Serum or plasma albumin/glob ulin mass ratioOrdered By: Dariela Chaudhary on 01-03-2025 Albumin/Globulin [Mass ratio] 1.7 {ratio} 0.9-2.[address] [facility] Serum or plasma alkaline tim sphatase measurementOrdered By: Dariela Chaudhary on 01-03-2025 ALP [Catalytic activity/Vol] 84 U/L 35-[address] [facility] Serum or plasma calcium stephany urement (mass/volume)Ordered By: Dariela Chaudhary on 01-03-2025 Calcium [Mass/Vol] 9.9 mg/dL 7.6-11.0 [facility] Serum or plasma ethanol stephany urement (mass/volume)Ordered By: Dariela Chaudhary on 01-03-2025 Ethanol [Mass/Vol] mg/dL <10.1 [facility] Comment on above: This test is for med ical purposes only. The legal definition of intoxication varies according to local law. Serum or plasma urea nitroge n measurement (mass/volume)Ordered By: Dariela Chaudhary on 01-03-2025 Urea nitrogen [Mass/Vol] 12 mg/dL 4-[address] [facility] Sodium levelOrdered By: Dariela Chaudhary on 01-03-2025 Sodium [Moles/Vol] 136 mmol/L 133-145 [facility] Total proteinOrdered By: Esthela Chaudhary on 01-03-2025 Protein [Mass/Vol] 7.4 g/dL 5.9-8.4 [facility] Troponin T HS 2 HRon 025 Trop T High Sen 7 ng/L Normal <=[address] [facility] Comment on above: Performed By: #### L 499.0042 ####[facility] [address] [place], [place], [address] Troponin T HS 4 HRon 025 Trop T High Sen Normal <=[address] [facility] Comment on above: Result Comment: Vee butler via OM: Ordered Performed By: #### L 499.0043 ####[facility] [address] [place], [place], [address] Troponin T.cardiac [Mass/vol ume] in Serum or Plasma by High sensitivity methodOrdered By: Dariela Chaudhary on 01-03-2025 Troponin T.cardiac High sensitivity method [Mass/Vol] 7 ng/L <[address] [facility] Troponin T.cardiac High sensitivity method [Mass/Vol] < 6 ng/L <[address] [facility] White blood cell (WBC) count Ordered By: Dariela Chaudhary on 01-03-2025 WBC (Bld) [#/Vol] 6.5 10*3/uL 4.4-11.0 [facility] Absolute lymphocyte countOrd ered By: ceciliavesuviuswarren Araujo on 12-30-2024 Lymphocytes Auto (Unsp spec) [#/Vol] 1.04 10*3/uL 0.83-4.[address] [facility] Absolute neutrophil countOrd ered By: Mindy Araujo on 12-30-2024 Neutrophils (Bld) [#/Vol] 5.5 10*3/uL 2.0-7.[address] [facility] Anion gap in Serum or Plasma Ordered By: Mindy Araujo on 12-30-2024 Anion gap [Moles/Vol] 15 mmol/L 5-15 [facility] Automated lymphocyte count a s percentage of total leukocytesOrdered By: Mindy rAaujo on 12-30-2024 Lymphocytes/100 WBC Auto (Unsp spec) 14.7 % Low 19-[address] [facility] BUN/creatinine ratioOrdered By: Mindy Araujo on 12-30-2024 Urea nitrogen/Creatinine [Mass ratio] 14.4 mg/mg 10-[address] [facility] Basophil percentageOrdered B y: Mindy Araujo on 12-30-2024 Basophils/100 WBC (Bld) 0.6 % 0-[address] [facility] Bilirubin, totalOrdered By: Mindy Araujo on 12-30-2024 Bilirubin [Mass/Vol] 1.13 mg/dL 0.00-1.30 [facility] CBC W/Diff, Automatedon Absolute Lymph 1.04 X10 3/uL Normal 0.83-4.[address] [facility] Comment on above: Performed By: #### L 500.4050, L100.0100, L500.4100 #### [facility] [address] [place], [address] Absolute Neut 5.5 X10 3/uL Normal 2.0-7.[address] [facility] Comment on above: Performed By: #### L 500.4050, L100.0100, L500.4100 #### [facility] [address] [place], [address] Basophils/100 WBC (Bld) 0.6 % Normal 0-[address] [facility] Comment on above: Performed By: #### L 500.4050, L100.0100, L500.4100 #### [facility] [address] [place], [address] Eosinophils/100 WBC (Bld) 0.3 % Normal 0-[address] [facility] Comment on above: Performed By: #### L 500.4050, L100.0100, L500.4100 #### [facility] [address] [place], [address] Erythrocyte distribution width (RBC) [Ratio] 12.4 % Normal 11.6-14.[address] [facility] Comment on above: Performed By: #### L 500.4050, L100.0100, L500.4100 #### [facility] [address] [place], [address] Hematocrit (Bld) [Volume fraction] 43.1 % Normal 37-[address] [facility] Comment on above: Performed By: #### L 500.4050, L100.0100, L500.4100 #### [facility] [address] [place], [address] Hemoglobin (Bld) [Mass/Vol] 14.7 g/dL Normal 12.0-15.[address] [facility] Comment on above: Performed By: #### L 500.4050, L100.0100, L500.4100 #### [facility] [address] [place], [address] IG% 0.400 Normal 0.0-0.[address] [facility] Comment on above: Result Comment: IG% - Immature Granulocytes (promyelocytes, myelocytes and metamyelocytes) > 1% indicates that a LEFT SHIFT is Present. Performed By: #### L 500.4050, L100.0100, L500.4100 #### [facility] [address] [place], [address] Lymphocytes/100 WBC (Bld) 14.7 % Low 19-[address] [facility] Comment on above: Performed By: #### L 500.4050, L100.0100, L500.4100 #### [facility] [address] [place], [address] MCH (RBC) [Entitic mass] 33.0 pg High 27.0-32.[address] [facility] Comment on above: Performed By: #### L 500.4050, L100.0100, L500.4100 #### [facility] [address] [place], [address] MCHC (RBC) [Mass/Vol] 34.1 g/dL Normal 32-36 [facility] Comment on above: Performed By: #### L 500.4050, L100.0100, L500.4100 #### [facility] [address] [place], [address] MCV (RBC) [Entitic vol] 96.9 fL Normal 81-[address] [facility] Comment on above: Performed By: #### L 500.4050, L100.0100, L500.4100 #### [facility] [address] [place], [address] Monocytes/100 WBC (Bld) 6.2 % Normal 0-10 [facility] Comment on above: Performed By: #### L 500.4050, L100.0100, L500.4100 #### [facility] [address] [place], [address] Neutrophils/100 WBC (Bld) 77.8 % High 47-[address] [facility] Comment on above: Performed By: #### L 500.4050, L100.0100, L500.4100 #### [facility] [address] [place], [address] Nucleated RBC (Bld) [#/Vol] 0 10*3/uL Normal 0-[address] [facility] Comment on above: Performed By: #### L 500.4050, L100.0100, L500.4100 #### [facility] [address] [place], [address] Platelet mean volume (Bld) [Entitic vol] 10.1 fL Normal 6.2-12.[address] [facility] Comment on above: Performed By: #### L 500.4050, L100.0100, L500.4100 #### [facility] [address] [place], [address] Platelets (Bld) [#/Vol] 320 10*3/uL Normal 150-[address] [facility] Comment on above: Performed By: #### L 500.4050, L100.0100, L500.4100 #### [facility] [address] [place], [address] RBC (Bld) [#/Vol] 4.45 10*6/uL Normal 4.2-5.4 [facility] Comment on above: Performed By: #### L 500.4050, L100.0100, L500.4100 #### [facility] [address] [place], [address] RDW SD 44.2 fl High 35.1-43.[address] [facility] Comment on above: Performed By: #### L 500.4050, L100.0100, L500.4100 #### [facility] [address] [place], [address] WBC (Bld) [#/Vol] 7.1 10*3/uL Normal 4.4-11.0 [facility] Comment on above: Performed By: #### L 500.4050, L100.0100, L500.4100 #### [facility] [address] [place], [address] Calculated very low density lipoprotein (VLDL) cholesterol measurementOrdered By: Mindy Araujo on 12-30-2024 Calculated very low density lipoprotein (VLDL) cholesterol measurement 48 mg/dL High 5-[address] [facility] Carbon dioxide, total [Moles /volume] in Central venous bloodOrdered By: Mindy Araujo on 12-30-2024 CO2 [Moles/Vol] 23.6 mmol/L 21.0-32.[address] [facility] Chloride assayOrdered By: Mckenzie Araujo on 12-30-2024 Chloride [Moles/Vol] 101 mmol/L 98-108 [facility] Comprehensive Metabolic Prof ilon 12-30-2024 Albumin [Mass/Vol] 4.4 g/dL Normal 3.5-5.0 [facility] Comment on above: Performed By: #### L 500.4050, L100.0100, L500.4100 #### [facility] [address] [place], [address] Albumin/Globulin [Mass ratio] 1.6 {ratio} Normal 0.9-2.[address] [facility] Comment on above: Performed By: #### L 500.4050, L100.0100, L500.4100 #### [facility] [address] [place], [address] ALK PHOS 88 U/L Normal 35-[address] [facility] Comment on above: Performed By: #### L 500.4050, L100.0100, L500.4100 #### [facility] [address] [place], [address] ALT [Catalytic activity/Vol] 30 U/L Normal <=[address] [facility] Comment on above: Performed By: #### L 500.4050, L100.0100, L500.4100 #### [facility] [address] [place], [address] AST [Catalytic activity/Vol] 50 U/L High <=[address] [facility] Comment on above: Performed By: #### L 500.4050, L100.0100, L500.4100 #### [facility] [address] [place], [address] Bilirubin [Mass/Vol] 1.13 mg/dL Normal 0.00-1.30 [facility] Comment on above: Performed By: #### L 500.4050, L100.0100, L500.4100 #### [facility] [address] [place], [address] BUN/CRE 14.4 RATIO Normal 10-[address] [facility] Comment on above: Performed By: #### L 500.4050, L100.0100, L500.4100 #### [facility] [address] [place], [address] Calcium [Mass/Vol] 9.6 mg/dL Normal 7.6-11.0 [facility] Comment on above: Performed By: #### L 500.4050, L100.0100, L500.4100 #### [facility] [address] [place], [address] Chloride [Moles/Vol] 101 mmol/L Normal 98-108 [facility] Comment on above: Performed By: #### L 500.4050, L100.0100, L500.4100 #### [facility] [address] [place], [address] CO2 [Moles/Vol] 23.6 mmol/L Normal 21.0-32.[address] [facility] Comment on above: Performed By: #### L 500.4050, L100.0100, L500.4100 #### [facility] [address] [place], [address] Creatinine [Mass/Vol] 0.80 mg/dL Normal 0.70-1.20 [facility] Comment on above: Performed By: #### L 500.4050, L100.0100, L500.4100 #### [facility] [address] [place], [address] GAP 15 Normal 5-[address] [facility] Comment on above: Performed By: #### L 500.4050, L100.0100, L500.4100 #### [facility] [address] [place], [address] GFR/1.73 sq M.predicted among non-blacks MDRD (S/P/Bld) [Vol rate/Area] 93 mL/min/{1.73_m2} Normal >[address] [facility] Comment on above: Result Comment: mL/m in/1.73m2 CKD-EPI Creatinine Equation (2020) Performed By: #### L 500.4050, L100.0100, L500.4100 #### [facility] [address] [place], [address] Globulin (S) [Mass/Vol] 2.8 g/dL Normal 2.2-4.2 [facility] Comment on above: Performed By: #### L 500.4050, L100.0100, L500.4100 #### [facility] [address] [place], [address] Glucose [Mass/Vol] 106 mg/dL High 70-99 [facility] Comment on above: Performed By: #### L 500.4050, L100.0100, L500.4100 #### [facility] [address] [place], [address] Potassium [Moles/Vol] 4.2 mmol/L Normal 3.3-5.1 [facility] Comment on above: Performed By: #### L 500.4050, L100.0100, L500.4100 #### [facility] [address] [place], [address] Sodium [Moles/Vol] 139 mmol/L Normal 133-145 [facility] Comment on above: Performed By: #### L 500.4050, L100.0100, L500.4100 #### [facility] [address] [place], [address] T PROT 7.2 g/dL Normal 5.9-8.[address] [facility] Comment on above: Performed By: #### L 500.4050, L100.0100, L500.4100 #### [facility] [address] [place], [address] Urea nitrogen [Mass/Vol] 12 mg/dL Normal 4-[address] [facility] Comment on above: Performed By: #### L 500.4050, L100.0100, L500.4100 #### [facility] [address] [place], [address] Eosinophil percentageOrdered By: Mindy Araujo on 12-30-2024 Eosinophils/100 WBC (Bld) 0.3 % 0-[address] [facility] Erythrocyte distribution wid th ratioOrdered By: Mindy Araujo on 12-30-2024 Erythrocyte distribution width (RBC) [Ratio] 12.4 % 11.6-14.[address] [facility] Erythrocyte distribution wid th standard deviationOrdered By: Mindy Araujo on 12-30-2024 Erythrocyte distribution width (RBC) [Ratio] 44.2 fl High 35.1-43.[address] [facility] Glomerular filtration rate ( GFR) estimation/1.73 sq m using serum, plasma, or whole bOrdered By: ceciliavesuviuswarren Araujo on 12-30-2024 GFR/1.73 sq M.predicted among non-blacks MDRD (S/P/Bld) [Vol rate/Area] 93 mL/min/{1.73_m2} >[address] [facility] Comment on above: mL/min/1.73m2 CKD-EP I Creatinine Equation (2020) Hematocrit Auto (Bld) [Volum e fraction]Ordered By: Mindy Araujo on 12-30-2024 Hematocrit (Bld) [Volume fraction] 43.1 % 37-[address] [facility] Hemoglobin measurementOrdere d By: Mindy Araujo on 12-30-2024 Hemoglobin (Bld) [Mass/Vol] 14.7 g/dL 12.0-15.[address] [facility] Immature granulocytes/100 WB C Auto (Bld)Ordered By: Mindy Araujo on 12-30-2024 Immature granulocytes/100 WBC (Bld) 0.400 % 0.0-0.[address] [facility] Comment on above: IG% - Immature Granu locytes (promyelocytes, myelocytes and metamyelocytes) > 1% indicates that a LEFT SHIFT is Present. Internal Medicine Office Vis colleen 12-30-2024 Internal Medicine Office Visit [facility] [place] [address] OFFICE VISIT Date of Service: 12/30/24 MR#: [id number] Acct: [id number] Name: EDNA AKERS Rep #: [id number] : 1980 Provider: Dr. 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 Mindy Araujo MD) Preventative health care Upper respiratory infection Dermatitis Anxiety and depression [...] training frequency: daily HPI HPI Chief Complaint: Yearly Visit. Details: EDNA AKERS, is a 44-year-old female presenting for a wellness visit/yearly visit. She has not undergone any prior colon cancer screening nor dermatological examinations in several years. No family history of colon cancer. Up-to-date on her mammograms. She has a history of essential hypertension, which is currently well-managed with triamterene hydrochlorothiazide and amlodipine. The patient reports excellent control of her blood pressure without any side effects from the medication. She maintains an active lifestyle. The patient also has a history of anxiety for which she currently attends therapy sessions weekly. She reports experiencing persistent anxiety but feels that therapy is a significant help. Attestation: Documentation on this patient encounter was supported using ambient scribe technology/ voice AI technology. The patient consented to recording for the purpose of documenting the encounter. Provider reviewed content of the generated note prior to signature. ROS Const Constitutional: No body ache, excessive sweating, fatigue, fever(s), frequent falls, headache(s), snoring, weakness, weight change, sleep problems or change in appetite Eyes Eyes: No blurry vision, change in vision, vision loss, dry eyes, eye pain or Light sensitivity ENT ENT: No abnormal hearing, ear or mastoid pain, tinnitus, dizziness/vertigo, nasal congestion, headache(s), neck pain or sore throat Resp Respiratory: No cough, excessive phlegm production, hemoptysis, shortness of breath, snoring or wheezing Cardio Cardiology: No chest pain at rest, chest pain with exertion, excessive sweating, shortness of breath, dyspnea on exertion, lightheadedness, orthopnea or palpitations Gastro GI: No abdominal pain, change in bowel habits, constipation, cramping, diarrhea, nausea/dyspepsia or vomiting Genitourinary-Female : No burning urination, painful urination, urinary incontinence, urinary frequency, blood in urine, abnormal periods or pelvic pain Musc Musculoskeletal: No abnormal gait, joint pain, back pain, limited range of motion, neck pain, numbness, stiffness, tingling or Arthritis Skin Skin: No dry skin, redness, lesions, itchy eyes, rash or wounds Neuro Neurology: No abnormal gait, abnormal hearing, abnormal speech, dizziness, weakness, frequent falls, headache(s), memory loss, numbness or tingling Psych Psychiatric: No anxiety, No change in appetite, No depression, No memory loss and No Thoughts of harming yourself/Others Endo Endocrine: No cold intolerance, excessive sweating, fatigue, flushing, heat intolerance, increased (more content not included)... Normal [facility] LDL calc ser/plasOrdered By: Mindy Araujo on 12-30-2024 Cholesterol in LDL [Mass/Vol] 87 mg/dL [facility] Comment on above: Pzgkvqbame=777-208 m g/dL & Higher Fsow=818 mg/dL or greaterFriedwald Equation for LDL-C Laboratory - Chemistry and C hemistry - challengeOrdered By: Mindy Araujo on 12-30-2024 AST [Catalytic activity/Vol] 50 U/L High <[address] [facility] Lipid Profileon 12-30-2024 CHOL:HDL 2.[address] [facility] Comment on above: Performed By: #### L 500.4050, L100.0100, L500.4100 #### [facility] [address] [place], [address] Cholesterol [Mass/Vol] 210 mg/dL High <=200 [facility] Comment on above: Result Comment: Chol esterol level, Desirable <200 mg/dL Borderline high cholesterol 200-239 mg/dL High cholesterol >=240 mg/dL Recommendations of the NCEP Adult Treatment Panel for the following risk-cutoff thresholds for the [place] population. Performed By: #### L 500.4050, L100.0100, L500.4100 #### [facility] [address] [place], [address] Cholesterol in HDL [Mass/Vol] 75 mg/dL Normal [facility] Comment on above: Result Comment: Nisha onal Cholesterol Education Program (NCEP) guidelines: <40 mg/dL: Low HDL-cholesterol (major risk factor for CHD) >= 60 mg/dL: High HDL-cholesterol (negative risk factor for CHD) HDL-cholesterol is affected by a number of factors, e.g. smoking, exercise, hormones, sex and age. Performed By: #### L 500.4050, L100.0100, L500.4100 #### [facility] [address] [place], [address] Cholesterol in LDL [Mass/Vol] 87 mg/dL Normal [facility] Comment on above: Result Comment: Bord jryncj=497-728 mg/dL Higher Mcbz=780 mg/dL or greater Friedwald Equation for LDL-C Performed By: #### L 500.4050, L100.0100, L500.4100 #### [facility] [address] [place], [address] Cholesterol in VLDL [Mass/Vol] 48 mg/dL High 5-[address] [facility] Comment on above: Performed By: #### L 500.4050, L100.0100, L500.4100 #### [facility] [address] [place], [address] Triglyceride [Mass/Vol] 239 mg/dL High [facility] Comment on above: Result Comment: The drugs N-Acetylcysteine and Metamizole may falsely depress this assay. Normal range: <150 mg/dL Borderline High: 150-199 mg/dL High: 200-499 mg/dL Very High: >500 mg/dL Performed By: #### L 500.4050, L100.0100, L500.4100 #### [facility] [address] [place], [address] MCV (mean corpuscular volume ) determinationOrdered By: Mindy Araujo on 12-30-2024 MCV (RBC) [Entitic vol] 96.9 fL 81-99 [facility] Mean corpuscular hemoglobin (MCH) determinationOrdered By: Mindy Araujo on 12-30-2024 MCH (RBC) [Entitic mass] 33.0 pg High 27.0-32.[address] [facility] Mean corpuscular hemoglobin concentration (MCHC) determinationOrdered By: Mindy Araujo on 12-30-2024 MCHC (RBC) [Mass/Vol] 34.1 g/dL 32-36 [facility] Mean platelet volume determi nationOrdered By: Mindy Araujo on 12-30-2024 Platelet mean volume (Bld) [Entitic vol] 10.1 fL 6.2-12.[address] [facility] Monocyte percentageOrdered B y: Mindy Araujo on 12-30-2024 Monocytes/100 WBC (Bld) 6.2 % 0-[address] [facility] Neutrophil percentageOrdered By: Mindy Araujo on 12-30-2024 Neutrophils/100 WBC (Bld) 77.8 % High 47-[address] [facility] Nucleated red blood cell per centageOrdered By: Mindy Araujo on 12-30-2024 Nucleated RBC/100 WBC (Bld) [Ratio] 0 % 0-[address] [facility] Platelet countOrdered By: Mckenzie Araujo on 12-30-2024 Platelets (Bld) [#/Vol] 320 10*3/uL 150-[address] [facility] Potassium measurement (mass/ volume)Ordered By: Mindy Araujo on 12-30-2024 Potassium (Unsp spec) [Mass/Vol] 4.2 mmol/L 3.3-5.[address] [facility] RBC Auto (Bld) [#/Vol]Ordere d By: Mindy Araujo on 12-30-2024 RBC (Bld) [#/Vol] 4.45 10*6/uL 4.2-5.4 [facility] Screening total cholesterol/ high density lipoprotein (HDL) cholesterol ratioOrdered By: Mindy Araujo on 12-30-2024 Cholesterol.total/Choles terol in HDL [Mass ratio] 2.79 {ratio} [facility] Serum creatinine measurement (mass/volume)Ordered By: Mindy Araujo on 12-30-2024 Creatinine [Mass/Vol] 0.80 mg/dL 0.70-1.20 [facility] Serum globulin measurementOr dered By: Mindy Araujo on 12-30-2024 Globulin (S) [Mass/Vol] 2.8 g/dL 2.2-4.[address] [facility] Serum glucose measurement (m ass/volume)Ordered By: Mindy Araujo on 12-30-2024 Glucose [Mass/Vol] 106 mg/dL High 70-99 [facility] Serum or plasma alanine mathis otransferase (ALT) measurementOrdered By: Mindy Araujo on 12-30-2024 ALT [Catalytic activity/Vol] 30 U/L <[address] [facility] Serum or plasma albumin stephany urement (mass/volume)Ordered By: Mindy Araujo on 12-30-2024 Albumin [Mass/Vol] 4.4 g/dL 3.5-5.0 [facility] Serum or plasma albumin/glob ulin mass ratioOrdered By: [facility] on 12-30-2024 Albumin/Globulin [Mass ratio] 1.6 {ratio} 0.9-2.[address] [facility] Serum or plasma alkaline tim sphatase measurementOrdered By: Mindy Araujo 12-30-2024 ALP [Catalytic activity/Vol] 88 U/L 35-[address] [facility] Serum or plasma calcium stephany urement (mass/volume)Ordered By: Mindy Araujo 12-30-2024 Calcium [Mass/Vol] 9.6 mg/dL 7.6-11.0 [facility] Serum or plasma cholesterol in HDL measurement (mass/volume)Ordered By: Mindy Araujo 12-30-2024 Cholesterol in HDL [Mass/Vol] 75 mg/dL >[address] [facility] Comment on above: National Cholesterol Education Program (NCEP) guidelines:<40 mg/dL: Low HDL-cholesterol (major risk factor for CHD)>= 60 mg/dL: High HDL-cholesterol (negative risk factor for CHD)HDL-cholesterol is affected by a number of factors, e.g. smoking, exercise, hormones, sex and age. Serum or plasma cholesterol measurement (mass/volume)Ordered By: Mindy Araujo on 12-30-2024 Cholesterol [Mass/Vol] 210 mg/dL High <201 [facility] Comment on above: Cholesterol level, D esirable <200 mg/dLBorderline high cholesterol 200-239 mg/dLHigh cholesterol >=240 mg/dLRecommendations of the NCEP Adult Treatment Panel for the following risk-cutoff thresholds for the [place] population. Serum or plasma urea nitroge n measurement (mass/volume)Ordered By: Mindy Araujo on 12-30-2024 Urea nitrogen [Mass/Vol] 12 mg/dL 4-[address] [facility] Sodium levelOrdered By: Lis Araujo on 12-30-2024 Sodium [Moles/Vol] 139 mmol/L 133-145 [facility] Total proteinOrdered By: Geremias Araujo on 12-30-2024 Protein [Mass/Vol] 7.2 g/dL 5.9-8.4 [facility] Triglycerides measurementOrd ered By: Mindy Araujo on 12-30-2024 Triglyceride [Mass/Vol] 239 mg/dL High <[address] [facility] Comment on above: The drugs N-Acetylcy steine and Metamizole may falsely depress this assay. Normal range: <150 mg/dLBorderline High: 150-199 mg/dLHigh: 200-499 mg/dLVery High: >500 mg/dL White blood cell (WBC) count Ordered By: Mindy Araujo on 12-30-2024 WBC (Bld) [#/Vol] 7.1 10*3/uL 4.4-11.0 [facility] Urine Cultureon 12-18-2024 URC Klebsiella oxytoca [place] Count 80,000-100,000 Klebsiella oxytoca: REACTION Ampicillin Islt [...] TMP SMX Islt BILLY <=[address] [facility] Comment on above: Performed By: #### M 100.2200, L400.0001 #### [facility] [address] [place], [place] [address] [place], [address] Bilirubin Test strip Ql (U)O rdered By: Ez Robles on 12-16-2024 Bilirubin Ql (U) Negative Negative [facility] Ketones Test strip Ql (U)Ord ered By: Ez Robles on 12-16-2024 Ketones Ql (U) Negative Negative [facility] Microscopic analysis of urin e for red blood cells (RBC)Ordered By: Ez Robles on 12-16-2024 Microscopic analysis of urine for red blood cells (RBC) 50-100 SEEN /hpf 0-[address] [facility] Mucus LM Ql (Urine sed)Order ed By: Ez Robles on 12-16-2024 Mucus Ql (Urine sed) 0 SEEN /hpf [facility] Nitrite Test strip Ql (U)Ord ered By: Ez Robles on 12-16-2024 Nitrite Ql (U) Negative Negative [facility] Protein Test strip Ql (U)Ord ered By: Ez Robles on 12-16-2024 Protein Ql (U) 100 mg/dl High Negative [facility] Squamous epithelial cells de tection in urine sediment by light microscopyOrdered By: Ez Robles on 12-16-2024 Epithelial cells.squamous LM Ql (Urine sed) 0-5 SEEN /hpf 5-[address] [facility] Urinalysis, Completeon 12-16 EPI,SQUAMOUS 0-5 SEEN Normal 5-[address] [facility] Comment on above: Order Comment: POORNIMA STEVENOR TO SPECIFY Performed By: #### M 100.2200, L400.0001 #### [facility] [address] [place], [address] RBC 50-100 SEEN Normal 0-[address] [facility] Comment on above: Order Comment: POORNIMA STEVENOR TO SPECIFY Performed By: #### M 100.2200, L400.0001 #### [facility] [address] [place], [address] WBC >100 SEEN Normal 0-[address] [facility] Comment on above: Order Comment: POORNIMA STEVENOR TO SPECIFY Result Comment: Micr oscopic field is filled. Other elements may be obscured. Performed By: #### M 100.2200, L400.0001 #### [facility] [address] [place], [address] BACTERIA 0 SEEN Normal None Seen [facility] Comment on above: Order Comment: POORNIMA CTOR TO SPECIFY Performed By: #### M 100.2200, L400.0001 #### [facility] [address] [place], [address] Mucus Ql (Urine sed) 0 SEEN Normal [facility] Comment on above: Order Comment: POORNIMA CTOR TO SPECIFY Performed By: #### M 100.2200, L400.0001 #### [facility] [address] [place], [address] Urine clarityOrdered By: Gael Robles on 12-16-2024 Clarity (U) Cloudy Clear [facility] Urine color determinationOrd ered By: Ez Robles on 12-16-2024 Color (U) Yellow Yellow [facility] Urine cultureOrdered By: Gael Robles on 12-16-2024 Bacteria identified Cx Nom (U) Klebsiella oxytoca Abnormal [facility] Urine glucose detectionOrder ed By: Ez Robles on 12-16-2024 Glucose Ql (U) Normal mg/dl Normal [facility] Urine leukocyte esterase det ection by dipstickOrdered By: Ez Robles on 12-16-2024 Leukocyte esterase Test strip Ql (U) 500 /ul High Negative [facility] Urine pHOrdered By: Ez padilla on 12-16-2024 pH (U) 8.0 [pH] 5.0 - 8.[address] [facility] Urine sediment bacteria coun t by microscopy (number/high power field)Ordered By: Ez Robles on 12-16-2024 Bacteria LM.HPF (Urine sed) [#/Area] 0 /[HPF] None Seen [facility] Urine specific gravity measu rementOrdered By: Ez Robles on 12-16-2024 Specific gravity (U) [Rel density] 1.010 1.002-1.[address] [facility] Urine urobilinogen measureme ntOrdered By: Ez Robles on 12-16-2024 Urobilinogen Ql (U) Normal mg/dl Normal [facility] White blood cell countOrdere d By: Ez Robles on 12-16-2024 White blood cell count >100 SEEN /hpf 0-[address] [facility] Comment on above: Microscopic field is filled. Other elements may be obscured. Laboratory - Chemistry and C hemistry - challengeOrdered By: Ez Robles on 12-15-2024 Bilirubin Ql (U) Negative [facility] Glucose Ql (U) Negative [facility] Ketones Ql (U) Negative [facility] pH (U) 8.5 [pH] [facility] Specific gravity (U) [Rel density] <1.[address] [facility] Urobilinogen (U) [Mass/Vol] Negative [facility] Laboratory - Hematology and Cell countsOrdered By: Ez Robles on 12-15-2024 Hemoglobin Ql (U) Large [facility] - Specimen inform ationOrdered By: Ez Robles on 12-15-2024 Clarity (U) Cloudy [facility] Color (U) [place] [facility] - UrinalysisOrder ed By: Ez Robles on 12-15-2024 Nitrite Ql (U) Negative [facility] Protein Ql (U) Negative [facility] No Panel InformationOrdered By: Ez Robles on 12-15-2024 Urine Leukocytes Positive [facility] Urine Non-Hemolyzed Blood [facility] Office Visit Reporton 2024 Office Visit Report [facility] [address] [place] [address] OFFICE VISIT Date of Service: 12/15/24 MR#: [id number] Acct: [id number] Patient: EDNA AKERS Rep #: [id number] : 1980 Provider: [facility] Self Schedule Age/Sex: 44/F Location: [facility] Status: Signed Intake Vital Signs 07/11/24 16:03 [...] POC Urinalysis Dip (Clinic) Office Urine Color [place] Last Edit by Karolina Russo on 12/15/24 08:26 Office Urine Clarity Cloudy Last Edit by Karolina Russo on 12/15/24 08:26 Office Urine Glucose Negative Last Edit by Karolina Russo on 12/15/24 08:26 Office Urine Ketones Negative Last Edit by Karolina Russo on 12/15/24 08:26 Off Ur Spec [place] <1.005 Last Edit by Karolina Russo on [...] Acute cyst (more content not included)... Normal [facility] Urgent Care Visit Reporton 0 11-16-2024 Urgent Care Visit Report [facility] [address], [address] [place] [address] OFFICE VISIT Date of Service: 11/16/24 MR#: [id number] Acct: [id number] Name: EDNA AKERS Rep #: [id number] : 1980 Provider: MAGGI Velarde Age/Sex: 44/F Location: [facility] Status: Signed Intake Vital Signs 07/11/24 16:03 [...] discharge in the eye, irritation of eye Electrical Project Engineer Required: No Is patient in pain?: No Allergies No Known Allergies Allergy (Verified 07/11/24 16:01) Is last menstrual period known: No Post menopausal: No Patient : No Have you fallen in the past year?: No Nurse's Note: Complaint of excess discharge in the eye for 3 days alongside crusting in the morning and discomfort. [facility] Medical History (Updated 11/16/24 @ 08:22 [...] past year?: No 11/16/24 0823 Date Phong Burger PA Kev Signature: Date (if applicable) CC: Normal [facility] NICK SCREENING W TOMOon 08-21 NICK SCREENING W MAXIMILIAN * * *Final Report* * * DATE OF EXAM: Aug 21 2024 7:38AM [id number] [id number] - NICK SCREENING W MAXIMILIAN / PROCEDURE REASON: Encounter for screening mammogram for breast cancer * * * * Physician Interpretation * * * * RESULT: [place] [address] [place] [address] #[id number] - NICK SCREENING W MAXIMILIAN HISTORY: 43 [...] De Jesus M.D. Electronically signed on: 08/22/2024 Take Off Worker: MAGVIW Transcribe Date/Time: Aug 21 2024 7:13A Dictated by: SAVANAH DE JESUS MD This examination was interpreted and the report reviewed and electronically signed by: SAVANAH DE JESUS MD on Aug 22 2024 8:09AM EST [id number] CN Normal [facility] Basic Metabolic Profile (BMP )on 07-11-2024 BUN/CRE 20.2 RATIO High 10-[address] [facility] Comment on above: Performed By: #### L 500.2500 #### [facility] [address] [place], [address] CA,Total 9.4 mg/dL Normal 8.5-10.[address] [facility] Comment on above: Performed By: #### L 500.2500 #### [facility] [address] [place], [address] Chloride [Moles/Vol] 99 mmol/L Normal 98-107 [facility] Comment on above: Performed By: #### L 500.2500 #### [facility] [address] [place], [address] CO2 [Moles/Vol] 27.0 mmol/L Normal 21.0-32.[address] [facility] Comment on above: Performed By: #### L 500.2500 #### [facility] [address] [place], [address] Creatinine [Mass/Vol] 0.74 mg/dL Normal 0.55-1.02 [facility] Comment on above: Result Comment: The validity of the calculated GFR GFRAA in patients over 70 years has not been determined. Clinical correlation is essential. Performed By: #### L 500.2500 #### [facility] [address] [place], [address] EST GFR - AA 109 mL/min Normal >[address] [facility] Comment on above: Result Comment: Afri can Japanese GFR Calc Performed By: #### L 500.2500 #### [facility] [address] [place], [address] GAP 8 Normal 5-[address] [facility] Comment on above: Performed By: #### L 500.2500 #### [facility] [address] [place], [address] GFR/1.73 sq M.predicted among non-blacks MDRD (S/P/Bld) [Vol rate/Area] 90 mL/min/{1.73_m2} Normal >[address] [facility] Comment on above: Result Comment: Non- GFR Calc Performed By: #### L 500.2500 #### [facility] [address] [place], [address] Glucose [Mass/Vol] 96 mg/dL Normal 74-106 [facility] Comment on above: Performed By: #### L 500.2500 #### [facility] [address] [place], [address] Potassium [Moles/Vol] 3.5 mmol/L Normal 3.5-5.1 [facility] Comment on above: Performed By: #### L 500.2500 #### [facility] [address] [place], [address] Sodium [Moles/Vol] 135 mmol/L Low 136-145 [facility] Comment on above: Performed By: #### L 500.2500 #### [facility] [address] [place], [address] Urea nitrogen [Mass/Vol] 15 mg/dL Normal 7-[address] [facility] Comment on above: Performed By: #### L 500.2500 #### [facility] [address] [place], [address] Internal Medicine Office Vis colleen 07-11-2024 Internal Medicine Office Visit [facility] [address] [place] [address] OFFICE VISIT Date of Service: 07/11/24 MR#: [id number] Acct: [id number] Name: EDNA AKERS Rep #: [id number] : 1980 Provider: Dr. Mindy aguayo MD Age/Sex: 43/F Location: [facility] Status: Signed Intake Vital Signs 02/14/24 08:52 [...] Complaint: Follow-up chronic conditions. Cough and congestion Electrical Project Engineer Required: No Accompanied by: Self Is patient in pain?: No Allergies No Known Allergies Allergy (Verified 07/11/24 16:01) Medications ???Medication ???Instructions ???Recorded ???Confirmed ???Type cholecalciferol (vitamin D3) 25 25 mcg PO DAILY 10/25/22 03/25/24 History mcg (1,000 unit) capsule drospiren-e.estrad-l .mefol 3 1 tab PO DAILY 10/25/22 03/25/24 H istory mg-0.02 mg-0.451 mg()/0.451 mg(4)tablet (Beyaz ()) epinephrine 0.3 mg/0.3 mL [...] Neurology: Posi (more content not included)... Normal [facility] CNOVon 05-31-2024 CNOV Office Visit (OBGYWM) EDNA AKERS ([id number]) 1980 F Date Time Provider Department 05/31/24 2:20 PM MAKENZIE CLANCY During your visit today, we recorded the following information about you: Blood pressure Weight Height Last Period 128/86 62.8 kg 1.613 m 05/17/24 Makenzie Clancy MD 05/31/2024 5:08 PM Signed Slip Mixer offered: Patient declines. Edna is a 43 [...] L2 SAB0 IAB0 Ectopic0 Multiple0 Live Births2 Point Of Care Specialist History LMP: 05/17/2024, Having periods Age at Menarche: 12 Age at First : Age at Menopause: Point Of Care Specialist History Comments: Sexual Activity: Yes; Male Contraception: [...] discussed with the Patient or Patient's Authorized Cinder Dump Crane Operator. As applicable, any other physician, advance practice provider, medical student, or other health professional student that will be observing or involved in the sensitive examination for educational or training purposes was discussed with the Patient or Authorized Cinder Dump Crane Operator. The Patient or Authorized Cinder Dump Crane Operator has agreed to proceed with the sensitive [...] external genitalia normal, normal Bartholin's glands, urethra, Parshall's glands, no vulvar lesions, no cervical lesions, [...] STD screening (more content not included)... Normal [facility] HIGH RISK HUMAN PAPILLOMA ADDISON (HPV), PCR FOR DETECTION AND GENOTYPINGon 05-31-2024 HPV 16 Ag Ql (Unsp spec) Not detected Normal Not detec praful [facility] Comment on above: Order Comment: Speci men Type: FLUID SPECIMEN Ordering Facility: [facility] Address: [address] [place] [address] Performed By: #### H PVHRT #### [facility] CLIA [id number] [address] [place] [address] [place] HPV 18 Ag Ql (Unsp spec) Not detected Normal Not detec praful [facility] Comment on above: Order Comment: Speci men Type: FLUID SPECIMEN Ordering Facility: [facility] Address: [address] [place] [address] Performed By: #### H PVHRT #### [facility] CLIA [id number] [address] [place] [address] [place] HPV 31+33+35+39+45+51+52+56+ 58+59+66+68 DNA JORGE+probe Ql (Cvx) Not detected Normal Not detected [facility] Comment on above: Order Comment: Speci men Type: FLUID SPECIMEN Ordering Facility: [facility] Address: [address] [place] [address] Result Comment: High Risk HPV Other Type includes HPV types 31, 33, 35, 39, 45, 51, 52, 56, 58, 59, 66 and 68. Performed By: #### H PVHRT #### [facility] CLIA [id number] [address] [place] [address] [place] PAP TESTon 05-31-2024 ADEQUACY Normal [facility] Comment on above: Order Comment: Speci men Type: FLUID SPECIMEN Ordering Facility: [facility] Address: [address] [place] [address] Result Comment: Sati sfactory for interpretation. No endocervical component Performed By: #### L [id number] #### [facility] CLIA [id number] [address] [place] [address] [place] CASE REPORT Normal [facility] Comment on above: Order Comment: Speci men Type: FLUID SPECIMEN Ordering Facility: [facility] Address: [address] [place] [address] Result Comment: Gyne cologic Cytology Report Case: [id number] Authorizing Provider: Makenzie Clancy MD Collected: 05/31/2024 02:56 PM Ordering Location: OB/Gynecology Received: 05/31/2024 03:31 PM First Screen: Edna Morse, CT, ASCP Pathologist: Ledy Lay MD Specimen: Pap Test, ThinPrep, Cervix Performed By: #### L [id number] #### [facility] CLIA [id number] [address] [place] [address] [place] CLINICAL HISTORY, CYTOLOGY, LACROSSE COACH Routine Exam Normal [facility] Comment on above: Order Comment: Speci men Type: FLUID SPECIMEN Ordering Facility: [facility] Address: [address] [place] [address] Performed By: #### L [id number] #### [facility] CLIA [id number] [address] [place] [id number] [place] FINAL PERFORMING LAB Normal [facility] Comment on above: Order Comment: Speci men Type: FLUID SPECIMEN Ordering Facility: [facility] Address: [address] [place], [place] [id number] Result Comment: Tech nical component, sales representative electric service screening performed at [facility], [address] [place] [address] CLIA# [id number] Diagnostic interpretation performed at [facility], [address] [place] [address] CLIA# [id number] Supply Chain Analyst: Brandon Feliz M.D. Performed By: #### L [id number] #### [facility] CLIA [id number] [address] [place], [place] [id number] [place] INTERPRETATION, CYTOLOGY, LACROSSE COACH Abnormal [facility] Comment on above: Order Comment: Speci men Type: FLUID SPECIMEN Ordering Facility: [facility] Address: [address] [place] [address] Result Comment: Low grade squamous intraepithelial lesion (LSIL). Performed By: #### L [id number] #### [facility] CLIA [id number] [address] [place] [address] [place] LMP 05/17/2024 Normal [facility] Comment on above: Order Comment: Speci men Type: FLUID SPECIMEN Ordering Facility: [facility] Address: [address] [place], [place] [id number] Performed By: #### L [id number] #### [facility] CLIA [id number] [address] [place], [place] [id number] [place] PAP DISCLAIMER COMMENT The Pap Smear is a screening test for cervical cancer. False negative results occur with all screening tests, emphasizing the need for rescreening at recommended intervals, and clinical correlation. Normal [facility] Comment on above: Order Comment: Speci men Type: FLUID SPECIMEN Ordering Facility: [facility] Address: [address] [place] [address] Performed By: #### L [id number] #### [facility] CLIA [id number] [address] [place] [address] [place] PAP GENERAL CATEGORIZATION Epithelial Cell Abnormality Normal [facility] Comment on above: Order Comment: Speci men Type: FLUID SPECIMEN Ordering Facility: [facility] Address: [address] [place] [address] Performed By: #### L [id number] #### [facility] CLIA [id number] [address] [place] [address] [place] PAP WAX PUMPER COMMENT This specimen has been analyzed by the ThinPrep Imaging System, an automated imaging and review system, which assists the laboratory in evaluating cells on ThinPrep Pap tests. Following automated imaging, selected montano from every slide are reviewed by a sales representative electric service. Normal [facility] Comment on above: Order Comment: Speci men Type: FLUID SPECIMEN Ordering Facility: [facility] Address: [address] [place] [address] Performed By: #### L [id number] #### [facility] CLIA [id number] [address] [place] [address] [place] Urgent Care Visit Reporton 1 Urgent Care Visit Report [facility] [address], [address] [place] [address] OFFICE VISIT Date of Service: 03/25/24 MR#: [id number] Acct: [id number] Name: EDNA AKERS Rep #: [id number] : 1980 Provider: MAGGI Theodore Age/Sex: 43/F Location: [facility] Status: Signed Intake Vital Signs 02/14/24 08:52 [...] COUGH/CHEST CONGESTION/FEVER/BA Chief Complaint: cough and congestion Electrical Project Engineer Required: No Is patient in pain?: No [...] you fallen in the past year?: No [facility] Medical History (Updated 08/30/23 @ 16:20 [...] to inspect (more content not included)... Normal [facility] CBC W/Diff, Automatedon 01-27 Absolute Lymph 1.33 X10 3/uL Normal 0.83-4.[address] [facility] Comment on above: Performed By: #### L 500.4050, L100.0100, L500.4100 ####[facility] [address] [place], [address] Absolute Neut 4.8 X10 3/uL Normal 2.0-7.[address] [facility] Comment on above: Performed By: #### L 500.4050, L100.0100, L500.4100 ####[facility] [address] [place], [address] Basophils/100 WBC (Bld) 0.6 % Normal 0-[address] [facility] Comment on above: Performed By: #### L 500.4050, L100.0100, L500.4100 ####[facility] [address] [place], [address] Eosinophils/100 WBC (Bld) 0.3 % Normal 0-[address] [facility] Comment on above: Performed By: #### L 500.4050, L100.0100, L500.4100 ####[facility] [address] [place], [address] Erythrocyte distribution width (RBC) [Ratio] 12.1 % Normal 11.6-14.[address] [facility] Comment on above: Performed By: #### L 500.4050, L100.0100, L500.4100 ####[facility] [address] [place], [address] Hematocrit (Bld) [Volume fraction] 39.6 % Normal 37-[address] [facility] Comment on above: Performed By: #### L 500.4050, L100.0100, L500.4100 ####[facility] [address] [place], [address] Hemoglobin (Bld) [Mass/Vol] 13.3 g/dL Normal 12.0-15.[address] [facility] Comment on above: Performed By: #### L 500.4050, L100.0100, L500.4100 ####[facility] [address] [place], [address] IG% 0.300 Normal 0.0-0.[address] [facility] Comment on above: Result Comment: IG% - Immature Granulocytes (promyelocytes, myelocytes and metamyelocytes) > 1% indicates that a LEFT SHIFT is Present. Performed By: #### L 500.4050, L100.0100, L500.4100 ####[facility] [address] [place], [address] Lymphocytes/100 WBC (Bld) 19.9 % Normal 19-[address] [facility] Comment on above: Performed By: #### L 500.4050, L100.0100, L500.4100 ####[facility] [address] [place], [address] MCH (RBC) [Entitic mass] 32.0 pg Normal 27.0-32.[address] [facility] Comment on above: Performed By: #### L 500.4050, L100.0100, L500.4100 ####[facility] [address] [place], [address] MCHC (RBC) [Mass/Vol] 33.6 g/dL Normal 32-36 [facility] Comment on above: Performed By: #### L 500.4050, L100.0100, L500.4100 ####[facility] [address] [place], [address] MCV (RBC) [Entitic vol] 95.2 fL Normal 81-[address] [facility] Comment on above: Performed By: #### L 500.4050, L100.0100, L500.4100 ####[facility] [address] [place], [address] Monocytes/100 WBC (Bld) 6.7 % Normal 0-10 [facility] Comment on above: Performed By: #### L 500.4050, L100.0100, L500.4100 ####[facility] [address] [place], [address] Neutrophils/100 WBC (Bld) 72.2 % High 47-[address] [facility] Comment on above: Performed By: #### L 500.4050, L100.0100, L500.4100 ####[facility] [address] [place], [address] Nucleated RBC (Bld) [#/Vol] 0 10*3/uL Normal 0-[address] [facility] Comment on above: Performed By: #### L 500.4050, L100.0100, L500.4100 ####[facility] [address] [place], [address] Platelet mean volume (Bld) [Entitic vol] 9.6 fL Normal 6.2-12.[address] [facility] Comment on above: Performed By: #### L 500.4050, L100.0100, L500.4100 ####[facility] [address] [place], [address] Platelets (Bld) [#/Vol] 346 10*3/uL Normal 150-[address] [facility] Comment on above: Performed By: #### L 500.4050, L100.0100, L500.4100 ####[facility] [address] [place], [address] RBC (Bld) [#/Vol] 4.16 10*6/uL Low 4.2-5.4 [facility] Comment on above: Performed By: #### L 500.4050, L100.0100, L500.4100 ####[facility] [address] [place], [address] RDW SD 42.6 fl Normal 35.1-43.[address] [facility] Comment on above: Performed By: #### L 500.4050, L100.0100, L500.4100 ####[facility] [address] [place], [address] WBC (Bld) [#/Vol] 6.7 10*3/uL Normal 4.4-11.0 [facility] Comment on above: Performed By: #### L 500.4050, L100.0100, L500.4100 ####[facility] [address] [place], [address] Comprehensive Metabolic Prof [facility] 02-14-2024 Albumin [Mass/Vol] 3.5 g/dL Normal 3.2-5.0 [facility] Comment on above: Performed By: #### L 500.4050, L100.0100, L500.4100 ####[facility] [address] [place], [address] Albumin/Globulin [Mass ratio] 1.0 {ratio} Normal 0.9-2.[address] [facility] Comment on above: Performed By: #### L 500.4050, L100.0100, L500.4100 ####[facility] [address] [place], [address] ALK P 52 U/L Normal 45-[address] [facility] Comment on above: Performed By: #### L 500.4050, L100.0100, L500.4100 ####[facility] [address] [place], [address] ALT [Catalytic activity/Vol] 19 U/L Normal 13-[address] [facility] Comment on above: Performed By: #### L 500.4050, L100.0100, L500.4100 ####[facility] [address] [place], [address] AST [Catalytic activity/Vol] 22 U/L Normal 15-[address] [facility] Comment on above: Performed By: #### L 500.4050, L100.0100, L500.4100 ####[facility] [address] [place], [address] Bilirubin [Mass/Vol] 0.60 mg/dL Normal 0.20-1.00 [facility] Comment on above: Result Comment: For patients on eltrombopag therapy, use of Dimension [place] TBIL is not recommended. Performed By: #### L 500.4050, L100.0100, L500.4100 ####[facility] [address] [place], [address] BUN/CRE 15.2 RATIO Normal 10-[address] [facility] Comment on above: Performed By: #### L 500.4050, L100.0100, L500.4100 ####[facility] [address] [place], [address] CA,Total 9.4 mg/dL Normal 8.5-10.[address] [facility] Comment on above: Performed By: #### L 500.4050, L100.0100, L500.4100 ####[facility] [address] [place], [address] Chloride [Moles/Vol] 101 mmol/L Normal 98-107 [facility] Comment on above: Performed By: #### L 500.4050, L100.0100, L500.4100 ####[facility] [address] [place], [address] CO2 [Moles/Vol] 26.0 mmol/L Normal 21.0-32.[address] [facility] Comment on above: Performed By: #### L 500.4050, L100.0100, L500.4100 ####[facility] [address] [place], [address] Creatinine [Mass/Vol] 0.79 mg/dL Normal 0.55-1.02 [facility] Comment on above: Result Comment: The validity of the calculated GFR GFRAA in patients over 70 years has not been determined. Clinical correlation is essential. Performed By: #### L 500.4050, L100.0100, L500.4100 ####[facility] [address] [place], [address] EST GFR - AA 102 mL/min Normal >[address] [facility] Comment on above: Result Comment: Afri can Japanese GFR Calc Performed By: #### L 500.4050, L100.0100, L500.4100 ####[facility] [address] [place], [address] GAP 7 Normal 5-[address] [facility] Comment on above: Performed By: #### L 500.4050, L100.0100, L500.4100 ####[facility] [address] [place], [address] GFR/1.73 sq M.predicted among non-blacks MDRD (S/P/Bld) [Vol rate/Area] 84 mL/min/{1.73_m2} Normal >[address] [facility] Comment on above: Result Comment: Non- GFR Calc Performed By: #### L 500.4050, L100.0100, L500.4100 ####[facility] [address] [place], [address] Globulin (S) [Mass/Vol] 3.5 g/dL Normal 2.2-4.2 [facility] Comment on above: Performed By: #### L 500.4050, L100.0100, L500.4100 ####[facility] [address] [place], [address] Glucose [Mass/Vol] 103 mg/dL Normal 74-106 [facility] Comment on above: Result Comment: Fast ing Glucose result from 100 to 125 mg/dL suggests IMPAIRED HOMEOSTASIS per A.D.A. criteria. Performed By: #### L 500.4050, L100.0100, L500.4100 ####[facility] [address] [place], [address] Potassium [Moles/Vol] 4.2 mmol/L Normal 3.5-5.1 [facility] Comment on above: Performed By: #### L 500.4050, L100.0100, L500.4100 ####[facility] [address] [place], [address] Sodium [Moles/Vol] 134 mmol/L Low 136-145 [facility] Comment on above: Performed By: #### L 500.4050, L100.0100, L500.4100 ####[facility] [address] [place], [address] T PROT 7.0 g/dL Normal 6.4-8.[address] [facility] Comment on above: Performed By: #### L 500.4050, L100.0100, L500.4100 ####[facility] [address] [place], [address] Urea nitrogen [Mass/Vol] 12 mg/dL Normal 7-[address] [facility] Comment on above: Performed By: #### L 500.4050, L100.0100, L500.4100 ####[facility] [address] [place], [address] Internal Medicine Office Vis itomicha 02-14-2024 Internal Medicine Office Visit [facility] [address] [place] [address] [place] [address] OFFICE VISIT Date of Service: 02/14/24 MR#: [id number] Acct: [id number] Name: EDNA AKERS Rep #: [id number] : 1980 Provider: Dr. Mindy aguayo MD Age/Sex: 43/F Location: [facility] Status: Signed Intake Vital Signs 08/30/23 15:22 [...] in ap (more content not included)... Normal [facility] Lipid Profileon 02-14-2024 Cholesterol [Mass/Vol] 191 mg/dL Normal 200 [facility] Comment on above: Result Comment: <200 mg/dL Desirable 200-240 mg/dL Borderline >240 mg/dL High Risk Performed By: #### L 500.4050, L100.0100, L500.4100 ####[facility] [address] [facility] [place], [address] Cholesterol in HDL [Mass/Vol] 124 mg/dL Normal [facility] Comment on above: Result Comment: The drugs N-Acetylcysteine and Metamizole may falsely depress this assay. Reference Range HDL <40 mg/dL Low HDL Cholesterol HDL >or= 60 mg/dL High HDL Cholesterol Performed By: #### L 500.4050, L100.0100, L500.4100 ####[facility] [address] [place], [address] Cholesterol in LDL [Mass/Vol] 54 mg/dL Normal 0-[address] [facility] Comment on above: Performed By: #### L 500.4050, L100.0100, L500.4100 ####[facility] [address] [place], [address] Cholesterol in VLDL [Mass/Vol] 13 mg/dL Normal 5-[address] [facility] Comment on above: Performed By: #### L 500.4050, L100.0100, L500.4100 ####[facility] [address] [place], [address] Triglyceride [Mass/Vol] 66 mg/dL Normal [facility] Comment on above: Result Comment: The drugs N-Acetylcysteine and Metamizole may falsely depress this assay. Serum Triglycerides Reference Interval Normal <150 mg/dL Borderline high 150 - 199 mg/dL High 200 - 499 mg/dL Very High > or = 500 mg/dL Performed By: #### L 500.4050, L100.0100, L500.4100 ####[facility] [address] [place], [address] DBT Breast - bilateral scree ningon 08-21-2023 [facility] Culture, urineOrdered By: Robin Bo on 03-22-2023 Bacteria identified Cx Nom (U) Staphylococcus saprophyticus [facility] - Chemistry and C hemistry - challengeon 03-22-2023 HCG ( test) Ql (U) Negative [facility] Bilirubin Ql (U) Negative [facility] Glucose Ql (U) Negative [facility] Ketones Ql (U) Negative [facility] pH (U) 6.0 [pH] [facility] Specific gravity (U) [Rel density] 1.[address] [facility] Urobilinogen (U) [Mass/Vol] 0.7303157 mg/dL [facility] - Hematology and Cell countson 03-22-2023 Hemoglobin Ql (U) Hemolyzed [facility] - Specimen inform ationon 03-22-2023 Clarity (U) Slightly Hazy [facility] Color (U) Yellow [facility] - Urinalysison Nitrite Ql (U) Negative [facility] Protein Ql (U) Negative [facility] No Panel Informationon 03-22 Urine Leukocytes Positive [facility] Urine Non-Hemolyzed Blood Large [facility] Basophil percentageOrdered B y: Mindy Araujo on 03-01-2023 Chloride [Moles/Vol] 105 mmol/L 98-107 [facility] Glucose [Mass/Vol] 101 mg/dL 74-106 [facility] Comment on above: Fasting Glucose resu lt from 100 to 125 mg/dL suggests IMPAIRED HOMEOSTASIS per A.D.A. criteria. Potassium [Moles/Vol] 3.8 mmol/L 3.5-5.1 [facility] Sodium [Moles/Vol] 139 mmol/L 136-145 [facility] - Chemistry and C hemistry - challengeOrdered By: Mindy Araujo on 03-01-2023 CO2 [Moles/Vol] 26.0 mmol/L 21.0-32.[address] [facility] Magnesium [Mass/Vol] 2.3 mg/dL 1.6-2.6 [facility] Urea nitrogen/Creatinine [Mass ratio] 15.1 mg/mg 10-[address] [facility] No Panel InformationOrdered By: Mindy Araujo on 03-01-2023 Estimated GFR (MDRD) Amer 85 mL/min >[address] [facility] Comment on above: GFR Calc Estimated GFR (MDRD) Non-Af Amer 70 mL/min >[address] [facility] Comment on above: Non- GFR Calc Serum or plasma calcium stephany urement (mass/volume)Ordered By: Mindy Araujo on 03-01-2023 Calcium [Mass/Vol] 9.4 mg/dL 8.5-10.1 [facility] Serum or plasma creatinine m easurement (mass/volume)Ordered By: Mindy Araujo on 03-01-2023 Creatinine [Mass/Vol] 0.93 mg/dL 0.55-1.02 [facility] Comment on above: The validity of the calculated GFR & GFRAA in patients over 70 years has not been determined. Clinical correlation is essential. Serum or plasma urea nitroge n measurement (mass/volume)Ordered By: Mindy Araujo on 03-01-2023 Urea nitrogen [Mass/Vol] 14 mg/dL 7-[address] [facility] Thin prep Papanicolaou smear with manual screeningOrdered By: Mindy Araujo on 03-01-2023 Thin prep Papanicolaou smear with manual screening 8 5-[address] [facility] Absolute lymphocyte countOrd ered By: Nicolás Oscar on 10-25-2022 Lymphocytes Auto (Unsp spec) [#/Vol] 1.33 10*3/uL 0.83-4.[address] [facility] Basophil percentageOrdered B y: Nicolás Oscar on 10-25-2022 Basophils/100 WBC (Bld) 0.8 % 0-[address] [facility] Bilirubin [Mass/Vol] 0.70 mg/dL 0.20-1.00 [facility] Comment on above: For patients on eltr ombopag therapy, use of Dimension [place] TBIL is not recommended. Chloride [Moles/Vol] 103 mmol/L 98-107 [facility] Cholesterol [Mass/Vol] 214 mg/dL <200 [facility] Comment on above: <200 mg/dL Desirable 200-240 mg/dL Borderline >240 mg/dL High Risk Eosinophils/100 WBC (Bld) 0.3 % 0-[address] [facility] Glucose [Mass/Vol] 135 mg/dL 74-106 [facility] Comment on above: Fasting Glucose resu lt greater than or equal to 126 mg/dL suggests DIABETES MELLITUS per A.D.A. criteria. Neutrophils (Bld) [#/Vol] 4.5 10*3/uL 2.0-7.[address] [facility] Neutrophils/100 WBC (Bld) 71.1 % 47-[address] [facility] Potassium [Moles/Vol] 4.0 mmol/L 3.5-5.1 [facility] Protein [Mass/Vol] 7.1 g/dL 6.4-8.2 [facility] Sodium [Moles/Vol] 135 mmol/L 136-145 [facility] Triglyceride [Mass/Vol] 76 mg/dL <[address] [facility] Comment on above: The drugs N-Acetylcy steine and Metamizole may falsely depress this assay.Serum Triglycerides Reference Interval Normal <150 mg/dL Borderline high 150 - 199 mg/dL High 200 - 499 mg/dL Very High > or = 500 mg/dL WBC (Bld) [#/Vol] 6.3 10*3/uL 4.4-11.0 [facility] Blood erythrocytes count (nu mber/volume)Ordered By: Nicolás Oscar on 10-25-2022 RBC (Bld) [#/Vol] 4.45 10*6/uL 4.2-5.4 [facility] Blood hemoglobin measurement (mass/volume)Ordered By: Nicolás Oscar on 10-25-2022 Hemoglobin (Bld) [Mass/Vol] 13.4 g/dL 12.0-15.[address] [facility] Blood lymphocytes/100 leukoc ytesOrdered By: Nicolás Oscar on 10-25-2022 Lymphocytes/100 WBC (Bld) 21.0 % 19-[address] [facility] Blood monocytes/100 leukocyt esOrdered By: Nicolás Oscar on 10-25-2022 Monocytes/100 WBC (Bld) 6.5 % 0-[address] [facility] Blood platelet mean volumeOr dered By: Nicolás Oscar on 10-25-2022 Platelet mean volume (Bld) [Entitic vol] 9.6 fL 6.2-12.[address] [facility] Determination of erythrocyte mean corpuscular volume (MCV)Ordered By: Nicolás Oscar on 10-25-2022 MCV (RBC) [Entitic vol] 92.6 fL 81-[address] [facility] Hematocrit Auto (Bld) [Volum e fraction]Ordered By: Nicolás Oscar on 10-25-2022 Hematocrit (Bld) [Volume fraction] 41.2 % 37-[address] [facility] - Chemistry and C hemistry - challengeOrdered By: Nicolás Oscar on 10-25-2022 ALP [Catalytic activity/Vol] 53 U/L 45-[address] [facility] ALT [Catalytic activity/Vol] 19 U/L 13-[address] [facility] CO2 [Moles/Vol] 26.0 mmol/L 21.0-32.[address] [facility] Globulin (S) [Mass/Vol] 3.7 g/dL 2.2-4.[address] [facility] Urea nitrogen/Creatinine [Mass ratio] 12.5 mg/mg 10-[address] [facility] Laboratory - Hematology and Cell countsOrdered By: Nicolás Oscar on 10-25-2022 Erythrocyte distribution width (RBC) [Entitic vol] 47.5 fL 35.1-43.[address] [facility] Erythrocyte distribution width (RBC) [Ratio] 14.0 % 11.6-14.[address] [facility] Immature granulocytes/100 WBC (Bld) 0.300 % 0.0-0.[address] [facility] Comment on above: IG% - Immature Granu locytes (promyelocytes, myelocytes and metamyelocytes) > 1% indicates that a LEFT SHIFT is Present. MCH (RBC) [Entitic mass] 30.1 pg 27.0-32.[address] [facility] Nucleated RBC/100 WBC (Bld) [Ratio] 0 % 0-[address] [facility] MCHC Auto (RBC) [Mass/Vol]Or dered By: Nicolás Oscar on 10-25-2022 MCHC (RBC) [Mass/Vol] 32.5 g/dL 32-36 [facility] No Panel InformationOrdered By: Nicolás Oscar on 10-25-2022 Estimated GFR (MDRD) Amer 90 mL/min >[address] [facility] Comment on above: GFR Calc Estimated GFR (MDRD) Non-Af Amer 75 mL/min >[address] [facility] Comment on above: Non- GFR Calc Thyroid Stimulating Hormone (TSH) 0.92 uIU/mL 0.358-3.[address] [facility] Platelets bldOrdered By: Fani Oscar on 10-25-2022 Platelets (Bld) [#/Vol] 364 10*3/uL 150-[address] [facility] Serum or plasma albumin stephany urement (mass/volume)Ordered By: Nicolás Oscar on 10-25-2022 Albumin [Mass/Vol] 3.4 g/dL 3.2-5.0 [facility] Serum or plasma albumin/glob ulin mass ratioOrdered By: Nicolás Oscar on 10-25-2022 Albumin/Globulin [Mass ratio] 0.9 {ratio} 0.9-2.[address] [facility] Serum or plasma calcium stephany urement (mass/volume)Ordered By: Nicolás Oscar on 10-25-2022 Calcium [Mass/Vol] 8.9 mg/dL 8.5-10.1 [facility] Serum or plasma cholesterol in HDL measurement (mass/volume)Ordered By: Nicolás Oscar on 10-25-2022 Cholesterol in HDL [Mass/Vol] 130 mg/dL >[address] [facility] Comment on above: The drugs N-Acetylcy steine and Metamizole may falsely depress this assay. Reference Range HDL <40 mg/dL Low HDL Cholesterol HDL >or= 60 mg/dL High HDL Cholesterol Serum or plasma cholesterol in VLDL measurement (mass/volume)Ordered By: Nicolás Oscar on 10-25-2022 Cholesterol in VLDL [Mass/Vol] 15 mg/dL 5-[address] [facility] Serum or plasma creatinine m easurement (mass/volume)Ordered By: Nicolás Oscar on 10-25-2022 Creatinine [Mass/Vol] 0.88 mg/dL 0.55-1.02 [facility] Comment on above: The validity of the calculated GFR & GFRAA in patients over 70 years has not been determined. Clinical correlation is essential. Serum or plasma low density lipoprotein (LDL) cholesterol measurement (mass/volume)Ordered By: Nicolás Oscar on 10-25-2022 Cholesterol in LDL [Mass/Vol] 69 mg/dL 0-[address] [facility] Serum or plasma urea nitroge n measurement (mass/volume)Ordered By: Nicolás Oscar on 10-25-2022 Urea nitrogen [Mass/Vol] 11 mg/dL 7-[address] [facility] Thin prep Papanicolaou smear with manual screeningOrdered By: Nicolás Oscar on 10-25-2022 Thin prep Papanicolaou smear with manual screening 32 U/L 15-[address] [facility] Thin prep Papanicolaou smear with manual screening 6 5-[address] [facility] Whole blood hemoglobin A1c/t otal hemoglobin ratio (mass fraction)Ordered By: Nicolás Oscar on 10-25-2022 HbA1c (Bld) [Mass fraction] 5.0 % 3.8-5.[address] [facility] Comment on above: Normal < 5.7 % Predi abetic 5.7 - 6.4 % Diabetic >or= 6.5 % Please note range changes. Vital Signs Date Time Vital Sign Value Performing Clinician Faci polyy 01-10-2025 08:09-0400 Body height 162.[address] Mindy Araujo MD Work Phone: [facility] 01-10-2025 08:09-0400 Body mass index (BMI) [Ratio] 24.2 kg/m2 Dr. Mindy Araujo MD Work Phone: [facility] 01-10-2025 08:09-0400 Body temperature 96.9 [degF] Dr. Mindy Araujo MD Work Phone: [facility] 01-10-2025 08:09-0400 Body weight 64.[address] Mindy Araujo MD Work Phone: [facility] 01-10-2025 08:09-0400 Diastolic blood pressure 76 mm[Hg] Dr. Mindy Araujo MD Work Phone: [facility] 01-10-2025 08:09-0400 Heart rate 80 /min Dr. Mindy Araujo MD Work Phone: [facility] 01-10-2025 08:09-0400 Respiratory rate 16 /min Dr. Mindy Araujo MD Work Phone: [facility] 01-10-2025 08:09-0400 SaO2% (BldA) [Mass fraction] 98 % Dr. Mindy Araujo MD Work Phone: [facility] 01-10-2025 08:09-0400 Systolic blood pressure 118 mm[Hg] Dr. Mindy Araujo MD Work Phone: [facility] 01-03-2025 18:46-0400 Body temperature 98 [degF] Dr. Mindy Araujo MD Work Phone: [facility] 01-03-2025 18:46-0400 Diastolic blood pressure 88 mm[Hg] Dr. Mindy Araujo MD Work Phone: [facility] 01-03-2025 18:46-0400 Heart rate 89 /min Dr. Mindy Araujo MD Work Phone: [facility] 01-03-2025 18:46-0400 Respiratory rate 18 /min Dr. Mindy Araujo MD Work Phone: [facility] 01-03-2025 18:46-0400 SaO2% (BldA) [Mass fraction] 100 % Dr. Mindy Araujo MD Work Phone: [facility] 01-03-2025 18:46-0400 Systolic blood pressure 142 mm[Hg] Dr. Mindy Araujo MD Work Phone: [facility] 01-03-2025 14:21-0400 Body height 162.[address] Mindy Araujo MD Work Phone: [facility] 01-03-2025 14:21-0400 Body mass index (BMI) [Ratio] 24.4 kg/m2 Dr. Mindy Araujo MD Work Phone: [facility] 01-03-2025 14:21-0400 Body weight 64.[address] Mindy Araujo MD Work Phone: [facility] 12-30-2024 08:54-0400 Body height 162.[address] Mindy Araujo MD Work Phone: [facility] 12-30-2024 08:54-0400 Body mass index (BMI) [Ratio] 23.6 kg/m2 Dr. Mindy Araujo MD Work Phone: [facility] 12-30-2024 08:54-0400 Body temperature 96.6 [degF] Dr. Mindy Araujo MD Work Phone: [facility] 12-30-2024 08:54-0400 Body weight 62.[address] Mindy Araujo MD Work Phone: [facility] 12-30-2024 08:54-0400 Diastolic blood pressure 68 mm[Hg] Dr. Mindy Araujo MD Work Phone: [facility] 12-30-2024 08:54-0400 Heart rate 86 /min Dr. Mindy Araujo MD Work Phone: [facility] 12-30-2024 08:54-0400 Respiratory rate 16 /min Dr. Mindy Araujo MD Work Phone: [facility] 12-30-2024 08:54-0400 SaO2% (BldA) [Mass fraction] 97 % Dr. Mindy Araujo MD Work Phone: [facility] 12-30-2024 08:54-0400 Systolic blood pressure 118 mm[Hg] Dr. Mindy Araujo MD Work Phone: [facility] 12-15-2024 08:21-0400 Body height 162.[address] Mindy Araujo MD Work Phone: [facility] 12-15-2024 08:21-0400 Body mass index (BMI) [Ratio] 23.8 kg/m2 Dr. Mindy Araujo MD Work Phone: [facility] 12-15-2024 08:21-0400 Body weight 63.[address] Mindy Araujo MD Work Phone: [facility] 12-15-2024 08:21-0400 Diastolic blood pressure 70 mm[Hg] Dr. Mindy Araujo MD Work Phone: [facility] 12-15-2024 08:21-0400 Heart rate 76 /min Dr. Mindy Araujo MD Work Phone: [facility] 12-15-2024 08:21-0400 Respiratory rate 18 /min Dr. Mindy Araujo MD Work Phone: [facility] 12-15-2024 08:21-0400 SaO2% (BldA) [Mass fraction] 99 % Dr. Mindy Araujo MD Work Phone: [facility] 12-15-2024 08:21-0400 Systolic blood pressure 118 mm[Hg] Dr. Mindy Araujo MD Work Phone: [facility] 11-16-2024 08:07-0400 Body temperature 98.4 [degF] Dr. Mindy Araujo MD Work Phone: [facility] 11-16-2024 08:07-0400 Diastolic blood pressure 70 mm[Hg] Dr. Mindy Araujo MD Work Phone: [facility] 11-16-2024 08:07-0400 Heart rate 72 /min Dr. Mindy Araujo MD Work Phone: [facility] 11-16-2024 08:07-0400 Respiratory rate 14 /min Dr. Mindy Araujo MD Work Phone: [facility] 11-16-2024 08:07-0400 SaO2% (BldA) [Mass fraction] 97 % Dr. Mindy Araujo MD Work Phone: [facility] 11-16-2024 08:07-0400 Systolic blood pressure 110 mm[Hg] Dr. Mindy Araujo MD Work Phone: [facility] 05-31-2024 14:18-0500 Body height 161.3 cm Makenzie Clancy MD Work Phone: [facility] 05-31-2024 14:18-0500 Body mass index (BMI) [Ratio] 24.13 kg/m2 Makenzie Clancy MD Work Phone: [facility] 05-31-2024 14:18-0500 Body weight 62.78 kg Makenzie Clancy MD Work Phone: [facility] 05-31-2024 14:18-0500 Diastolic blood pressure 86 mm[Hg] Makenzie Clancy MD Work Phone: [facility] 05-31-2024 14:18-0500 Systolic blood pressure 128 mm[Hg] Makenzie Clancy MD Work Phone: [facility] 07-10-2023 16:05-0500 Diastolic blood pressure 72 mm[Hg] Kisha Almanzar MD Work Phone: [facility] 07-10-2023 16:05-0500 Systolic blood pressure 132 mm[Hg] Kisha Almanzar MD Work Phone: [facility] 07-10-2023 15:59-0500 Body height 161.9 cm Kisha Almanzar MD Work Phone: [facility] 07-10-2023 15:59-0500 Body weight 61.24 kg Kisha Almanzar MD Work Phone: [facility] 03-22-2023 16:27-0400 Body temperature 98.7 [degF] Dr. Mindy Araujo Work Phone: [facility] 03-22-2023 16:27-0400 Diastolic blood pressure 92 mm[Hg] Dr. Mindy Araujo Work Phone: [facility] 03-22-2023 16:27-0400 Heart rate 74 /min Dr. Mindy Araujo Work Phone: [facility] 03-22-2023 16:27-0400 Respiratory rate 16 /min Dr. Mindy Araujo Work Phone: [facility] 03-22-2023 16:27-0400 SaO2% (BldA) [Mass fraction] 98 % Dr. Mindy Araujo Work Phone: [facility] 03-22-2023 16:27-0400 Systolic blood pressure 135 mm[Hg] Dr. Mindy Araujo Work Phone: [facility] 03-01-2023 08:09-0400 Body height 162.[address] Mindy Araujo Work Phone: [facility] 03-01-2023 08:09-0400 Body mass index (BMI) [Ratio] 22.4 kg/m2 Dr. Mindy Araujo Work Phone: [facility] 03-01-2023 08:09-0400 Body temperature 98.6 [degF] Dr. Mindy Araujo Work Phone: [facility] 03-01-2023 08:09-0400 Body weight 59.[address] Mindy Araujo Work Phone: [facility] 03-01-2023 08:09-0400 Diastolic blood pressure 86 mm[Hg] Dr. Mindy Araujo Work Phone: [facility] 03-01-2023 08:09-0400 Heart rate 72 /min Dr. Mindy Araujo Work Phone: [facility] 03-01-2023 08:09-0400 Respiratory rate 18 /min Dr. Mindy Araujo Work Phone: [facility] 03-01-2023 08:09-0400 SaO2% (BldA) [Mass fraction] 98 % Dr. Mindy Araujo Work Phone: [facility] 03-01-2023 08:09-0400 Systolic blood pressure 124 mm[Hg] Dr. Mindy Araujo Work Phone: [facility] 10-25-2022 10:31-0400 Body height 162.[address] Mindy Araujo Work Phone: [facility] 10-25-2022 10:31-0400 Body mass index (BMI) [Ratio] 22.8 kg/m2 Dr. Mindy Araujo Work Phone: [facility] 10-25-2022 10:31-0400 Body temperature 98.8 [degF] Dr. Mindy Araujo Work Phone: [facility] 10-25-2022 10:31-0400 Body weight 60.[address] Mindy Araujo Work Phone: [facility] 10-25-2022 10:31-0400 Diastolic blood pressure 90 mm[Hg] Dr. Mindy Araujo Work Phone: [facility] 10-25-2022 10:31-0400 Heart rate 74 /min Dr. Mindy Araujo Work Phone: [facility] 10-25-2022 10:31-0400 Respiratory rate 16 /min Dr. Mindy Araujo Work Phone: [facility] 10-25-2022 10:31-0400 SaO2% (BldA) [Mass fraction] 99 % Dr. Mindy Araujo Work Phone: [facility] 10-25-2022 10:31-0400 Systolic blood pressure 150 mm[Hg] Dr. Mindy Araujo Work Phone: [facility] 04-07-2022 09:13-0500 Body weight 60.06 kg Nurse Wstr Work Phone: [facility] 04-07-2022 09:13-0500 Diastolic blood pressure 78 mm[Hg] Nurse Wstr Work Phone: [facility] 04-07-2022 09:13-0500 Systolic blood pressure 130 mm[Hg] Nurse Wstr Work Phone: [facility] 02-02-2022 08:52-0400 Body height 162.6 cm Kisha Almanzar MD Work Phone: [facility] 02-02-2022 08:52-0400 Body weight 56.7 kg Kisha Almanzar MD Work Phone: [facility] 02-02-2022 08:52-0400 Diastolic blood pressure 70 mm[Hg] Kisha Almanzar MD Work Phone: [facility] 02-02-2022 08:52-0400 Systolic blood pressure 124 mm[Hg] Kisha Almanzar MD Work Phone: [facility] Encounters Encounter Date Encounter Type Care Provider Facility Start: 01-10-2025 End: 01-10-[address] Mindy Araujo MD Work Phone: -[facility] Start: 01-10-2025 End: 01-10-[address] Mindy Araujo MD -[facility] Work Phone: Start: 01-03-2025 End: 01-03-2025 Emergency department patient visit Dr. Mindy Araujo MD Work Phone: -Emergency Department Work Phone: Start: 12-30-2024 Encounter for genera l adult medical examination without abnormal findings [facility] Start: 12-30-2024 End: 12-30-[address] Mindy Araujo MD [facility] Work Phone: Start: 12-30-2024 End: 12-30-[address] Mindy Araujo MD [facility] Start: 12-30-2024 End: 12-30-[address] Mindy Araujo MD Work Phone: -[facility] Start: 12-15-2024 End: 12-15-2024 [facility] Work Phone: Start: 12-15-2024 End: 12-15-[address] Mindy Araujo MD Work Phone[facility] Start: 12-15-2024 End: 12-15-2024 [facility] Start: 11-16-2024 End: 11-16-[address] Mindy Araujo MD Work Phone: [facility] Work Phone: Start: 11-16-2024 End: 11-16-2024 [...] Start: 08-21-2024 End: 08-21-2024 ambulatory MAKENZIE CLANCY Facility:[facility] Start: 08-21-2024 End: 08-21-2024 Subsequent hospital visit by physician Screen Mammo [facility] M[facility] Comment on above: Encounter for screen ing mammogram for breast cancer [Z12.31] Start: 07-11-2024 End: 07-11-2024 ambulatory [facility] Facility[facility] Start: 07-11-2024 End: 07-11-2024 [facility] Start: 05-31-2024 End: 05-31-2024 ambulatory MAKENZIE CLANCY Facility:[facility] Start: 05-31-2024 End: 05-31-2024 Patient encounter procedure Makenzie Clancy MD Work Phone: OB/Gynecology Comment on above: Encounter for gyneco logical examination (general) (routine) without abnormal findings (Primary Dx); Screening for cervical cancer; Encounter for screening for human papillomavirus (HPV); Encounter for screening mammogram for breast cancer Start: 05-31-2024 End: 05-31-2024 Patient encounter status Makenzie Clancy MD Work Phone: [facility] Start: 03-25-2024 End: 03-25-2024 ambulatory Jame TAY Facility:[facility] Start: 02-14-2024 End: 02-14-2024 ambulatory [facility] Facility:[facility] Start: 02-14-2024 End: 02-14-2024 ambulatory [facility] Facility:[facility] Start: 08-21-2023 Documentation procedure Mammog amy Coordinator [facility] Start: 08-21-2023 Letter encounter Mammography Coordinator [facility] Department Start: 08-21-2023 End: 08-21-2023 Patient encounter [facility] Start: 08-21-2023 End: 08-21-2023 Subsequent hospital visit by physician Screen Mammo [facility] Mammogram Comment on above: Encounter [...] encounter status Kisha Almanzar MD Work Phone: [facility] Start: 07-04-2023 Refill Kisha gonzalez MD Work Phone: OB/Gynecology Comment on above: Refill Request Start: 05-01-2023 Get Medical Advice Kisha Almanzar MD Work Phone: OB/Gynecology Comment on above: mail order pharmacy Start: 03-22-2023 End: 03-22-[address] Mindy Araujo Work Phone: [facility] Work Phone: Start: 03-22-2023 End: 03-22-[address] Mindy Araujo Work Phone: [facility]-Laboratory, Specimen Work Phone: Start: 03-22-2023 End: 03-22-[address] Mindy Araujo Work Phone: [facility] Work Phone: Start: 03-08-2023 ambulatory Kisha gonzalez MD Work Phone: [facility] Start: 03-08-2023 Patient encounter procedure Kisha Almanzar MD Work Phone: OB/Gynecology Comment on above: annual visit Start: 03-01-2023 End: 03-01-[address] Mindy Araujo Work Phone: [facility] Internal Medicine Work Phone: Start: 10-25-2022 End: 10-25-[address] Mindy Araujo Work Phone: [facility] Work Phone: Start: 10-25-2022 End: 10-25-[address] Mindy Araujo Work Phone: [facility] Internal Medicine Start: 04-12-2022 ambulatory Kisha gonzalez MD Work Phone: OB/Gynecology Comment on above: Daughter irregular p eriod Start: 04-07-2022 End: 04-07-2022 Nursing evaluation of patient and report Nurse Insurance Follow Up Specialist [facility] Work Phone: OB/Gynecology Comment on [...] m caregiver Kisha Almanzar MD Work Phone: [facility] Start: 03-06-2018 Patient encounter procedure Kisha Almanzar MD Work Phone: OB/Gynecology Comment on above: RE: Request an Appoi ntment Procedures Date Procedure Procedure Detail Performing Clinician Start: 01-03-2025 X-ray of chest, PA a nd lateral views Dr. Mindy Araujo MD Work Phone: Start: 01-03-[address] Mindy Araujo MD Work Phone: Start: 12-16-[address] Bri Araujo [...] malign ant neoplasm of breast Mammogram Screening [facility] Start: 05-31-2025 Screening for malign ant neoplasm of cervix Cervical Cancer Screening [facility] Start: 02-13-2025 HPV TESTING HPV TESTING [facility] Start: 02-13-2025 PAP TESTING PAP TESTING [facility] Start: 02-13-2025 Screening for malign ant neoplasm of cervix [facility] Start: 01-27-2025 Influenza vaccination Influenz a Vaccine (Season Ended) [facility] Start: 01-03-2025 End: 01-03-[address] [facility] Start: 01-03-2025 [facility] Start: 12-30-2024 CBC W Auto Different ial panel - Blood [facility] Start: 12-30-2024 Comprehensive metabo lic 2000 panel - Serum or Plasma [facility] Start: 12-30-2024 Lipid 1996 panel - S ricardo or Plasma [facility] Start: 08-21-2024 End: 08-21-2024 Patient encounter procedure 08/21/2024 7:10 AM EDT Appointment Mammogram [address] [place] [address] Mammo with maximilian Mammogram Comment on above: Mammo with maximilian Start: 08-20-2024 Screening for malign ant neoplasm of breast Mammogram Screening [facility] Start: 01-28-2024 Covid-19 Vaccine ( season) Covid-19 Vaccine ( season) [facility] Start: 01-28-2024 Influenza vaccination Influenza Vacc ine (#1) [facility] Start: 05-29-2023 Depression Assessment Depression Ass essment [facility] Start: 01-27-2023 Covid-19 Vaccine ( season) Covid-19 Vaccine ( season) [facility] Start: 01-27-2023 Influenza vaccination Influenza Vacc ine (#1) [facility] Start: 10-14-2022 Urine microalbumin profile [facility] Start: 08-05-2022 HPV Vaccine (3 - 3-d ose SCDM series) HPV Vaccine (3 - 3-dose SCDM series) [facility] Start: 08-02-2022 HPV Vaccine (3 - 3-d ose SCDM series) HPV Vaccine (3 - 3-dose SCDM series) [facility] Start: 08-01-2022 9vhpv vacc 2/3 dose sched im use HUMAN PAPILLOMAVIRUS 9-VALENT HPV IM Immunization/Injection Routine Need for prophylactic vaccination/inoculation against viral disease Expected: 08/01/2022 (Approximate) [facility] Work Phone: Comment on above: Expected: 08/01/2022 (Approximate) Start: 05-29-2022 Depression Assessment Depression Ass essment [facility] Start: 04-03-2022 9vhpv vacc 2/3 dose sched im use HUMAN PAPILLOMAVIRUS 9-VALENT HPV IM Immunization/Injection Routine Need for prophylactic vaccination/inoculation against viral disease Expected: 04/03/2022 (Approximate) [facility] Work Phone: Comment on above: Expected: 04/03/2022 (Approximate) Start: 01-27-2022 Influenza vaccination [facility] Start: 07-22-2021 COVID-19 VACCINE (4 - Booster for Pfizer series) COVID-19 VACCINE (4 - Booster for Pfizer series) [facility] Start: 05-29-2021 [facility]PRESS[facility]MENT [facility] Start: 01-13-2021 COVID-19 VACCINE (3 - Booster for Pfizer series) COVID-19 VACCINE (3 - Booster for Pfizer series) [facility] Start: 2020 Mammography [facility] Start: 2020 Screening for malign ant neoplasm of breast Mammogram Screening [facility] Start: 1998 Anxiety Screening Anxiety Screening [facility] Start: 1998 Depression Screening Depression Scre ening [facility] Start: 1998 HEPATITIS C SCREENING HEPATITIS C [facility] Start: 1998 Hepatitis C screening Hepatitis C [facility] Start: 1992 Adult depression scr eening assessment DEPRESSION SCREENING [facility] Alanine aminotransfe rase [Enzymatic activity/volume] in Serum or Plasma [facility] Albumin [Mass/volume ] in Serum or Plasma [facility] Alkaline phosphatase [Enzymatic activity/volume] in Serum or Plasma [facility] Anion gap in Serum o r Plasma [facility] Bilirubin, total measurement [facility] BUN/Creatinine ratio [facility] Calcium [Mass/volume ] in Serum or Plasma [facility] Carbon dioxide, tota l [Moles/volume] in Central venous blood [facility] Chlamydia trachomatis+Neisseria gonorrhoeae DNA [Presence] in Unspecified specimen by JORGE with probe detection GC/CHLAMYDIA DNA DET Lab Routine Screen for STD (sexually transmitted disease) Ordered: 02/02/2022 [facility] Work Phone: Comment on above: Ordered: 02/02/2022 Cholesterol [Mass/vo lume] in Serum or Plasma [facility] Cholesterol in HDL [Mass/volume] in Serum or Plasma [facility] Comprehensive metabo lic 2000 panel - Serum or Plasma [facility] Creatinine [Mass/vol ume] in Serum or Plasma [facility] End: 08-08-2024 DBT Breast - bilateral screening NICK SCREENING W MAXIMILIAN Radiology Routine Encounter for gynecological examination (general) (routine) without abnormal findings Encounter for screening mammogram for breast cancer 1 Occurrences starting 07/10/2023 until 08/08/2024 [facility] Work Phone: Comment on above: 1 Occurrences starti ng 07/10/2023 until 08/08/2024 End: 06-30-2025 DBT Breast - bilateral screening NICK SCREENING W MAXIMILIAN Radiology Routine Encounter for screening mammogram for breast cancer 1 Occurrences starting 05/31/2024 until 06/30/2025 [facility] Work Phone: Comment on above: 1 Occurrences starti ng 05/31/2024 until 06/30/2025 DBT Breast - bilater al screening NICK SCREENING W MAXIMILIAN Radiology Routine Encounter for screening mammogram for breast cancer 08/21/2024 7:38 AM EDT [facility] Work Phone: Erythrocyte mean corpuscular volume determination [facility] Glucose [Mass/volume ] in Serum or Plasma [facility] Hematocrit [Volume Fraction] of Blood [facility] [facility] Hemoglobin [Mass/vol ume] in Blood [facility] Leukocytes [#/volume ] in Blood [facility] Low density lipoprot ein cholesterol measurement [facility] Magnesium measurement [facility] End: 03-04-2023 NICK SCREENING W MAXIMILIAN NICK SCREENING W MAXIMILIAN Radiology Routine Encounter for gynecological examination (general) (routine) without abnormal findings Encounter for screening mammogram for breast cancer 1 Occurrences starting 02/02/2022 until 03/04/2023 [facility] Work Phone: Comment on above: 1 Occurrences starti ng 02/02/2022 until 03/04/2023 Mean corpuscular hemoglobin concentration determination [facility] Mean corpuscular hemoglobin determination [facility] Measurement of renal function [facility] Neutrophil count [facility] Neutrophil percent differential count [facility] PAP TEST PAP TEST Lab Briana de leon Encounter for gynecological examination (general) (routine) without abnormal findings Screening for cervical cancer Encounter for screening for human papillomavirus (HPV) 05/31/2024 2:56 PM EST [facility] Patient Education Alcohol Addict ion ED Chest Pain, Noncardiac [facility] Work Phone: Platelets [#/volume] in Blood [facility] Potassium measurement [facility] Red blood cell count [facility] Red cell distributio n width determination [facility] Serum chloride measurement [facility] Sodium measurement [facility] T VAGINALIS AMPLIFICATION T VAGI NALIS AMPLIFICATION Lab Routine Screen for STD (sexually transmitted disease) Ordered: 02/02/2022 [facility] Work Phone: Comment on above: Ordered: 02/02/2022 T4 free [address] [facility] Therapeutic prophylactic/dx injection subq/im THER/PROPH/DIAG INJ, SC/IM Procedures Routine Need for prophylactic vaccination/inoculation against viral disease Ordered: 02/02/2022 [facility] Work Phone: Comment on above: Ordered: 02/02/2022 Thyroid stimulating hormone measurement [facility] Total cholesterol:HD L ratio measurement [facility] Total protein measurement [facility] Triglycerides measurement [facility] Urea nitrogen [Mass/volume] in Serum or Plasma [facility] Urinalysis complete panel - Urine [facility] VLDL cholesterol measurement [facility] Immunizations Immunization Date Immunization Notes Care Provider Fernando farmer 07-10-2023 Human Papillomavirus 9-valent vaccine Kisha Almanzar MD Work Phone: [facility] 04-07-2022 Human Papillomavirus 9-valent vaccine Nurse [facility] Work Phone: [facility] Work Phone: 03-30-2022 influenza, injectabl e, quadrivalent, preservative free Kisha Almanzar MD Work Phone: [facility] Work Phone: 03-30-2022 influenza virus vacc ine, unspecified formulation Kisha Almanzar MD Work Phone: [facility] 02-02-2022 Human Papillomavirus 9-valent vaccine Kisha Almanzar MD Work Phone: [facility] 04-20-2018 influenza, injectabl e, quadrivalent, contains preservative Kisha Almanzar MD Work Phone: [facility] 04-20-2018 influenza virus vacc ine, unspecified formulation Kisha Almanzar MD Work Phone: [facility] 03-14-2016 influenza, injectabl e, quadrivalent, preservative free Dr. Mindy Araujo Work Phone: [facility] 03-14-2016 influenza, seasonal, injectable Dr. Mindy Araujo Work Phone: [facility] 03-09-2015 influenza, injectabl e, quadrivalent, preservative free Dr. Mindy Araujo Work Phone: [facility] 03-09-2015 influenza, seasonal, injectable Dr. Mindy Araujo Work Phone: [facility] 03-09-2015 tetanus toxoid, redu bhavesh diphtheria toxoid, and acellular pertussis vaccine, adsorbed Dr. Mindy Araujo Work Phone: [facility] 04-12-2014 influenza virus vacc ine, unspecified formulation Kisha Almanzar MD Work Phone: [facility] 04-10-2014 influenza, injectabl e, quadrivalent, preservative free Dr. Mindy Araujo Work Phone: [facility] 04-10-2014 influenza, seasonal, injectable Dr. Mindy Araujo Work Phone: [facility] 06-10-[address] Mindy Araujo Work Phone: [facility] 10-14-2012 tetanus toxoid, redu bhavesh diphtheria toxoid, and acellular pertussis vaccine, adsorbed Kisha Almanzar MD Work Phone: [facility] Work Phone: 03-19-2012 influenza virus vacc ine, unspecified formulation Kisha Almanzar MD Work Phone: [facility] Payers Date Payer Category Payer Self-pay [id number] 2018 Private Health Insurance MMO SU[employer] PPO [id number] 2018 Unknown [id number] 2018 Unknown [id number] 2017 Unknown [id number] 2013 Unknown [facility] [place] [id number] Unknown [id number] Unknown [id number] Unknown [id number] Unknown [id number] 462 Unknown [id number] 462 Unknown [id number] 462 Unknown [id number] 462 Unknown [id number] 462 Unknown [id number] 462 Unknown [id number] 462 Unknown [id number] 462 Social History Date Type Detail Facility Start: 02-02-2022 End: 01-03-2025 Tobacco smoking status NHIS Never smoked tobacco [facility] Start: 02-14-2020 End: 05-31-2024 Alcohol intake Current drinker of alcohol (finding) [facility] Start: 02-14-2020 End: 07-10-2023 Alcohol intake [facility] Start: 06-05-2007 History SDOH Alcohol Comment SOCIALLY FOUR TIMES Q MONTH,NOT WHILE [facility] Start: 1980 Sex Assigned At Not on file [facility] Start: 01-15-2020 End: 04-07-2022 Exposure to SARS-CoV-2 (event) Not sure [facility] Start: 02-02-2022 Tobacco use and exposure Smokeless tobacco non-user [facility] Start: 10-25-2022 End: 03-22-2023 Tobacco smoking status ALIS Unknown if ever smoked [facility] Start: 1980 Sex Assigned At Female W [facility] Start: 04-07-2022 End: 07-10-2023 Tobacco use panel [facility] National Score (1-100), lower number is lower risk 57 [facility] Functional Status Date Assessment Result Facility 10-17-2014 Are you deaf, or do you have serious difficulty hearing No 10/17/2014 2:18 PM EDT Elizabeth Holbrook LPN No [facility] 10-17-2014 Are you blind, or do you have serious difficulty seeing, even when wearing glasses No 10/17/2014 2:18 PM EDT Elizabeth Holbrook LPN No [facility] 10-17-2014 Do you have serious difficulty walking or climbing stairs No 10/17/2014 2:18 PM EDT Elizabeth Holbrook LPN No [facility] 10-17-2014 Do you have difficul ty dressing or bathing No 10/17/2014 2:18 PM EDT Elizabeth Holbrook LPN No [facility] 10-17-2014 Because of a physica l, mental, or emotional condition, do you have difficulty doing errands alone such as visiting a physician's office or shopping No 10/17/2014 2:18 PM EDT Elizabeth Holbrook LPN No [facility] Mental Status Date Assessment Result Facility 01-03-2025 Cognitive function Voice/Name [facility] Work Phone: 10-17-2014 Because of a physica l, mental, or emotional condition, do you have serious difficulty concentrating, remembering, or making decisions No 10/17/2014 2:18 PM EDT Elizabeth Holbrook LPN No [facility] Clinical Notes 11-04-2010 to 01-03-2025 Note Date & Type Note Facility 01-03-2025 Radiology Diagnostic study note [facility] Imaging Services [address] [place] [address] Chest PA and Lateral MR#: [id number] Acct: [id number] Name: EDNA AKERS Rep #: [id number] : 1980 F 44 From: Bob Garcia MD PCP: Dr. Mindy Araujo MD Status: R EG ER Study:Chest PA and Lateral Date of Exam: 01/03/25 Exam# [id number] Ordering Dr: Dariela Bolden PROCEDURE: CHEST PA AND LATERAL 01/03/2025 REASON FOR EXAM: CHEST PAIN TECHNIQUE: CHEST PA AND LATERAL COMPARISON: None FINDINGS: Hardware: EKG electrodes are seen. Heart: The heart size is normal. Mediastinum: The mediastinal contour is unremarkable. Lungs: The lungs are clear. Bones: Unremarkable RAD/Chest PA and Lateral IMPRESSION: NO ACUTE FINDINGS. Reading Location: [id number] CC: Dr. Mindy Araujo MD; MAGGI Alfredo ~ Take Off Worker: Signed [facility] 11-16-2024 Evaluation note Diagnosis Onset Date Resolution Conjunctivitis, right eye acute November 16, 2024 8:03am UTI (urinary tract infection) acute December 15, 2024 8:03am [facility] Work Phone: 1(264) 487-209506-21-2025 Evaluation note* Diagnosis Onset Date Resolution Status Admit Date Conjunctivitis, right eye acute November 16, 2024 8:03am UTI (urinary tract infection) acute December 15, 2024 8:03am Preventative health care acute December 30, 2024 8:51am Anxiety and depression chronic Au 2024 8:51am Hypertension chronic December 30, 2024 8:51am [facility] Work Phone: 1(218) 799-117404-10-2025 Telephone encounter Note* Telephone Encounter - Makenzie Clancy MD - 09/05/2024 8:17 AM EDT filed [facility]04-10-2025 Miscellaneous Notes* Telephone Encounter - Makenzie Clancy [...] pills Mireille Ortiz RN documented in this encounterOhio[facility]04-09-2025 Telephone encounter Note * Telephone Encounter - [...] use, skip inactive pills Mireille Ortiz RN [facility]04-03-2025 Telephone encounter Note* Telephone Encounter - Makenzie Clancy MD - 08/29/2024 12:02 PM EDT filed [facility]04-03-2025 Miscellaneous Notes* Telephone Encounter - Makenzie Clancy MD - 08/29/2024 12:02 PM EDT filed * Telephone Encounter - Mireille Ortiz RN - 08/29/2024 10:50 AM EDT Last annual 05/31/24 and per patient [facility] did not receive that years supply rx that was escripted that day. Please file again and cancel all other previous rx. Rx that was sent today was only for 28 pills. Mireille Ortiz RN documented in this encounterOhio[facility]04-03-2025 Telephone encounter Note * Telephone Encounter - Mireille Ortiz RN - 08/29/2024 10:50 AM EDT Last annual 05/31/24 and per patient [facility] did not receive that years supply rx that was escripted that day. Please file again and cancel all other previous rx. Rx that was sent today was only for 28 pills. Mireille Ortiz RN [facility]04-03-2025 Telephone encounter Note* Telephone Encounter - Makenzie Clancy MD - 08/29/2024 9:18 AM EDT filed [facility]04-03-2025 Miscellaneous Notes* Telephone Encounter - Makenzie Clancy MD - 08/29/2024 9:18 AM EDT filed * Telephone Encounter - Marilynn Mae RN - 08/27/2024 9:33 AM EDT Last OV 05/31/24. Requested Prescriptions Pending Prescriptions Disp Refills drospirenone-e.estradiol-lm.FA (BEYAZ) 3-0.02-0.451 mg (24) (4) tab 84 tablet 3 Sig: Take 1 tablet by mouth once daily. for continuous use, skip inactive pills [facility] did not receive Rx 05/31/24. Marilynn Mae RN documented in this encounterOhiohealth [facility]04-01-2025 Telephone encounter Note * Telephone Encounter - Marilynn Mae RN - 08/27/2024 9:33 AM EDT Last OV 05/31/24. Requested Prescriptions Pending Prescriptions Disp Refills drospirenone-e.estradiol-lm.FA (BEYAZ) 3-0.02-0.451 mg (24) (4) tab 84 tablet 3 Sig: Take 1 tablet by mouth once daily. for continuous use, skip inactive pills [facility] did not receive Rx 05/31/24. Marilynn Mae RN [facility]03-26-2025 History of Present illness Narrative* Manpreet Ricketts Mammo Tech - 08/21/2024 7:10 AM EDT [...] PATIENT PRESENTS WITH AN IMPLANTABLE OR ATTACHED HOME SERVICE DIRECTOR: No RADIOLOGY DEPARTMENT: Mammography PERIPHERAL IV DATA: Not applicable SIGNED BY: Chong Larsen August 21, 2024 7:28 AM documented in this encounterOhiohealth Nelsonville Health Center03-26-2025 NoteHNO ID: [id number] Author: MANPREET RICKETTS Mammo Tech Service: ? Author Type: Hydroelectric Station Operator Type: Progress Notes Filed: 08/21/2024 07:28 Note [...] PATIENT PRESENTS WITH AN IMPLANTABLE OR ATTACHED HOME SERVICE DIRECTOR: No RADIOLOGY DEPARTMENT: Mammography PERIPHERAL IV DATA: Not applicable SIGNED BY: Chong Larsen August 21, 2024 7:28 [facility]01-03-2025 NoteHNO ID: [id number] Author: MAKENZIE CLANCY MD Service: ? Author Type: Physician Type: Progress Notes Filed: 05/31/2024 17:08 Note Text: Slip Mixer offered: Patient declines. Edna is a 43 [...] L2 SAB0 IAB0 Ectopic0 Multiple0 Live Births2 Point Of Care Specialist History LMP: 05/17/2024, Having periods Age at Menarche: 12 Age at First : Age at Menopause: Point Of Care Specialist History Comments: Sexual Activity: Yes; Male Contraception: [...] discussed with the Patient or Patient's Authorized Cinder Dump Crane Operator. As applicable, any other physician, advance practice provider, medical student, or other health professional student that will be observing or involved in the sensitive examination for educational or training purposes was discussed with the Patient or Authorized Cinder Dump Crane Operator. The Patient or Authorized Cinder Dump Crane Operator has agreed to proceed with the sensitive [...] external genitalia normal, normal Bartholin's glands, urethra, Parshall's glands, no vulvar lesions, no cervical lesions, [...] year or sooner as needed Makenzie Clancy [facility]01-03-2025 History of Present illness Narrative* Makenzie Clancy MD - 05/31/2024 2:09 PM EST Slip Mixer offered: Patient declines. Edna is a 43 [...] L2 SAB0 IAB0 Ectopic0 Multiple0 Live Births2 Point Of Care Specialist History LMP: 05/17/2024, Having periods Age at Menarche: 12 Age at First : Age at Menopause: Point Of Care Specialist History Comments: Sexual Activity: Yes; Male Contraception: [...] discussed with the Patient or Patient's Authorized Cinder Dump Crane Operator. As applicable, any other physician, advance practice provider, medical student, or other health professional student that will be observing or involved in the sensitive examination for educational or training purposes was discussed with the Patient or Authorized Cinder Dump Crane Operator. The Patient or Authorized Cinder Dump Crane Operator has agreed to proceed with the sensitive [...] external genitalia normal, normal Bartholin's glands, urethra, Parshall's glands, no vulvar lesions, no cervical lesions, [...] needed Makenzie Clancy DO documented in this encounterOhiohealth Nelsonville Health Center03-25-2024 Miscellaneous Notes* Letter - Coordinator, Mammography - 08/21/2023 3:07 PM EDT August 22, 2023 PID: [id number] Edna Akers [address] [place] [id number] Dear Ms. Akers, We are pleased to [...] report will be kept on file at [facility] as part of your permanent medical record and are available for your continuing care. Thank you for allowing us to help in meeting your health care needs. Sincerely, Dr. Storey Interpreting Radiologist [facility] (Normal over 40) documented in this encounterOhiohealth Nelsonville Health Center03-25-2024 History of Present illness Narrative* Manpreet Ricketts Mammo Hugo - 08/21/2023 7:50 AM EDT Radiology Service [...] PATIENT PRESENTS WITH AN IMPLANTABLE OR ATTACHED HOME SERVICE DIRECTOR: No RADIOLOGY DEPARTMENT: Mammography PERIPHERAL IV DATA: Not applicable SIGNED BY: Chong Larsen August 21, 2023 7:49 AM documented in this encounterOhiohealth Nelsonville Health Center02-13-2024 Miscellaneous Notes* Telephone Encounter - Lauren Rodriguez [...] advise. Lauren Rodriguez LPN' documented in this encounterOhiohealth Nelsonville Health Center02-12-2024 History of Present illness Narrative* Kisha Almanzar [...] L2 SAB0 IAB0 Ectopic0 Multiple0 Live Births2 Point Of Care Specialist History LMP: 01/30/2020, Drug Induced Amenorrhea Age at Menarche: Age at First : Age at Menopause: Point Of Care Specialist History Comments: Sexual Activity: Yes; Male Contraception: [...] external genitalia normal, normal Bartholin's glands, urethra, Parshall's glands, no vulvar lesions, no cervical lesions, [...] needed Kisha Almanzar MD documented in this encounterOhiohealth Nelsonville [facility] Center02-06-2024 Miscellaneous Notes* Telephone Encounter - Lauren Rodriguez LPN - 07/04/2023 2:34 PM EST Pt has scheduled appointment on 07/10/23. Please advise. Lauren Rodriguez LPN documented in this encounterOhiohealth Nelsonville Health Center02-06-2024 Miscellaneous Notes* Telephone Encounter - Daisy Valente, RN - 07/04/2023 9:58 AM EST Requested Prescriptions Pending Prescriptions Disp Refills drospirenone-e.estradiol-lm.FA (BEYAZ) 3-0.02-0.451 mg (24) (4) tab 84 tablet 0 Sig: Take 1 tablet by mouth once daily. for continuous use, skip inactive pills Next annual exam: 07/10/23 Please approve the above prescription(s) to electronically send to pharmacy. Daisy Valente RN documented in this encounterOhiohealth Nelsonville Health Center10-11-2023 Miscellaneous Notes* Telephone Encounter - Staci Jimenez RN - 03/08/2023 9:02 AM EDT Last seen for annual exam on 02/02/22. [employer] message sent to patient to schedule appointment. Staci Jimenez RN documented in this encounterOhiohealth Nelsonville Health Center11-10-2022 History of Present illness Narrative* Lauren Rodriguez LPN - 04/07/2022 9:12 AM EST Pt here today for 2nd gardasil vaccine. Lauren Rodriguez LPN documented in this encounterOhiohealth Nelsonville Health Center09-07-2022 Instructions* Patient Instructions* Kisha Almanzar MD - [...] glands, joint and muscle pain, weakness and Guillain-Winchester syndrome. documented in this encounterOhiohealth Nelsonville Health Center09-07-2022 History of Present illness Narrative* Kisha Almanzar [...] L2 SAB0 IAB0 Ectopic0 Multiple0 Live Births2 Point Of Care Specialist History LMP: 01/30/2020, Having periods Age at Menarche: Age at First : Age at Menopause: Point Of Care Specialist History Comments: Sexual Activity: Yes; Male Contraception: [...] external genitalia normal, normal Bartholin's glands, urethra, Parshall's glands, no vulvar lesions, no cervical lesions, [...] injection. Nancy Salazar Ma documented in this encounterOhiohealth Nelsonville Health Center06-10-2022 Miscellaneous Notes* Addendum Note - Kisha Almanzar [...] once daily. JARET: No documented in this encounterOhiohealth Nelsonville Health Center06-09-2011 History of Past illness Narrative* Problem Noted Date Resolved Date Supervision of normal subsequent 11/0402/01/2011 Previous section 08/11/20102010 Supervision of normal first 06/05/2007 07/09/2010 documented as of this encounter (statuses as of 11/05/2021) [facility] of Past illness Narrative* Problem Noted Date Resolved Date Supervision of normal subsequent 11/0402/01/2011 Previous section 08/11/20102010 Supervision of normal first 06/05/2007 07/09/2010 documented as of this encounter (statuses as of 11/05/2021) [facility] of Past illness Narrative* Problem Noted Date Resolved Date Supervision of normal subsequent 11/0402/01/2011 Previous section 08/11/20102010 Supervision of normal first 06/05/2007 07/09/2010 documented as of this encounter (statuses as of 02/02/2022) [facility] of Past illness Narrative* Problem Noted Date Resolved Date Supervision of normal subsequent 11/0402/01/2011 Previous section 08/11/20102010 Supervision of normal first 06/05/2007 07/09/2010 documented as of this encounter (statuses as of 03/14/2022) [facility] of [facility] illness Narrative* Problem Noted Date Resolved Date Supervision of normal subsequent 11/0402/01/2011 Previous section 08/11/20102010 Supervision of normal first 06/05/2007 07/09/2010 documented as of this encounter (statuses as of 04/07/2022) [facility] of [facility] illness Narrative* Problem Noted Date Resolved Date Supervision of normal subsequent 11/0402/01/2011 Previous section 08/11/20102010 Supervision of normal first 06/05/2007 07/09/2010 documented as of this encounter (statuses as of 04/12/2022) [facility] of [facility] illness Narrative* Problem Noted Date Diagnosed Date Resolved Date Supervision of normal subsequent 11/04/2010 02/01/2011 Previous section 08/11/2010 Supervision of normal first 06/05/2007 07/09/2010 documented as of this encounter (statuses as of 03/08/2023) [facility] of [facility] Narrative* Problem Noted Date Diagnosed Date Resolved Date Supervision of normal subsequent 11/04/2010 02/01/2011 Previous section 08/11/2010 Supervision of normal first 06/05/2007 07/09/2010 documented as of this encounter (statuses as of 05/01/2023) [facility] of [facility] illness Narrative* Problem Noted Date Diagnosed Date Resolved Date Supervision of normal subsequent 11/04/2010 02/01/2011 Previous section 08/11/2010 Supervision of normal first 06/05/2007 07/09/2010 documented as of this encounter (statuses as of 07/04/2023) [facility] Narrative* Problem Noted Date Diagnosed Date Resolved Date Supervision of normal subsequent 11/04/2010 02/01/2011 Previous section 08/11/2010 Supervision of normal first 06/05/2007 07/09/2010 documented as of this encounter (statuses as of 07/05/2023) [facility] illness Narrative* Problem Noted Date Diagnosed Date Resolved Date Supervision of normal subsequent 11/04/2010 02/01/2011 Previous section 08/11/2010 Supervision of normal first 06/05/2007 07/09/2010 documented as of this encounter (statuses as of 07/11/2023) [facility] illness Narrative* Problem Noted Date Diagnosed Date Resolved Date Supervision of normal subsequent 11/04/2010 02/01/2011 Previous section 08/11/2010 Supervision of normal first 06/05/2007 07/09/2010 documented as of this encounter (statuses as of 07/11/2023) [facility] of [facility] illness Narrative* Problem Noted Date Diagnosed Date Resolved Date Supervision of normal subsequent 11/04/2010 02/01/2011 Previous section 08/11/2010 Supervision of normal first 06/05/2007 07/09/2010 documented as of this encounter (statuses as of 08/22/2023) [facility] of [facility] illness Narrative* Problem Noted Date Diagnosed Date Resolved Date Supervision of normal subsequent 11/04/2010 02/01/2011 Previous section 08/11/2010 Supervision of normal first 06/05/2007 07/09/2010 documented as of this encounter (statuses as of 08/23/2023) [facility] note* Diagnosis Encounter for gynecological examination (general) (routine) without abnormal findings- Primary Encounter for screening mammogram for breast cancer Need for prophylactic vaccination/inoculation against viral disease Need for prophylactic vaccination and inoculation against other viral diseases Screen for STD (sexually transmitted disease) Screening examination for venereal disease documented in this encounter [facility] note* Diagnosis Need for prophylactic vaccination/inoculation against viral disease- Primary Need for prophylactic vaccination and inoculation against other viral diseases [facility] Diagnosis Onset Date Resolution Status Hypertension chronic [facility] Work Phone: evaluation note* Diagnosis Onset Date Resolution Status Alcohol use disorder chronic Hypertension chronic Bee sting reaction acute Dysuria acute [facility] Work Phone: [employer] note* Diagnosis Encounter for gynecological examination (general) (routine) without abnormal findings- Primary Encounter for screening mammogram for breast cancer [facility] Diagnosis Encounter for gynecological examination (general) (routine) without abnormal findings Encounter for screening mammogram for breast cancer documented in this encounter [facility] note* Diagnosis Encounter for gynecological examination (general) (routine) without abnormal findings- Primary Screening for cervical cancer Screening for malignant neoplasm of the cervix Encounter for screening for human papillomavirus (HPV) Special screening examination for human papillomavirus (HPV) Encounter for screening mammogram for breast cancer documented in this encounter [facility] note* Diagnosis Encounter for screening mammogram for breast cancer documented in this encounter [facility] note* Diagnosis Onset Date Resolution Status Admit Date Conjunctivitis, right eye acute November 16, 2024 8:03am [facility] Work Phone: Hospital Discharge instructionsAmbulatory Orders* Dermatology Location: None Selected [facility] Work Phone: Hospital Discharge instructionsAdditional Instructions The screening test of your heart are normal with no signs of heart attack. I suspect your symptoms are related to alcohol withdrawal which can cause increased anxiety, high blood pressure, and chest pain. If it anytime you would like to detox in the hospital or symptoms worsen I recommend you come back to the emergency room. Your potassium level is low. The HCTZ can cause this as well as lack of potassium in your diet. Follow-up with your doctor.[facility] Work Phone: Reason for referral (narrative)* Diagnostic Procedure Only (Routine) - Authorized Specialty Diagnoses / Procedures Referred By Contac t Referred To Contact [facility] Diagnoses Encounter for gynecological examination (general) (routine) without abnormal findings Encounter for screening mammogram for breast cancer Procedures NICK SCREENING W MAXIMILIAN SCREENING DIGITAL BREAST TOMOSYNTHESIS BI SCREENING MAMMOGRAPHY BI 2-VIEW BREAST INC Kisha Zapata MD [address] [place] [address] [facility] [address] [address] Referral ID Status Reason Start Date Expiration Date Visits Requested Visits Authorized [id number] Authorized Auto-Generat ed Referral 02/02/2022 03/04/2023 1 1 [facility] for referral (narrative)* Diagnostic Procedure Only (Routine) - Pending Review Specialty Diagnoses / Procedures Referred By Contac t Referred To Contact [facility] Diagnoses Encounter for gynecological examination (general) (routine) without abnormal findings Encounter for screening mammogram for breast cancer Procedures NICK SCREENING W MAXIMILIAN SCREENING DIGITAL BREAST TOMOSYNTHESIS BI SCREENING MAMMOGRAPHY BI 2-VIEW BREAST INC Kisha Zapata MD [address] [place] [address] [facility] [address] [place] [address] Referral ID Status Reason Start Date Expiration Date Visits Requested Visits Authorized [id number] Pending Review Auto-Generat ed Referral 07/10/2023 08/08/2024 1 1 [facility] for referral (narrative)* Diagnostic Procedure Only (Routine) - Closed Specialty Diagnoses / Procedures Referred By Contac t Referred To Contact [facility] Diagnoses Encounter for gynecological examination (general) (routine) without abnormal findings Encounter for screening mammogram for breast cancer Procedures NICK SCREENING W MAXIMILIAN SCREENING DIGITAL BREAST TOMOSYNTHESIS BI SCREENING MAMMOGRAPHY BI 2-VIEW BREAST INC Kisha Zapata MD [address] [place] [address] [facility] [address] [place] [address] Referral ID Status Reason Start Date Expiration Date V isits Requested Visits Authorized [id number] Closed Auto-Generate d Referral 07/10/2023 08/08/2024 1 1 [facility] for referral (narrative)* Diagnostic Procedure Only (Routine) - Authorized Specialty Diagnoses / Procedures Referred By Wolfgang potts Referred To Contact [facility] Diagnoses Encounter for screening mammogram for breast cancer Procedures NICK SCREENING W MAXIMILIAN SCREENING DIGITAL BREAST TOMOSYNTHESIS BI SCREENING MAMMOGRAPHY BI 2-VIEW BREAST INC Makenzie Santos MD [address] [place] [address] [facility] [address] [place] [address] Referral ID Status Reason Start Date Expiration Date Visits Requested Visits Authorized [id number] Authorized Auto-Generat ed Referral 05/31/2024 06/30/2025 1 1 [facility] for referral (narrative)No reason for referral [facility] Work [facility]: [employer] for visit Narrative* Diagnostic Procedure Only (Routine) - Closed Specialty Diagnoses / Procedures Referred By Wolfgang potts Referred To Contact [facility] Diagnoses Encounter for gynecological examination (general) (routine) without abnormal findings Encounter for screening mammogram for breast cancer Procedures NICK SCREENING W MAXIMILIAN SCREENING DIGITAL BREAST TOMOSYNTHESIS BI SCREENING MAMMOGRAPHY BI 2-VIEW BREAST INC Kisha Zapata MD [address] [place] [address] [facility] [address] [place] [address] Referral ID Status Reason Start Date Expiration Date V isits Requested Visits Authorized [id number] Closed Auto-Generate d Referral 07/10/2023 08/08/2024 1 1 [facility] N[facility]* Diagnostic Procedure Only (Routine) - Closed Specialty Diagnoses / Procedures Referred By Wolfgang potts Referred To Contact [facility] Diagnoses Encounter for screening mammogram for breast cancer Procedures NICK SCREENING W MAXIMILIAN SCREENING DIGITAL BREAST TOMOSYNTHESIS BI SCREENING MAMMOGRAPHY BI 2-VIEW BREAST INC Makenzie Santos MD [address] [place] [address] Phone: tel: fax: [facility] [address] [place] [address] Referral ID Status Reason Start Date Expiration Date V isits Requested Visits Authorized [id number] Closed Auto-Generate d Referral 05/31/2024 06/30/2025 1 1 [facility] Chief Complaint and Reason for Visit Chief [...] 8:51am Hypertension December 30, 2024 8:5 1am Chief Complaint Admit Date CONCERN FOR PINK EYE/R EYE November 16 8:03am concern for uti December 15, 2024 8:03 am 6 M FU December 30, 2024 8:5 1am Chest pain January 03, 2025 2:2 0pm Chief Complaint Admit Date CONCERN FOR PINK EYE/R EYE November 16 8:03am concern for uti December 15, 2024 8:03 am 6 M FU December 30, 2024 8:5 1am Chest pain January 03, 2025 2:2 0pm [facility] FU January 10, 2025 8: 05am Family History Relationship Condition Age at Onset Recorded Date/T luis alfredo Not Specified Malignant neoplasm of breast Unknown Seizure Unknown Hypertension Unknown Cerebrovascular accident (CVA) Unknown Advance Directives Advance Directive Response Recorded Date/ Time Living Will No July 12 022 11:02am Power of District Supervisor No July 12, 2021 11:02am Advance Directive Response Recorded Date/ Time Do you have a Healthcare Power of District Supervisor? No January 03, 2025 2:42pm Summary Purpose Additional Source Comments Source Comments (unrecognize d section and content) In the event this informatio n is protected by the Federal Confidentiality of Alcohol and Drug Abuse Patient Records regulations: The Federal rules restrict any use of the information to criminally investigate or prosecute any alcohol or drug abuse patient.[facility] the event this information is protected by the Federal Confidentiality of Alcohol and Drug Abuse Patient Records regulations: The Federal rules restrict any use of the information to criminally investigate or prosecute any alcohol or drug abuse patient.[facility] CenterIn the event this information is protected by the Federal Confidentiality of Alcohol and Drug Abuse Patient Records regulations: The Federal rules restrict any use of the information to criminally investigate or prosecute any alcohol or drug abuse patient.[facility] Center[facility] the event this information is protected by the Federal Confidentiality of Alcohol and Drug Abuse Patient Records regulations: The Federal rules restrict any use of the information to criminally investigate or prosecute any alcohol or drug abuse patient.[facility] CenterIn the event this information is protected by the Federal Confidentiality of Alcohol and Drug Abuse Patient Records regulations: The Federal rules restrict any use of the information to criminally investigate or prosecute any alcohol or drug abuse patient.[facility] Center[facility] the event this information is protected by the Federal Confidentiality of Alcohol and Drug Abuse Patient Records regulations: The Federal rules restrict any use of the information to criminally investigate or prosecute any alcohol or drug abuse patient.[facility] CenterIn the event this information is protected by the Federal Confidentiality of Alcohol and Drug Abuse Patient Records regulations: The Federal rules restrict any use of the information to criminally investigate or prosecute any alcohol or drug abuse patient.[facility] CenterIn the event this information is protected by the Federal Confidentiality of Alcohol and Drug Abuse Patient Records regulations: The Federal rules restrict any use of the information to criminally investigate or prosecute any alcohol or drug abuse patient.[facility] CenterIn the event this information is protected by the Federal Confidentiality of Alcohol and Drug Abuse Patient Records regulations: The Federal rules restrict any use of the information to criminally investigate or prosecute any alcohol or drug abuse patient.[facility] Center[facility] the event this information is protected by the Federal Confidentiality of Alcohol and Drug Abuse Patient Records regulations: The Federal rules restrict any use of the information to criminally investigate or prosecute any alcohol or drug abuse patient.[facility] CenterIn the event this information is protected by the Federal Confidentiality of Alcohol and Drug Abuse Patient Records regulations: The Federal rules restrict any use of the information to criminally investigate or prosecute any alcohol or drug abuse patient.[facility] CenterIn the event this information is protected by the Federal Confidentiality of Alcohol and Drug Abuse Patient Records regulations: The Federal rules restrict any use of the information to criminally investigate or prosecute any alcohol or drug abuse patient.[facility] CenterIn the event this information is protected by the Federal Confidentiality of Alcohol and Drug Abuse Patient Records regulations: The Federal rules restrict any use of the information to criminally investigate or prosecute any alcohol or drug abuse patient.[facility] CenterIn the event this information is protected by the Federal Confidentiality of Alcohol and Drug Abuse Patient Records regulations: The Federal rules restrict any use of the information to criminally investigate or prosecute any alcohol or drug abuse patient.[facility] CenterIn the event this information is protected by the Federal Confidentiality of Alcohol and Drug Abuse Patient Records regulations: The Federal rules restrict any use of the information to criminally investigate or prosecute any alcohol or drug abuse patient.[facility] CenterIn the event this information is protected by the Federal Confidentiality of Alcohol and Drug Abuse Patient Records regulations: The Federal rules restrict any use of the information to criminally investigate or prosecute any alcohol or drug abuse patient.[facility] CenterIn the event this information is protected by the Federal Confidentiality of Alcohol and Drug Abuse Patient Records regulations: The Federal rules restrict any use of the information to criminally investigate or prosecute any alcohol or drug abuse patient.[facility] CenterIn the event this information is protected by the Federal Confidentiality of Alcohol and Drug Abuse Patient Records regulations: The Federal rules restrict any use of the information to criminally investigate or prosecute any alcohol or drug abuse patient.[facility] CenterIn the event this information is protected by the Federal Confidentiality of Alcohol and Drug Abuse Patient Records regulations: The Federal rules restrict any use of the information to criminally investigate or prosecute any alcohol or drug abuse patient.[facility] CenterIn the event this information is protected by the Federal Confidentiality of Alcohol and Drug Abuse Patient Records regulations: The Federal rules restrict any use of the information to criminally investigate or prosecute any alcohol or drug abuse patient.[facility] Reason for Visit (unrecogniz ed section and [...] Provider, Refer ring Provider Active Nicolás Oscar SENIOR MECHANICAL TECHNICIAN, SENIOR MECHANICAL TECHNICIAN-C Attending Provider Active Team Status: Inactive Member Role Status Dates Dr. Mindy Araujo MD Primary Care Provider Active Nicolás Oscar SENIOR MECHANICAL TECHNICIAN, SENIOR MECHANICAL TECHNICIAN-C Attending Provider, Referring Prov ider Active Team Status: Inactive Member Role Status Dates Dr. Mindy Araujo MD Primary Care P rodariader, Attending Provider, Referring Provider Active Team Status: [...] December 15, 2024 End: December 15, 2024 [facility] Self Schedule Attending Provider Active Start: December 15, 2024 End: December 15, 2024 Team Status: Inactive Member Role/Relationship Status Dates Dr. Mindy Araujo MD Primary Care Provider Active Start: December 15, 2024 End: December 15, 2024 Ez Robles SENIOR MECHANICAL TECHNICIAN, SENIOR MECHANICAL TECHNICIAN-C Attending Provider Active S tart: December 15, [...] Referring Provider Active Start: December 30, 2024 Team Status: Active Member Role/Relationship Status Dates Dr. Mindy Araujo MD Primary Care Provider Active Team Status: Inactive Member Role/Relationship Status Dates Dr. Mindy Araujo MD Primary Care Provider Active Start: January 03, 2025 End: January 03, 2025 Dr. Jhonathan Davidson MD Emergency Provider Active S tart: January 03, 2025 End: January 03, 2025 Team Status: Inactive Member Role/Relationship Status Dates Dr. Mindy Araujo MD Primary Care Provider Active Start: January 03, 2025 End: January 03, 2025 Dr. Jhonathan Davidson MD Attending Provider Active S tart: January 03, 2025 End: January 03, 2025 Dr. Jhonathan Davidson MD Emergency Provider Active S tart: January 03, 2025 End: January 03, 2025 Team Status: Inactive Member Role/Relationship Status Dates Dr. Mindy Araujo MD Primary Care Provider Active Start: January 10, 2025 End: January 10, 2025 Dr. Mindy Araujo MD Attending Provider Active Start: January 10, 2025 End: January 10, 2025 Dr. Mindy Araujo MD Referring Provider Active Start: January 10, 2025 End: January 10, 2025 Goals (unrecognized section and content) Goals may [...] section and content) DATE CREATED AUTHOR 08/23/2024 [facility] DATE CREATED AUTHOR AUTHOR'S KATELIN CEBALLOS 01/07/2025 [facility] FOR RECORDS PERTAINING TO PATIENTS [...] BE BASED ON THE PRIMARY CLINICAL RECORDS. [employer] [facility]. provides no warranty or guarantee of the accuracy or completeness of information in this document.
[2025-01-11 09:12] LABS: AST(SGOT) 32 U/L (<=31); Alanine Aminotransfer ALT/SGPT 32 U/L (<=34); Albumin, Serum 4.3 g/dL (3.5-5.0); Alkaline Phosphatase 64 U/L (35-104); Anion Gap 12 (5-15); BUN 9 mg/dL (4-19); BUN/Creat Ratio 12.3 RATIO (10-20); Calcium,Total 9.4 mg/dL (7.6-11.0); Carbon Dioxide 25.2 mmol/L (21.0-32.0); Chloride 102 mmol/L (98-108); Globulin 2.2 g/dL (2.2-4.2); Glucose 92 mg/dL (70-99); Magnesium 2.1 mg/dL (1.5-2.2); Potassium 3.9 mmol/L (3.3-5.1); Vitamin B12 344 pg/mL (180-914)
[2025-01-11 10:29] LABS: Cholesterol 216 mg/dL (<=200); Low Density Lipoprotein Calc. 91 mg/dL; Triglycerides 88 mg/dL; Very Low Density Lipoprotein 18 mg/dL (5-40); cholesterol:hdl ratio screen 2.00
== END | disposition home or self-care (01) ==
LOC: LAB 07:34
PROVIDERS: PCP Internal Medicine; Referring Provider Internal Medicine; Visit Provider Internal Medicine
DX: I10 Essential (primary) hypertension (principal); I49.9 Cardiac arrhythmia, unspecified; F32.A Depression, unspecified; F41.9 Anxiety disorder, unspecified
CPT/HCPCS: 36415; 80053; 80061; 82607; 83735; 84439; 84443